=== PATIENT | male | born 1940 | race Caucasian/White ===

== ENCOUNTER 2025-02-10 14:51 | Emergency (ER) | payer MEDICARE, BC, SELFPAY ==
--- OUTSIDE RECORDS SUMMARY | 2024-12-20 13:00 | XMS_ITS | Encounter Summary ---
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 to the report of 11/05/2021 the following changes haveoccurred: TR and MR more prominent. Findings LEFT VENTRICLE:Normal left ventricular chamber size. Normal leftventricular geometry. Calculated 2-D biplane volumetric left ventricularejection fraction of 66%. No regional wall motion abnormalities.Indeterminate left ventricular filling pressure. RIGHT VENTRICLE:Mildly enlarged right ventricular chamber size. Mildlyreduced right ventricular systolic function. Averaged right ventricularfree wall longitudinal peak systolic strain, vendor calculated, is -18%(normal </= -25%). Estimated right ventricular systolic pressure 37 mmHg(right atrial pressure of 10 mmHg). ATRIA:Severely enlarged left atrial size. Left atrial volume index 53ml/m2. Severely enlarged right atrial size. CARDIAC VALVES:Trileaflet aortic valve. Mildly thickened aortic valve.Mild aortic valve regurgitation. Thickened mitral valve. Mild-moderatemitral valve regurgitation. Mitral regurgitant volume (PISA) 29 ml. Mitralregurgitation ERO (PISA) 0.17 cm2. Normal pulmonary valve. Trivialpulmonary valve regurgitation. Thickened tricuspid valve. Mild-moderatetricuspid valve regurgitation. Tricuspid regurgitant volume (PISA) 25 ml.Tricuspid regurgitation ERO (PISA) 0.30 cm2. OTHER ECHO FINDINGS:Normal inferior vena cava size with reducedinspiratory collapse (<50%). Normal sinus of Valsalva diameter of 35 mm.Proximal ascending aorta diameter of 40 mm. Normal mid ascending aortadiameter of 40 mm. Abdominal aorta incompletely visualized. Normalabdominal aorta Doppler flow pattern. No atrial level shunt by color flowimaging. No intracardiac mass or thrombus, but the left atrial appendagecannot be visualized adequately with transthoracic echo to excludethrombus in this location. No pericardial effusion. For the complete report, see the Order-Level Documents. us Ema Del Toro APRN, C.N.P., M.S.N. CV ECHO DARCI BENITEZ Final Result documented in this encounter Visit Diagnoses Diagnosis Atrial Fibrillation Longstanding Persistent (HCC)- Primary Anticoagulant Therapy Hypertension Essential Primary Repeated Falls Ataxia Neuropathy Atrial Fibrillation Longstanding Persistent (HCC) Atrial Fibrillation Longstanding Persistent (HCC) documented in this encounter Additional Health Concerns Assessment Noted Time PHQ-9 Depression Total Score: 1 01/26/20 23 2:13 PM CDT documented as of this encounter Care Teams Glazing Superintendent Relationship Specialty Start Date End Date Elsewhere, Pcp PCP - General Internal Medicine 01/30/24 documented as of this encounter
--- OUTSIDE RECORDS SUMMARY | 2024-12-31 09:05 | XMS_ITS | Encounter Summary ---
Author Organization [facility] Address [address] [place] [address] Care Team Providers Care Project Administrator Name Role Phone Elsewhere, Pcp Primary Care Provider Unavailabl e Reason for Referral * Gastrointestinal (Routine) - Closed Specialty Diagnoses / Procedures Referred By Contac t Referred To Contact Diagnoses Dysphagia Procedures EGD (EsophagoGastroDuodenoscopy) Restricted Gaetano Roman APRN, C.N.P., M.S. [address] [place] [address] Phone: tel: fax: [facility] Referral ID Status Reason Start Date Expiration Date Visits Re quested Visits Authorized [id number] Closed 12/25/2024 03/27/2026 1 1 Reason for Visit * Gastrointestinal (Routine) - Closed Specialty Diagnoses / Procedures Referred By Contac t Referred To Contact Diagnoses Dysphagia Procedures EGD (EsophagoGastroDuodenoscopy) Restricted Gaetano Roman APRN, C.N.P., M.S. [address] [place] [phone] Phone: tel: fax: [facility] Referral ID Status Reason Start Date Expiration Date Visits Re quested Visits Authorized [id number] Closed 12/25/2024 03/27/2026 1 1 Encounter Details Date Type Department Care Team (Latest Contact Info) Description 12/31/2024 9:05 AM CDT - 12/31/2024 1:10 PM CDT Hospital Encounter Division of Gastroenterology in [place], [place] [address] [place] [address] Gaetano Roman APRN, C.N.Eleonora., M.S. [address] [place] [address] Dysphagia Discharge Disposition: Home or Self Care Social History Tobacco Use Types Packs/Day Years [...] things needed for daily living? No 12/31/2024 [facility] Utilities Answer Date Recorded In the past 12 months has th [employer], gas, oil, or water company threatened to shut off services in your home? No 12/31/2024 Depression Answer Date Recor ded PHQ-9 Total Score (max 27) 1 01/25 Housing Stability Answer Date Recorded What is your living situation today? I have a [facility] place to live 12/31/2024 Education Answer Date Recorded What is the highest level of school you have completed or the highest degree you have received? Bachelor's degree (e.g., BA, AB, BS) 01/09/2019 Sex and Gender Information Value Date Recorded Sex Assigned at Male 12/27/2018 12:13 PM CDT Legal Sex Male 1:57 PM [employer] Gender Identity Male 09/04/2018 3:21 PM CDT Sexual Orientation Straight 09/04/2018 3: 21 PM CDT documented as of this encounter Last Filed Vital Signs Vital Sign Reading Time Taken Comments Blood Pressure 127/84 12/31/2024 12:56 PM CDT Pulse 86 12/31/2024 1:01 PM CDT Temperature 36.5 C (97.7 F) 12/31/2024 11:49 AM CDT Respiratory Rate 17 12/31/2024 1:01 PM CDT Oxygen Saturation 95% 12/31/2024 1:01 PM CDT Inhaled Oxygen Concentration - - Weight 84.8 kg (187 lb) 12/31/2024 10:46 AM CDT Height 185.4 cm (6' 1) 12/31/2024 10:46 AM CDT Body Mass Index 24.67 12/31/2024 10:46 AM CDT documented in this encounter Discharge Instructions * Discharge Instr - Other Orders* Opal Osuna, R.N. - 12/31/2024 12:37 PM CDT After Upper Endoscopy 12/31 *No restriction on food *You may resume Eliquis tomorrow 01/01 *You may resume all other medications as prescribed documented in this encounter Medications at Time of Discharge apixaban (Eliquis) 5 mg tablet Take 1 tablet (5 mg total) by mouth 2 (two) times a day. 180 tablet 3 01/05/2024 atenoloL (TENORMIN) 50 mg tablet Take 50 mg by mouth 2 (two) times a day. 10/04/2022 fexofenadine (MOISES) 180 mg tablet Take 1 tablet by mouth daily. 09/26/2010 GLUCOSAMINE HCL/CHONDROITIN AKERS (GLUCOSAMINE-EMMETT DROITIN ORAL) Take 2 tablets by mouth daily. 11/23/2016 multivitamin tablet Take 1 tablet by mouth daily. 11/23/2016 s-adenosylmethion ine (SVEN-e) 400 mg tablet Take 1 tablet by mouth daily. documented as of this encounter Plan of Treatment Upcoming Encounters Date Type Department Care Team (Late st Contact Info) Description 02/11/2025 3:15 PM CDT Appointment Department of Radiation Oncology in [address] [phone] Rey Meadows M.D. [address] [place] [phone] 02/12/2025 1:30 PM CDT Appointment Department of Radiation Oncology in [address] [phone] Rey Meadows M.D. [address] [place] [phone] 02/12/2025 2:00 PM CDT Appointment Department of Radiation Oncology in [address] [phone] Rey Meadows M.D. [address] [place] [phone] 02/13/2025 1:15 PM CDT Appointment Department of Radiation Oncology in [address] [phone] Rey Meadows M.D. [address] [place] [phone] 02/14/2025 12:30 PM CDT Appointment Department of Radiation Oncology in [place], [place] [address] [place] [phone] Rey Meadows M.D. [address] [place] [address] 02/17/2025 1:15 PM CDT Appointment Department of Radiation Oncology in [address] [phone] Rey Meadows M.D. [address] [place] [address] 02/18/2025 1:15 PM CDT Appointment Department of Radiation Oncology in [address] [address] Rey Meadows M.D. [address] [place] [address] 02/19/2025 1:15 PM CDT Appointment Department of Radiation Oncology in [address] [address] Rey Meadows M.D. [address] [place] [phone] 02/19/2025 1:45 PM CDT Appointment Department of Radiation Oncology in [address] [phone] Rey Meadows M.D. [address] [place] [phone] 02/20/2025 1:15 PM CDT Appointment Department of Radiation Oncology in [address] [phone] Rey Meadows M.D. [address] [place] [phone] 02/21/2025 12:30 PM CDT Appointment Department of Radiation Oncology in [place], [place] [address] [place] [phone] Rey Meadows M.D. [address] [place] [phone] 02/24/2025 12:30 PM CDT Appointment Department of Radiation Oncology in [place], [place] [address] [place] [phone] Rey Meadows M.D. [address] [place] [phone] 02/25/2025 12:30 PM CDT Appointment Department of Radiation Oncology in [place], [place] [address] [place] [phone] Rey Meadows M.D. [address] [place] [phone] 02/26/2025 12:30 PM CDT Appointment Department of Radiation Oncology in [place], [place] [address] [place] [address] Rey Meadows M.D. [address] [place] [phone] 02/26/2025 1:15 PM CDT Appointment Department of Radiation Oncology in [place], [place] [address] [place] [address] Rey Meadows M.D. [address] [place] [phone] 02/27/2025 12:30 PM CDT Appointment Department of Radiation Oncology in [place], [place] [address] [place] [phone] Rey Meadows M.D. [address] [place] [address] 02/28/2025 12:30 PM CDT Appointment Department of Radiation Oncology in [place], [place] [address] [place] [phone] Rey Meadows M.D. [address] [place] [phone] documented as of this encounter Procedures Procedure Name Priority Date/Time Associated Diagnosis Comments SURGICAL PATHOLOGY Routine 12/31/2024 11 :35 AM CDT EGD (ESOPHAGOGASTRODUODE NOSCOPY) RESTRICTED Routine 12/31/2024 11:24 AM CDT Dysphagia UPPER GI ENDOSCOPY Routine 12/31/2024 11 :24 AM CDT Dysphagia documented in this encounter Results * Surgical Pathology (12/31/2024 11:35 AM CDT) 01/01/2025 4:03 PM CDT DTL Report electronically signed by Rosa Aguirre.B.S. I verify that I have examined all relevant slides/materials for the specimen(s) and rendered or confirmed the diagnosis. Seen in consultation with: Lizette Juan M.D. 01/01/2025 4:03 PM CDT DTL Gross Description Received in formalin labeled with the patient's name, medical record number, and esophagus, 44-48 cm at 12 o'clock and 4 o'clock aremultiple translucent-pale npw-uohv-rha irregular soft tissues, admixed with minute tissue fragments that may not survive processing, thetissues ranging from 0.2-0.5 cm in greatest dimension. Specimens are submitted en toto in cassettes A1-A2, each containing sevenspecimens and A3, containing eight specimens. Grossed by YUO. 01/01/2025 4:03 PM CDT DTL Addendum Tempus xT, Solid Janki or has been requested by Dr. Sienna Dempsey and will be performed on block A1 at [facility], [place], [place]. Signed by Fidel Tilley M.D., Ph.D. 01/21/2025 11:55 AM Esophagus, 44-48 cm at 12 o'clock and 4 o'clock, specimen for CLD18 immunohistochemistry studies ([id number] ([id number]) clone [id number], [facility], [place], [place]; using a proprietary detection system) (A1) Claudin 18.2 Positive: 90% of tumor cells with 2+ and/or 3+ membrane staining. Interpretation: Claudin 18.2 is a biomarker that, when positive (showing at least moderate membranous staining) in more than 75% of tumor cells, predicts a response to zolbetuximab and has been approved for gastric and gastroesophageal adenocarcinoma. The Claudin 18.2 antibody (clone [id number]) is sourced from [employer] and testing was performed per clinical validation and relevant pill coater-provided instructions. This result should be interpreted in the appropriate clinical context. Fixation: This test has been validated for non-decalcified paraffin embedded tissue specimens fixed in 10% neutral buffered formalin. Recommended fixation time is between 6-48 hours. This assay has not been validated on tissues subjected to the decalcification process and /or use of alternative fixatives. Signed by Abdirashid Sands M.D., Ph.D. 01/19/2025 10:47 AM This test has been modified from the pill coater's instructions. Its performance characteristics were determined by [facility] in a manner consistent with CLIA requirements. This test has not been cleared or approved by the U.S. Food and Drug Administration. A portion of the testing process was performed at [facility] site [id number]. Esophagus, 44-48 cm at 12 o'clock and 4 o'clock, specimen for PD-L1 immunohistochemistry studies (clone [id number], [facility], [place], [place]; using a proprietary detection system) (A1): Provided tumor type: Adenocarcinoma Result: Positive <1% of tumor cells are positive for PD-L1 (membranous positivity). 20% of tumor associated immune cells are positive for PD-L1 (membranous or cytoplasmic positivity). Based upon the tumor cell and tumor-associated immune cell expression, the combined positive score (CPS) is 10. Interpretation: Studies suggest that positive PD-L1 immunohistochemical expression in tumor cells and/or tumor associated immune cells may predict tumor response to therapy with immune checkpoint inhibitors. This result should not be used as the sole factor in determining treatment, as other factors (microsatellite instability, tumor mutation burden, etc.) have been also studied as predictive markers in some tumor types. Fixation: This test has been validated for non-decalcified paraffin embedded tissue specimens fixed in 10% neutral buffered formalin. This assay has not been validated on tissues subjected to the decalcification process and/or use of alternative fixatives for bone/bone marrow specimens or cell blocks. Signed by Abdirashid Sands M.D., Ph.D. 01/15/2025 2:22 PM Esophagus, 44-48 cm at 12 o'clock and 4 o'clock, endoscopic biopsy, block A1 SPECIAL PROCEDURE REPORT Biomarker(s) for: Stomach/gastroesophage al junction adenocarcinoma Result(s): HER2 by Immunohistochemistry (IHC): Negative, Score 0 METHOD AND SCORING HER2 Stomach/gastroesophage al junction Manual Method: Testing is performed using a modified FDA approved [employer] HER2 (4B5) rabbit monoclonal primary antibody and a proprietary detection system. Controls used have: no expression (HER2 score of 0), low expression (HER2 score of 1+) and high expression (HER2 score of 3+). All controls show appropriate reactivity. Scoring is performed according to the following article: Myles J, Jony M, Génesis G, et al. HER2 diagnostics in gastric cancer-guideline validation and development of standardized immunohistochemical testing. [place] Arch. Sep; 457 (3):299-307. Surgical resections: Score of 0 is no reactivity or membranous reactivity in <10% of invasive tumor cells. Score of 1+ is faint/barely perceptible membranous reactivity in >or=10% of tumor cells; cells are reactive only in part of their membrane. Score of 2+ is weak to moderate complete, basolateral or lateral membranous reactivity in >or=10% of tumor cells. Score of 3+ is strong complete, basolateral or lateral membranous reactivity in >or=10% of tumor cells. Biopsy specimens: Score of 0 is no reactivity or no membranous reactivity in any invasive tumor cells. Score of 1+ is *tumor cell cluster(s) with a faint/barely perceptible membranous reactivity irrespective of percentage of invasive tumor cells stained. Score of 2+ is *tumor cell cluster(s) with a weak to moderate complete, basolateral or lateral membranous reactivity irrespective of percentage of invasive tumor cells stained. Score of 3+ is *tumor cell cluster(s) with a strong complete, basolateral or lateral membranous reactivity irrespective of percentage of invasive tumor cells stained. *Tumor cells cluster is defined as a cluster of 5 or more tumor cells by Myles and colleagues. There is no percentage cutoff in biopsy specimens for upper GI tract HER2 scoring. This test has been modified from the pill coater's instructions. Its performance characteristics were determined by [facility] in a manner consistent with CLIA requirements. This test has not been cleared or approved by the U.S. Food and Drug Administration. Signed by Mackenzie Crawford M.D., Ph.D. 01/14/2025 3:33 PM This test was developed using an analyte specific reagent. Its performance characteristics were determined by [facility] in a manner consistent with CLIA requirements. This test has not been cleared or approved by the U.S. Food and Drug Administration. Test results for (IHC or EMMA) testing are valid for specimens fixed between 6 and 72 hours. Delay to fixation, under fixation or over fixation fall outside of guidelines and may affect these results. MMR Protein, IHC Only, Tumor (IHC) will be performed and resulted in the patient's medical record. Signed by Remberto Dobbs M.D. 01/13/2025 10:27 AM 01/21/2025 11:55 AM CDT DTL Comment:REVISED RESULTS Interpretation FINAL DIAGNOSIS A. 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 Digital imaging was used in the diagnostic assessment of this case. 01/21/2025 11:55 AM CDT DTL Biopsy (Esophagus) 12/31/2024 11:35 AM CDT Mars Marrero M.D., Ph.D. LAB SURG PATH [facility] JACOB Edited Result - Final [facility] [address] [place] [address], [facility] [address] [place] [address] * Upper GI Endoscopy (12/31/2024 11:24 AM CDT) Anatomical Region Laterality Modality Digital Radiogra phy 12/31/2024 11:2 4 AM CDT Impressions 12/31/2024 12:19 PM CDT Post-op Diagnoses: - Malignant-appearing esophageal stenosis. Biopsied. 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 - Hematin (altered blood/igteyg-fixhsw-erex material) in the entire stomach. - Normal first portion of the duodenum and second portion of the duodenum. Narrative 12/31/2024 12:19 PM CDT [facility] 6 GI GI Patient Name: Rey Li Date of : 1940 Age: 84 Procedure Date: 12/31/2024 Procedure: Upper GI endoscopy Providers: Mars Marrero MD Referring Provider: Gaetano Roman Pre-op Diagnoses: Dysphagia Recommendation: - Patient has a contact number available for emergencies. The signs and symptoms of potential delayed complications were discussed with the patient. Return to normal activities tomorrow. Written discharge instructions were provided to the patient. - Await pathology results. - Return to referring physician as previously scheduled. Findings: One malignant-appearing, intrinsic mild (non-circumferential scarring) stenosis was found 45-48 cm from the incisors. This stenosis measured 1.4 cm (inner diameter) x 3 cm (in length). The stenosis was traversed. Biopsies were taken with a cold forceps for histology. A medium-sized, fungating and ulcerating mass with bleeding and stigmata of recent bleeding was found at the gastroesophageal junction, 45 cm from the incisors. The mass was partially obstructing and partially circumferential (involving one-third of the lumen circumference). 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 Hematin (altered blood/qrphum-pudjic-qrnh material) was found in the entire examined stomach. The exam of the stomach was otherwise normal. The first portion of the duodenum and second portion of the duodenum were normal. Procedural Details: The patient was seen, evaluated, history reviewed, airway and heart-lung exams were performed by licensed provider and were satisfactory for planned level of sedation care. The risks, benefits and alternatives for the procedure and sedation were discussed and informed consent was obtained. A procedural pause was conducted in the presence of assisting personnel to verify the correct patient identity and procedure to be performed. Throughout the procedure, the patient's blood pressure, pulse, and oxygen saturations were monitored continuously. The Gastroscope was introduced under direct vision through the mouth, and advanced to the second part of duodenum. The upper GI endoscopy was accomplished without difficulty. Estimated Blood Loss: Estimated blood loss was minimal. Complications: No immediate complications. Sedation: Anesthesia was administered by an anesthesia professional. The following parameters were monitored: oxygen saturation, heart rate, blood pressure, respiratory rate, EKG, adequacy of pulmonary ventilation, and response to care. Attending Participation: I personally performed the entire procedure. Dr. Mars Marrero MD 12/31/2024 12:19:01 PM This report has been signed electronically. Number of Addenda: 0 us Gaetano Roman APRN, C.N.P., M.S. GI PROCEDURE ORDERABLES Final Result documented in this encounter Visit Diagnoses Diagnosis Dysphagia documented in this encounter Additional Health Concerns Assessment Noted Time PHQ-9 Depression Total Score: 1 01/26/20 23 2:13 PM CDT documented as of this encounter Care Teams Project Administrator Relationship Specialty Start Date End Date Elsewhere, Pcp PCP - General Internal Medicine 01/30/24 documented as of this encounter
--- OUTSIDE RECORDS SUMMARY | 2024-12-31 11:22 | XMS_ITS | Encounter Summary ---
Author Organization [facility] Address [address] [place] [id number] Care Team Providers Care Director Paid Media Name Role Phone Elsewhere, Pcp Primary Care Provider Unavailabl e Encounter Details Date Type Department Care Team (Late st Contact Info) Description 12/31/2024 11:22 AM CDT Anesthesia Event Division of Gastroenterology in [place], [place] [address] [place] [phone] Emily Grady APRN, CRNA, D.N.P. [address] [place] [phone] Clay Stahl APRN, CRNA [address] [place] [phone] Anesthesia Record Procedure Summary Procedure Name Responsible Anesthesiologist Anesthesia Start Time Anesthesia Stop Time EGD (ESOPHAGOGASTRODUODE NOSCOPY) RESTRICTED Emily Grady APRN, CRNA, D.N.P. 12/31/24 1122 12/31/24 1150 Events Date Time Event Comment 12/31/2024 1122 An Start Machine/Equipme nt Checked Infection Precautions Followed Procedure/Site Verified NPO Status Verified Supine Standard ASA Monitors Applied 1124 Turnover to Proceduralist 1129 Proc Start 1135 Anes CS Handoff IClay APRN, CRNA, attest that I have reconciled the controlled substances and that I have reviewed all the significant information with the next anesthesia provider assuming care of this patient. 1142 Proc Fin 1143 Turnover to ANE Staff 1146 an stop data 1150 An End I completed my handoff to the receiving staff during which we 1. Identified the patient 2. Identified the responsible provider 3. Reviewed the pertinent medical history 4. Discussed the surgical course 5. Reviewed intra-op anesthesia management and issues during anesthesia 6. Set expectations for post-procedure period 7. Allowed opportunity for questions and acknowledgement of understanding. Meds Name Total lidocaine 2% (mg) injection 60 mg ondansetron PF 4 mg/2 mL injection 4 mg propofol 10 mg/mL injection 50 mg propofol 10 mg/mL infusion 254.4 mg Lactated Ringers Free Drip 300 mL * Agents No agents on file. * Blood No blood administrations on file. Lines, Drains, and Airways Type Details Placement Removal Peripheral IV Placement Date: 06/25; Placement Time: 1101; Catheter Size: 22 G; Orientation: Left, Posterior; Location: Hand; Removal Date: 12/31/24; Removal Time: 1306; Removal Reason: Completion of therapy 12/31/24 1101 by Opal Osuna, R.N. 12/31/24 1306 by Jackie Rosas, R.N. documented in this encounter Social History Tobacco Use Types Packs/Day Years [...] things needed for daily living? No 12/31/2024 [facility] Utilities Answer Date Recorded In the past 12 months has th [employer] electric, gas, oil, or water company threatened to shut off services in your home? No 12/31/2024 Depression Answer Date Recor ded PHQ-9 Total Score (max 27) 1 01/25 Housing Stability Answer Date Recorded What is your living situation today? [facility] 12/31/2024 Education Answer Date Recorded What is the highest level of school you have completed or the highest degree you have received? 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 Responsible Provider: Emily Grady APRN, CRNA, D.N.P. Anesthesia Type: MAC ASA Status: 3 Anesthesia Type: MAC Last vitals Vitals Value Taken Time BP 90/46 12/31/24 11:50 Temp Pulse 71 12/31/24 11:50 Resp 16 12/31/24 11:50 SpO2 98 % 12/31/24 11:50 Vitals shown include unfiled device data. Please reference Vitals flowsheet for most recent vital signs. Anesthesia Post Evaluation Patient Disposition: dismissal Cardiovascular status: hemodynamics (HR & BP) acceptable Respiratory status: patent airway with spontaneous effort Temperature: normothermic Oxygen requirements: room air Level of consciousness: awake Pain score: pain adequately controlled and/or at baseline Post Op nausea/vomiting: none Hydration status: euvolemic Notable Events No notable events documented. * Anesthesia Preprocedure Evaluation - Clay Stahl APRN, CRNA - 12/31/2024 11:26 AM CDT Preprocedure Anesthesia & H&P Assessment Procedure Summary Anesthesia Start Date/Time: 12/31/24 1122 Scheduled providers: Mars Marrero M.D., Ph.D. Procedure: EGD (ESOPHAGOGASTRODUODENOSCOPY) RESTRICTED Diagnosis: Dysphagia [R13.10] Dysphagia [R13.10] Location: Division of Gastroenterology in [place], [place] Pertinent components of the patient's history including current problem list, medical history, surgical history, family history, social history, medications and allergies were reviewed. Present illness and pre-op diagnosis were confirmed. The planned surgery / procedure was verified with the patient / legal guardian. The patient's general health condition remains unchanged RELEVANT COMORBID CONDITIONS CV (+) Atrial Fibrillation Longstanding Persistent (HCC) (+) Hypertension Essential Primary (+) Purpura Senile (+) Typical Atrial Flutter (HCC) OBJECTIVE PHYSICAL EXAMINATION Airway (HEENT) Mallampati: II TM Distance: >3 FB Neck ROM: Full Mouth Opening: >3 cm Upper Lip Bite Test Class: II Cardiovascular Rhythm: Irregular Rate: Abnormal Cardiovascular Assessment: cardiovascular normal Functional Capacity: >4 METS Pulmonary Pulmonary Assessment: Clear General / Constitutional Constitutional Assessment: Normal General State of Health:: calm Neurological Neurologic Assessment: alert and alert and oriented x 3 Dental Dental Assessment: dentition intact ASSESSMENT / PLAN ANESTHESIA PLAN ASA: 3 Anesthesia Plan: MAC Patient seen and allergies reviewed, anesthesia plan and risks discussed directly with patient /legal guardian or through an auto radiator specialist. Risks/Benefits/Alternatives of Blood transfusion discussed with patient / legal guardian, includingan opportunity to ask questions and/or decline some or all transfusion therapies. The patient / legal guardian consented to the use of all blood products, as deemed medically necessary Approval to Proceed: approved for anesthesia documented in this encounter Plan of Treatment Upcoming Encounters Date Type Department Care Team (Late st Contact Info) Description 02/11/2025 3:15 PM CDT Appointment Department of Radiation Oncology in [address] [phone] Rey Meadows M.D. [address] [place] [phone] 02/12/2025 1:30 PM CDT Appointment Department of Radiation Oncology in [address] [phone] Rey Meadows M.D. [address] [place] [phone] 02/12/2025 2:00 PM CDT Appointment Department of Radiation Oncology in [address] [phone] Rey Meadows M.D. [address] [place] [phone] 02/13/2025 1:15 PM CDT Appointment Department of Radiation Oncology in [address] [phone] Rey Meadows M.D. [address] [place] [phone] 02/14/2025 12:30 PM CDT Appointment Department of Radiation Oncology in [place], [place] [address] [place] [phone] Rey Meadows M.D. [address] [place] [phone] 02/17/2025 1:15 PM CDT Appointment Department of Radiation Oncology in [place], [place] [address] [place] [address] Rey Meadows M.D. [address] [place] [phone] 02/18/2025 1:15 PM CDT Appointment Department of Radiation Oncology in [address] [phone] Rey Meadows M.D. [address] [place] [phone] 02/19/2025 1:15 PM CDT Appointment Department of Radiation Oncology in [place], [place] [address] [place] [phone] Rey Meadows M.D. [address] [place] [phone] 02/19/2025 1:45 PM CDT Appointment Department of Radiation Oncology in [place], [place] [address] [place] [phone] Rey Meadows M.D. [address] [place] [phone] 02/20/2025 1:15 PM CDT Appointment Department of Radiation Oncology in [place], [place] [address] [place] [address] Rey Meadows M.D. [address] [place] [phone] 02/21/2025 12:30 PM CDT Appointment Department of Radiation Oncology in [place], [place] [address] [place] [phone] Rey Meadows M.D. [address] [place] [phone] 02/24/2025 12:30 PM CDT Appointment Department of Radiation Oncology in [place], [place] [address] [place] [phone] Rey Meadows M.D. [address] [place] [phone] 02/25/2025 12:30 PM CDT Appointment Department of Radiation Oncology in [address] [phone] Rey Meadows M.D. [address] [place] [phone] 02/26/2025 12:30 PM CDT Appointment Department of Radiation Oncology in [place], [place] [address] [place] [phone] Rey Meadows M.D. [address] [place] [phone] 02/26/2025 1:15 PM CDT Appointment Department of Radiation Oncology in [place], [place] [address] [place] [phone] Rey Meadows M.D. [address] [place] [phone] 02/27/2025 12:30 PM CDT Appointment Department of Radiation Oncology in [address] [phone] Rey Meadows M.D. [address] [place] [phone] 02/28/2025 12:30 PM CDT Appointment Department of Radiation Oncology in [place], [place] [address] [place] [phone] Rey Meadows M.D. [address] [place] [phone] documented as of this encounter Visit Diagnoses Not on filedocumented in this encounter Administered Medications Inactive Administered Medications - up to 3 most recent administrations Medication Order MAR Action Action Date Dose Rate Site Lactated Ringer's intravenous, Continuous Infusion: Per Instructions PRN, Starting on Mon12/31/24 at 1121, Anesthesia Intra-op New Bag 12/31/2024 11:21 AM CDT lidocaine (PF) (cardiac) injection intravenous, As needed, Starting on Mon12/31/24 at 1125, Anesthesia Intra-op Given 12/31/2024 11:25 AM CDT 60 mg ondansetron (PF) injection (Zofran) intravenous, As needed, Starting on Mon12/31/24 at 1125, Anesthesia Intra-op Given 12/31/2024 11:25 AM CDT 4 mg propofol 10 mg/mL infusion (Diprivan) intravenous, Continuous Infusion: Per Instructions PRN, Starting on Mon12/31/24 at 1126, Anesthesia Intra-op New Bag 12/31/2024 11:26 AM CDT 125 mcg/kg/min 63.6 mL/hr propofoL injection (Diprivan) intravenous, As needed, Starting on 12/31/24 at 1126, Anesthesia Intra-op Given 12/31/2024 11:26 AM CDT 50 mg documented in this encounter Additional Health Concerns Assessment Noted Time PHQ-9 Depression Total Score: 1 01/26/20 23 2:13 PM CDT documented as of this encounter Care Teams Director Paid Media Relationship Specialty Start Date End Date Elsewhere, Pcp PCP - General Internal Medicine 01/30/24 documented as of this encounter
--- OUTSIDE RECORDS SUMMARY | 2024-12-31 11:25 | XMS_ITS | Encounter Summary ---
Author Organization [facility] Address [address] [place] [address] Care Team Providers Care Refractory Manager Name Role Phone Elsewhere, Pcp Primary Care Provider Unavailabl e Encounter Details Date Type Department Care Team (Latest Contact Info) Description 12/31/2024 11:25 AM CDT Ancillary Procedure Department of Gastroenterology Social History Tobacco Use Types Packs/Day Years [...] things needed for daily living? No 12/31/2024 [facility] Utilities Answer Date Recorded In the past 12 months has [employer], gas, oil, or water [employer] threatened to shut off services in your home? No 12/31/2024 Depression Answer Date Recor ded PHQ-9 Total Score (max 27) 1 01/25 Housing Stability Answer Date Recorded What is your living situation today? [facility] 12/31/2024 Education Answer Date Recorded What is the highest level of school you have completed or the highest degree you have received? 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 [address] [place] [phone] 02/12/2025 1:30 PM CDT Appointment Department of Radiation Oncology in [place], [place] [address] [place] [address] Rey Meadows M.D. [address] [place] [phone] 02/12/2025 2:00 PM CDT Appointment Department of Radiation Oncology in [place], [place] [address] [place] [phone] Rye Meadows M.D. [address] [place] [phone] 02/13/2025 1:15 PM CDT Appointment Department of Radiation Oncology in [place], [place] [address] [place] [phone] Rey Meadows M.D. [address] [place] [phone] 02/14/2025 12:30 PM CDT Appointment Department of Radiation Oncology in [address] [phone] Rey Meadows M.D. [address] [place] [phone] 02/17/2025 1:15 PM CDT Appointment Department of Radiation Oncology in [place], [place] [address] [place] [phone] Rey Meadows M.D. [address] [place] [phone] 02/18/2025 1:15 PM CDT Appointment Department of Radiation Oncology in [place], [place] [address] [place] [phone] Rey Meadows M.D. [address] [place] [phone] 02/19/2025 1:15 PM CDT Appointment Department of Radiation Oncology in [place], [place] [address] [place] [phone] Rey Meadows M.D. [address] [place] [phone] 02/19/2025 1:45 PM CDT Appointment Department of Radiation Oncology in [address] [phone] Rey Meadows M.D. [address] [place] [phone] 02/20/2025 1:15 PM CDT Appointment Department of Radiation Oncology in [address] [phone] Rey Meadows M.D. [address] [place] [phone] 02/21/2025 12:30 PM CDT Appointment Department of Radiation Oncology in [address] [phone] Rey Meadows M.D. [address] [place] [phone] 02/24/2025 12:30 PM CDT Appointment Department of Radiation Oncology in [address] [phone] Rey Meadows M.D. [address] [place] [phone] 02/25/2025 12:30 PM CDT Appointment Department of Radiation Oncology in [address] [phone] Rey Meadows M.D. [address] [place] [phone] 02/26/2025 12:30 PM CDT Appointment Department of Radiation Oncology in [address] [phone] Rey Meadows M.D. [address] [place] [phone] 02/26/2025 1:15 PM CDT Appointment Department of Radiation Oncology in [address] [phone] Rey Meadows M.D. [address] [place] [phone] 02/27/2025 12:30 PM CDT Appointment Department of Radiation Oncology in [address] [phone] Rey Meadows M.D. [address] [place] [phone] 02/28/2025 12:30 PM CDT Appointment Department of Radiation Oncology in [address] [phone] Rey Meadows M.D. [address] [place] [phone] documented as of this encounter Procedures Procedure Name Priority Date/Time Associated Diagnosis Comments GASTROENTEROLOGY IMAGE EXAM Routine 12/31/2024 11:25 AM CDT documented in this encounter Results * Upper GI endoscopy-Gastroenterology Image Exam (12/31/2024 11:25 AM CDT) 12/31/2024 11:2 4 AM CDT Narrative [facility] - 12/31/2024 12:30 PM CDT This order has been created and auto-finalized to support the import of images acquired without order. The clinical documentation to support these images can be found on the encounter that produced images. us Provider Not In System IMG NON RAD IMAGING PROCE DURES Final Result [facility] NA documented in this encounter Visit Diagnoses Not on filedocumented in this encounter Additional Health Concerns Assessment Noted Time PHQ-9 Depression Total Score: 1 01/26/20 23 2:13 PM CDT documented as of this encounter Care Teams Refractory Manager Relationship Specialty Start Date End Date Elsewhere, Pcp PCP - General Internal Medicine 01/30/24 documented as of this encounter
--- OUTSIDE RECORDS SUMMARY | 2025-01-05 12:17 | XMS_ITS | Encounter Summary ---
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 [address] [place] [phone] Phone: tel: fax: [facility] Referral ID Status Reason Start Date Expiration Date Visits Re quested Visits Authorized [id number] Closed 12/31/2024 04/02/2026 1 1 Encounter Details Date Type Department Care Team (Latest Contact Info) Description 01/05/2025 12:17 PM CDT - 01/05/2025 11:59 PM CDT Hospital Encounter Department of Radiology, [facility] in [place], [place] [address] [place] [phone] Gaetano Roman APRN, C.N.P., M.S. 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 No 12/31/2024 [facility] Utilities Answer Date Recorded In the past 12 months has th e [employer], gas, oil, or water company threatened to shut off services in your home? No 12/31/2024 Depression Answer Date Recor ded PHQ-9 Total Score (max 27) 1 01/25 Housing Stability Answer Date Recorded What is your living situation today? I have a [facility] place to live 12/31/2024 Education Answer Date Recorded What is the highest level of school you have completed or the highest degree you have received? 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 [address] [place] [phone] 02/12/2025 1:30 PM CDT Appointment Department of Radiation Oncology in [address] [phone] Rey Meadows M.D. [address] [place] [phone] 02/12/2025 2:00 PM CDT Appointment Department of Radiation Oncology in [address] [phone] Rey Meadows M.D. [address] [place] [phone] 02/13/2025 1:15 PM CDT Appointment Department of Radiation Oncology in [address] [phone] Rey Meadows M.D. [address] [place] [phone] 02/14/2025 12:30 PM CDT Appointment Department of Radiation Oncology in [address] [phone] Rey Meadows M.D. [address] [place] [phone] 02/17/2025 1:15 PM CDT Appointment Department of Radiation Oncology in [place], [place] [address] [place] [phone] Rey Meadows M.D. [address] [place] [phone] 02/18/2025 1:15 PM CDT Appointment Department of Radiation Oncology in [place], [place] [address] [place] [phone] Rey Meadows M.D. [address] [place] [phone] 02/19/2025 1:15 PM CDT Appointment Department of Radiation Oncology in [address] [phone] Rey Meadows M.D. [address] [place] [phone] 02/19/2025 1:45 PM CDT Appointment Department of Radiation Oncology in [address] [phone] Rey Meadows M.D. [address] [place] [phone] 02/20/2025 1:15 PM CDT Appointment Department of Radiation Oncology in [place], [place] [address] [place] [phone] Rey Meadows M.D. [address] [place] [phone] 02/21/2025 12:30 PM CDT Appointment Department of Radiation Oncology in [place], [place] [address] [place] [phone] Rey Meadows M.D. [address] [place] [phone] 02/24/2025 12:30 PM CDT Appointment Department of Radiation Oncology in [place], [place] [address] [place] [address] Rey Meadows M.D. [address] [place] [phone] 02/25/2025 12:30 PM CDT Appointment Department of Radiation Oncology in [address] [phone] Rey Meadows M.D. [address] [place] [phone] 02/26/2025 12:30 PM CDT Appointment Department of Radiation Oncology in [place], [place] [address] [place] [phone] Rey Meadows M.D. [address] [place] [phone] 02/26/2025 1:15 PM CDT Appointment Department of Radiation Oncology in [place], [place] [address] [place] [phone] Rey Meadows M.D. [address] [place] [phone] 02/27/2025 12:30 PM CDT Appointment Department of Radiation Oncology in [place], [place] [address] [place] [address] Rey Meadows M.D. [address] [place] [phone] 02/28/2025 12:30 PM CDT Appointment Department of Radiation Oncology in [place], [place] [address] [place] [address] Rey Meadows M.D. 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 This is best seen on images 4 through 20 of series 1 or images 42 through 54 of series 4. Normal sized gastrohepatic lymph node. Splenic and hepatic granulomas. Multiple simple cysts within the kidneys. The adrenals and pancreas are negative. Colonic diverticulosis. Previous prostatectomy. Degenerative changes lumbar spine. Normal caliber large and small bowel. Remainder unchanged from prior study. Please see chest CT report. Procedure Note Hector Rodriguez M.D. - 01/05/2025 EXAM: CT ABDOMEN PELVIS WITH IV CONTRAST COMPARISON: 12/03/2024 PET FINDINGS: Diffuse soft tissue thickening involving the distal esophagusextending into the proximal stomach compatible with the patient's knowngastroesophageal junction malignancy. This is best seen on images 4through 20 of series 1 or images 42 through 54 of series 4. Normal sized gastrohepatic lymph node. Splenic andhepatic granulomas. Multiple simple cysts within the kidneys. The adrenalsand pancreas are negative. Colonic diverticulosis. Previous prostatectomy.Degenerative changes lumbar spine. Normal caliber large and small bowel. Remainder unchanged fromprior study. Please see chest CT report. IMPRESSION: Soft tissue mass involving the distal esophagus and proximal stomach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 us Gaetano Roman APRN C.N.P., M.S. IMG CT PROCED URES Final Result * CT Chest with IV Contrast (01/05/2025 1:49 PM CDT) Anatomical Region Laterality Modality Chest, Thoracic RST LOS, Tho racic ARZ LOS, Thoracic ARZ LOS, Thoracic FLA LOS N/A Computed Tomography, Compute d Tomography 01/05/2025 1:44 PM CDT Impressions 01/06/2025 11:04 AM CDT 1. Several tiny indeterminate pulmonary micronodules measuring up to 3 mm are new or newly visualized since 11/04/2020. 2. Mild soft tissue thickening involving the distal esophagus/proximal stomach corresponding with biopsy-proven gastroesophageal junction malignancy. Narrative 01/06/2025 11:04 AM CDT EXAM: CT CHEST WITH IV CONTRAST COMPARISON: 11/04/2020 CT chest angiogram, 12/03/2024 PSMA PET/CT. FINDINGS: Mild soft tissue thickening at the GE junction/proximal stomach (4/285-290) may correspond with the patient's known esophageal malignancy. A 3 mm solid pulmonary nodule in the right upper lobe (3/303) is new since 11/04/2020, stable since 12/03/2024 PET/CT. A couple of additional tiny 1-2 mm pulmonary micronodules were not well seen on 11/04/2020 and are below PET/CT resolution. For example within the right middle lobe (3/461), right lower lobe (3/481), and left lower lobe (3/434). Several additional scattered small solid pulmonary nodules measuring up to 3 mm have been stable since 11/04/2020 consistent with a benign etiology, for example within the right middle lobe (3/514). Calcified pulmonary granulomas. Scattered peripheral endobronchial mucous plugging. Mild upper lung pulmonary emphysema. Mild biapical scarring. Mild bibasilar atelectasis and/or scarring. Stable small thin-walled air cyst within the right lower lobe (3/553). A trace left pleural effusion has increased since 12/03/2024. No right pleural effusion. No thoracic lymphadenopathy by CT size criteria. Vascular calcifications including mild coronary artery calcification. Mitral annulus calcification. Biatrial chamber enlargement by visual estimate. Stable upper limits of normal ascending aorta measuring approximately 40 mm in diameter. Bilateral gynecomastia. Stable lucency right sixth rib laterally (3/288). No new worrisome osseous lesion. Unchanged mild anterior wedging of several lower thoracic vertebral bodies. This examination was performed in conjunction with a CT of the abdomen, which will be reported separately. Procedure Note Calderon Rosas M.D. - 01/06/2025 EXAM: CT CHEST WITH IV CONTRAST COMPARISON: 11/04/2020 CT chest angiogram, 12/03/2024 PSMA PET/CT. FINDINGS: Mild soft tissue thickening at the GE junction/proximal stomach(4/285-290) may correspond with the patient's known esophagealmalignancy. A 3 mm solid pulmonary nodule in the right upper lobe (3/303) is new since11/04/2020, stable since 12/03/2024 PET/CT. A couple of additional tiny 1-2 mmpulmonary micronodules were not well seen on 11/04/2020 and are below PET/CTresolution. For example within the right middle lobe (3/461), right lower lobe (3/481), and leftlower lobe (3/434). Several additional scattered small solid pulmonarynodules measuring up to 3 mm have been stable since 11/04/2020 consistentwith a benign etiology, for example within the right middle lobe (3/514). Calcified pulmonary granulomas. Scattered peripheral endobronchial mucous plugging. Mild upper lungpulmonary emphysema. Mild biapical scarring. Mild bibasilar atelectasisand/or scarring. Stable small thin-walled air cyst within the right lowerlobe (3/553). A trace left pleural effusion has increased since 12/03/2024. No rightpleural effusion. No thoracic lymphadenopathy by CT size criteria. Vascular calcificationsincluding mild coronary artery calcification. Mitral annuluscalcification. Biatrial chamber enlargement by visual estimate. Stableupper limits of normal ascending aorta measuring approximately 40 mm in diameter. Bilateral gynecomastia. Stable lucency right sixth rib laterally (3/288). No new worrisome osseouslesion. Unchanged mild anterior wedging of several lower thoracicvertebral bodies. This examination was performed in conjunction with a CT of the abdomen,which will be reported separately. IMPRESSION: 1. Several tiny indeterminate pulmonary micronodules measuring up to 3 mmare new or newly visualized since 11/04/2020. 2. Mild soft tissue thickening involving the distal esophagus/proximalstomach corresponding with biopsy-proven gastroesophageal junctionmalignancy. Gaetano Roman APRN C.N.P., M.S. 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) documented in this encounter Administered Medications Inactive Administered Medications - up to 3 most recent administrations Medication Order MAR Action Action Date Dose Rate Site iohexoL 300 mg iodine/mL solution 1-200 mL (Omnipaque) 1-200 mL, intravenous, Once in imaging, contrast, Starting on 01/05/25 at 1332, For 1 dose, Imaging Protocol Orders, Dose per Radiant Medication Guidelines Given 01/05/2025 1:34 PM CDT 140 mL sodium chloride (PF) 0.9 % injection 1-100 mL 1-100 mL, intravenous, Once, On 01/05/25 at 1400, For 1 dose, Imaging Protocol Orders, Dose per Radiant Medication Guidelines Given 01/05/2025 1:35 PM CDT 50 mL documented in this encounter Additional Health Concerns Assessment Noted Time PHQ-9 Depression Total Score: 1 01/26/20 23 2:13 PM CDT documented as of this encounter Care Teams Soaking Room Operator Relationship Specialty Start Date End Date Elsewhere, Pcp PCP - General Internal Medicine 01/30/24 documented as of this encounter
--- OUTSIDE RECORDS SUMMARY | 2025-01-06 15:20 | XMS_ITS | Encounter Summary ---
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 [address] [place] [phone] Phone: tel: fax: [facility] Referral ID Status Reason Start Date Expiration Date Visits Re quested Visits Authorized [id number] Closed 12/25/2024 06/26/2026 1 1 Encounter Details Date Type Department Care Team (Latest Contact Info) Description 01/06/2025 3:20 PM CDT Virtual Visit Division of Gastroenterology in [place], [place] [address] [place] [phone] Gaetano Roman APRN, C.N.P., M.S. 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 No 12/31/2024 [facility] Utilities Answer Date Recorded In the past 12 months has [facility] electric, gas, oil, or water company threatened to shut off services in your home? No 12/31/2024 Depression Answer Date Recor ded PHQ-9 Total Score (max 27) 1 01/25 Housing Stability Answer Date Recorded What is your living situation today? I have a [facility] place to live 12/31/2024 Education Answer Date Recorded What is the highest level of school you have completed or the highest degree you have received? 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 - 01/06/2025 3:20 PM CDT Phone visit. 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 HISTORY OF PRESENT ILLNESS I spoke to Mr. Li on the phone. I had seen him in consultation on 12/25/2024 internally referredfor dysphagia. Unfortunately, EGD on 12/31/2024 showed a malignant-appearing esophageal stenosis. 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 I have explained to him the next steps including staging of this cancer. He continuesto have significant dysphagia symptoms as well as burning pain in his chest when he eats. ASSESSMENT / PLAN #1 Esophageal adenocarcinoma We will start the staging with getting an EUS; CT chest, abdomen, and pelvis; PET-CT and then have him meet with Medical Oncology, Radiation Oncology, and Thoracic Surgery. Billing: I spent 12 minutes with the patient/and family on the phone; reviewing and interpreting test results; discussing and coordinating care. documented in this encounter Plan of Treatment Upcoming Encounters Date Type Department Care Team (Late st Contact Info) Description 02/11/2025 3:15 PM CDT Appointment Department of Radiation Oncology in [place], [place] [address] [place] [address] Rey Meadows M.D. [address] [place] [address] 02/12/2025 1:30 PM CDT Appointment Department of Radiation Oncology in [place], [place] [address] [place] [address] Rey Meadows M.D. 200 [place] [address] 02/12/2025 2:00 PM CDT Appointment Department of Radiation Oncology in [place], [place] [address] [place] [phone] Rey Meadows M.D. 200 [place] [address] 02/13/2025 1:15 PM CDT Appointment Department of Radiation Oncology in [place], [place] [address] [place] [phone] Rey Meadows M.D. [address] [place] [phone] 02/14/2025 12:30 PM CDT Appointment Department of Radiation Oncology in [place], [place] [address] [place] [phone] Rey Meadows M.D. 200 [place] [address] 02/17/2025 1:15 PM CDT Appointment Department of Radiation Oncology in [address] [phone] Rey Meadows M.D. [address] [place] [phone] 02/18/2025 1:15 PM CDT Appointment Department of Radiation Oncology in [place], [place] [address] [place] [phone] Rey Meadows M.D. [address] [place] [phone] 02/19/2025 1:15 PM CDT Appointment Department of Radiation Oncology [place] [address] [place] [address] Rey Meadows M.D. [address] [place] [phone] 02/19/2025 1:45 PM CDT Appointment Department of Radiation Oncology in [address] [phone] Rey Meadows M.D. [address] [place] [phone] 02/20/2025 1:15 PM CDT Appointment Department of Radiation Oncology in [address] [phone] Rey Meadows M.D. [address] [place] [phone] 02/21/2025 12:30 PM CDT Appointment Department of Radiation Oncology in [place], [place] [address] [place] [phone] Rey Meadows M.D. [address] [place] [phone] 02/24/2025 12:30 PM CDT Appointment Department of Radiation Oncology in [place], [place] [address] [place] [phone] Rey Meadows M.D. [address] [place] [phone] 02/25/2025 12:30 PM CDT Appointment Department of Radiation Oncology in [address] [phone] Rey Meadows M.D. [address] [place] [phone] 02/26/2025 12:30 PM CDT Appointment Department of Radiation Oncology in [place], [place] [address] [place] [phone] Rey Meadows M.D. [address] [place] [phone] 02/26/2025 1:15 PM CDT Appointment Department of Radiation Oncology in [address] [phone] Rey Meadows M.D. [address] [place] [phone] 02/27/2025 12:30 PM CDT Appointment Department of Radiation Oncology in [address] [phone] Rey Meadows M.D. [address] [place] [phone] 02/28/2025 12:30 PM CDT Appointment Department of Radiation Oncology in [address] [phone] Rey Meadows M.D. 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
--- OUTSIDE RECORDS SUMMARY | 2025-01-06 17:48 | XMS_ITS | Encounter Summary ---
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 [address] [place] [phone] Phone: tel: fax: [facility] Referral ID Status Reason Start Date Expiration Date Visits Re quested Visits Authorized [id number] Closed 12/31/2024 04/02/2026 1 1 Encounter Details Date Type Department Care Team (Latest Contact Info) Description 01/06/2025 5:48 PM CDT - 01/06/2025 11:59 PM CDT Hospital Encounter Department of Radiology, [facility], in [place], [place] [address] [place] [address] Gaetano Roman APRN, C.N.P., M.S. 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 No 12/31/2024 [facility] Utilities Answer Date Recorded In the past 12 months has th e electric, gas, oil, or water company threatened to shut off services in your home? No 12/31/2024 Depression Answer Date Recor ded PHQ-9 Total Score (max 27) 1 01/25 Housing Stability Answer Date Recorded What is your living situation today? I have a [facility] place to live 12/31/2024 Education Answer Date Recorded What is the highest level of school you have completed or the highest degree you have received? 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 [address] [place] [address] 02/12/2025 1:30 PM CDT Appointment Department of Radiation Oncology in [address] [phone] Rey Meadows M.D. [address] [place] [phone] 02/12/2025 2:00 PM CDT Appointment Department of Radiation Oncology in [address] [phone] Rey Meadows M.D. [address] [place] [phone] 02/13/2025 1:15 PM CDT Appointment Department of Radiation Oncology in [address] [phone] Rey Meadows M.D. [address] [place] [phone] 02/14/2025 12:30 PM CDT Appointment Department of Radiation Oncology in [address] [phone] Rey Meadows M.D. [address] [place] [phone] 02/17/2025 1:15 PM CDT Appointment Department of Radiation Oncology in [address] [phone] Rey Meadows M.D. [address] [place] [phone] 02/18/2025 1:15 PM CDT Appointment Department of Radiation Oncology in [address] [phone] Rey Meadows M.D. [address] [place] [phone] 02/19/2025 1:15 PM CDT Appointment Department of Radiation Oncology in [place], [place] [address] [place] [phone] Rey Meadows M.D. [address] [place] [phone] 02/19/2025 1:45 PM CDT Appointment Department of Radiation Oncology in [place], [place] [address] [place] [phone] Rey Meadows M.D. [address] [place] [phone] 02/20/2025 1:15 PM CDT Appointment Department of Radiation Oncology in [address] [phone] Rey Meadows M.D. [address] [place] [phone] 02/21/2025 12:30 PM CDT Appointment Department of Radiation Oncology in [address] [phone] Rey Meadows M.D. [address] [place] [phone] 02/24/2025 12:30 PM CDT Appointment Department of Radiation Oncology in [place], [place] [address] [place] [phone] Rey Meadows M.D. [address] [place] [phone] 02/25/2025 12:30 PM CDT Appointment Department of Radiation Oncology in [place], [place] [address] [place] [phone] Rey Meadows M.D. [address] [place] [phone] 02/26/2025 12:30 PM CDT Appointment Department of Radiation Oncology in [address] [phone] Rey Meadows M.D. [address] [place] [phone] 02/26/2025 1:15 PM CDT Appointment Department of Radiation Oncology in [address] [phone] Rey Meadows M.D. [address] [place] [phone] 02/27/2025 12:30 PM CDT Appointment Department of Radiation Oncology in [address] [phone] Rey Meadows M.D. [address] [place] [phone] 02/28/2025 12:30 PM CDT Appointment Department of Radiation Oncology in [address] [phone] Rey Meadows M.D. 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 No FDG uptake suspicious for metastatic disease. Narrative 01/07/2025 9:06 AM CDT EXAM: PET CT SKULL TO THIGH FDG Serum glucose at time of F-18 FDG injection was 90 mg/dL. Patient followed standard dietary/fasting requirements for this exam. RADIOPHARMACEUTICAL/MEDS: Route: intravenous fludeoxyglucose F 18 injection DETENTION (F-18 FDG),9.94 millicurie TECHNIQUE: F-18 FDG PET/CT scan was performed from the orbits through the thighs with low dose, non-contrast, free-breathing CT images for attenuation correction and anatomic localization (AC/AL), with imaging beginning at approximately 60 minutes after radiotracer injection. COMPARISON: CT chest, abdomen pelvis 01/05/2025. INDICATION: GE junction adenocarcinoma. Additional prostate cancer. Initial treatment strategy. The patient reports no recent vaccinations. FINDINGS: Intensely FDG avid mass at the GE junction extending into the gastric cardia with an SUV max of 19.2. No suspicious FDG avid lymphadenopathy. No suspicious FDG avid hepatic lesions. Mild diffuse FDG uptake in the proximal and mid esophagus is presumed reactive. Significant incidental CT findings: No significant change since recent diagnostic CT of chest, abdomen pelvis 01/05/2025. Prior postoperative changes both eyes. Procedure Note Katie Lopez M.D. - 01/07/2025 EXAM: PET CT SKULL TO THIGH FDG Serum glucose at time of F-18 FDG injection was 90 mg/dL. Patient followedstandard dietary/fasting requirements for this exam. RADIOPHARMACEUTICAL/MEDS: Route: intravenous fludeoxyglucose F 18 injection DETENTION (F-18 FDG),9.94 millicurie TECHNIQUE: F-18 FDG PET/CT scan was performed from the orbits through thethighs with low dose, non-contrast, free-breathing CT images forattenuation correction and anatomic localization (AC/AL), with imagingbeginning at approximately 60 minutes after radiotracer injection. COMPARISON: CT chest, abdomen pelvis 01/05/2025. INDICATION: GE junction adenocarcinoma. Additional prostate cancer.Initial treatment strategy. The patient reports no recent vaccinations. FINDINGS: Intensely FDG avid mass at the GE junction extending into thegastric cardia with an SUV max of 19.2. No suspicious FDG avid lymphadenopathy. No suspicious FDG avid hepaticlesions. Mild diffuse FDG uptake in the proximal and mid esophagus is presumedreactive. Significant incidental CT findings: No significant change since recentdiagnostic CT of chest, abdomen pelvis 01/05/2025. Prior postoperativechanges both eyes. IMPRESSION: Intensely FDG avid GE junction malignancy. No FDG uptake suspicious formetastatic disease. Gaetano Roman APRN C.N.P., M.S. 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) documented in this encounter Administered Medications Inactive Administered Medications - up to 3 most recent administrations Medication Order MAR Action Action Date Dose Rate Site fludeoxyglucose F 18 injection DETENTION (F-18 FDG) 4.5-16.5 millicurie, intravenous, Once, On 01/06/25 at 1900, For 1 dose, Imaging Protocol Orders Given 01/06/2025 6:27 PM CDT 9.94 millicuries Left Forearm documented in this encounter Additional Health Concerns Assessment Noted Time PHQ-9 Depression Total Score: 1 01/26/20 23 2:13 PM CDT documented as of this encounter Care Teams Engraver Pantograph Relationship Specialty Start Date End Date Elsewhere, Pcp PCP - General Internal Medicine 01/30/24 documented as of this encounter
--- OUTSIDE RECORDS SUMMARY | 2025-01-08 06:23 | XMS_ITS | Encounter Summary ---
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 [address] [place] [phone] Phone: tel: fax: [facility] Referral ID Status Reason Start Date Expiration Date Visits Re quested Visits Authorized [id number] Closed 12/31/2024 04/02/2026 1 1 Encounter Details Date Type Department Care Team (Late st Contact Info) Description 01/08/2025 6:23 AM CDT - 01/08/2025 11:59 PM CDT Hospital Encounter Division of Gastroenterology in [place], [place] [address] [place] [phone] Gaetano Roman APRN, Jocelyne.N.Eleonora., M.S. [address] [place] [phone] Rowena Castro M.D. 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 No 12/31/2024 [facility] Utilities Answer Date Recorded In the past 12 months has th e [employer], gas, oil, or water [employer] threatened to shut off services in your home? No 12/31/2024 Depression Answer Date Recor ded PHQ-9 Total Score (max 27) 1 01/25 Housing Stability Answer Date Recorded What is your living situation today? I have a [facility] place to live 12/31/2024 Education Answer Date Recorded What is the highest level of school you have completed or the highest degree you have received? 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 Gender Identity Male 09/04/2018 3:21 PM CDT Sexual Orientation Straight 09/04/2018 3: 21 PM CDT documented as of this encounter Last Filed Vital Signs Vital Sign Reading Time Taken Comments Blood Pressure 125/92 01/08/2025 10:00 AM CDT Pulse 84 01/08/2025 10:05 AM CDT Temperature 36.4 C (97.5 F) 01/08/2025 10:05 AM CDT Respiratory Rate 15 01/08/2025 10:05 AM CDT Oxygen Saturation 94% 01/08/2025 10:05 AM CDT Inhaled Oxygen Concentration - - Weight - - Height - - Body Mass Index - - documented in this encounter Discharge Instructions * Attachments The following attachments cannot be sent through Care Everywhere. * About Your Endoscopic Ultrasound documented in this encounter Medications at Time [...] Appointment Department of Radiation Oncology in [address] [phone] Rey Meadows M.D. [address] [place] [phone] 02/12/2025 1:30 PM CDT Appointment Department of Radiation Oncology in [address] [phone] Rey Meadows M.D. [address] [place] [phone] 02/12/2025 2:00 PM CDT Appointment Department of Radiation Oncology in [address] [phone] Rey Meadows M.D. [address] [place] [phone] 02/13/2025 1:15 PM CDT Appointment Department of Radiation Oncology in [address] [phone] Rey Meadows M.D. [address] [place] [phone] 02/14/2025 12:30 PM CDT Appointment Department of Radiation Oncology in [place], [place] [address] [place] [address] Rey Meadows M.D. [address] [place] [phone] 02/17/2025 1:15 PM CDT Appointment Department of Radiation Oncology in [place], [place] [address] [place] [address] Rey Meadows M.D. 200 [place] [address] 02/18/2025 1:15 PM CDT Appointment Department of Radiation Oncology in [place], [place] [address] [place] [address] Rey Meadows M.D. [address] [place] [phone] 02/19/2025 1:15 PM CDT Appointment Department of Radiation Oncology in [place], [place] [address] [place] [phone] Rey Meadows M.D. 200 [place] [phone] 02/19/2025 1:45 PM CDT Appointment Department of Radiation Oncology in [place], [place] [address] [place] [address] Rey Meadows M.D. 200 [place] [phone] 02/20/2025 1:15 PM CDT Appointment Department of Radiation Oncology in [place], [place] [address] [place] [phone] Rey Meadows M.D. 200 [place] [phone] 02/21/2025 12:30 PM CDT Appointment Department of Radiation Oncology in [place], [place] [address] [place] [phone] Rey Meadows M.D. [address] [place] [phone] 02/24/2025 12:30 PM CDT Appointment Department of Radiation Oncology in [address] [phone] Rey Meadows M.D. [address] [place] [phone] 02/25/2025 12:30 PM CDT Appointment Department of Radiation Oncology in [address] [phone] Rey Meadows M.D. [address] [place] [phone] 02/26/2025 12:30 PM CDT Appointment Department of Radiation Oncology in [address] [phone] Rey Meadows M.D. [address] [place] [phone] 02/26/2025 1:15 PM CDT Appointment Department of Radiation Oncology in [address] [phone] Rey Meadows M.D. [address] [place] [phone] 02/27/2025 12:30 PM CDT Appointment Department of Radiation Oncology in [address] [phone] Rey Meadows M.D. [address] [place] [address] 02/28/2025 12:30 PM CDT Appointment Department of Radiation Oncology in [place], [place] [address] [place] [phone] Rey Meadows M.D. 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 Siewert type 2 lesion. - No other gross lesions in the entire stomach. - Normal examined duodenum. EUS - Limited EUS exam due to inability to advance the echoendoscope further downstream from the proximal edge of the tumor due to the luminal narrowing which allowed only the examination of the proximal edge of the tumor. This mass was staged at least T3 by endosonographic criteria. - One indeterminate enlarged lymph node was visualized in the periesophageal, peritumoral location as such FNB not performed - No specimens collected. Narrative 01/08/2025 10:40 AM CDT [facility] Patient Name: Rey Li Date of : 1940 Age: 85 Procedure Date: 01/08/2025 Procedure: Upper EUS Providers: Rowena Castro MD, Percy Chin (Fellow) Referring Provider: Gaetano Roman Pre-op Diagnoses: Esophageal mucosal mass/polyp found on endoscopy, Gastric mucosal mass/polyp found on endoscopy, For evaluation of esophageal adenocarcinoma, Staging of esophageal adenocarcinoma, Pre-treatment staging of esophageal adenocarcinoma, Dysphagia Recommendation: - The patient will be observed post-procedure, until all discharge criteria are met. - Resume previous diet. - Resume Eliquis (apixaban) at prior dose today. - Return to referring provider as previously scheduled. Findings: ENDOSCOPIC FINDING: : A ulcerating mass was found in the lower third of the esophagus, 45 cm from the incisors. The mass was partially obstructing. There was luminal narrowing due to the mass, and standard gastroscope was carefully advanced beyond the tumor. GE junction was at 46 cm. The most distal extent of the mass was at 48 cm. 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 No additional gross lesions were noted in the entire examined stomach. The examined duodenum was normal. ENDOSONOGRAPHIC FINDING: : A mass was found in the gastroesophageal junction. The mass was encountered at 45 cm from the incisors. This was a limited EUS exam due to inability to advance the echoendoscope further downstream from the proximal edge of the tumor due to the luminal narrowing. And therefore only the proximal edge of the tumor was examined. There was sonographic evidence suggesting invasion at least into the adventitia. One enlarged lymph node was visualized in the lower paraesophageal mediastinum (level 8L). It measured 6 mm in maximal cross-sectional diameter. The node was oval. Procedural Details: The patient was seen, evaluated, [...] and oxygen saturations were monitored continuously. The Endosonoscope was introduced through the mouth, and advanced to the lower third of esophagus. The Gastroscope was introduced through the mouth, and advanced to the second part of duodenum. The upper EUS was accomplished without difficulty. The patient tolerated the procedure well. Complications: No immediate complications. Estimated Blood Loss: Estimated blood loss: none. Attending Participation: I was present and participated during the entire procedure, including non-gongora portions. Rowena Castro MD 01/08/2025 10:39:47 AM This report has been signed electronically. Number of Addenda: 0 Note Initiated On: 01/08/2025 7:46 AM Gaetano Roman APRN C.N.P., M.S. 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
--- OUTSIDE RECORDS SUMMARY | 2025-01-08 07:50 | XMS_ITS | Encounter Summary ---
Author Organization [facility] Address [address] [place] [address] Care Team Providers Care Field Seismologist Name Role Phone Elsewhere, Pcp Primary Care Provider Unavailabl e Encounter Details Date Type Department Care Team (Latest Contact Info) Description 01/08/2025 7:50 AM CDT Ancillary Procedure Department of Gastroenterology [...] things needed for daily living? No 12/31/2024 [facility] Utilities Answer Date Recorded In the past 12 months has [employer], gas, oil, or water [employer] threatened to shut off services in your home? No 12/31/2024 Depression Answer Date Recor ded PHQ-9 Total Score (max 27) 1 01/25 Housing Stability Answer Date Recorded What is your living situation today? I have a [facility] place to live 12/31/2024 Education Answer Date Recorded What is the highest level of school you have completed or the highest degree you have received? 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 200 [place] [address] 02/12/2025 1:30 PM CDT Appointment Department of Radiation Oncology in [place], [place] [address] [place] [address] Rey Meadows M.D. 200 [place] [phone] 02/12/2025 2:00 PM CDT Appointment Department of Radiation Oncology in [place], [place] [address] [place] [phone] Rey Meadows M.D. [address] [place] [phone] 02/13/2025 1:15 PM CDT Appointment Department of Radiation Oncology in [place], [place] [address] [place] [phone] Rey Meadows M.D. [address] [place] [phone] 02/14/2025 12:30 PM CDT Appointment Department of Radiation Oncology in [address] [phone] Rey Meadows M.D. [address] [place] [phone] 02/17/2025 1:15 PM CDT Appointment Department of Radiation Oncology in [place], [place] [address] [place] [phone] Rey Meadows M.D. [address] [place] [phone] 02/18/2025 1:15 PM CDT Appointment Department of Radiation Oncology in [place], [place] [address] [place] [address] Rey Meadows M.D. [address] [place] [phone] 02/19/2025 1:15 PM CDT Appointment Department of Radiation Oncology in [place], [place] [address] [place] [phone] Rey Meadows M.D. [address] [place] [phone] 02/19/2025 1:45 PM CDT Appointment Department of Radiation Oncology in [address] [phone] Rey Meadows M.D. [address] [place] [phone] 02/20/2025 1:15 PM CDT Appointment Department of Radiation Oncology in [address] [address] Rey Meadows M.D. [address] [place] [phone] 02/21/2025 12:30 PM CDT Appointment Department of Radiation Oncology in [address] [phone] Rey Meadows M.D. [address] [place] [phone] 02/24/2025 12:30 PM CDT Appointment Department of Radiation Oncology in [address] [phone] Rey Meadows M.D. [address] [place] [phone] 02/25/2025 12:30 PM CDT Appointment Department of Radiation Oncology in [address] [address] Rey Meadows M.D. [address] [place] [phone] 02/26/2025 12:30 PM CDT Appointment Department of Radiation Oncology in [address] [address] Rey Meadows M.D. [address] [place] [address] 02/26/2025 1:15 PM CDT Appointment Department of Radiation Oncology in [address] [phone] Rey Meadows M.D. [address] [place] [phone] 02/27/2025 12:30 PM CDT Appointment Department of Radiation Oncology in [address] [address] Rey Meadows M.D. [address] [place] [phone] 02/28/2025 12:30 PM CDT Appointment Department of Radiation Oncology in [address] [phone] Rey Meadows M.D. [address] [place] [phone] documented as of this encounter Procedures Procedure Name Priority Date/Time Associated Diagnosis Comments GASTROENTEROLOGY IMAGE EXAM Routine 01/08/2025 7:50 AM CDT documented in this encounter Results * Upper EUS-Gastroenterology Image Exam (01/08/2025 7:50 AM CDT) 01/08/2025 7:46 AM CDT Narrative IIMS - 01/08/2025 10:50 AM CDT This order has been created and [...] documented as of this encounter Care Teams Field Seismologist Relationship Specialty Start Date End Date Elsewhere, Pcp PCP - General Internal Medicine 01/30/24 documented as of this encounter
--- OUTSIDE RECORDS SUMMARY | 2025-01-08 08:23 | XMS_ITS | Encounter Summary ---
Author Organization [facility] Address [address] [place] [address] Care Team Providers Care Filler Sifter Machine Name Role Phone Elsewhere, Pcp Primary Care Provider Unavailabl e Encounter Details Date Type Department Care Team (Late st Contact Info) Description 01/08/2025 8:23 AM CDT Anesthesia Event Division of Gastroenterology in [place], [place] [address] [place] [phone] Poly Steinberg APRN, CROSS TIE TRAM LOADER [address] [place] [phone] Toyin Rosas M.D. [address] [place] [phone] Anesthesia Record Procedure Summary Procedure Name Responsible Anesthesiologist Anesthesia Start Time Anesthesia Stop Time ENDOSCOPIC ULTRASOUND (EUS) Poly Steinberg APRN, CROSS TIE TRAM LOADER 01/08/25 0823 01/08/25 0915 Events Date Time Event Comment 01/08/2025 0823 An Start Machine/Equipme nt Checked Infection Precautions Followed Procedure/Site Verified NPO Status Verified Supine Standard ASA Monitors Applied 0831 Turnover to Proceduralist 0834 Proc Start 0905 Proc Fin 0907 Turnover to ANE Staff 0912 an stop data 0915 An End I completed my handoff to [...] Meds Name Total lidocaine 2% (mg) injection 100 mg ondansetron PF 4 mg/2 mL injection 4 mg propofol 10 mg/mL injection 20 mg propofol 10 mg/mL infusion 406.62 mg phenylephrine (Joaquim-Synephrine) injection 1 mg/10 mL syringe 500 mcg Lactated Ringers Free Drip 550 mL * Agents No agents on file. * Blood No blood administrations on file. Lines, Drains, and Airways Type Details Placement Removal Peripheral IV Placement Date: 12/30 ; Placement Time: 734; Catheter Size: 22 G; Orientation: Anterior, Left, Lower; Location: Forearm; Technique: Anatomical landmarks; Inserted by: CROSS TIE TRAM LOADER; Removal Date: 01/08/25; Removal Time: 1005; Removal Reason: Patient discharged 01/08/25734 by Melody Hong, R.N. 01/08/25 100 by Joanne Flores RSunshineN. documented in this encounter Social History Tobacco [...] money to buy more. Never true 01/01/20 Within the past 12 months, t he [...] things needed for daily living? No 12/31/2024 [facility] Utilities Answer Date Recorded In the past 12 months has th e [employer], gas, oil, or water company threatened to shut off services in your home? No 12/31/2024 Depression Answer Date Recor ded PHQ-9 Total Score (max 27) 1 01/25 Housing Stability Answer Date Recorded What is your living situation today? I have a [facility] place to live 12/31/2024 Education Answer Date Recorded What is the highest level of school you have completed or the highest degree you have received? Bachelor's degree (e.g., BA, AB, BS) 01/09/2019 Sex and Gender Information Value Date Recorded Sex Assigned at Male 12/27/2018 12:13 PM CDT Legal Sex Male 1:57 PM DATA TYPIST Gender Identity Male 09/04/2018 3:21 PM CDT Sexual Orientation Straight 09/04/2018 3: 21 PM CDT documented as of this encounter OR Notes * Anesthesia Postprocedure Evaluation - Poly Steinberg APRN, CRNA - 01/08/2025 9:16 AM CDT Patient: Rey Li Procedure Summary Date: 01/08/25 Room / Location: Division of Gastroenterology in [place], [place] Anesthesia Start: 822 Anesthesia Stop: 914 Procedure: ENDOSCOPIC ULTRASOUND (EUS) 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 Please [...] events documented. * Anesthesia Preprocedure Evaluation - Toyin Rosas M.D. 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 Risks/Benefits/Alternatives of Blood transfusion discussed with patient [...] CDT Appointment Department of Radiation Oncology in [address] [phone] Rey Meadows M.D. [address] [place] [phone] 02/12/2025 1:30 PM CDT Appointment Department of Radiation Oncology in [address] [address] Rey Meadows M.D. [address] [place] [phone] 02/12/2025 2:00 PM CDT Appointment Department of Radiation Oncology in [address] [address] Rey Meadows M.D. [address] [place] [phone] 02/13/2025 1:15 PM CDT Appointment Department of Radiation Oncology in [address] [address] Rey Meadows M.D. [address] [place] [phone] 02/14/2025 12:30 PM CDT Appointment Department of Radiation Oncology in [address] [address] Rey Meadows M.D. [address] [place] [address] [place] [address] 02/17/2025 1:15 PM CDT Appointment Department of Radiation Oncology in [place], [place] [address] [place] [phone] Rey Meadows M.D. 200 [place] [address] 02/18/2025 1:15 PM CDT Appointment Department of Radiation Oncology in [address] [address] Rey Meadows M.D. [address] [place] [phone] 02/19/2025 1:15 PM CDT Appointment Department of Radiation Oncology in [address] [address] Rey Meadows M.D. 200 [place] [address] 02/19/2025 1:45 PM CDT Appointment Department of Radiation Oncology in [address] [address] Rey Meadows M.D. [address] [place] [phone] 02/20/2025 1:15 PM CDT Appointment Department of Radiation Oncology in [address] [address] Rey Meadows M.D. [address] [place] [phone] 02/21/2025 12:30 PM CDT Appointment Department of Radiation Oncology in [address] [address] Rey Meadows M.D. [address] [place] [phone] 02/24/2025 12:30 PM CDT Appointment Department of Radiation Oncology in [place], [place] [address] [place] [address] Rey Meadows M.D. [address] [place] [phone] 02/25/2025 12:30 PM CDT Appointment Department of Radiation Oncology in [place], [place] [address] [place] [address] Rey Meadows M.D. [address] [place] [phone] 02/26/2025 12:30 PM CDT Appointment Department of Radiation Oncology in [place], [place] [address] [place] [phone] Rey Meadows M.D. [address] [place] [phone] 02/26/2025 1:15 PM CDT Appointment Department of Radiation Oncology in [place], [place] [address] [place] [address] Rey Meadows M.D. [address] [place] [phone] 02/27/2025 12:30 PM CDT Appointment Department of Radiation Oncology in [place], [place] [address] [place] [address] Rey Meadows M.D. [address] [place] [phone] 02/28/2025 12:30 PM CDT Appointment Department of Radiation Oncology in [place], [place] [address] [place] [address] Rey Meadows M.D. [address] [place] [address] documented as of this encounter Visit Diagnoses Not on filedocumented in this encounter Administered Medications Inactive Administered Medications - up to 3 most recent administrations Medication Order MAR Action Action Date Dose Rate Site Lactated Ringer's intravenous, Continuous Infusion: Per Instructions PRN, Starting on Mon01/08/25 at 0823, Anesthesia Intra-op New Bag 01/08/2025 8:23 AM CDT lidocaine (PF) (cardiac) injection intravenous, As needed, Starting on Mon01/08/25 at 0827, Anesthesia Intra-op Given 01/08/2025 8:30 AM CDT 40 mg Given 01/08/2025 8:27 AM CDT 60 mg ondansetron (PF) injection (Zofran) intravenous, As needed, Starting on Mon01/08/25 at 0827, Anesthesia Intra-op Given 01/08/2025 8:27 AM CDT 4 mg phenylephrine injection intravenous, As needed, Starting on Mon01/08/25 at 0852, Anesthesia Intra-op Given 01/08/2025 9:04 AM CDT 100 mcg Given 01/08/2025 9:02 AM CDT 100 mcg Given 01/08/2025 8:52 AM CDT 200 mcg propofol 10 mg/mL infusion (Diprivan) intravenous, Continuous Infusion: Per Instructions PRN, Starting on Mon01/08/25 at 0827, Anesthesia Intra-op Rate/Dose Change 01/08/2025 9:02 AM CDT 75 mcg/kg/min 38.16 mL/hr Rate/Dose Change 01/08/2025 8:48 AM CDT 125 mcg/kg/min 63. 6 mL/hr Rate/Dose Change 01/08/2025 8:30 AM CDT 140 mcg/kg/min 71. 232 mL/hr propofoL injection (Diprivan) intravenous, As needed, Starting on Mon01/08/25 at 0828, Anesthesia Intra-op Given 01/08/2025 8:28 AM CDT 20 mg documented in this encounter Additional Health Concerns Assessment Noted Time PHQ-9 Depression Total Score: 1 01/26/20 23 2:13 PM CDT documented as of this encounter Care Teams Filler Sifter Machine Relationship Specialty Start Date End Date Elsewhere, Pcp PCP - General Internal Medicine 01/30/24 documented as of this encounter
--- OUTSIDE RECORDS SUMMARY | 2025-01-09 07:23 | XMS_ITS | Encounter Summary ---
Author Organization [facility] Address [address] [place] [address] Care Team Providers Care Clinical Biostatistics Director Name Role Phone Elsewhere, Pcp Primary Care Provider Unavailabl e Encounter Details Date Type Department Care Team (Latest Contact Info) Description 01/09/2025 7:23 AM CDT - 01/09/2025 11:59 PM T Hospital Encounter Department of Laboratory Medicine and Pathology, [facility] in [place], [place] [address] [place] [phone] Gaetano Roman APRN, C.N.P., M.S. 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 No 12/31/2024 [facility] Utilities Answer Date Recorded In the past 12 months has th e [employer], gas, oil, or water company threatened to shut off services in your home? No 12/31/2024 Depression Answer Date Recor ded PHQ-9 Total Score (max 27) 1 01/25 Housing Stability Answer Date Recorded What is your living situation today? I have a [facility] place to live 12/31/2024 Education Answer Date Recorded What is the highest level of school you have completed or the highest degree you have received? 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 [address] [place] [phone] 02/12/2025 1:30 PM CDT Appointment Department of Radiation Oncology in [address] [address] Rey Meadows M.D. [address] [place] [phone] 02/12/2025 2:00 PM CDT Appointment Department of Radiation Oncology in [address] [address] Rey Meadows M.D. [address] [place] [phone] 02/13/2025 1:15 PM CDT Appointment Department of Radiation Oncology in [address] [address] Rey Meadows M.D. [address] [place] [phone] 02/14/2025 12:30 PM CDT Appointment Department of Radiation Oncology in [address] [phone] Rey Meadows M.D. [address] [place] [phone] 02/17/2025 1:15 PM CDT Appointment Department of Radiation Oncology in [place], [place] [address] [place] [phone] Rey Meadows M.D. [address] [place] [phone] 02/18/2025 1:15 PM CDT Appointment Department of Radiation Oncology in [place], [place] [address] [place] [phone] Rey Meadows M.D. [address] [place] [phone] 02/19/2025 1:15 PM CDT Appointment Department of Radiation Oncology in [place], [place] [address] [place] [phone] Rey Meadows M.D. [address] [place] [phone] 02/19/2025 1:45 PM CDT Appointment Department of Radiation Oncology in [place], [place] [address] [place] [phone] Rey Meadows M.D. [address] [place] [phone] 02/20/2025 1:15 PM CDT Appointment Department of Radiation Oncology in [place], [place] [address] [place] [phone] Rey Meadows M.D. [address] [place] [phone] 02/21/2025 12:30 PM CDT Appointment Department of Radiation Oncology in [place], [place] [address] [place] [address] Rey Meadows M.D. [address] [place] [phone] 02/24/2025 12:30 PM CDT Appointment Department of Radiation Oncology in [place], [place] [address] [place] [address] Rey Meadows M.D. [address] [place] [phone] 02/25/2025 12:30 PM CDT Appointment Department of Radiation Oncology in [place], [place] [address] [place] [phone] Rey Meadows M.D. [address] [place] [phone] 02/26/2025 12:30 PM CDT Appointment Department of Radiation Oncology in [place], [place] [address] [place] [phone] Rey Meadows M.D. [address] [place] [phone] 02/26/2025 1:15 PM CDT Appointment Department of Radiation Oncology in [place], [place] [address] [place] [address] Rey Meadows M.D. [address] [place] [phone] 02/27/2025 12:30 PM CDT Appointment Department of Radiation Oncology in [place], [place] [address] [place] [address] Rey Meadows M.D. [address] [place] [phone] 02/28/2025 12:30 PM CDT Appointment Department of Radiation Oncology in [place], [place] [address] [place] [phone] Rey Meadows M.D. 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) documented in this encounter Results * (ABNORMAL) CBC with Differential, Blood (01/09/2025 7:44 AM CDT) Hemoglobin 13.2 13.2 - 16.6 g/dL 01/09/2025 8:31 AM CDT DTL Hematocrit 42.5 38.3 - 48.6 % 01/09/2025 8:31 AM CDT DTL Erythrocytes 4.73 4.35 - 5.65 x10(12)/L 01/09/2025 8:31 AM CDT DTL MCV 89.9 78.2 - 97.9 fL 01/09/2025 8:31 AM CDT DTL RBC Distrib Width 14.6(H) 11.8 - 14.5 % 01/09/2025 8:31 AM CDT DTL Platelet Count 185 135 - 317 x10(9)/L 01/09/2025 8:31 AM CDT DTL Leukocytes 6.7 3.4 - 9.6 x10(9)/L 01/09/2025 8:31 AM CDT DTL Neutrophils 3.69 1.56 - 6.45 x10(9)/L 01/09/2025 8:31 AM CDT DHPM Lymphocytes 1.78 0.95 - 3.07 x10(9)/L 01/09/2025 8:31 AM CDT DTL Monocytes 0.77 0.26 - 0.81 x10(9)/L 01/09/2025 8:31 AM CDT DTL Eosinophils 0.31 0.03 - 0.48 x10(9)/L 01/09/2025 8:31 AM CDT DTL Basophils 0.11(H) 0.01 - 0.08 x10(9)/L 01/09/2025 8:31 AM CDT DTL Blood (Blood, Venous) 01/09/2025 7:44 AM CDT 01/09/2025 8:16 AM CDT us Jocelyne Montenegro APRN.N.P., M.S. LAB BLOOD ADD -ON Final Result Performing Organization Address City/[facility]/ZIP Co de Phone Number [facility] [place] [address] [facility] [address] 200 [place] [address] * Bilirubin, Direct (01/09/2025 7:44 AM CDT) [facility] Bilirubin, Direct, S 0.3 0.0 - 0.3 mg/dL 01/09/2025 8:53 AM CDT DTL Blood (Blood, Venous) 01/09/2025 7:44 AM CDT 01/09/2025 8:10 AM CDT us Gaetano Roman APRN, C.N.P., M.S. LAB BLOOD ADD -ON Final Result Performing Organization Address City/[facility]/ZIP Co de Phone Number [facility] [place] 200 [place] [address], [facility] 200 [place] [address] * (ABNORMAL) Comprehensive Metabolic Panel (01/09/2025 7:44 AM CDT) Potassium, S 4.4 3.6 - 5.2 mmol/L 01/09/2025 8:53 AM CDT DTL Sodium, S 141 135 - 145 mmol/L 01/09/2025 8:53 AM CDT DTL Chloride, S 104 98 - 107 mmol/L 01/09/2025 8:53 AM CDT DTL Bicarbonate, S 28 22 - 29 mmol/L 01/09/2025 8:53 AM CDT DTL Anion Gap 9 7 - 15 01/09/2025 8:53 AM CDT DTL BUN (Blood Urea Nitrogen), S 11 8 - 24 mg/dL 01/09/2025 8:53 AM CDT DTL Creatinine 1.11 0.74 - 1.35 mg/dL 01/09/2025 8:53 AM CDT DTL Estimated GFR (eGFR) 65 >=60 mL/min/BS A 01/09/2025 8:53 AM CDT DTL Comment: Estimated GFR calculated using the 2020 CKD_EPI creatinine equation. Calcium, Total, S 8.9 8.8 - 10.2 mg/dL 01/09/2025 8:53 AM CDT DTL Glucose, S 121 70 - 140 mg/dL 01/09/2025 8:53 AM CDT DTL Protein, Total, S 6.0(L) 6.3 - 7.9 g/dL 01/09/2025 8:53 AM CDT DTL Albumin, S 3.9 3.5 - 5.0 g/dL 01/09/2025 8:53 AM CDT DTL Aspartate Aminotransferase (AST), S 15 8 - 48 U/L 01/09/2025 8:53 AM CDT DTL Alkaline Phosphatase, S 50 40 - 129 U/L 01/09/2025 8:53 AM CDT DTL Alanine Aminotransferase (ALT), S 16 7 - 55 U/L 01/09/2025 8:53 AM CDT DTL Bilirubin, Total, S 0.8 0.0 - 1.2 mg/dL 01/09/2025 8:53 AM CDT DTL Blood (Blood, Venous) 01/09/2025 7:44 AM CDT 01/09/2025 8:10 AM CDT Gaetano Roman APRN C.N.P., M.S. 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
--- OUTSIDE RECORDS SUMMARY | 2025-01-09 08:20 | XMS_ITS | Encounter Summary ---
Author Organization 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 [address] [place] [address] Phone: tel: fax: [facility] Referral ID Status Reason Start Date Expiration Date Visits Re quested Visits Authorized [id number] Closed 01/09/2025 07/11/2026 1 1 * Outpatient (Routine) - Closed Specialty Diagnoses / Procedures Referred By Sammy hilliard Referred To Contact Radiology Diagnoses Malignant Neoplasm Of Gastroesophageal Junction (HCC) Procedures IR Implanted Vascular Access Device Placement Sienna Arreaga M.B.B.S. [address] [place] [address] Phone: tel: fax: [facility] Referral ID Status Reason Start Date Expiration Date Visits Re quested Visits Authorized [id number] Closed 01/09/2025 04/11/2026 1 1 * Outpatient (Routine) - Closed Specialty Diagnoses / Procedures Referred By Sammy hilliard Referred To Contact Nutrition Diagnoses Malignant Neoplasm Of Gastroesophageal Junction (HCC) Loss Weight Abnormal Sienna Arreaga M.B.B.S. 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 [address] [place] [phone] Phone: tel: fax: [facility] Referral ID Status Reason Start Date Expiration Date Visits Re quested Visits Authorized [id number] Closed 12/31/2024 07/02/2026 1 1 Encounter Details Date Type Department Care Team (Latest Contact Info) Description 01/09/2025 8:20 AM CDT Comprehensive Visit Department of Oncology in [place], [place] [address] [place] [phone] Sienna Arreaga M.B.B.S. [address] [place] [phone] Malignant Neoplasm Of Gastroesophageal Junction (HCC) (Primary Dx); Loss Weight Abnormal; Dysphagia Social History Tobacco Use Types Packs/Day Years [...] things needed for daily living? No 12/31/2024 [facility] Utilities Answer Date Recorded In the past 12 months has [facility] electric, gas, oil, or water company threatened to shut off services in your home? No 12/31/2024 Depression Answer Date Recor ded PHQ-9 Total Score (max 27) 1 01/25 Housing Stability Answer Date Recorded What is your living situation today? I have a [facility] place to live 12/31/2024 Education Answer Date Recorded What is the highest level of school you have completed or the highest degree you have received? 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 Gender Identity Male 09/04/2018 3:21 PM CDT Sexual Orientation Straight 09/04/2018 3: 21 PM CDT documented as of this encounter Last Filed Vital Signs Vital Sign Reading Time Taken Comments Blood Pressure 116/72 01/09/2025 8:00 AM CDT Pulse 93 01/09/2025 8:00 AM CDT Temperature 36.2 C (97.2 F) 01/09/2025 8:00 AM CDT Respiratory Rate - - Oxygen Saturation 100% 01/09/2025 8:00 AM CDT Inhaled Oxygen Concentration - - Weight 85.7 kg (189 lb 0.7 oz) 01/09/2025 8:00 A M CDT Height 179.5 cm (5' 10.67) 01/09/2025 8:00 AM C DT Body Mass Index 26.61 01/09/2025 8:00 AM CDT documented in this encounter Consult Notes * Sienna Arreaga M.B.BSunshineS. - 01/09/2025 8:20 AM CDT MEDICAL ONCOLOGY CLINIC NOTE [place] [address] [facility] [phone] GI ONCOLOGIST Clinical Informatics Specialist: Dr. Sienna Arreaga LOCAL ONCOLOGIST N/A Cancer Staging Malignant Neoplasm Of Gastroesophageal Junction (HCC) Staging form: Esophagus - Adenocarcinoma, AJCC 8th Edition - Clinical: Stage III (cT3, cN1, cM0) REASON FOR VISIT Esophageal adenocarcinoma Current treatment plan: CARBOplatin AUC 2 weekly / PACLitaxel WEEKLY ( with Radiation ) ( GI ) SUBJECTIVE HISTORY OF PRESENT ILLNESS Rey Li is a 85 y.o. 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 He presented to GI in Nov 2024 with dysphagia to solid foods. Now currently worse with meats and breads, and he avoids those. Food will stick in the lower chest area less than 5 minutes. He will haveto wait for the food to go down. Starting to notice dysphagia to liquids now too. He reports oeiieh90 lbs in the last 2 months. He had a recent episode of pneumonia last month that he feels set him back. Since then, he has had difficulty doing his usual activities. Does yard work for 15-30 mins a day. Walks independently, no walker or wheelchair, but had a fall a week ago. Prior to the summer though he was much more active. Oncology History Overview Note 1. December 07, 2006: With a PSA of 3.7, transrectal needle biopsy recovers Fillmore 3 + 4 adenocarcinoma. 2. January 16, 2007: The patient underwent radical prostatectomy, and a 2.0- x 1.8- x 1.5-cm Aubrey 3 + 4 adenocarcinoma situated within the right posterior peripheral zone was identified. There was focal extraprostatic tumor extension, but margins and bilateral seminal vesicles were negative. One right and one left pelvic lymph node were free of cancer. The PSA declined to undetectable (less t peck 0.10; April 20, 2007), and remained there through September 25, 2009. 3. September 19, 2016: After an extended period of PSA monitoring elsewhere, a PSA of 2.2 was noted. Whole-body radionuclide bone scan and prostate MRI were negative. This was followed with a choline PET-CT (October 03, 2016), which was also negative, and observation was chosen. 4. June 19, 2017: PSA hodan to 6.6. Choline PET scan is negative. MRI of prostate and abdomen show a 1.2-cm anterior rectal wall mass without abnormalities. 5. July 06, 2017: Biopsy of the left vesicourethral anastomosis recovers Fillmore 3 + 4 adenocarcinoma in two of three samples (30%), Fillmore 3 + 3 adenocarcinoma is identified in one of three anterior vesicourethral anastomosis samples (30%), and Aubrey 3 + 4 adenocarcinoma was identified in six of seven right vesicourethral anastomosis specimens (20%). 6. July 18, 2017: Androgen suppression therapy recommended. Received four-month Lupron injection (30 mg) +100 day duration Bicalutamide ( 50 mg daily) neoadjuvantly. 7. July 31, 2017: PSA was 3.8. Flexible sigmoidoscopy showed no evidence of rectal mucosal invasionby prostate cancer recurrence. 8. September 2017 - November 2017. 37 fractions of radiation to prostate bed Primary Malignant Neoplasm Of Prostate (HCC) (Resolved) 12/07/2006 Initial Diagnosis Primary Malignant Neoplasm Of Prostate (HCC) 12/07/2006 Biopsy/Pathology Transrectal needle biopsy recovers Fillmore 3 + 4 adenocarcinoma. 01/16/2007 Surgery and Procedures The patient underwent radical prostatectomy, and a 2.0- x 1.8- x 1.5-cm Fillmore 3 + 4 adenocarcinoma situated within the right posterior peripheral zone was identified. There was focal extraprostatictumor extension, but margins and bilateral seminal vesicles were negative. One right and one left pelvic lymph node were free of cancer. 09/19/2016 Progression/Relapse After an extended period of PSA monitoring elsewhere, a PSA of 2.2 was noted. 06/19/2017 Progression/Relapse PSA hodan to 6.6. Choline PET scan is negative. MRI of prostate and abdomen show a 1.2-cm anterior rectal wall mass without abnormalities. 07/06/2017 Biopsy/Pathology Biopsy of the left vesicourethral anastomosis recovers Fillmore 3 + 4 adenocarcinoma in two of threesamples (30%), Aubrey 3 + 3 adenocarcinoma is identified in one of three anterior vesicourethral anastomosis samples (30%), and Aubrey 3 + 4 adenocarcinoma was identified in six of seven right vesic ourethral anastomosis specimens (20%). 07/18/2017 - Biological/Targeted/Hormone Therapy Androgen suppression therapy recommended. Received four-month Lupron injection (30 mg) +100 day duration Bicalutamide ( 50 mg daily) neoadjuvantly. Malignant Neoplasm Of Gastroesophageal Junction (HCC) 01/09/2025 Clinical Stage Staging form: Esophagus - Adenocarcinoma, AJCC 8th Edition - Clinical: Stage III (cT3, cN1, cM0) 01/09/2025 - Chemotherapy CARBOplatin AUC 2 weekly / PACLitaxel WEEKLY ( with Radiation ) ( GI ) Start Date: 01/09/2025 (Planned) REVIEW OF SYSTEMS ROS negative except for what is document in the interval history. 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 His temporal temperature is 36.2 ??C. His blood pressure is 116/72 and his pulse is 93. His oxygen saturation is 100%. PHYSICAL EXAM General: Normal appearance, not in distress HEENT: Normocephalic, atraumatic, mucous membranes are moist. No scleral icterus noted Cardiovascular : RRR, no murmurs. Pulmonary: CTAB Abdominal: Flat, soft, no tenderness, no organomegaly Lymphatic: No cervical, supraclavicular, axillary, or inguinal lymphadenopathy noted Musculoskeletal: No lower extremity edema Skin: No rashes noted Neurological: AOX3, no motor and sensory abnormalities noted IMAGING Most recent imaging reviewed, including PET, CT C/A/P LABS Most recent labs reviewed, including CBC, CMP ASSESSMENT & PLAN Rey Li is a 85 y.o. 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 Li and his today. We discussed the GEJ cancer including diagnosis, staging, course, and treatment options. - EUS evaluation determined T3 disease with one indeterminate enlarged lymph node was in the lower paraesophageal mediastinum (level 8L) measuring 6 mm in maximal cross-sectional diameter (could not be biopsied). Staging scans confirmed presence of GEJ adenocarcinoma without evidence of metastatic disease - Will obtain pMMR testing on tissue - He will meet with our colleagues in Thoracic Surgery today to determine candidacy for surgery. Ifdeemed inoperable, we will send for CPS, NGS, HER-2, and CLDN18.2 testing - He is also meeting with our colleagues in Radiation Oncology next week. - I worry about his ability to tolerate intensive systemic therapy such as FLOT + durva. 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 Depending on course we can consider following initiate definitive therapy adjuvant nivolumab. We discussed CROSS regimen today including rationale andrisks vs benefits. He is interested in pursuing treatment at this time. Will wait till he meets with our Rad Onc colleagues to determine final plan and timing. - He reports a diagnosis of peripheral neuropathy for years in his feet with some tingling, unclearetiology. Not bothersome, does not interfere with daily activities. Will need to keep a close eye. - Typically go to [place] mid-Oct to August. He understands this may need to be delayed for treatment here. Addendum: - Per Dr. Yazan Beaver he is not a candidate for surgery due to his advanced age and functional status. We will pursue additional molecular testing for inoperable esophageal cancer. #Dysphagia #Weight loss - Has lost 9 kg (about 10% of body weight) in the past year per our records. He reports losing 25 lbs in the last 2 months - Counseled about supplementing intake with protein shakes. Encouraged him to take at least 2-3 shakes a day. - Refer to nutrition - Will keep enteric access in mind if needed #Prostate adenocarcinoma - BIANCA, PSA not rising Upper GI cancer specific care: - Port for chemotherapy: Order placed - CPS: N/A - Tumor NGS: N/A - MMR / MSI / TMB testing: pMMR - HER-2 testing: Negative (0) - CLDN18.2: N/A - Germline genetic testing: N/A - PO/Enteric access: Able to eat some solids and liquids if chewing slowly - Weight and nutrition: Nutrition consult placed. Counseled him to take more shakes - Cancer pain and bowel regimen: No pain at the moment Current Therapy: Planning for CARBOplatin AUC 2 weekly / PACLitaxel WEEKLY ( with Radiation ) ( GI ) Current Disease Status: Not able to assess (baseline visit) ECOG Performance Status: 1 Intent of Therapy: Curative Intent to Change Therapy: Not applicable (baseline or planning visit) Administrative I personally spent over half of a total 78 minutes in counseling and discussion with the patient and coordination of care as described above. Dr. Sienna Arreaga Medical Oncologist, GI Oncology Pager: [phone] 9:28 AM CDT 01/09/25 [1] Family History Problem Relation Name Age of Onset Stroke Father Gunnar Li Sleep apnea Sister Stroke Father Gunnar Li Asthma Mother Nicholas Li 0 - 9 documented in this encounter Miscellaneous Notes * Addendum Note - Sienna Arreaga M.BSunshienB.S. - 01/09/2025 8:20 AM CDTAddended by: SIENNA ARREAGA on: 01/14/2025 04:33 PM Modules accepted: Orders documented in this encounter Plan of Treatment Upcoming Encounters Date Type Department Care Team (Late st Contact Info) Description 02/11/2025 3:15 PM CDT Appointment Department of Radiation Oncology in [address] [phone] Rey Meadows M.D. [address] [place] [phone] 02/12/2025 1:30 PM CDT Appointment Department of Radiation Oncology in [address] [phone] Rey Meadows M.D. [address] [place] [phone] 02/12/2025 2:00 PM CDT Appointment Department of Radiation Oncology in [address] [phone] Rey Meadows M.D. [address] [place] [phone] 02/13/2025 1:15 PM CDT Appointment Department of Radiation Oncology in [address] [phone] Rey Meadows M.D. [address] [place] [phone] 02/14/2025 12:30 PM CDT Appointment Department of Radiation Oncology in [address] [phone] Rey Meadows M.D. [address] [place] [address] 02/17/2025 1:15 PM CDT Appointment Department of Radiation Oncology in [place], [place] [address] [place] [address] Rey Meadows M.D. [address] [place] [address] 02/18/2025 1:15 PM CDT Appointment Department of Radiation Oncology in [place], [place] [address] [place] [phone] Rey Meadows M.D. [address] [place] [address] 02/19/2025 1:15 PM CDT Appointment Department of Radiation Oncology in [place], [place] [address] [place] [phone] Rey Meadows M.D. [address] [place] [address] 02/19/2025 1:45 PM CDT Appointment Department of Radiation Oncology in [place], [place] [address] [place] [phone] Rey Meadows M.D. [address] [place] [address] 02/20/2025 1:15 PM CDT Appointment Department of Radiation Oncology in [place], [place] [address] [place] [phone] Rey Meadows M.D. [address] [place] [address] 02/21/2025 12:30 PM CDT Appointment Department of Radiation Oncology in [place], [place] [address] [place] [phone] Rey Meadows M.D. [address] [place] [phone] 02/24/2025 12:30 PM CDT Appointment Department of Radiation Oncology in [place], [place] [address] [place] [address] Rey Meadows M.D. [address] [place] [phone] 02/25/2025 12:30 PM CDT Appointment Department of Radiation Oncology in [place], [place] [address] [place] [phone] Rey Meadows M.D. [address] [place] [phone] 02/26/2025 12:30 PM CDT Appointment Department of Radiation Oncology in [place], [place] [address] [place] [phone] Rey Meadows M.D. [address] [place] [phone] 02/26/2025 1:15 PM CDT Appointment Department of Radiation Oncology in [place], [place] [address] [place] [phone] Rey Meadows M.D. [address] [place] [phone] 02/27/2025 12:30 PM CDT Appointment Department of Radiation Oncology in [place], [place] [address] [place] [phone] Rey Meadows M.D. [address] [place] [phone] 02/28/2025 12:30 PM CDT Appointment Department of Radiation Oncology in [place], [place] [address] [place] [phone] Rey Meadows M.D. [address] [place] [address] Scheduled Referrals Name Type Priority Associated Diagnoses Orde r Schedule Nutrition - Oncology medical nutrition therapy consult (clinic) Outpatient Referral Routine Malignant Neoplasm Of Gastroesophageal Junction (HCC) Loss Weight Abnormal Expected: 01/09/2025, Expires: 04/10/2026 Social Work - General consult (clinic) [facility]; General Outpatient Referral Routine Malignant Neoplasm Of Gastroesophageal Junction (HCC) Loss Weight Abnormal Dysphagia Expected: 01/09/2025, Expires: 04/10/2026 documented as of this encounter Procedures Procedure Name Priority Date/Time Associated Diagnosis Comments EXT [facility] DNA AND RNA SOLID TUMOR Routine 01/30/2025 2:09 PM CDT Malignant Neoplasm Of Gastroesophageal Junction (HCC) MMR PROTEIN, IHC ONLY, TUMOR Routine 12/31/2024 9:30 AM CDT Malignant Neoplasm Of Gastroesophageal Junction (HCC) documented in this encounter Results * EXT [facility] xT DNA And RNA (01/30/2025 2:09 PM CDT) EXT Reason for Study To identify somatic and germline mutations relevant to patient's cancer. 01/30/2025 2:09 PM CDT [facility] EXT Genetic Diseases Assessed Cancer 01/30/2025 2:09 PM CDT [facility] EXT Description of Ranges of DNA Sequences Examined 648 gene panel 01/30/2025 2:09 PM CDT [facility] EXT Overall Interpretation positive 01/30/2025 2:09 PM CDT [facility] EXT MSI Stable 01/30/2025 2:09 PM CDT [facility] EXT TMB 6.8 m/MB 01/30/2025 2:09 PM CDT [facility] EXT [facility] [email or web address] 01/30/2025 2:09 PM CDT [facility] Comment:[facility] link EXT Trial Count 3 2:09 PM CDT [facility] EXT Trial 1: Matched criteria Clinical Trial NCT ID: [id number] Clinical Trial Title: A Study of CLSP-1025 in Adult Patients With Solid Tumors That [place] the p53 R175H Mutation Clinical Trial URL: [email or web address] [email or web address]/ct2/[email or web address] Clinical Phase: Phase 1 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 Clinical Trial Distance and Location: [address] [place], [place] 01/30/2025 2:09 PM CDT [facility] EXT Trial 2: Matched criteria Clinical Trial NCT ID: [id number] Clinical Trial Title: A Yirot-wh-Ipuvn (FI) Study to Evaluate the Safety and Tolerability of [id number]-[id number] in Participants With Advanced Solid Tumors Clinical Trial URL: [email or web address]://clinicalt rials.gov/ct2/[place] w/[email or web address] Clinical Phase: Phase 1 Clinical Trial Matches: KRAS amplification Clinical Trial Distance and Location: [address] [place], [place] 01/30/2025 2:09 PM CDT [facility] EXT Trial 3: Matched criteria Clinical Trial NCT ID: [id number] Clinical Trial Title: A Study to Find a Suitable Dose of [id number] in Adults With Solid Tumors Clinical Trial URL: [email or web address]://clinicalt rials.gov/ct2/[place] w/[email or web address] Clinical Phase: Phase 1 Clinical Trial Matches: KRAS amplification Clinical Trial Distance and Location: [address] 01/30/2025 2:09 PM CDT [facility] EXT xR Result 1 NEGATIVE Negative - This report is being issued to report the results of gene rearrangement and altered splicing analysis from RNA sequencing. No gene rearrangements nor reportable altered splicing events were identified from RNA sequencing. 01/30/2025 2:09 PM CDT [facility] EXT Germline Variant Note No normal sample was received, therefore tumor/normal matched analysis was not performed. 01/30/2025 2:09 PM CDT [facility] Treatment Implications Note No reportable treatment options found. 01/30/2025 2:09 PM CDT [facility] EXT HLA-A Typing A*02:01,A*26:01 06/2024 2:09 PM CDT [facility] EXT HLA-B Typing B*40:01,B*44:03 06/2024 2:09 PM CDT [facility] EXT HLA-C Typing C*03:04,C*16:01 06/2024 2:09 PM CDT [facility] EXT HLA-A Ambiguous Alleles No 01/30/2025 2:09 PM CDT [facility] EXT HLA-B Ambiguous Alleles No 01/30/2025 2:09 PM CDT [facility] EXT HLA-C Ambiguous Alleles No 01/30/2025 2:09 PM CDT [facility] EXT HLA-A Sample Type Tumor Only 01/30/2025 2:09 PM CDT [facility] EXT HLA-B Sample Type Tumor Only 01/30/2025 2:09 PM CDT [facility] EXT HLA-C Sample Type Tumor Only 01/30/2025 2:09 PM CDT [facility] Tissue 01/22/2025 4:4 4 PM CDT Narrative This result has genomic variants that were not included in this document. Sienna Blankenship [facility] GENETIC TESTING Kleber srinivasan Result - Final [facility] [address] [facility] [facility], [address] [place] [address], [facility] [phone] [facility] [address], [address] [place] [address] * IR Implanted Vascular Access Device Placement (01/15/2025 10:41 AM CDT) Anatomical Region Laterality Modality Chest, Pelvis, Abdomen, Vasc ular Interventional RST LOS, Vascular Interventional ARZ LOS, Vascular Interventional FLA LOS N/A X-Ray Angiography Impressions 01/15/2025 11:11 AM CDT Placement of a right internal jugular vein 8 [place] PowerPort Slim. Ready for use. NR Narrative 01/15/2025 11:11 AM CDT EXAM: IR IMPLANTED VASCULAR ACCESS DEVICE PLACEMENT CLINICAL HISTORY: Patient is an 85-year-old male with gastroesophageal junction cancer who presents for port placement for chemotherapy. TECHNIQUE: Patient was prepped and draped in the usual sterile fashion over the right neck and chest. 1% buffered lidocaine was used as local anesthetic. Using ultrasound guidance to access vessel, patency was shown and after anesthetizing the skin with lidocaine the right internal jugular vein was punctured successfully. A permanent image was created and stored. Wire advanced into the IVC and a 5F dilator advanced over the wire and set aside. Suitable port site in the right anterior chest was anesthetized and an incision made. Blunt dissection was performed creating a port pocket. An 8F PowerPort Slim was then placed in the pocket. Catheter was tunneled from the port pocket to the venotomy site. Catheter was cut to length and advanced through a peel-away sheath. Catheter tip is near the SVC/RA junction. Port was flushed and is ready for immediate use. Port pocket closed with 3-0 Vicryl sutures and Dermabond. Venotomy site closed with Dermabond. No immediate complications. For placement of this central venous access, we followed catheter checklist and a standardized protocol. The position of the catheter tip was confirmed under fluoroscopic guidance and a final image of the catheter position was obtained. Ready for use. CT injectable PowerPort was placed. This device can be power injected up to a pressure of 300 PSI and flow rate of 5 mL/sec. PREPROCEDURE: Patient seen, evaluated, history reviewed, and approved for sedation. Airway, heart, and lung exam satisfactory for sedation. Discussed risks, benefits, alternatives for procedure, and/or sedation. The roles and responsibilities of care team members, residents, and fellows were discussed. Patient understands information and questions answered. Informed consent obtained from the patient. Immediately prior to starting the procedure, in the presence of the assisting personnel, a procedural pause was conducted to verify correct patient identity and verification of procedure to be performed, and as applicable, correct side and site, correct patient position, availability of implants, special equipment, or special requirements, and all image and specimen identification data. INTRAPROCEDURE: Moderate sedation was administered by sedation nurse under my supervision. The patient was continuously monitored with real time oxygen saturation, heart rate, ECG rhythm strip and blood pressure throughout administration of the sedation and performance of the procedure. The total intra-procedural sedation time was: 26 minutes. Estimated blood loss: minimal. Procedure Note Scott Ramirez M.D. 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 TECHNIQUE: Patient was prepped and draped in the usual sterile fashionover the right neck and chest. 1% buffered lidocaine was used as localanesthetic. Using ultrasound guidance to access vessel, patency was shownand after anesthetizing the skin with lidocaine the right internal jugularvein was punctured successfully. A permanent image was created and stored.Wire advanced into the IVC and a 5F dilator advanced over the wire and setaside. Suitable port site in the right anterior chest was anesthetized andan incision made. Blunt dissection was performed creating a port pocket.An 8F PowerPort Slim was then placed in the pocket. Catheter was tunneledfrom the port pocket to the venotomy site. Catheter was cut to length andadvanced through a peel-away sheath. Catheter tip is near the SVC/RAjunction. Port was flushed and is ready for immediate use. Port pocketclosed with 3-0 Vicryl sutures and Dermabond. Venotomy site closed withDermabond. No immediate complications. For placement of this central venous access, we followed catheterchecklist and a standardized protocol. The position of the catheter tipwas confirmed under fluoroscopic guidance and a final image of thecatheter position was obtained. Ready for use. CT injectable PowerPort was placed. This device can be power injected upto a pressure of 300 PSI and flow rate of 5 mL/sec. PREPROCEDURE: Patient seen, evaluated, history reviewed, and approved forsedation. Airway, heart, and lung exam satisfactory for sedation.Discussed risks, benefits, alternatives for procedure, and/or sedation.The roles and responsibilities of care team members, residents, andfellows were discussed. Patient understands information and questionsanswered. Informed consent obtained from the patient. Immediately prior tostarting the procedure, in the presence of the assisting personnel, aprocedural pause was conducted to verify correct patient identity andverification of procedure to be performed, and as applicable, correct sideand site, correct patient position, availability of implants, specialequipment, or special requirements, and all image and specimenidentification data. INTRAPROCEDURE: Moderate sedation was administered by sedation nurse undermy supervision. The patient was continuously monitored with real timeoxygen saturation, heart rate, ECG rhythm strip and blood pressurethroughout administration of the sedation and performance of theprocedure. The total intra-procedural sedation time was: 26 minutes.Estimated blood loss: minimal. IMPRESSION: Placement of a right internal jugular vein 8 [place] PowerPort Slim. Readyfor use. NR Sienna Blankenship IMG IR PROCEDURES Final Result * Mismatch Repair (MMR) Protein Immunohistochemistry Only, Tumor (12/31/2024 9:30 AM CDT) MLH1 IHC Performed 5 3:35 PM CDT DTL MSH2 IHC Performed 5 3:35 PM CDT DTL MSH6 IHC Performed 5 3:35 PM CDT DTL PMS2 IHC Performed 5 3:35 PM CDT DTL Result Provided diagnosis: esophageal adenocarcinoma IHC: Normal expression of MLH1, MSH2, MSH6, and PMS2 5 3:35 PM CDT DTL Specimen Tissue, Tumor 5 3:35 PM CDT DTL Tissue ID [id number] 5 3:35 PM CDT DTL Released By Fidel Tilley M.D., Ph.D. 5 3:35 PM CDT DTL Result Summary INTACT PROTEIN EXPRESSION 5 3:35 PM CDT DTL Interpretation These results suggest the presence of normal DNA mismatch repair function within the tumor. However, these results do not completely rule out the possibility of defective DNA mismatch repair within the tumor because approximately 5% of cases with defective mismatch repair do not show absence of protein expression by IHC (Mod Pathol. 2019;33(5):871-879 (PMID: 42374037)). THERAPEUTIC IMPLICATIONS Current data suggest that in advanced stage solid tumors, targeted immunotherapies such as anti-PD-1 therapies are more likely to be effective in mismatch repair-deficient tumors than in mismatch repair-proficient tumors (Science. 2017 Nov 25;357(6972):409- 413 (PMID 09997717); J Clin Oncol. 2018 May 20:KMS5735385576 (PMID 03508908)). For interpretation of therapeutic implications of these results, consider MSI analysis to confirm ELIEL/MSI-L status in this tumor due to the possibility of discordance between IHC and MSI results. HEREDITARY IMPLICATIONS These results do not rule out a diagnosis of Oliveira syndrome (LS) since the majority of information available on the ability of MSI/IHC testing to identify individuals with LS relates to testing that is performed on colon cancer. Although colon tumors are the preferred specimen for assessing an individual's risk, testing of other tumors typically associated with LS (e.g. endometrial, sebaceous carcinoma, gastric, or upper tract urothelial carcinoma) may be useful if a colon tumor is unavailable. This additional testing may provide more definitive evidence regarding whether or not this individual or family is likely to have an inherited colon cancer syndrome due to defective DNA mismatch repair (Oliveira syndrome). These results also do not rule out the possibility that this individual's tumor is due to an inherited defect in another gene not involved in mismatch repair. A significant fraction of clinically defined LS cases (30% or more) do not have defective DNA mismatch repair as the underlying genetic basis of their disease. Additionally, these results do not rule out the possibility that this tumor could represent a sporadic occurrence. A genetic consultation may be of benefit. ADDITIONAL INFORMATION Consideration of these results, in light of other clinical information, may aid in clinical management decisions for this patient. These data should be interpreted in the context of the histopathologic findings. A surgical pathology consult may be ordered separately. 5 3:35 PM CDT DTL Comment: ----ADDITIONAL INFORMATION---- Immunohistochemical staining (IHC) is used to determine the presence or absence of protein expression for one or more of the following: MLH1, MSH2, MSH6, and PMS2. Lymphocytes and normal epithelium exhibit strong nuclear staining to serve as positive internal controls for staining of these proteins. MLH-1: specimen for MLH-1 immunohistochemistry studies (anti-MLH-1 clone [id number], [employer], [place], [place]; [employer] Optiview + Optiview AMP Detection) MSH-2 : specimen for MSH-2 immunohistochemistry studies (anti-MSH-2 clone [id number], [employer], [place], [place]; Le[employer] Joe Polymer Refine Detection) MSH-6: specimen for MSH-6 immunohistochemistry studies (anti-MSH-6 clone [id number], [employer], [place], [place]; [employer] Optiview Detection) PMS-2: specimen for PMS-2 immunohistochemistry studies (anti-PMS-2 clone [id number], [employer], [place], [place]; [employer] Optiview + Optiview AMP Detection) Fixation:This test has been validated for nondecalcified paraffin-embedded tissue specimens fixed in 10% neutral-buffered formalin. Recommended fixation time is between 6 to 48 hours. This assay has not been validated on tissues subjected to the decalcification process or use of alternative fixatives Test results should be interpreted in the context of clinical findings, family history, and other laboratory data. If results obtained do not match other clinical or laboratory findings, please contact the laboratory for possible interpretation. Misinterpretation of results may occur if the information provided is inaccurate or incomplete. This test was developed and its performance characteristics determined by [facility] in a manner consistent with CLIA requirements. This test has not been cleared or approved by the U.S. Food and Drug Administration. Tissue (Esophagus) 12/31/2024 9:30 AM CDT 01/13/2025 5:10 PM CDT Sienna Blankenship LAB GENETIC TESTING Fin al Result [facility] [address] [place] [address], [facility] [address] [place] [address] * Aura Tempus xT, Tissue - Sent Out Lab (12/31/2024 9:29 AM CDT) Aura Tempus xT, Tis Collected, Sent to Reference Lab DEFAULT 01/21/2025 3:07 PM CDT [facility] Tissue (Other, Specify in Comments) 12/31/2024 9:29 AM CDT 01/21/2025 3:07 PM CDT Sienna Blankenship LAB GENETIC TESTING Fin al Result [facility] [address] [place] [address], [facility] [address] [place] [address] documented in this encounter Visit Diagnoses Diagnosis Malignant Neoplasm Of Gastroesophageal Junction (HCC)- Primary Loss Weight Abnormal Dysphagia Malignant Neoplasm Of Gastroesophageal Junction (HCC) documented in this encounter Additional Health Concerns Assessment Noted Time PHQ-9 Depression Total Score: 1 01/26/20 23 2:13 PM CDT documented as of this encounter 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
--- OUTSIDE RECORDS SUMMARY | 2025-01-09 16:00 | XMS_ITS | Encounter Summary ---
Author Organization [facility] Address [address] [place] [phone] Care Team Providers Care Director Video Name Role Phone Elsewhere, Pcp Primary Care Provider Unavailabl e Reason for Visit * Outpatient (Routine) - Closed Specialty Diagnoses / Procedures Referred By Contangela t Referred To Contact Thoracic Surgery Diagnoses 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) Gaetano Roman APRN, C.N.P., M.S. [address] [place] [phone] Phone: tel: fax: [facility] Referral ID Status Reason Start Date Expiration Date Visits Re quested Visits Authorized [id number] Closed 12/31/2024 07/02/2026 1 1 Encounter Details Date Type Department Care Team (Latest Contact Info) Description 01/09/2025 4:00 PM CDT Comprehensive Visit Division of Thoracic Surgery in [place], [place] [address] [place] [phone] Jose Ramon Adam M.D. [address] [place] [phone] Malignant Neoplasm Of Gastroesophageal Junction (HCC) (Primary Dx) Social History Tobacco Use [...] No 12/31/2024 [facility] Utilities Answer Date Recorded In the past 12 months has [facility] electric, gas, oil, or water company threatened to shut off services in your home? No 12/31/2024 Depression Answer Date Recor ded PHQ-9 Total Score (max 27) 1 01/25 Housing Stability Answer Date Recorded What is your living situation today? I have a [facility] place to live 12/31/2024 Education Answer Date Recorded What is the highest level of school you have completed or the highest degree you have received? 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 - 01/09/2025 4:00 PM CDT SUBJECTIVE THORACIC SURGERY REFERRING PROVIDER: Gaetano Roman APRN, * REASON FOR CONSULT Consultation for gastroesophageal junction carcinoma. HISTORY OF PRESENT ILLNESS Rey Li is a 85 y.o. male patient, former smoker, who presents today for consultationwith a new diagnosis of gastroesophageal junction adenocarcinoma. He developed dysphagia which prompted an EGD on 12/31/2024 that revealed the presence of malignant stenosis from 45-48 cm from the incisors. 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 A CT scan of the chest, abdomen, and pelvis on 01/05/2025 showed soft tissue thickening involving the distal esophagus and cardia. A PET scan on 01/06/2025 showed intense FDG uptake atthe gastroesophageal junction extending to the cardia with SUVmax 19.2. There was no evidence of FDG avid lymphadenopathy or distant disease. EGD with EUS on 01/08/2025 showed an ulcerating mass extending from 45-48 cm from the incisors, with the gastroesophageal junction located at 46 cm. This was consistent with a Siewert type 2 lesion. Ultrasonographic features were consistent with at least a uT3 lesion. He was referred to Thoracic Surgery for evaluation and management recommendations. He described a somewhat limited functional status. He remains active, but cannot perform strenuous activities or light activities for longer than 15-20 min. He takes frequent naps secondary to fatigue. REVIEW OF SYSTEMS Pertinent items are noted in the history of present illness; all other review of systems was negative. MEDICAL HISTORY Medical History[1] RELEVANT SURGICAL HISTORY: Robotic prostatectomy Parotidectomy Spine surgery Hernia repair MEDICATIONS Current Outpatient Medications Medication Instructions apixaban (ELIQUIS) 5 mg, oral, 2 times daily atenoloL (TENORMIN) 50 mg, 2 times daily fexofenadine (MOISES) 180 mg tablet 1 tablet, Daily GLUCOSAMINE HCL/CHONDROITIN AKESR (GLUCOSAMINE-CHONDROITIN ORAL) 2 tablets, Daily multivitamin tablet 1 tablet, Daily s-adenosylmethionine (SVEN-e) 400 mg tablet 1 tablet, Daily ALLERGIES Allergies[2] SMOKING HISTORY: Tobacco History[3] OBJECTIVE PHYSICAL EXAMINATION BMI 24.7 Other than noted above, no relevant physical exam findings. DATA: LABORATORY: Lab Results Component Value Date WBC 6.7 01/09/2025 HGB 13.2 01/09/2025 HCT 42.5 01/09/2025 PLT 185 01/09/2025 Lab Results Component Value Date NA 141 01/09/2025 KSERUM 4.4 01/09/2025 CL 104 01/09/2025 BICARB 28 01/09/2025 CREATININE 1.11 01/09/2025 BUN 11 01/09/2025 ANIONGAP 9 01/09/2025 GLUCOSE 121 01/09/2025 CALCIUM 8.9 01/09/2025 MG 2.2 11/10/2020 Lab Results Component Value Date BILITOT 0.8 01/09/2025 AST 15 01/09/2025 ALT 16 01/09/2025 ALKPHOS 50 01/09/2025 ECO - Ambulatory and capable of all selfcare but unable to carry out any work activities. Up and about more than 50% of waking hours. IMAGING: CT Chest with IV Contrast (01/06/2025): EXAM: CT CHEST WITH IV CONTRAST COMPARISON: 11/04/2020 CT chest angiogram, 12/03/2024 [facility] PET/CT. FINDINGS: Mild soft tissue thickening at the GE junction/proximal stomach (4/285-290) may correspond with the patient's known esophageal malignancy. A 3 mm solid pulmonary nodule in the right upper lobe (3 /303) is new since 11/04/2020, stable since 12/03/2024 PET/CT. A couple of additional tiny 1-2 mm pulmonary micronodules were not well seen on 11/04/2020 and are below PET/CT resolution. For example withinthe right middle lobe (3/461), right lower lobe [...] anterior wedging of several lower thoracic vertebral bodies.This examination was performed in conjunction with a CT of the abdomen, which will be reported separately. 1. Several tiny indeterminate pulmonary micronodules measuring up to 3 mm are new or newly visualized since 11/04/2020. 2. Mild soft tissue thickening involving the distal esophagus/proximal stomach corresponding with biopsy-proven gastroesophageal junction malignancy. CT Abdomen Pelvis with IV Contrast (01/05/2025): EXAM: CT ABDOMEN PELVIS WITH IV CONTRAST [...] prior study. Please see chest CT report. Soft tissue mass involving the distal esophagus and proximal stomach compatible the patient's knowngastroesophageal junction malignancy. PET CT Skull to Thigh FDG (01/07/2025): EXAM: PET CT SKULL TO THIGH FDG Serum glucose at time of F-18 FDG injection was 90 mg/dL. Patient followed standard dietary/fasting requirements for this exam. RADIOPHARMACEUTICAL/MEDS: Route: intravenous fludeoxyglucose F 18 injection [facility]IOR [facility] (F-18 FDG),9.94 millicurie TECHNIQUE: F-18 FDG PET/CT [...] pelvis 01/05/2025. Prior postoperative changes both eyes. Intensely FDG avid GE junction malignancy. No FDG uptake suspicious for metastatic disease. ASSESSMENT / PLAN Rey Li is a 85 y.o. 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 The available staging work up is consistent with at least clinical T3 Nx M0, stage III disease. I discussed with him and his the principles of management of locally advanced gastroesophageal junction carcinoma, including the potential role of surgery as part of multimodal therapy. I brieflyexplained the scope and implications of surgery in the form of an esophagectomy. Given his advancedage and functional status, I have serious reservations about his ability to tolerate and recover from surgery. Therefore, I clearly explained to him and his that I do not recommend pursuing an esophagectomy as part of his treatment plan. He has met with Medical Oncology and will be meeting with Radiation Oncology next week. They will define the final treatment strategy, that might involve def initive chemoradiation. However, this will also be impacted by biomarker testing. I answered multiple questions. We spend a significant time discussing his case and life in general. He was in agreement with my recommendation against surgery. He will continue following up with Medical Oncology and Radiation Oncology. He was very appreciative of my consultation. RECOMMENDATION: He is not a candidate for surgery in the form of an esophagectomy due to his advanced age and functional status CLINICAL STAGING: [id number] (clinical stage III) PATIENT EDUCATION I spent time with the patient on education of the pertinent clinical matters. The patient was readyto learn with no apparent significant learning barriers identified. We concluded that learning preferences include listening. I explained the diagnosis and treatment plan in detail. I discussed the risks, benefits, and alternatives of the planned procedure. I also discussed the possibility and implications of blood transfusion. We discussed advance directives and the necessity of other members ofthe healthcare team participating in the procedure. We discussed issues of surgical scheduling and t he possibility of overlapping or sequential surgical procedures. I answered all of the patient's questions. The patient clearly expressed understanding of the content reviewed and the patient agrees to proceed. More than 50% of the time was spent in education, counseling, and coordinating the patient's care. The level of medical decision making was determined based on time and effort spent reviewing medical records, interpreting the available imaging studies, and in a cetn-il-ybir or virtual encounter with the patient. 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 Malignant Neoplasm Of Prostate (HCC) 12/21/2006 Skin Cancer (Primary) NOS Sleep Apnea Stroke (HCC) [2] Allergies Allergen Reactions Pollen Extracts Itching [3] Social History Tobacco Use Smoking status: Former Packs/day: 0.00 Types: Cigarettes Start date: 09/29/1957 Quit date: 09/01/1969 Years since quittin.4 Passive exposure: Never Smokeless tobacco: Never Tobacco comments: Quit in 1970 documented in this encounter Plan of Treatment Upcoming Encounters Date Type Department Care Team (Late st Contact Info) Description 02/11/2025 3:15 PM CDT Appointment Department of Radiation Oncology in [address] [phone] Rey Meadows M.D. 200 [place] [phone] 02/12/2025 1:30 PM CDT Appointment Department of Radiation Oncology in [address] [phone] Rey Meadows M.D. 200 [place] [address] 02/12/2025 2:00 PM CDT Appointment Department of Radiation Oncology in [address] [place] [phone] Rey Meadows M.D. [address] [place] [phone] 02/13/2025 1:15 PM CDT Appointment Department of Radiation Oncology in [place], [place] [address] [place] [phone] Rey Meadows M.D. [address] [place] [phone] 02/14/2025 12:30 PM CDT Appointment Department of Radiation Oncology in [place], [place] [address] [place] [phone] Rey Meadows M.D. 200 [place] [phone] 02/17/2025 1:15 PM CDT Appointment Department of Radiation Oncology in [place], [place] [address] [place] [phone] Rey Meadows M.D. [address] [place] [phone] 02/18/2025 1:15 PM CDT Appointment Department of Radiation Oncology in [place], [place] [address] [place] [phone] Rey Meadows M.D. 200 [place] [phone] 02/19/2025 1:15 PM CDT Appointment Department of Radiation Oncology in [place], [place] [address] [place] [phone] Rey Meadows M.D. 200 [place] [address] 02/19/2025 1:45 PM CDT Appointment Department of Radiation Oncology in [place], [place] [address] [place] [phone] Rey Meadows M.D. [address] [place] [phone] 02/20/2025 1:15 PM CDT Appointment Department of Radiation Oncology in [place], [place] [address] [place] [phone] Rey Meadows M.D. [address] [place] [phone] 02/21/2025 12:30 PM CDT Appointment Department of Radiation Oncology in [address] [phone] Rey Meadows M.D. [address] [place] [phone] 02/24/2025 12:30 PM CDT Appointment Department of Radiation Oncology in [place], [place] [address] [place] [phone] Rey Meadows M.D. [address] [place] [phone] 02/25/2025 12:30 PM CDT Appointment Department of Radiation Oncology in [place], [place] [address] [place] [phone] Rey Meadows M.D. [address] [place] [phone] 02/26/2025 12:30 PM CDT Appointment Department of Radiation Oncology in [place], [place] [address] [place] [phone] Rey Meadows M.D. [address] [place] [address] 02/26/2025 1:15 PM CDT Appointment Department of Radiation Oncology in [place], [place] [address] [place] [address] Rey Meadows M.D. 200 [place] [phone] 02/27/2025 12:30 PM CDT Appointment Department of Radiation Oncology in [place], [place] [address] [place] [phone] Rey Meadows M.D. [address] [place] [address] 02/28/2025 12:30 PM CDT Appointment Department of Radiation Oncology in [place], [place] [address] [place] [phone] Rey Meadows M.D. [address] [place] [phone] documented as of this encounter Visit Diagnoses Diagnosis Malignant Neoplasm Of Gastroesophageal Junction (HCC)- Primary documented in this encounter Additional Health Concerns Assessment Noted Time PHQ-9 Depression Total Score: 1 01/26/20 23 2:13 PM CDT documented as of this encounter Care Teams Director Video Relationship Specialty Start Date End Date Elsewhere, Pcp PCP - General Internal Medicine 01/30/24 documented as of this encounter
--- OUTSIDE RECORDS SUMMARY | 2025-01-13 10:00 | XMS_ITS | Encounter Summary ---
Author Organization [facility] Address [address] [place] [phone] Care Team Providers Care Dress Cap Maker Name Role Phone Elsewhere, Pcp Primary Care Provider Unavailabl e Reason for Visit * Outpatient (Routine) - Closed Specialty Diagnoses / Procedures Referred By Contac t Referred To Contact Nutrition Diagnoses Malignant Neoplasm Of Gastroesophageal Junction (HCC) Loss Weight Abnormal Sienna Dempsey M.B.B.S. [address] [place] [phone] Phone: tel: fax: [facility] Referral ID Status Reason Start Date Expiration Date Visits Re quested Visits Authorized [id number] Closed 01/09/2025 07/11/2026 1 1 Encounter Details Date Type Department Care Team (Latest Contact Info) Description 01/13/2025 10:00 AM CDT Telemedicine Department of Oncology in [place], [place] [address] [place] [phone] Sienna Dempsey M.B.B.S. [address] [place] [phone] Amira Gomez M.S., RDN, LD [address] [place] [phone] Malignant Neoplasm Of Gastroesophageal Junction (HCC) (Primary Dx); Dysphagia; Loss Weight Abnormal Social History Tobacco Use Types Packs/Day Years [...] things needed for daily living? No 12/31/2024 [facility] Utilities Answer Date Recorded In the past [address] [facility] [employer], gas, oil, or water [employer] threatened to shut off services in your [...] PM CDT Legal Sex Male 1:57 PM [employer] Gender Identity Male 09/04/2018 3:21 PM CDT Sexual Orientation Straight 09/04/2018 3: 21 PM CDT documented as of this encounter Last Filed Vital Signs Vital Sign Reading Time Taken Comments Blood Pressure - - Pulse - - Temperature - - Respiratory Rate - - Oxygen Saturation - - Inhaled Oxygen Concentration - - Weight - - Height 179.5 cm (5' 10.67) 01/13/2025 9:52 AM C DT Body Mass Index - - documented in this encounter Progress Notes * Amira Gomez M.S., JJ, RADHA - 01/13/2025 10:00 AM CDT CHIEF COMPLAINT/REASON FOR VISIT Mr. Rey Li was referred for medical nutrition therapy: Malignant Neoplasm Of Gastroesophageal Junction (HCC) Loss Weight Abnormal. Referring provider: Sienna Dempsey M.B.B.S. Met with patient and spouse for an individual visit. Consult conducted via real- time audio/video technology by Amira Gomez M.S., JJ, RADHA in [facility] to the patient in his home. Start time: 9:58 am End time: 10:37 am Today's visit lasted 39 minutes. ASSESSMENT Nutrition Focused Physical Findings Appetite: decreased appetite, I hardly ever feel hungry Mouth/Esophagus/Throat: difficulty swallowing due to a sensation of foods getting stuck in his throat and needing to wait for food to pass; dysgeusia, food are more bland, except sweets; xerostomia Nausea/Vomiting: no concerns Bowels: constipation, he has a laxative available but expresses hesitation with usage due to concerns about urgency to have a bowel movement when away from home; using a fiber gummy Hydration: likely adequate Food/Nutrition Related History Diet Experience: He reports some difficulty with swallowing. He finds that meats and bread productsare most difficult for swallowing. He has been to chew more significantly than normal to help facilitate swallowing. He shares that he enjoys sweets such as cupcakes and ice cream. He has been tryingto focusing in high protein foods. Current intake: Breakfast (10:30-11 am): large slice of wheat toast with butter and apricot spread or [place] [employer]ian breakfast bowl (sausage, potatoes, eggs, gravy) Lunch (1 pm): Ensure shake or frozen cupcake or cookie Dinner (6 pm): ham and creamed potatoes with peas or clam chowder or sloppy сергей sandwich or tomato soup with calvillo HS snack: Beverage/fluid intake: He has been drinking 2-3 servings of Ensure Complete (350 kcal, 30 grams protein) per day. He drinks orange juice but notes that it doesn't go down as easy as water. He drinks water constantly due to history of xerostomia. He drinks up to two beers per day, usually with dinner. He doesn't drink coffee. Weight History Patient Weight: 01/09/25 : 85.7 kg 12/31/24 : 84.8 kg 12/20/24 : 87.3 kg 01/30/24 : 94.6 kg 01/05/24 : 94.3 kg 01/25/23 : 98.7 kg BMI Readings from Last 1 Encounters: 01/09/25 26.61 kg/m?? Weight history: He estimates that he has had a weight loss of about 25 lbs in the last two to threemonths. He also shares that his weight loss is now plateauing as he is working heard to make sure that she can eat as much as he can. He is currently about 185 lbs. Estimation of Nutritional Needs Calories: 1891 kcal (HB+20%) Protein: 86-103 grams/day (1-1.2 g/kg) NUTRITION DIAGNOSIS Predicted suboptimal energy intake related to cancer diagnosis/treatment as evidenced by potential for side effects to adversely affect his ability to maintain weight and nutritional status throughout treatment. Nutrition Prescription/Recommendation Regular meals and snacks with adequate calories and protein. INTERVENTION Counseling: We reviewed nutrition goals during cancer treatment, including the importance of adequate calories, protein and fluid. We discussed nutrition guidelines for management of xerostomia and dysphagia. I answered questions about sugar and cancer MONITORING AND EVALUATION: Nutrition parameter to monitor: food intake Desired Outcome: optimize Patient Goal(s): 1. Eat small, frequent meals and snacks. 2. Choose high calorie and high protein foods at each eating occasion. 3. Opt for soft textured, moist foods. Follow-up: 1 month documented in this encounter Plan of Treatment Upcoming Encounters Date Type Department Care Team (Late st Contact Info) Description 02/11/2025 3:15 PM CDT Appointment Department of Radiation Oncology in [address] [phone] Rey Meadows M.D. [address] [place] [phone] 02/12/2025 1:30 PM CDT Appointment Department of Radiation Oncology in [address] [phone] Rey Meadows M.D. [address] [place] [phone] 02/12/2025 2:00 PM CDT Appointment Department of Radiation Oncology in [address] [phone] Rey Meadows M.D. [address] [place] [phone] 02/13/2025 1:15 PM CDT Appointment Department of Radiation Oncology in [address] [phone] Rey Meadows M.D. [address] [place] [phone] 02/14/2025 12:30 PM CDT Appointment Department of Radiation Oncology in [address] [phone] Rey Meadows M.D. [address] [place] [phone] 02/17/2025 1:15 PM CDT Appointment Department of Radiation Oncology in [address] [phone] Rey Meadows M.D. [address] [place] [phone] 02/18/2025 1:15 PM CDT Appointment Department of Radiation Oncology in [place], [place] [address] [place] [phone] Rey Meadows M.D. [address] [place] [phone] 02/19/2025 1:15 PM CDT Appointment Department of Radiation Oncology in [address] [phone] Rey Meadows M.D. [address] [place] [phone] 02/19/2025 1:45 PM CDT Appointment Department of Radiation Oncology in [address] [phone] Rey Meadows M.D. [address] [place] [phone] 02/20/2025 1:15 PM CDT Appointment Department of Radiation Oncology in [place], [place] [address] [place] [phone] Rey Meadows M.D. [address] [place] [phone] 02/21/2025 12:30 PM CDT Appointment Department of Radiation Oncology in [place], [place] [address] [place] [phone] Rey Meadows M.D. [address] [place] [phone] 02/24/2025 12:30 PM CDT Appointment Department of Radiation Oncology in [place], [place] [address] [place] [phone] Rey Meadows M.D. [address] [place] [phone] 02/25/2025 12:30 PM CDT Appointment Department of Radiation Oncology in [place], [place] [address] [place] [phone] Rey Meadows M.D. [address] [place] [phone] 02/26/2025 12:30 PM CDT Appointment Department of Radiation Oncology in [address] [phone] Rey Meadows M.D. [address] [place] [phone] 02/26/2025 1:15 PM CDT Appointment Department of Radiation Oncology in [address] [phone] Rey Meadows M.D. [address] [place] [phone] 02/27/2025 12:30 PM CDT Appointment Department of Radiation Oncology in [place], [place] [address] [place] [phone] Rey Meadows M.D. [address] [place] [phone] 02/28/2025 12:30 PM CDT Appointment Department of Radiation Oncology in [place] [id number] [place] [address] Rey Meadows M.D. [address] [place] [phone] documented as of this encounter Visit Diagnoses Diagnosis Malignant Neoplasm Of Gastroesophageal Junction (HCC)- Primary Dysphagia Loss Weight Abnormal documented in this encounter Additional Health Concerns Assessment Noted Time PHQ-9 Depression Total Score: 1 01/26/20 23 2:13 PM CDT documented as of this encounter Care Teams Dress Cap Maker Relationship Specialty Start Date End Date Elsewhere, Pcp PCP - General Internal Medicine 01/30/24 documented as of this encounter
--- OUTSIDE RECORDS SUMMARY | 2025-01-14 09:35 | XMS_ITS | Encounter Summary ---
Author Organization [facility] Address [address] [place] [id number] Care Team Providers Care Slot Machine Department Floorperson Name Role Phone Elsewhere, Pcp Primary Care Provider Unavailabl e Reason for Referral * Outpatient (Routine) - Closed Specialty Diagnoses / Procedures Referred By Contac t Referred To Contact Radiation Oncology Diagnoses Malignant Neoplasm Of Gastroesophageal Junction (HCC) Miah Carrera M.D. 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 [address] [place] [address] Phone: tel: fax: [facility] Referral ID Status Reason Start Date Expiration Date Visits Re quested Visits Authorized [id number] Closed 12/31/2024 07/02/2026 1 1 Encounter Details Date Type Department Care Team (Latest Contact Info) Description 01/14/2025 9:35 AM CDT - 01/14/2025 3:17 PM CDT Hospital Encounter Department of Radiation Oncology in [place], [place] [address] [place] [phone] Miah Carrera M.D. [address] [place] [phone] Malignant Neoplasm Of Gastroesophageal Junction (HCC) (Primary [...] needed for daily living? No 12/31/2024 [facility] Utilities Answer Date Recorded In the past 12 months has th e electric, gas, oil, or water company threatened to shut off services in your home? No 12/31/2024 Depression Answer Date Recor ded PHQ-9 Total Score (max 27) 1 01/25 Housing Stability Answer Date Recorded What is your living situation today? I have a [facility] place to live 12/31/2024 Education Answer Date Recorded What is the highest level of school you have completed or the highest degree you have received? Bachelor's degree (e.g., BA, AB, BS) 01/09/2019 Sex and Gender Information Value Date Recorded Sex Assigned at Male 12/27/2018 12:13 PM CDT Legal Sex Male 1:57 PM [employer] Gender Identity Male 09/04/2018 3:21 PM CDT Sexual Orientation Straight 09/04/2018 3: 21 PM CDT documented as of this encounter Last Filed Vital Signs Vital Sign Reading Time Taken Comments Blood Pressure - - Pulse - - Temperature - - Respiratory Rate - - Oxygen Saturation - - Inhaled Oxygen Concentration - - Weight 86.7 kg (191 lb 3.2 oz) 01/14/2025 9:58 A M CDT Height - - Body Mass Index 26.92 01/13/2025 9:52 AM CDT documented in this encounter Medications at Time [...] mouth daily. documented as of this encounter Consult Notes * Fely Mendoza M.B.B.S., M.D. - 01/14/2025 10:00 AM CDT RADIATION ONCOLOGY CONSULTATION VISIT SUPERVISING PHYSICIAN Miah Carrera MD REFFERING PROVIDER Gaetano Roman APRN C.N.Willem, M.S. SUBJECTIVE Chief Complaint/Reason for Visit/Consult Consultation regarding the role of radiation therapy for treatment of gastroesophageal junction cancer. History of Present Illness Rey Li is a 85 y.o. male from [place], [place], who presented to the Department of Radiation Oncology to discuss regarding the role of radiation therapy in the treatment of his disease. Detailed oncologic history is noted below. 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 He is currently able to tolerate soft foods, and sometimes feels the need to wash it down with water/other liquids. He denies cough while swallowing but does note regurgitation occasionally, especially if he eats too much at once. He notes associated weight loss of 25 lbs over a two-month period along with loss of appetite. He also experiences occasional chest/upper abdominal discomfort and dull ache if he eats too much. He met with the budget manager yesterday who has helped formulate a diet plan for him. He has also started consuming two Ensures a day. Off late, he notes that he has been having more constipation than diarrhea or regular movements. This constipation is relieved when hetakes fiber gummies or vyul-qny-mrojoak laxatives. He has already met with Dr. Dempsey from medical oncology who discussed the various chemotherapy options and recommended Paclitaxel + Carboplatin as the concurrent chemotherapy regimen. He has also met with Dr. Yazan Beaver from thoracic surgery, who deemed the patient not a surgical candidate due to age and functional status. 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 He does not recall having experienced significant or noteworthy side effects at the time. Review of Systems Reviewed in history of present illness. Other systems WNL. Oncologic History Oncology History Overview Note 1. December 07, 2006: With a PSA of 3.7, transrectal needle biopsy recovers [place] 3 + 4 adenocarcinoma. 2. January 16, [...] Biopsy of the left vesicourethral anastomosis recovers [place] 3 + 4 adenocarcinoma in two of three samples (30%), [place] 3 + 3 adenocarcinoma is identified in one of three anterior vesicourethral anastomosis samples (30%), and [place] 3 + 4 adenocarcinoma was identified in [...] Malignant Neoplasm Of Prostate (HCC) (Resolved) 12/07/2006 Biopsy/Pathology Transrectal needle biopsy recovers [place] 3 + 4 adenocarcinoma. 01/16/2007 Surgery and Procedures The patient underwent radical prostatectomy, and a 2.0- x 1.8- x 1.5-cm [place] 3 + 4 adenocarcinoma situated within the right posterior peripheral zone was identified. There was focal extraprostatictumor extension, but margins and bilateral seminal vesicles were negative. One right and one left pelvic lymph node were free of cancer. 09/19/2016 Progression/Relapse After an extended period of PSA monitoring elsewhere, a PSA of 2.2 was noted. 06/19/2017 Progression/Relapse PSA hoadn to 6.6. Choline PET scan is negative. MRI of prostate and abdomen show a 1.2-cm anterior rectal wall mass without abnormalities. 07/06/2017 Biopsy/Pathology Biopsy of the left vesicourethral anastomosis recovers [place] 3 + 4 adenocarcinoma in two of threesamples (30%), [place] 3 + 3 adenocarcinoma is identified in one of three anterior vesicourethral anastomosis samples (30%), and [place] 3 + 4 adenocarcinoma was identified in six of seven right vesic ourethral anastomosis specimens (20%). 07/18/2017 - Biological/Targeted/Hormone Therapy Androgen suppression therapy recommended. Received four-month Lupron injection (30 mg) +100 day duration Bicalutamide ( 50 mg daily) neoadjuvantly. 09/2017 - 11/2017 Radiation Therapy 7400 cGy in 37 fractions of radiation to prostate bed 12/03/2024 Other PSA 0.2 ng/mL Malignant Neoplasm Of Gastroesophageal Junction (HCC) 11/2024 Other Patient evaluated by GI for dysphagia with solid foods that progressively worsened to dysphagia with liquids. 12/31/2024 Surgery and Procedures EGD Findings: One malignant-appearing, intrinsic mild (non-circumferential scarring) [...] the incisors. The mass was partially obstructing andpartially circumferential (involving one-third of the lumen circumference). 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 Hematin (altered blood/jausbs-tngzqu-lgda material) was found in the entire examined stomach. The exam of the stomach was otherwise normal. The first portion of the duodenum and second portion of the duodenum were normal. A. 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 01/05/[address] CAP IMPRESSION: 1. Several tiny indeterminate pulmonary micronodules measuring up to 3 mm are new or newly visualized since 11/04/2020. 2. Mild soft tissue thickening involving the distal esophagus/proximal stomach corresponding with biopsy-proven gastroesophageal junction malignancy. 3. Gastrohepatic ligament lymph node normal sized. 01/06/2025 Critical Imaging PET/CT IMPRESSION: Intensely FDG avid GE junction malignancy. No FDG uptake suspicious for metastatic disease. 01/08/2025 Surgery and Procedures Post-op Diagnoses: EGD - Partially obstructing, malignant [...] which allowed only the examination of the proximaledge of the tumor. This mass was staged at least T3 by endosonographic criteria. - One indeterminate enlarged lymph node was visualized in the periesophageal, peritumoral location as such FNB not performed - No specimens collected. 01/09/2025 Clinical Stage Staging form: Esophagus - Adenocarcinoma, AJCC 8th Edition - Clinical: Stage III (cT3, cN1, cM0) 01/09/2025 - Chemotherapy CARBOplatin AUC 2 weekly / PACLitaxel WEEKLY ( with Radiation ) ( GI ) Start Date: 01/09/2025 (Planned) 01/09/[address] Jose Ramon Beaver, thoracic surgery. [place] patient was not ideal candidate for surgery due to age, functional status, and reservations about ability to tolerate/recover from surgery. Was in agreement with treatment focusing on radiation and chemotherapy Evaluated with Dr. Sienna Dempsey, Medical Oncology. Recommended chemoRT 01/27/2025 - Radiation Therapy Radiation Therapy Treatment Details (Noted on 01/14/2025) Site: Esophagus Technique: No technique specified Goal: Curative Planned Treatment Start Date: 01/27/2025 Radiotherapy History Prior radiation therapy: YES: Pelvic RT 74 Gy in 37 fractions in view of recurrent prostate adenocarcinoma in 2018 Other cancer: YES: Prostate adenocarcinoma [place] 3+4, status post radical prostatectomy in 2007, followed by ADT (Leuprolide + Bicalutamide) in 2018 due to pelvic recurrence, followed by radiation therapy. Lupus, scleroderma, collagen vascular disease: NO Implanted electronic devices: NO Pertinent Medical/Surgical History Medical History[1] Surgical History[2] Family History Family History[3] Social History Social History[4] OBJECTIVE Physical Exam Wt 86.7 kg BMI 26.92 kg/m?? General: Well-nourished man in no acute distress. ECO - symptomatic but completely ambulatory. HEENT: Both pupils equal and round. Sclera are anicteric, mucous membranes are moist. There is no cervical and/or supraclavicular lymphadenopathy. Neck: Full range of motion without pain or difficulty. Cardiovascular: Heart regular rate and rhythm. No Murmurs, rubs, or gallops. Lungs: Clear to ausculation throughout. No rhonchi, wheeze, or rales. Abdomen: Non-distended. Soft and non-tender. No rebound or guarding. Normoactive bowel sounds. No hepatosplenomegaly. Musculoskeletal: No pain to palpation along the spine. Extremities: No cyanosis or edema. Neuro: Cranial nerves II-XII are grossly intact. The patient is alert and oriented. Speech is fluent. Affect is appropriate. Gait is within normal limits. Workup Noted in oncologic history above. ASSESSMENT AND PLAN Assessment 85 y.o. male with gastroesophageal junction adenocarcinoma [id number] stage III, for consideration of definitive chemoradiation. Patient also has a history of prostate adenocarcinoma, diagnosed in 2006. It was a pleasure to meet with Mr. Rey Li and his today. We reviewed the diagnosis, pathology, imaging, clinical scenario, and multidisciplinary team recommendations in detail anddiscussed the role and rationale for use of radiation therapy in this specific setting. Mr. Rey Li will be a candidate for definitive radiation therapy using protons with an intent of local control. We anticipate treating the gastroesophageal junction tumor and regional lymph nodes to a dose of 50 Gy in 25 fractions with concurrent chemotherapy Paclitaxel + Carboplatin. We discussed in detail the benefits, risks, alternatives, acute and late side effects, as well as the logistical issues regarding CT simulation, treatment planning, and treatment delivery. Side effects include, but are not limited to: Acute reactions which could occur as a result of the procedure may include some or all of the following: Fatigue or weakness. Stomach inflammation, with nausea or vomiting (usually early-on in treatment), indigestion, or ulceration. Decreased appetite, trouble swallowing and/or weight loss. Bowel irritation including change in bowel habit, diarrhea, or abdominal cramping. Skin reaction including dryness, redness, pain, loss of hair, and/or blistering and superficial ulceration. Lung inflammation, cough, shortness of breath. Late reactions which could occur as a result of the procedure may include some or all of the following: Scarring of lung tissue, chronic shortness of breath, pulmonary fibrosis, radiation pneumonitis Ulceration or narrowing of the esophagus requiring dilatation. Permanent skin changes including pigmentation, hair loss, thickening and dryness. Low risk for perforation, esophageal damage, and/or liver damage Rare risk of heart damage Rare risk damage to spinal cord. Radiation therapy planning and treatment, will be performed by radiation therapists, your physician(s), and other health care providers including dosimetrists and physicists, under the direction of your radiation oncologist. Other physicians or health care providers may provide supervision in your r adiation oncologist's absence. The patient expressed an interest in receiving treatment at our [facility] facility. We have explained that proton radiation is available only at our [facility] and if he still prefers the [facility] facility, it would have to be photon/x-ray radiation using the IMRT technique. He expressed understanding of the same and is willing to receive radiation therapy at [facility]. Plan Definitive chemoradiation. We will begin the omuxueyg-lb-lrxp process for receiving radiation treatment at [facility]. We will be available for any further help/support required. Education Ready to learn, no apparent learning barriers were identified; learning preferences include listening. Explained diagnosis and treatment plan. Questions and concerns were addressed to patient's satisfaction. Patient expressed understanding of the content. Our contact information was provided if anyfurther questions arise. Patient discussed and seen along with Dr. Miah Carrera. Please see the attestation note for further details. 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 Malignant Neoplasm Of Prostate (HCC) 12/21/2006 Skin Cancer (Primary) NOS Sleep Apnea Stroke (HCC) [2] Past Surgical History: Procedure Laterality Date ARTERY SURGERY BIOPSY OR EXCISION LYMPH NODE Left 10/24/2022 Procedure: LEVEL 2A; Surgeon: Baltazar Nava M.D.; Location: [facility] CARDIAC ELECTROPHYSIOLOGY PROCEDURE N/A 11/09/2020 Procedure: 3D Mapping - Carto; Surgeon: Bk Wilson M.D., Ph.D.; Location: [facility] CATH ABLATION N/A 11/09/2020 Procedure: ABLATION - PVI; Surgeon: Bk Wilson M.D., Ph.D.; Location: [facility] CATH ABLATION N/A 11/09/2020 Procedure: Ablation - WACA; Surgeon: Bk Wilson M.D., Ph.D.; Location: [facility] CATH ABLATION N/A 11/09/2020 Procedure: Ablation - Right Atrial Flutter; Surgeon: Bk Wilson M.D., Ph.D.; Location: [facility] EYE SURGERY HARVEST FAT GRAFT ABDOMEN Left 10/24/2022 Procedure: HARVEST FAT GRAFT ABDOMEN.; Surgeon: Baltazar Nava M.D.; Location: [facility] OR HERNIA REPAIR ROBOTIC-ASSISTED RADICAL PROSTATECTOMY N/A 01/16/2007 >Da Saundra-assisted laparoscopic radical prostatectomy. Bilateral da Saundra- assisted laparoscopic pelvic SPINE SURGERY TONSILLECTOMY TOTAL PAROTIDECTOMY Left 10/24/2022 Procedure: PAROTIDECTOMY, SUPERFICIAL AND PARTIAL DEEP LOBE; Surgeon: Baltazar Nava M.D.; Location: [facility] OR TRANSRECTAL ULTRASOUND - GUIDED PROSTATE BIOPSY N/A 07/06/2017 Transrectal Ultrasound - guided Prostate Biopsy VASECTOMY [3] Family History Problem Relation Name Age of Onset Stroke Father Gunnar Li Sleep apnea Sister Asthma Mother Nicholas Li 0 - 9 [4] Social History Socioeconomic History Marital status: Highest education level: Bachelor's degree (e.g., BA, AB, BS) Tobacco Use Smoking status: Former Current packs/day: 0.00 Types: Cigarettes Start date: 09/29/1957 Quit date: 09/01/1969 Years since quittin.4 Passive exposure: Never Smokeless tobacco: Never Tobacco comments: Quit in 1970 Vaping Use Vaping status: never used Substance and Sexual Activity Alcohol use: Yes Alcohol/week: 14.0 standard drinks of alcohol Types: 14 Cans of beer per week Comment: Nightly, 14 beers/week Drug use: Never Sexual activity: Not Currently Partners: Female control/protection: Vasectomy Social Drivers of Health Food Insecurity: No Food Insecurity (12/31/2024) Hunger Vital Sign Worried About Running Out of Food in the Last Year: Never true Ran Out of Food in the Last Year: Never true Transportation Needs: No Transportation Needs (12/31/2024) PRAPARE - Transportation Lack of Transportation (Medical): No Lack of Transportation (Non-Medical): No Intimate Partner Violence: Low Risk (10/15/2024) Received from [facility] Interpersonal Safety Do you feel physically and emotionally safe where you currently live?: Yes Within the past 12 months, have you been hit, slapped, kicked or otherwise physically hurt by someone?: No Within the past 12 months, have you been humiliated or emotionally abused in other ways by your partner or ex-partner?: No Housing Stability: Low Risk (12/31/2024) Housing Stability Housing: Living Situation: I have a steady place to live Cosigned by Miah Carrera M.D. at 01/15/2025 11:47 AM CDT Associated attestation - Miah Carrera M.D. - 01/15/2025 11:47 AM CDT I was asked by Gaetano Roman APRN, C.N.P., M.S. for an opinion regarding the role of radiation therapy in the management of the patient's disease. I saw and evaluated the patient and I participated in the gongora portions of the service. I reviewed the documentation of Krzysztof Garces M.D and I agree with the findings and plan. I personally spent 60 minutes in care of the patient today. Time includes both tqq-lfnu-pm-face piwylrc-fn-jsml patient care. documented in this encounter Plan of Treatment Upcoming Encounters Date Type Department Care Team (Late st Contact Info) Description 02/11/2025 3:15 PM CDT Appointment Department of Radiation Oncology in [address] [phone] Rey Meadows M.D. [address] [place] [phone] 02/12/2025 1:30 PM CDT Appointment Department of Radiation Oncology in [address] [phone] Rey Meadows M.D. [address] [place] [phone] 02/12/2025 2:00 PM CDT Appointment Department of Radiation Oncology in [address] [phone] Rey Meadows M.D. [address] [place] [phone] 02/13/2025 1:15 PM CDT Appointment Department of Radiation Oncology in [address] [phone] Rey Meadows M.D. [address] [place] [phone] 02/14/2025 12:30 PM CDT Appointment Department of Radiation Oncology in [place], [place] [address] [place] [phone] Rey Meadows M.D. [address] [place] [address] 02/17/2025 1:15 PM CDT Appointment Department of Radiation Oncology in [place], [place] [address] [place] [phone] Rey Meadows M.D. [address] [place] [address] 02/18/2025 1:15 PM CDT Appointment Department of Radiation Oncology in [address] [phone] Rey Meadows M.D. [address] [place] [address] 02/19/2025 1:15 PM CDT Appointment Department of Radiation Oncology in [place], [place] [address] [place] [address] Rey Meadows M.D. [address] [place] [address] 02/19/2025 1:45 PM CDT Appointment Department of Radiation Oncology in [place], [place] [address] [place] [phone] Rey Meadows M.D. [address] [place] [phone] 02/20/2025 1:15 PM CDT Appointment Department of Radiation Oncology in [place], [place] [address] [place] [phone] Rey Meadows M.D. [address] [place] [phone] 02/21/2025 12:30 PM CDT Appointment Department of Radiation Oncology in [address] [phone] Rey Meadows M.D. [address] [place] [phone] 02/24/2025 12:30 PM CDT Appointment Department of Radiation Oncology in [address] [phone] Rey Meadows M.D. [address] [place] [address] 02/25/2025 12:30 PM CDT Appointment Department of Radiation Oncology in [place], [place] [address] [place] [phone] Rey Meadows M.D. [address] [place] [phone] 02/26/2025 12:30 PM CDT Appointment Department of Radiation Oncology in [address] [phone] Rey Meadows M.D. [address] [place] [address] 02/26/2025 1:15 PM CDT Appointment Department of Radiation Oncology in [address] [phone] Rey Meadows M.D. [address] [place] [phone] 02/27/2025 12:30 PM CDT Appointment Department of Radiation Oncology in [address] [place] [address] Rey Meadows M.D. [address] [place] [address] 02/28/2025 12:30 PM CDT Appointment Department of Radiation Oncology in [address] [phone] Rey Meadows M.D. [address] [place] [phone] Scheduled Referrals Name Type Priority Associated Diagnoses Orde r Schedule Radiation Oncology - GI consult (clinic) Outpatient Referral Routine Once for 1 Occurrences starting 01/14/2025 until 01/14/2025 Radiation Oncology - GI consult (clinic) Outpatient Referral Routine Malignant Neoplasm Of Gastroesophageal Junction (HCC) Expected: 01/14/2025, Expires: 04/15/2026 documented as of this encounter Visit Diagnoses Diagnosis Malignant Neoplasm Of Gastroesophageal Junction (HCC)- Primary documented in this encounter Additional Health Concerns Assessment Noted Time PHQ-9 Depression Total Score: 1 01/26/20 23 2:13 PM CDT documented as of this encounter Care Teams Slot Machine Department Floorperson Relationship Specialty Start Date End Date Elsewhere, Pcp PCP - General Internal Medicine 01/30/24 documented as of this encounter
--- OUTSIDE RECORDS SUMMARY | 2025-01-15 08:31 | XMS_ITS | Encounter Summary ---
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 [address] [place] [address] Phone: tel: fax: [facility] Referral ID Status Reason Start Date Expiration Date Visits Re quested Visits Authorized [id number] Closed 01/09/2025 04/11/2026 1 1 Reason for Visit * Outpatient (Routine) - Closed Specialty Diagnoses / Procedures Referred By Sammy hilliard Referred To Contact Radiology Diagnoses Malignant Neoplasm Of Gastroesophageal Junction (HCC) Procedures IR Implanted Vascular Access Device Placement Sienna Dempsey M.B.B.S. [address] [place] [address] Phone: tel: fax: [facility] Referral ID Status Reason Start Date Expiration Date Visits Re quested Visits Authorized [id number] Closed 01/09/2025 04/11/2026 1 1 Encounter Details Date Type Department Care Team (Latest Contact Info) Description 01/15/2025 8:31 AM CDT - 01/15/2025 11:53 AM CDT Hospital Encounter Department of Radiology in [place], [place] [address] [place] [phone] Sienna Dempsey M.B.B.S. [address] [place] [phone] Scott Ramirez M.D. [address] [place] [phone] Malignant Neoplasm Of Gastroesophageal Junction (HCC) Discharge Disposition: Home or Self Care [...] things needed for daily living? No 12/31/2024 [facility] Utilities Answer Date Recorded In the past 12 months has th e electric, gas, oil, or water company threatened to shut off services in your home? No 12/31/2024 Depression Answer Date Recor ded PHQ-9 Total Score (max 27) 1 01/25 Housing Stability Answer Date Recorded What is your living situation today? I have a [facility] place to live 12/31/2024 Education Answer Date Recorded What is the highest level of school you have completed or the highest degree you have received? 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 Gender Identity Male 09/04/2018 3:21 PM CDT Sexual Orientation Straight 09/04/2018 3: 21 PM CDT documented as of this encounter Last Filed Vital Signs Vital Sign Reading Time Taken Comments Blood Pressure 114/90 01/15/2025 11:15 AM CDT Pulse 83 01/15/2025 11:30 AM CDT Temperature 36 C (96.8 F) 01/15/2025 11:40 AM CDT Respiratory Rate 15 01/15/2025 11:30 AM CDT Oxygen Saturation 97% 01/15/2025 11:30 AM CDT Inhaled Oxygen Concentration - - Weight 85.3 kg (188 lb 0.8 oz) 01/15/2025 9:08 A M CDT Height - - Body Mass Index 26.47 01/13/2025 9:52 AM CDT documented in this encounter Discharge Instructions * Discharge Instructions* Maddy Christian R.N. - 01/15/2025 10:53 AM CDT Images from the original note were not included. Instructions After Sedation or Anesthesia After you have sedation or anesthesia, it is common to have lapses of memory, slowed reaction time and impaired judgment. Do not drive or operate motorized vehicles or equipment for the rest of the day. This is for your safety and the safety of others. Air travel by yourself on the day of your procedure is not advised. For the rest of the day: Rest. Do not return to work or school. Do not take on responsibility for children or anyone who depends on your care. Do not use exercise equipment or take part in rough play or sports. Do not drink alcoholic beverages. Sedation or anesthesia medication also may increase your risk of falling. Use caution and ask for help when you walk or move around. You may want to have someone help you for the rest of the day. You may resume your usual diet when you feel able to do so, unless you are told otherwise. Contact your health care provider if you have: The following side effects longer than 24 hours: Ongoing dizziness. Persistent nausea or repeated vomiting. Signs of infection, which may include: Temperature of 100.4 degrees Fahrenheit (38 degrees Celsius) or higher. Chills. An Increase in swelling, tenderness, or redness at the site. Increased pain or pain not helped by pain medication. A bad-smelling odor from the site New drainage or an increase in drainage coming from the site A change in skin color at the site. This change may be a shade of red, purple or brown, depending on your skin color. You can watch the following videos about living with a port using your smartphone or tablet. Open your device???s camera and aim it at this QR code. You will see a link you can touch to bring up the following videos: Introduction to a Port Implanting a Port Removing or Replacing a Dressing Over Healing Incisions After a Port is Implanted Accessing a Port Deaccessing a Port You may also watch these videos at this link: [email or web address] * Attachments The following attachments cannot be sent through Care Everywhere. * Implantable Vascular-Access Device: Also Known as an IVAD or Port * VIDEO: ACCESSING A PORT (GHANAIAN) * VIDEO: DEACCESSING A PORT (GHANAIAN) * VIDEO: IMPLANTING A PORT (GHANAIAN) * VIDEO: INTRODUCTION TO A PORT (GHANAIAN) * VIDEO: LIVING WITH A PORT (GHANAIAN) * VIDEO: REMOVING OR REPLACING A DRESSING (GHANAIAN) documented in this encounter Medications at Time [...] mouth daily. documented as of this encounter Procedure Notes * Scott Ramirez M.D. - 01/15/2025 10:47 AM CDT PATIENT DISPOSITION Return to Outpatient Unit for recovery. Discharge patient when discharge criteria met. POST-PROCEDURE DIAGNOSIS GE junction cancer PROCEDURE PERFORMED AND DESCRIPTION Placement of a right internal jugular vein 8-[place] PowerPort Slim, ready for use. PROCEDURE DETAILS See Radiology Report SPECIMENS REMOVED None FINDINGS Port is ready for use PRIMARY PROCEDURALIST Chandrika Ramirez MD [phone] ASSISTANTS None COMPLICATIONS None. DRAINS None. IMPLANTS Reference implant document. ANESTHESIA Moderate Sedation. FLUIDS See MAR ESTIMATED BLOOD LOSS <5ml CURRENT MEDICATIONS No Medication Changes FOLLOW-UP LETTER None. MAY RETURN TO WORK Not applicable PATIENT INSTRUCTIONS No return appointment documented in this encounter Plan of Treatment Upcoming Encounters Date Type Department Care Team (Late st Contact Info) Description 02/11/2025 3:15 PM CDT Appointment Department of Radiation Oncology in [place], [place] [address] [place] [phone] Rey Meadows M.D. [address] [place] [address] 02/12/2025 1:30 PM CDT Appointment Department of Radiation Oncology in [place] [address] [place] [address] Rey Meadows M.D. [address] [place] [phone] 02/12/2025 2:00 PM CDT Appointment Department of Radiation Oncology in [address] [phone] Rey Meadows M.D. [address] [place] [phone] 02/13/2025 1:15 PM CDT Appointment Department of Radiation Oncology in [address] [phone] Rey Meadows M.D. [address] [place] [phone] 02/14/2025 12:30 PM CDT Appointment Department of Radiation Oncology in [address] [phone] Rey Meadows M.D. [address] [place] [phone] 02/17/2025 1:15 PM CDT Appointment Department of Radiation Oncology in [address] [phone] Rey Meadows M.D. [address] [place] [phone] 02/18/2025 1:15 PM CDT Appointment Department of Radiation Oncology in [place], [place] [address] [place] [phone] Rey Meadows M.D. [address] [place] [phone] 02/19/2025 1:15 PM CDT Appointment Department of Radiation Oncology in [place], [place] [address] [place] [address] Rey Meadows M.D. [address] [place] [phone] 02/19/2025 1:45 PM CDT Appointment Department of Radiation Oncology in [place], [place] [address] [place] [phone] Rey Meadows M.D. [address] [place] [phone] 02/20/2025 1:15 PM CDT Appointment Department of Radiation Oncology in [place], [place] [address] [place] [phone] Rey Meadows M.D. [address] [place] [phone] 02/21/2025 12:30 PM CDT Appointment Department of Radiation Oncology in [place], [place] [address] [place] [phone] Rey Meadows M.D. [address] [place] [phone] 02/24/2025 12:30 PM CDT Appointment Department of Radiation Oncology in [place], [place] [address] [place] [address] Rey Meadows M.D. [address] [place] [phone] 02/25/2025 12:30 PM CDT Appointment Department of Radiation Oncology in [place], [place] [address] [place] [phone] Rey Meadows M.D. [address] [place] [phone] 02/26/2025 12:30 PM CDT Appointment Department of Radiation Oncology in [address] [phone] Rey Meadows M.D. [address] [place] [phone] 02/26/2025 1:15 PM CDT Appointment Department of Radiation Oncology in [address] [phone] Rey Meadows M.D. [address] [place] [phone] 02/27/2025 12:30 PM CDT Appointment Department of Radiation Oncology in [address] [phone] Rey Meadows M.D. [address] [place] [phone] 02/28/2025 12:30 PM CDT Appointment Department of Radiation Oncology in [address] [phone] Rey Meadows M.D. [address] [place] [phone] documented as of this encounter Procedures Procedure Name Priority Date/Time Associated Diagnosis Comments IR IMPLANTED VASCULAR ACCESS DEVICE PLACEMENT RAD - Routine (most inpatients and all outpatients) 01/15/2025 10:41 AM CDT Malignant Neoplasm Of Gastroesophageal Junction (HCC) documented in this encounter Results * IR Implanted Vascular Access Device Placement (01/15/2025 10:41 AM CDT) Anatomical Region Laterality Modality Chest, Pelvis, Abdomen, Vasc ular Interventional RST LOS, Vascular Interventional ARZ LOS, Vascular Interventional FLA LOS N/A X-Ray Angiography Impressions 01/15/2025 11:11 AM CDT Placement of a right internal jugular vein 8 [place] PowerPort Slim. Ready for use. NR Narrative [...] of a right internal jugular vein 8 [place] PowerPort Slim. Readyfor use. NR Sienna Blankenship IMSharyn IR PROCEDURES Final Result documented in this encounter Visit Diagnoses Diagnosis Malignant Neoplasm Of Gastroesophageal Junction (HCC) documented in this encounter Administered Medications Inactive Administered Medications - up to 3 most recent administrations Medication Order MAR Action Action Date Dose Rate Site fentaNYL injection 25 mcg (Sublimaze) 25 mcg, intravenous, Every 2 min PRN, sedation, Administer over 1 minute immediately prior to the procedure. May repeat every 2 minutes to a maximum of 200 mcg, until pain score of 3 or less, or until the patient meets the pain comfort goal, or RASS 0 to -2. Do not give if respiratory rate is less than 8 breaths/minute., Starting on Mon01/15/25 at 0923, Intraprocedure (RAD), Subsequent doses Given 01/15/2025 10:28 AM CDT 25 mcg Given 01/15/2025 10:26 AM CDT 25 mcg Given 01/15/2025 10:21 AM CDT 25 mcg fentaNYL injection 50 mcg (Sublimaze) 50 mcg, intravenous, Once as needed, sedation, Starting on Mon01/15/25 at 0923, For 1 dose, Intraprocedure (RAD), IV Push, Initial dose Given 01/15/2025 10:13 AM CDT 50 mcg flumazeniL injection 0.2 mg (Romazicon) 0.2 mg, intravenous, Once as needed, reversal, Starting on Mon01/15/25 at 0923, For 1 dose, Intraprocedure (RAD), Administer once if patient has a RASS score of -4, -5 and has a respiratory rate less than 8 breaths/minute. heparin flush As needed, Starting on Mon01/15/25 at 1028, Intra-Op Given 01/15/2025 10:34 AM CDT 800 Units Given 01/15/2025 10:28 AM CDT 800 Units Lactated Ringer's 20 mL/hr, intravenous, Once as needed, to keep vein open, Starting on Mon01/15/25 at 0923, For 1 dose, Intraprocedure (RAD) lidocaine-EPINEPHrine 1 %-1:100,000 injection (Xylocaine w/epi) As needed, Starting on Mon01/15/25 at 1033, Intra-Op Given 01/15/2025 10:33 AM CDT 5 mL Right Chest lidocaine-sodium bicarbonate (buffered) 0.9%-0.84% injection infiltration, As needed, Starting on Mon01/15/25 at 1032, Intra-Op Given 01/15/2025 10:32 AM CDT 7 mL Right Neck midazolam (PF) injection 0.25 mg (Versed) 0.25 mg, intravenous, Every 2 min PRN, sedation, RASS -2, Starting on Mon01/15/25 at 0923, For 3 hours, Intraprocedure (RAD), May repeat every 2 minutes to a maximum of 5 mg. Do not give if respiratory rate is less than 8 breaths/minute. midazolam (PF) injection 0.5 mg (Versed) 0.5 mg, intravenous, Once as needed, sedation, Starting on Mon01/15/25 at 0923, For 1 dose, Intraprocedure (RAD) midazolam (PF) injection 0.5 mg (Versed) 0.5 mg, intravenous, Every 2 min PRN, sedation, RASS -1, Starting on Mon01/15/25 at 0923, For 3 hours, Intraprocedure (RAD), May repeat every 2 minutes for a maximum of 5 mg. Do not give if respiratory rate is less than 8 breaths/minute. Given 01/15/2025 10:28 AM CDT 0.5 mg Given 01/15/2025 10:25 AM CDT 0.5 mg Given 01/15/2025 10:21 AM CDT 0.5 mg midazolam (PF) injection 1 mg (Versed) 1 mg, intravenous, Every 2 min PRN, sedation, RASS 0, Starting on Mon01/15/25 at 0923, For 3 hours, Intraprocedure (RAD), May repeat every 2 minutes for a maximum of 5 mg. Do not give if respiratory rate is less than 8 breaths/minute. Given 01/15/2025 10:13 AM CDT 1 mg naloxone injection 0.2 mg (Narcan) 0.2 mg, intravenous, Once as needed, respiratory depression, Starting on Mon01/15/25 at 0923, For 1 dose, Intraprocedure (RAD), Administer once if patient has a RASS score of -4, -5 and has a respiratory rate less than 8 breaths/minute. sodium chloride 0.9 % injection 10 mL 10 mL, intravenous, As needed, line care, Starting on Mon01/15/25 at 0856, Preprocedure (RAD), Peripheral Intravenous Catheter and Rapid Infusion Catheter, prior to blood sampling, post blood transfusion or post blood sampling sodium chloride 0.9 % injection 3 mL 3 mL, intravenous, As needed, line care, Starting on Mon01/15/25 at 0856, Preprocedure (RAD), Prior to and following infusion and between multiple consecutive infusions: sodium chloride 0.9 % injection sodium chloride 0.9 % injection 3 mL 3 mL, intravenous, Every 12 hours scheduled, First dose on Mon01/15/25 at 2100, Preprocedure (RAD), Peripheral Intravenous Catheter and Rapid Infusion Catheter, when no infusion to maintain patency documented in this encounter Active and Recently Administered Medications Times are shown in CDT. Scheduled Medication Order 01/13/2025 01/14/2025 01/15/2025 sodium chloride 0.9 % injection 3 mL 3 mL, intravenous, Every 12 hours scheduled, First dose on Mon01/15/25 at 2100, Preprocedure (RAD), Peripheral Intravenous Catheter and Rapid Infusion Catheter, when no infusion to maintain patency PRN Medication Order 01/13/2025 01/14/2025 01/15/2025 fentaNYL injection 25 mcg (Sublimaze) 25 mcg, intravenous, Every 2 min PRN, sedation, Administer over 1 minute immediately prior to the procedure. May repeat every 2 minutes to a maximum of 200 mcg, until pain score of 3 or less, or until the patient meets the pain comfort goal, or RASS 0 to -2. Do not give if respiratory rate is less than 8 breaths/minute., Starting on Mon01/15/25 at 0923, Intraprocedure (RAD), Subsequent doses 1018 (Given - Provid er: Rey Serrano R.N.)1021 (Given - Provider: Rey Serrano R.N.)1026 (Given - Provider: Rey Serrano R.N.)1028 (Given - Provider: Rey Serrano R.N.) fentaNYL injection 50 mcg (Sublimaze) (COMPLETED) 50 mcg, intravenous, Once as needed, sedation, Starting on Mon01/15/25 at 0923, For 1 dose, Intraprocedure (RAD), IV Push, Initial dose 1013 (Given - Provid er: Rey Serrano R.N.) flumazeniL injection 0.2 mg (Romazicon) 0.2 mg, intravenous, Once as needed, reversal, Starting on Mon01/15/25 at 0923, For 1 dose, Intraprocedure (RAD), Administer once if patient has a RASS score of -4, -5 and has a respiratory rate less than 8 breaths/minute. heparin flush (COMPLETED) As needed, Starting on Mon01/15/25 at 1028, Intra-Op 1028 (Given - Provid er: Scott Ramirez M.D. - Comment: port)1034 (Given - Provider: Scott Ramirez M.D.) Lactated Ringer's 20 mL/hr, intravenous, Once as needed, to keep vein open, Starting on Mon01/15/25 at 0923, For 1 dose, Intraprocedure (RAD) lidocaine-EPINEPHrine 1 %-1:100,000 injection (Xylocaine w/epi) (COMPLETED) As needed, Starting on Mon01/15/25 at 1033, Intra-Op 1033 (Given - Provid er: Scott Raimrez M.D.) lidocaine-sodium bicarbonate (buffered) 0.9%-0.84% injection (COMPLETED) infiltration, As needed, Starting on Mon01/15/25 at 1032, Intra-Op 1032 (Given - Provid er: Scott Ramirez M.D.) midazolam (PF) injection 0.25 mg (Versed) 0.25 mg, intravenous, Every 2 min PRN, sedation, RASS -2, Starting on Mon01/15/25 at 0923, For 3 hours, Intraprocedure (RAD), May repeat every 2 minutes to a maximum of 5 mg. Do not give if respiratory rate is less than 8 breaths/minute. midazolam (PF) injection 0.5 mg (Versed) 0.5 mg, intravenous, Once as needed, sedation, Starting on Mon01/15/25 at 0923, For 1 dose, Intraprocedure (RAD) midazolam (PF) injection 0.5 mg (Versed) 0.5 mg, intravenous, Every 2 min PRN, sedation, RASS -1, Starting on Mon01/15/25 at 0923, For 3 hours, Intraprocedure (RAD), May repeat every 2 minutes for a maximum of 5 mg. Do not give if respiratory rate is less than 8 breaths/minute. 1018 (Given - Provid er: Rey Serrano R.N.)1021 (Given - Provider: Rey Serrano R.N.)1025 (Given - Provider: Rey Serrano R.N.)1028 (Given - Provider: Rey Serrano R.N.) midazolam (PF) injection 1 mg (Versed) 1 mg, intravenous, Every 2 min PRN, sedation, RASS 0, Starting on Mon01/15/25 at 0923, For 3 hours, Intraprocedure (RAD), May repeat every 2 minutes for a maximum of 5 mg. Do not give if respiratory rate is less than 8 breaths/minute. 1013 (Given - Provid er: Rey Serrano R.N.) naloxone injection 0.2 mg (Narcan) 0.2 mg, intravenous, Once as needed, respiratory depression, Starting on Mon01/15/25 at 0923, For 1 dose, Intraprocedure (RAD), Administer once if patient has a RASS score of -4, -5 and has a respiratory rate less than 8 breaths/minute. sodium chloride 0.9 % injection 10 mL 10 mL, intravenous, As needed, line care, Starting on Mon01/15/25 at 0856, Preprocedure (RAD), Peripheral Intravenous Catheter and Rapid Infusion Catheter, prior to blood sampling, post blood transfusion or post blood sampling sodium chloride 0.9 % injection 3 mL 3 mL, intravenous, As needed, line care, Starting on Mon01/15/25 at 0856, Preprocedure (RAD), Prior to and following infusion and between multiple consecutive infusions: sodium chloride 0.9 % injection documented in this encounter Additional Health Concerns Assessment Noted Time PHQ-9 Depression Total Score: 1 01/26/20 23 2:13 PM CDT documented as of this encounter 

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
--- OUTSIDE RECORDS SUMMARY | 2025-01-17 09:52 | XMS_ITS | Encounter Summary ---
Author Organization [facility] Address [address] [place] [address] Care Team Providers Care Adult Manager Name Role Phone Elsewhere, Pcp Primary Care Provider Unavailabl e Reason for Referral * Outpatient (Routine) - Closed Specialty Diagnoses / Procedures Referred By Sammy hilliard Referred To Contact Radiation Oncology Diagnoses Malignant Neoplasm Of Gastroesophageal Junction (HCC) Miah Carrera M.D. [address] [place] [phone] Phone: tel: fax: [facility] Region Referral ID Status Reason Start Date Expiration Date Visits Re quested Visits Authorized [id number] Closed 01/14/2025 07/16/2026 1 1 Reason for Visit * Outpatient (Routine) - Closed Specialty Diagnoses / Procedures Referred By Sammy hilliard Referred To Contact Radiation Oncology Diagnoses Malignant Neoplasm Of Gastroesophageal Junction (HCC) Miah Carrera M.D. [address] [place] [address] Phone: tel: fax: [facility] Region Referral ID Status Reason Start Date Expiration Date Visits Re quested Visits Authorized [id number] Closed 01/14/2025 07/16/2026 1 1 Encounter Details Date Type Department Care Team (Latest Contact Info) Description 01/17/2025 9:52 AM CDT - 01/23/2025 2:30 PM CDT Hospital Encounter Department of Radiation Oncology in [place], [place] [address] [place] [phone] Rey Meadows M.D. [address] [place] [address] Malignant Neoplasm Of Gastroesophageal Junction (HCC) (Primary [...] things needed for daily living? No 12/31/2024 [facility] Utilities Answer Date Recorded In the past 12 months has [facility] [employer], gas, oil, or water [employer] threatened to shut off services in your home? No 12/31/2024 Depression Answer Date Recor ded PHQ-9 Total Score (max 27) 1 01/25 Housing Stability Answer Date Recorded What is your living situation today? I have a [facility] place to live 12/31/2024 Education Answer Date Recorded What is the highest level of school you have completed or the highest degree you have received? Bachelor's degree (e.g., BA, AB, BS) 01/09/2019 Sex and Gender Information Value Date Recorded Sex Assigned at Male 12/27/2018 12:13 PM CDT Legal Sex Male 1:57 PM [employer] Gender Identity Male 09/04/2018 3:21 PM CDT Sexual Orientation Straight 09/04/2018 3: 21 PM CDT documented as of this encounter Last Filed Vital Signs Vital Sign Reading Time Taken Comments Blood Pressure 127/73 01/17/2025 10:19 AM CDT Pulse 65 01/17/2025 10:19 AM CDT Temperature 36.7 C (98 F) 01/17/2025 10:19 AM CDT Respiratory Rate - - Oxygen Saturation - - Inhaled Oxygen Concentration - - Weight 87.8 kg (193 lb 9 oz) 01/17/2025 10:19 AM CDT Height - - Body Mass Index 27.25 01/13/2025 9:52 AM CDT documented in this [...] by mouth daily. 09/26/2010 GLUCOSAMINE HCL/CHONDROITIN AKERS (GLUCOSAMINE-CHONDROI TIN ORAL) Take 2 tablets by mouth daily. 11/23/2016 multivitamin tablet Take 1 tablet by mouth daily. 11/23/2016 omeprazole (PriLOSEC) [address] capsule Take 1 capsule (20 mg total) by mouth 2 (two) times a day. 30 capsule 1 01/17/2025 ondansetron ODT (Zofran-ODT) 8 mg disintegrating tabletIndications:Mal ignant Neoplasm Of Gastroesophageal Junction (HCC) Dissolve 1 tablet (8 mg total) in the mouth every 8 (eight) hours as needed for nausea or vomiting. 20 tablet 01/17/2025 prochlorperazine (Compazine) 10 mg tablet Take 1 tablet (10 mg total) by mouth every 6 (six) hours as needed for nausea or vomiting. Take 1 hr prior to radiation with sips of water and as need up to 4 times a day 30 tablet 01/17/2025 s-adenosylmethionine (SVEN-e) 400 mg tablet Take 1 tablet by mouth daily. documented as of this encounter Consult Notes * Millie Norman M.D. - 01/17/2025 10:30 AM CDT SUBJECTIVE RADIATION ONCOLOGY CONSULTATION VISIT SUPERVISING PHYSICIAN Rey Meadows M.D. Requesting Provider Miah Carrera M.D. 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 male from [place], [place] with the above diagnosis who presents to the [facility] Therapy [facility] for discussion regarding the role of radiotherapy. He has been evaluated by our colleagues in [place] and patient is interested in seeking continuation of care near his home. The oncologic history is as follows: Oncology History Overview Note 1. December 07, [...] Biopsy of the left vesicourethral anastomosis recovers Aubrey 3 + 4 adenocarcinoma in two of three samples (30%), [place] 3 + 3 adenocarcinoma is identified in [...] (Resolved) 12/07/2006 Biopsy/Pathology Transrectal needle biopsy recovers Aubrey 3 + 4 adenocarcinoma. 01/16/2007 Surgery and [...] Biopsy of the left vesicourethral anastomosis recovers Aubrey 3 + 4 adenocarcinoma in two of [...] and 2 cm below GEJ). Hematin (altered blood/jgtbpl-wcxjkj-pekm material) was found in the entire examined [...] by Dr. Jose Ramon Beaver, thoracic surgery. [place] patient was not ideal candidate for surgery due to age, functional status, and reservations about ability to tolerate/recover from surgery.Was in agreement with treatment focusing on radiation and chemotherapy Evaluated with Dr. Sienna Dempsey, Medical Oncology. Recommended chemoRT 01/27/2025 - Radiation Therapy Radiation Therapy Treatment Details (Noted on 01/14/2025) Site: Esophagus Technique: No technique specified Goal: Curative Planned Treatment Start Date: 01/27/2025 Interval History Rey Li confirms the above summary. Patient reports ongoing dysphagia and odynophagiasince presentation. He is able eat solids and has to do a lot of chewing and take smaller bites. Italso takes him considerably to get the food down. He is able to drink fluids and feels that water is the easiest to go down whereas orange juice takes time. He denies any vomiting or hematemesis. He has had lost weight almost 25 lb and had to get new pants due to excessive weight loss. Radiotherapy History Prior radiation therapy: YES: Salvage RT 74 Gy in 37 fractions for recurrent prostate adenocarcinoma in 2018 Other cancer: YES: Prostate adenocarcinoma Aubrey 3+4, status post radical prostatectomy in 2007, followed by ADT (Leuprolide + Bicalutamide) in 2018 due to pelvic recurrence, followed by radiation therapy. Lupus, scleroderma, collagen vascular disease: NO Implanted electronic devices: NO Pertinent Medical/Surgical History Medical History[1] Surgical History[2] Family History Family History[3] Social History Social History[4] OBJECTIVE There were no vitals taken for this visit. Physical Exam ECOG score: 1 - Restricted in physically strenuous activity but ambulatory and able to carry out work of a light or sedentary nature General: elderly appearing patient sitting comfortably, appears stated age, does not appear to be in acute distress. Chest: Breathing comfortably on room air. No increased effort of breathing or altered breathing pattern Neuro: Alert and oriented. No apparent gross neurological deficits. ASSESSMENT / PLAN Assessment: 85 y.o. 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 We reviewed thediagnosis, pathology, and clinical scenario in detail and discussed the role and rationale for use of radiotherapy in this specific setting. Rey Li was recently diagnosed with a lower e sophageal/GEJ adenocarcinoma. Per multidisciplinary consensus, not candidate for surgery, and recommended for definitive chemoradiation therapy. We anticipate treating the lower esophagus/GEJ and regional lymph nodes to a dose of 45 - 50 Gy in 25 fractions. This will be concurrent with chemotherapy. On today's appointment, we revisited the logistics of radiotherapy as well as risks, benefits, and alternatives. We discussed treatment planning and potential strategies for minimizing dose to critical structures. I reviewed the differences between photons and protons, the general sequence of appointments here in radiation oncology, including simulation, treatment planning, and daily treatment Monday-Monday. Some of the common and known side effects which could occur as a result of the treatment may include some or all of the following, but certainly not limited to: Acute reactions Fatigue or weakness Stomach inflammation, with nausea or vomiting (usually early-on in treatment), indigestion, or ulceration Decreased appetite, trouble swallowing and/or weight loss. Bowel irritation including change in bowel habits, diarrhea, or abdominal cramping Skin reaction including dryness, redness, pain, loss of hair, and/or blistering and superficial ulceration Lung inflammation, cough, shortness of breath Late reactions Scarring of lung tissue, chronic shortness of breath, pulmonary fibrosis, radiation pneumonitis Ulceration or narrowing of the esophagus requiring dilatation and feeding tube placement Permanent skin changes including pigmentation, hair loss, thickening and dryness Low risk for perforation, esophageal damage, and/or liver damage Rare risk of heart damage Rare risk damage to spinal cord Rare risk of second cancers Rey Li verbalized understanding of the above discussion and rationale for radiotherapy. Patient and asked many relevant questions which were answered to their apparent satisfaction. Patient has already indicated desire to proceed with radiation planning and treatment at [facility] and confirms it on today's visit. They inquired about proton therapy and potential side effects. We reiterated that the lowest possible side effects would be from proton therapy in his particular case with the lowest spell overdose with the surrounding organs. He understands and wants to proceed with photon radiation therapy at [facility]. We will proceed with prescheduled CT simulation today and plan to begin treatments on 01/27. Our contact information was provided if any further questions arise. NCCN guidelines and RT treatment sheet outlining the course of treatment and side effects was provided to the patient. We have provided prophylactic antiemetic and gastroprotective medications. Patient discussed and seen along with Dr. Rey Meadows. Please see the attestation note for further details. Millie Norman M.D. Resident Physician PGY-5 Radiation Oncology [facility] [address] [place] [address] [1] Past Medical History: Diagnosis Date Arrhythmia Arthritis Atrial Fibrillation Unspecified (HCC) 12/1995X cardioversion 2015 X cardioversion Cataract Dermatitis Dysphagia Eczema Headache [...] SUPERFICIAL AND PARTIAL DEEP LOBE; Surgeon: Baltazar aNva M.D.; Location: [facility] OR TRANSRECTAL ULTRASOUND [...] activity: Not Currently Partners: Female control/protection: Vasectomy [employer] of [employer] Insecurity: No Food Insecurity (12/31/2024) Hunger Vital Sign Worried About Running Out of Food in the Last Year: Never true Ran Out of Food in the Last Year: Never true Transportation Needs: No Transportation Needs (12/31/2024) PRAPARE - Transportation Lack of Transportation (Medical): No Lack of Transportation (Non-Medical): No Intimate Partner Violence: Low Risk (10/15/2024) Received from [employer] Do you feel physically and emotionally [...] a steady place to live Cosigned by Rey Meadows M.D. at 01/23/2025 2:29 PM CDT Associated attestation - Rey Meadows M.D. - 01/23/2025 2:29 PM CDT RADIATION ONCOLOGY CONSULTATION I saw and evaluated the patient and participated in the gongora portions of the service. I reviewed thedocumentation of Millie Norman M.D. and agree with the findings and plan. Mr.James Storm Li is an 85 y.o. male with history of prostate cancer treated with prostatectomy in 2007 followed by salvage radiotherapy and short course ADT in 2018 and now in remission who has a newly diagnosed non operable stage III (T3, N1, M0) poorly differentiated adenocarcinoma with signet ring cell features of the distal esophagus/GE junction. He presented with solid dysphagia progressing to liquid dysphagia in November and underwent an EGD on December 31, 2024 revealing a mass in the distal esophagus from 45-48 cm from the incisors that was partially obstructing and partially circumferential with an epicenter at the GE junction. Biopsy confirmed poorly differentiated adenocarcinoma with signet ring cell features. CT of the chest on January 05, 2025 and PET/CT scan on January 06, 2025 confirmed disease that appeared to be limited to the esophagus. EGD with EUS on January 08, 2025 again revealed partially obstructing malignant-appearing esophageal tumor in the lower third of the esophagus from 45-48 cm. EUS revealed T3 disease with 1 indeterminate enlarged lymph nodein the peritumoral area that was not biopsied. Multidisciplinary evaluation consensus was that he was not a ideal operative candidate and chemoradiotherapy was recommended. He saw Drs. Mendoza and Deandre on January 14, 2025. They recommended definitive chemoradiotherapy. We are asked by Dr. Carrera to evaluate the patient for radiotherapy because the patient lives closer to our center. His oncologic history is well-detailed in Dr. Norman's note. The patient reports that he has lost approximately 25 pounds over the past 3 months. He is eating some solids now if he chews them very carefully. He believes his weight loss may have stabilize as a result. He can swallow liquids as well. He denies any regurgitation, nausea, vomiting, or hematemesis. He does have odynophagia that is currently tolerable. He has had some lightheadedness with positional changes. He has fallen a few times as a result. He is not currently using a cane or a walker.. His ECOG performance status is 1-2. OBJECTIVE BP 127/73 (BP Location: Right arm, Patient Position: Sitting, Cuff Size: Regular) Pulse 65 Temp36.7 ??C (Temporal) Wt 87.8 kg BMI 27.25 kg/m?? PHYSICAL EXAM General: Patient is awake, alert, and oriented to person, place, and time. No apparent distress. The patient is here today with his Brenda. DIAGNOSTICS I reviewed the patient's pathology reports and independently reviewed his imaging. ASSESSMENT / PLAN #1 Stage III (cT3, cN1, cM0) adenocarcinoma with signet ring cell features of the GE junction I had a detailed discussion with the patient and his regarding the risks, benefits, and alternatives of radiotherapy in this setting. I reviewed the NCCN guidelines in formulating my recommendations. I went over these with the patient. I recommend treatment to the esophageal tumor and involvedlymph node to a dose of 50 Gy in 25 fractions with larger expansions to 45 Gy in 25 fractions utilizing intensity modulated radiotherapy (IMRT). IMRT is indicated so as to spare radiation dose to theadjacent heart, lungs, kidneys, liver, and spinal cord. I discussed the acute and chronic toxicities of such treatment. For a complete listing of these, please see Dr. Norman's note. We discussed the fact that hospitalization is a possibility if he becomesdehydrated due to an inability to swallow because of pain or swelling. I am also concerned about his possibility of falling. He does have a 4 wheeled walker at home but is not using it currently. We discussed using this when he is away from the home in coming to clinic. He is scheduled to meet with Dr. Suresh next week at [facility]. After this discussion, I provided the patient and his with a written summary of my recommendations. His questions were answered to their verbalized satisfaction. The patient verbally stated thathe would like to proceed with treatment and signed the consent form. We discussed the fact that he should remain NPO for 2 hours prior to each treatment. We prescribed to pretreatment Zofran and alsostarted him on Prilosec. He will undergo CT simulation today. We will endeavor to begin treatment on Monday, January 27, 2025. My thanks to Deandre Bacon Jazieh, Yazan Beaver, and Alex for the opportunity to participate in this patient's care. I have spent 60 minutes caring for this patient including both demg-rb-hbwi and zxl-hubp-ij-face time. Signed by: Rey Meadows M.D. 01/23/2025 2:29 PM CDT [facility] [address] [place] [address] documented in this encounter Miscellaneous Notes * Addendum Note - Sharonda Al - 01/17/2025 10:30 AM CDTEncounter addended by: Sharonda Al on: 01/24/2025 11:44 AM Actions taken: Letter saved documented in this encounter Plan of Treatment Upcoming Encounters Date Type Department Care Team (Late st Contact Info) Description 02/11/2025 3:15 PM CDT Appointment Department of Radiation Oncology in [place], [place] [address] [place] [phone] Rey Meadows M.D. [address] [place] [phone] 02/12/2025 1:30 PM CDT Appointment Department of Radiation Oncology in [place], [place] [address] [place] [phone] Rey Meadows M.D. [address] [place] [phone] 02/12/2025 2:00 PM CDT Appointment Department of Radiation Oncology in [address] [phone] Rey Meadows M.D. [address] [place] [phone] 02/13/2025 1:15 PM CDT Appointment Department of Radiation Oncology in [place], [place] [address] [place] [phone] Rey Meadows M.D. [address] [place] [phone] 02/14/2025 12:30 PM CDT Appointment Department of Radiation Oncology in [place], [place] [address] [place] [phone] Rey Meadows M.D. [address] [place] [phone] 02/17/2025 1:15 PM CDT Appointment Department of Radiation Oncology in [place], [place] [address] [place] [phone] Rey Meadows M.D. [address] [place] [phone] 02/18/2025 1:15 PM CDT Appointment Department of Radiation Oncology in [address] [phone] Rey Meadows M.D. [address] [place] [phone] 02/19/2025 1:15 PM CDT Appointment Department of Radiation Oncology in [address] [phone] Rey Meadows M.D. [address] [place] [phone] 02/19/2025 1:45 PM CDT Appointment Department of Radiation Oncology in [address] [phone] Rey Meadows M.D. [address] [place] [phone] 02/20/2025 1:15 PM CDT Appointment Department of Radiation Oncology in [address] [phone] Rey Meadows M.D. [address] [place] [phone] 02/21/2025 12:30 PM CDT Appointment Department of Radiation Oncology in [address] [phone] Rey Meadows M.D. [address] [place] [phone] 02/24/2025 12:30 PM CDT Appointment Department of Radiation Oncology in [address] [phone] Rey Meadows M.D. [address] [place] [phone] 02/25/2025 12:30 PM CDT Appointment Department of Radiation Oncology in [address] [phone] Rey Meadows M.D. [address] [place] [phone] 02/26/2025 12:30 PM CDT Appointment Department of Radiation Oncology in [address] [phone] Rey Meadows M.D. [address] [place] [phone] 02/26/2025 1:15 PM CDT Appointment Department of Radiation Oncology in [address] [phone] Rey Meadows M.D. [address] [place] [phone] 02/27/2025 12:30 PM CDT Appointment Department of Radiation Oncology in [address] [phone] Rey Meadows M.D. [address] [place] [phone] 02/28/2025 12:30 PM CDT Appointment Department of Radiation Oncology in [address] [phone] Rey Meadows M.D. [address] [place] [phone] Scheduled Referrals Name Type Priority Associated Diagnoses Order Schedule Radiation Oncology - GI consult (clinic) Outpatient Referral Routine Once for 1 Occurrences starting 01/17/2025 until 01/17/2025 documented as of this encounter Visit Diagnoses Diagnosis Malignant Neoplasm Of Gastroesophageal Junction (HCC)- Primary documented in this encounter Additional Health Concerns Assessment Noted Time PHQ-9 Depression Total Score: 1 01/26/20 23 2:13 PM CDT documented as of this encounter Care Teams Adult Manager Relationship Specialty Start Date End Date Elsewhere, Pcp PCP - General Internal Medicine 01/30/24 documented as of this encounter
--- OUTSIDE RECORDS SUMMARY | 2025-01-17 12:30 | XMS_ITS | Encounter Summary ---
Author Organization [facility] Address [address] [place] [address] Care Team Providers Care Dish Maker Name Role Phone Elsewhere, Pcp Primary Care Provider Unavailabl e Reason for Visit * Radiation Therapy (Routine) - Closed Specialty Diagnoses / Procedures Referred By Contac t Referred To Contact Diagnoses Malignant Neoplasm Of Gastroesophageal Junction (HCC) Procedures Initial Rad Onc Treatment Planning CT Simulation Rey Meadows M.D. [address] [place] [address] Phone: tel: fax: [facility] Region Referral ID Status Reason Start Date Expiration Date Visits Re quested Visits Authorized [id number] Closed 01/14/2025 04/16/2026 1 1 Encounter Details Date Type Department Care Team (Latest Contact Info) Description 01/17/2025 12:30 PM CDT - 01/17/2025 12:56 PM CDT Hospital Encounter Department of Radiation Oncology in [place], [place] [address] [place] [phone] Rey Meadows M.D. [address] [place] [phone] Brice Shields R.N. Malignant Neoplasm Of Gastroesophageal Junction (HCC) (Primary [...] things needed for daily living? No 12/31/2024 [facility] Utilities Answer Date Recorded In the past 12 months has [facility] [employer], gas, oil, or water [employer] threatened to shut off services in your home? No 12/31/2024 Depression Answer Date Recor ded PHQ-9 Total Score (max 27) 1 01/25 Housing Stability Answer Date Recorded What is your living situation today? I have a [facility] place to live 12/31/2024 Education Answer Date Recorded What is the highest level of school you have completed or the highest degree you have received? 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 [address] [place] [address] 02/12/2025 1:30 PM CDT Appointment Department of Radiation Oncology in [place], [place] [address] [place] [address] Rey Meadows M.D. [address] [place] [address] 02/12/2025 2:00 PM CDT Appointment Department of Radiation Oncology in [place], [place] [address] [place] [phone] Rey Meadows M.D. [address] [place] [phone] 02/13/2025 1:15 PM CDT Appointment Department of Radiation Oncology in [place], [place] [address] [place] [phone] Rey Meadows M.D. [address] [place] [phone] 02/14/2025 12:30 PM CDT Appointment Department of Radiation Oncology in [address] [address] Rey Meadows M.D. [address] [place] [phone] 02/17/2025 1:15 PM CDT Appointment Department of Radiation Oncology in [address] [phone] Rey Meadows M.D. [address] [place] [phone] 02/18/2025 1:15 PM CDT Appointment Department of Radiation Oncology in [address] [address] Rey Meadows M.D. [address] [place] [phone] 02/19/2025 1:15 PM CDT Appointment Department of Radiation Oncology in [address] [address] Rey Meadows M.D. [address] [place] [phone] 02/19/2025 1:45 PM CDT Appointment Department of Radiation Oncology in [address] [address] Rey Meadows M.D. [address] [place] [address] 02/20/2025 1:15 PM CDT Appointment Department of Radiation Oncology in [address] [phone] Rey Meadows M.D. [address] [place] [phone] 02/21/2025 12:30 PM CDT Appointment Department of Radiation Oncology in [address] [address] Rey Meadows M.D. [address] [place] [address] 02/24/2025 12:30 PM CDT Appointment Department of Radiation Oncology in [address] [phone] Rey Meadows M.D. [address] [place] [phone] 02/25/2025 12:30 PM CDT Appointment Department of Radiation Oncology in [address] [address] Rey Meadows M.D. [address] [place] [phone] 02/26/2025 12:30 PM CDT Appointment Department of Radiation Oncology in [address] [address] Rey Meadows M.D. [address] [place] [phone] 02/26/2025 1:15 PM CDT Appointment Department of Radiation Oncology in [place], [place] [address] [place] [phone] Rey Meadows M.D. [address] [place] [phone] 02/27/2025 12:30 PM CDT Appointment Department of Radiation Oncology in [place], [place] [address] [place] [phone] Rey Meadows M.D. [address] [place] [phone] 02/28/2025 12:30 PM CDT Appointment Department of Radiation Oncology in [place], [place] [address] [place] [address] Rey Meadows M.D. [address] [place] [phone] documented as of this encounter Visit Diagnoses Diagnosis Malignant Neoplasm Of Gastroesophageal Junction (HCC)- Primary documented in this encounter Administered Medications Inactive Administered Medications - up to 3 most recent administrations Medication Order MAR Action Action Date Dose Rate Site heparin flush 500-1,000 Units 500-1,000 Units, intra-catheter, During hospitalization, line care, Prior to discharge, Starting on Mon01/17/25 at 1305, For 1 dose, Implanted Vascular Access Device (IVAD) Venous Non-Valved: flush 5 mL (500 units) per port/lumen following saline flush prior to discharge. Given 01/17/2025 2:01 PM CDT 500 Units iohexoL 300 mg iodine/mL solution 1-200 mL (Omnipaque) 1-200 mL, intravenous, Once in imaging, contrast, Starting on Mon01/17/25 at 1305, For 1 dose, Intraprocedure (RAD), Administer 1-200 mL, dosing per medication reference document and per protocol. Given 01/17/2025 1:42 PM CDT 80 mL sodium chloride 0.9 % injection 10-20 mL 10-20 mL, intravenous, As needed, line care, Implanted Vascular Access Device (IVAD) Venous Non-Valved, Starting on Mon01/17/25 at 1305, Prior to and following infusion and between multiple consecutive infusions, flush 10 mL to each port/lumen. Given 01/17/2025 1:59 PM CDT 10 mL sodium chloride 0.9 % injection 10-20 mL 10-20 mL, intravenous, During hospitalization, line care, Prior to discharge, Starting on Mon01/17/25 at 1305, For 1 dose, Implanted Vascular Access Device (IVAD) Venous Non-Valved: Flush 10 mL per port/lumen followed by heparin flush prior to discharge. Given 01/17/2025 2:01 PM CDT 10 mL documented in this encounter Additional Health Concerns Assessment Noted Time PHQ-9 Depression Total Score: 1 01/26/20 23 2:13 PM CDT documented as of this encounter Care Teams Dish Maker Relationship Specialty Start Date End Date Elsewhere, Pcp PCP - General Internal Medicine 01/30/24 documented as of this encounter
--- OUTSIDE RECORDS SUMMARY | 2025-01-17 12:57 | XMS_ITS | Encounter Summary ---
Author Organization [facility] Address [address] [place] [address] Care Team Providers Care Engraver Tender Name Role Phone Elsewhere, Pcp Primary Care Provider Unavailabl e Reason for Referral * Radiation Therapy (Routine) - Closed Specialty Diagnoses / Procedures Referred By Contac t Referred To Contact Diagnoses Malignant Neoplasm Of Gastroesophageal Junction (HCC) Procedures Initial Rad Onc Treatment Planning CT Simulation Rey Meadows M.D. [address] [place] [address] Phone: tel: fax: [facility] Region Referral ID Status Reason Start Date Expiration Date Visits Re quested Visits Authorized [id number] Closed 01/14/2025 04/16/2026 1 1 Reason for Visit * Radiation Therapy (Routine) - Closed Specialty Diagnoses / Procedures Referred By Sammy hilliard Referred To Contact Diagnoses Malignant Neoplasm Of Gastroesophageal Junction (HCC) Procedures Initial Rad Onc Treatment Planning CT Simulation Rey Meadows M.D. [address] [place] [address] Phone: tel: fax: [facility] Region Referral ID Status Reason Start Date Expiration Date Visits Re quested Visits Authorized [id number] Closed 01/14/2025 04/16/2026 1 1 Encounter Details Date Type Department Care Team (Latest Contact Info) Description 01/17/2025 12:57 PM CDT - 01/17/2025 3:24 PM CDT Hospital Encounter Department of Radiation Oncology in [place], [place] [address] [place] [phone] Rey Meadows M.D. [address] [place] [address] Malignant Neoplasm Of Gastroesophageal Junction (HCC) Social History Tobacco Use Types Packs/Day Years [...] things needed for daily living? No 12/31/2024 [facility] Utilities Answer Date Recorded In the past 12 months has [facility] [employer], [employer], or [employer] threatened to shut off services in your home? No 12/31/2024 Depression Answer Date Recor ded PHQ-9 Total Score (max 27) 1 01/25 Housing Stability Answer Date Recorded What is your living situation today? I have a [facility] place to live 12/31/2024 Education Answer Date Recorded What is the highest level of school you have completed or the highest degree you have received? 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 Authorized by: Rey Meadows M.D. Simulation was performed under physician supervision based on physician order in preparation for radiation therapy. Physician was immediately available to provide assistance and direction throughout the procedure. Written consent for treatment was completed or confirmed. The patient was appropriately identified and placed in the treatment position using the necessary immobilization to ensure a reproducible treatment position. Reference echevarria were placed to facilitate marking of isocenter. Area scanned:Chest and Abdomen Contrast used for the simulation procedure: IV and Oral Patient position:head first supine and arms up Custom immobilization: Vac-khurarm Motion management: 4D CT scan and Breath hold scan Bolus: No CT guidance: Following positioning of the patient, a series of slices was obtained to be utilized in treatment planning. CT images were transferred to the [employer] treatment planning system, after a reference isocenter was determined and marked. Segmentation and treatment planning will take place prior to treatment delivery. Patient set up and imaging was appropriate and completed without incident. Electronic Assembly use:No Cosigned by Rey Meadows M.D. at 01/17/2025 3:24 PM CDT Associated attestation - Rey Meadows M.D. - 01/17/2025 3:24 PM CDT I was available for the entirety of the procedure but only present for image review. Signed by: Rey Meadows M.D. 01/17/25 3:[address] [facility] Radiation Therapy [facility] documented in this encounter Plan of Treatment Upcoming Encounters Date Type Department Care Team (Late st Contact Info) Description 02/11/2025 3:15 PM CDT Appointment Department of Radiation Oncology in [address] [phone] Rey Meadows M.D. [address] [place] [phone] 02/12/2025 1:30 PM CDT Appointment Department of Radiation Oncology in [address] [phone] Rey Meadows M.D. [address] [place] [phone] 02/12/2025 2:00 PM CDT Appointment Department of Radiation Oncology in [place], [place] [address] [place] [phone] Rey Meadows M.D. [address] [place] [address] 02/13/2025 1:15 PM CDT Appointment Department of Radiation Oncology in [address] [phone] Rey Meadows M.D. [address] [place] [address] 02/14/2025 12:30 PM CDT Appointment Department of Radiation Oncology in [address] [phone] Rey Meadows M.D. [address] [place] [address] 02/17/2025 1:15 PM CDT Appointment Department of Radiation Oncology in [address] [phone] Rey Meadows M.D. [address] [place] [address] 02/18/2025 1:15 PM CDT Appointment Department of Radiation Oncology in [address] [phone] Rey Meadows M.D. [address] [place] [phone] 02/19/2025 1:15 PM CDT Appointment Department of Radiation Oncology in [address] [address] Rey Meadows M.D. [address] [place] [phone] 02/19/2025 1:45 PM CDT Appointment Department of Radiation Oncology in [place], [place] [address] [place] [phone] Rey Meadows M.D. [address] [place] [address] 02/20/2025 1:15 PM CDT Appointment Department of Radiation Oncology in [place], [place] [address] [place] [phone] Rey Meadows M.D. [address] [place] [phone] 02/21/2025 12:30 PM CDT Appointment Department of Radiation Oncology in [place], [place] [address] [place] [phone] Rey Meadows M.D. [address] [place] [phone] 02/24/2025 12:30 PM CDT Appointment Department of Radiation Oncology in [place], [place] [address] [place] [phone] Rey Meadows M.D. [address] [place] [phone] 02/25/2025 12:30 PM CDT Appointment Department of Radiation Oncology in [place], [place] [address] [place] [address] Rey Meadows M.D. [address] [place] [phone] 02/26/2025 12:30 PM CDT Appointment Department of Radiation Oncology in [place], [place] [address] [place] [phone] Rey Meadows M.D. [address] [place] [phone] 02/26/2025 1:15 PM CDT Appointment Department of Radiation Oncology in [address] [address] Rey Meadows M.D. [address] [place] [phone] 02/27/2025 12:30 PM CDT Appointment Department of Radiation Oncology in [address] [address] Rey Meadows M.D. [address] [place] [phone] 02/28/2025 12:30 PM CDT Appointment Department of Radiation Oncology in [address] [address] Rey Meadows M.D. [address] [place] [phone] documented as of this encounter Procedures Procedure Name Priority Date/Time Associated Diagnosis Comments INITIAL RAD ONC TREATMENT PLANNING CT SIMULATION Routine 01/17/2025 1:00 PM CDT Malignant Neoplasm Of Gastroesophageal Junction (HCC) documented in this encounter Results * Initial Rad Onc Treatment Planning CT Simulation (01/17/2025 1:00 PM CDT) Narrative CORRAL HEMALATHA - 01/17/2025 1:00 PM CDT Rey Meadows M.D. 01/17/2025 3:24 PM Initial Rad Onc Treatment Planning CT Simulation Performed by: Rey Meadows M.D. Authorized by: Rey Meadows M.D. Simulation was performed under physician supervision based on physician order in preparation for radiation therapy. Physician was immediately available to provide assistance and direction throughout the procedure. Written consent for treatment was completed or confirmed. The patient was appropriately identified and placed in the treatment position using the necessary immobilization to ensure a reproducible treatment position. Reference echevarria were placed to facilitate marking of isocenter. Area scanned:Chest and Abdomen Contrast used for the simulation procedure: IV and Oral Patient position:head first supine and arms up Custom immobilization: Vac-khurram Motion management: 4D CT scan and Breath hold scan Bolus: No CT guidance: Following positioning of the patient, a series of slices was obtained to be utilized in treatment planning. CT images were transferred to the [employer] treatment planning system, after a reference isocenter was determined and marked. Segmentation and treatment planning will take place prior to treatment delivery. Patient set up and imaging was appropriate and completed without incident. Electronic Assembly use:No us Rey Meadows M.D. RADIATION ONCOLOGY ORDERAB LES Final Result CRIS iyer documented in this encounter Visit Diagnoses Diagnosis Malignant Neoplasm Of Gastroesophageal Junction (HCC) documented in this encounter Additional Health Concerns Assessment Noted Time PHQ-9 Depression Total Score: 1 01/26/20 23 2:13 PM CDT documented as of this encounter Care Teams Engraver Tender Relationship Specialty Start Date End Date Elsewhere, Pcp PCP - General Internal Medicine 01/30/24 documented as of this encounter
--- OUTSIDE RECORDS SUMMARY | 2025-01-27 13:00 | XMS_ITS | Encounter Summary ---
Author Organization [facility] Address [address] [place] [address] Care Team Providers Care Sieve Maker Name Role Phone Elsewhere, Pcp Primary Care Provider Unavailabl e Reason for Referral * Radiation Therapy (Routine) - Authorized Specialty Diagnoses / Procedures Referred By Lambertoac arminda Referred To Contact Diagnoses Malignant Neoplasm Of Gastroesophageal Junction (HCC) Procedures Management Visit Rey Meadows M.D. [address] [place] [address] Phone: tel: fax: [facility] Region Referral ID Status Reason Start Date Expiration Date V isits Requested Visits Authorized [id number] Authorized 01/14/2025 04/16/2026 10 10 Reason for Visit * Radiation Therapy (Routine) - Authorized Specialty Diagnoses / Procedures Referred By Sammy hilliard Referred To Contact Diagnoses Malignant Neoplasm Of Gastroesophageal Junction (HCC) Procedures Management Visit Rey Meadows M.D. [address] [place] [address] Phone: tel: fax: [facility] Region Referral ID Status Reason Start Date Expiration Date V isits Requested Visits Authorized [id number] Authorized 01/14/2025 04/16/2026 10 10 Encounter Details Date Type Department Care Team (Latest Contact Info) Description 01/27/2025 1:00 PM CDT - 01/28/2025 9:31 AM CDT Hospital Encounter Department of Radiation Oncology in [place], [place] [address] [place] [address] Rey Meadows M.D. [address] [place] [address] Malignant Neoplasm Of Gastroesophageal Junction (HCC) Social [...] needed for daily living? No 12/31/2024 [facility] Utilities Answer Date Recorded In the past 12 months has [facility] [employer], gas, oil, or water company threatened to shut off services in your home? No 12/31/2024 Depression Answer Date Recor ded PHQ-9 Total Score (max 27) 1 01/25 Housing Stability Answer Date Recorded What is your living situation today? I have a [facility] place to live 12/31/2024 Education Answer Date Recorded What is the highest level of school you have completed or the highest degree you have received? 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 Gender Identity Male 09/04/2018 3:21 PM CDT Sexual Orientation Straight 09/04/2018 3: 21 PM CDT documented as of this encounter Last Filed Vital Signs Vital Sign Reading Time Taken Comments Blood Pressure 125/74 01/27/2025 1:19 PM CDT Pulse 90 01/27/2025 1:19 PM CDT Temperature 36.7 C (98 F) 01/27/2025 1:19 PM CDT Respiratory Rate - - Oxygen Saturation - - Inhaled Oxygen Concentration - - Weight 88.3 kg (194 lb 10.7 oz) 01/27/2025 1:19 PM CDT Height - - Body Mass Index 27.41 01/13/2025 9:52 AM CDT documented in this encounter Medications at Time of Discharge apixaban (Eliquis) 5 mg tablet Take 1 tablet (5 mg total) by mouth 2 (two) times a day. 180 tablet 3 4 atenoloL (TENORMIN) 50 mg tablet Take 50 mg by mouth 2 (two) times a day. 3 dexAMETHasone (Decadron) 2 mg tablet Take 1 tablet (2 mg total) by mouth 2 (two) times a day. Follow taper instructions provided by medical care team. 20 tablet 5 fexofenadine (MOISES) 180 mg tablet Take 1 tablet by mouth daily. 1 GLUCOSAMINE HCL/CHONDROITIN AKERS (GLUCOSAMINE-CHONDROI TIN ORAL) Take 2 tablets by mouth daily. 7 multivitamin tablet Take 1 tablet by mouth daily. 7 omeprazole (PriLOSEC) [address] capsule Take 1 capsule (20 mg total) by mouth 2 (two) times a day. 30 capsule 1 5 ondansetron ODT (Zofran-ODT) 8 mg disintegrating tabletIndications:Mal ignant Neoplasm Of Gastroesophageal Junction (HCC) Dissolve 1 tablet (8 mg total) in the mouth every 8 (eight) hours as needed for nausea or vomiting. 20 tablet 5 prochlorperazine (Compazine) 10 mg tablet Take 1 tablet (10 mg total) by mouth every 6 (six) hours as needed for nausea or vomiting. Take 1 hr prior to radiation with sips of water and as need up to 4 times a day 30 tablet 5 s-adenosylmethionine (SVEN-e) 400 mg tablet Take 1 tablet by mouth daily. documented as of this encounter Progress Notes * Nereida Roblero P.A.-C., M.S. - 01/27/2025 1:00 PM CDT SUBJECTIVE CHIEF COMPLAINT/REASON FOR VISIT Evaluation for side effects while receiving radiation treatment for 1. Malignant Neoplasm Of Gastroesophageal Junction (HCC) SUPERVISED BY: Rey Meadows M.D. ([phone]) HISTORY OF PRESENT ILLNESS Mr. 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 Treatment Course: 2xEsophagus Plan ID Fractions Dose / Fraction (cGy) Dose Treated (cGy) Dose Planned (cGy) First Treatment Last Treatment Elapsed Days [id number] 01/27/2025 01/27/2025 0 Course Summary 01/27/2025 01/27/2025 0 The patient was seen and examined today with Dr. Meadows. The patient was seen today prior to initiating radiation therapy. He reports overall worsening balance. He experienced a fall early last week. He reports that the fall occurred with the transition ofstanding up from a seated position. Since the fall, he has had significant right buttock pain. He has been seen twice at [facility] for evaluation. Per patient report, x-rays were performed and no fracture was identified. The patient has been taking Tylenol 5- 6 tablets daily with minimal benefit. He was also prescribed a steroid pack. He reports taking 6 tablets of the steroid on Monday and then 1 tablet on Monday prior to discontinuing the medication because he didn't notice benefit. He saw Medical Oncology earlier today and chemotherapy was held this week due to his poor performance status. They prescribed Tramadol as well as lidocaine and Voltaren gel for his pain. The patient reports that he has a walker available, but he does not use it for ambulation assistance. He reports improved eating and drinking. He states that his weight has now stabilized. He is supplementing with Ensure. He does report feeling dizzy and lightheaded, but he has not required IV fluids. PATIENT REPORTED SYMPTOM SCREEN: FATIGUE (Scale: 0 = no fatigue; 10 = worst fatigue you can imagine): 5 PAIN (Scale: 0 = no pain; 10 = worst pain you can imagine): 7-8 OVERALL QUALITY OF LIFE (Scale: 0 = as bad as can be; 10 = as good as can be): 3 OBJECTIVE BP 125/74 (BP Location: Right arm, Patient Position: Sitting, Cuff Size: Regular) Pulse 90 Temp36.7 ??C (Temporal) Wt 88.3 kg BMI 27.41 kg/m?? PHYSICAL EXAMINATION General: Alert and oriented, in no apparent distress. The patient is here today with his . ASSESSMENT / PLAN #1 Stage III (cT3, cN1, cM0) adenocarcinoma with signet ring cell features of the GE junction #2 Radiation therapy initiated on January 27, 2025; anticipated completion on February 28, 2025 The patient was seen today prior to initiation of radiation therapy. He reports recent worsening performance status with increased balance difficulty and a fall last week. He has persistent right buttock pain as a result of the fall at this time. He has been taking Tylenol with minimal benefit, butwas also prescribed Tramadol and lidocaine and Voltaren gel earlier today by Medical Oncology. His c hemotherapy is on hold this week. The patient reports recent improved eating and drinking and states that his weight has now stabilized. We discussed the importance of continuing with good nutritional and fluid intake. The patient was also strongly recommended to start using his walker for ambulation assistance to potentially help avoid additional falls. We also discussed rehab/therapy, but the patient states that he has done this previously without benefit. We discussed options regarding his radiation therapy at this time, including holding treatment versus attempting treatment today, which would be dependent of his ability to tolerate treatment positioning. We discussed timing his pain medications (Tylenol or Tramadol) to be taken prior to radiation treatment to help with his comfort and treatment positioning. Dr. Meadows also met with the patient today, please see his attestation for details. Dr. Meadows discussed initiating use of dexamethasone with the patient. The patient will start with taking dexamethasone 2 mg twice daily and the medication will then be tapered as appropriate based on his symptom s/response. A prescription will be sent to his preferred pharmacy today. Dr. Meadows also requested for the patient to be scheduled for a social work visit at the next availability. Medical Oncologyis already helping the patient get established with a local primary care provider. After discussiontoday, the patient wanted to proceed with radiation therapy as scheduled. The patient will contact our care team with questions or concerns. He will be scheduled for a management visit again tomorrow for re-evaluation. He will continue with radiation treatment as planned. Signed by: Nereida Roblero P.A.-C., M.S. 01/27/2025 3:43 PM CDT Cosigned by Rey Meadows M.D. at 01/28/2025 9:31 AM CDT Associated attestation - Rey Meadows M.D. - 01/28/2025 9:31 AM CDT I saw and evaluated the patient and participated in the gongora portions of the service. I reviewed thedocumentation of Nereida Roblero P.A.-C. and agree with the findings and plan. The patient is here with his Brenda. He suffered another fall last week on Monday when he stood up from a chair. He was not using his walker. He was seen multiple times at [facility] urgent Care with reportedly negative x-rays. He has increasing pain over his sacral area. He briefly tried a Medrol dosepack but did not complete all of it because he thought that it make him feel worse. He is taking Tylenol with minimal benefit. He was seen by Petrona Velasco APRN, at [facility] this morning. She has started him on tramadol and topical lidocaine and Voltaren. She and Dr. Suresh decided not to start chemotherapy today because of his fall. I gave him the option of waiting until tomorrow or later this week. We also discussed treatment andenrollment in hospice, but he very much wants to proceed with treatment. So, we will proceed with his first treatment. We started him on dexamethasone 2 mg with breakfast and in the afternoon. Our social media sr strategy manager, Cheyanne, is scheduled to see him tomorrow. He does not have a local primary care provider. Our colleagues at [facility] are working on connecting him with a primary care provider. Once that is accomplished, we will hopefully arrange for a home health care assessment. I do believe that both he and his could benefit from this both from asafety assessment but also for assistance with medications from a home health nurse. The patient and his verbalized satisfaction with this plan. We will see the patient again tomorrow to check on his progress. Signed by: Rey Meadows M.D. 01/28/25 9:31 AM CDT [facility] [place] documented in this encounter Plan of Treatment Upcoming Encounters Date Type Department Care Team (Late st Contact Info) Description 02/11/2025 3:15 PM CDT Appointment Department of Radiation Oncology in [place], [place] [address] [place] [address] Rey Meadows M.D. [address] [place] [address] 02/12/2025 1:30 PM CDT Appointment Department of Radiation Oncology in [place], [place] [address] [place] [address] Rey Meadows M.D. [address] [place] [address] 02/12/2025 2:00 PM CDT Appointment Department of Radiation Oncology in [place], [place] [address] [place] [phone] Rey Meadows M.D. [address] [place] [phone] 02/13/2025 1:15 PM CDT Appointment Department of Radiation Oncology in [place], [place] [address] [place] [phone] Rey Meadows M.D. [address] [place] [phone] 02/14/2025 12:30 PM CDT Appointment Department of Radiation Oncology in [address] [address] Rey Meadows M.D. [address] [place] [phone] 02/17/2025 1:15 PM CDT Appointment Department of Radiation Oncology in [address] [address] Rey Meadows M.D. [address] [place] [phone] 02/18/2025 1:15 PM CDT Appointment Department of Radiation Oncology in [address] [address] Rey Meadows M.D. [address] [place] [phone] 02/19/2025 1:15 PM CDT Appointment Department of Radiation Oncology in [address] [address] Rey Meadows M.D. [address] [place] [phone] 02/19/2025 1:45 PM CDT Appointment Department of Radiation Oncology in [address] [address] Rey Meadows M.D. [address] [place] [address] 02/20/2025 1:15 PM CDT Appointment Department of Radiation Oncology in [address] [phone] Rey Meadows M.D. [address] [place] [phone] 02/21/2025 12:30 PM CDT Appointment Department of Radiation Oncology in [address] [address] Rey Meadows M.D. [address] [place] [address] 02/24/2025 12:30 PM CDT Appointment Department of Radiation Oncology in [address] [address] Rey Meadosw M.D. [address] [place] [phone] 02/25/2025 12:30 PM CDT Appointment Department of Radiation Oncology in [address] [address] Rey Meadows M.D. [address] [place] [phone] 02/26/2025 12:30 PM CDT Appointment Department of Radiation Oncology in [address] [address] Rey Meadows M.D. [address] [place] [phone] 02/26/2025 1:15 PM CDT Appointment Department of Radiation Oncology in [place], [place] [address] [place] [phone] Rey Meadows M.D. [address] [place] [address] 02/27/2025 12:30 PM CDT Appointment Department of Radiation Oncology in [place], [place] [address] [place] [phone] Rey Meadows M.D. [address] [place] [phone] 02/28/2025 12:30 PM CDT Appointment Department of Radiation Oncology in [place], [place] [address] [place] [phone] Rey Meadows M.D. [address] [place] [phone] Scheduled Orders Name Type Priority Associated Diagnoses Orde r Schedule Management Visit Radiation Oncology Routine Malignant Neoplasm Of Gastroesophageal Junction (HCC) Once for 1 Occurrences starting 01/27/2025 until 01/27/2025 documented as of this encounter Visit Diagnoses Diagnosis Malignant Neoplasm Of Gastroesophageal Junction (HCC) documented in this encounter Additional Health Concerns Assessment Noted Time PHQ-9 Depression Total Score: 1 01/26/20 23 2:13 PM CDT documented as of this encounter Care Teams Sieve Maker Relationship Specialty Start Date End Date Elsewhere, Pcp PCP - General Internal Medicine 01/30/24 documented as of this encounter
--- OUTSIDE RECORDS SUMMARY | 2025-01-27 13:15 | XMS_ITS | Encounter Summary ---
Author Organization [facility] Address [address] [place] [address] Care Team Providers Care Drupal Php Developer Name Role Phone Elsewhere, Pcp Primary Care Provider Unavailabl e Encounter Details Date Type Department Care Team (Late st Contact Info) Description 01/27/2025 1:15 PM CDT Hospital Encounter Department of Radiation Oncology in [place], [place] [address] [place] [phone] Rey Meadows M.D. [address] [place] [address] Social History Tobacco Use Types Packs/Day Years [...] things needed for daily living? No 12/31/2024 [facility] Utilities Answer Date Recorded In the past 12 months has th e electric, gas, oil, or water company threatened to shut off services in your home? No 12/31/2024 Depression Answer Date Recor ded PHQ-9 Total Score (max 27) 1 01/25 Housing Stability Answer Date Recorded What is your living situation today? I have a [facility] place to live 12/31/2024 Education Answer Date Recorded What is the highest level of school you have completed or the highest degree you have received? 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 [address] [place] [address] 02/12/2025 1:30 PM CDT Appointment Department of Radiation Oncology in [place], [place] [address] [place] [phone] Rey Meadows M.D. [address] [place] [phone] 02/12/2025 2:00 PM CDT Appointment Department of Radiation Oncology in [place], [place] [address] [place] [phone] Rey Meadows M.D. [address] [place] [phone] 02/13/2025 1:15 PM CDT Appointment Department of Radiation Oncology in [address] [address] Rey Meadows M.D. [address] [place] [phone] 02/14/2025 12:30 PM CDT Appointment Department of Radiation Oncology in [address] [address] Rey Meadows M.D. [address] [place] [phone] 02/17/2025 1:15 PM CDT Appointment Department of Radiation Oncology in [place], [place] [address] [place] [phone] Rey Meadows M.D. [address] [place] [phone] 02/18/2025 1:15 PM CDT Appointment Department of Radiation Oncology in [address] [address] Rey Meadows M.D. [address] [place] [phone] 02/19/2025 1:15 PM CDT Appointment Department of Radiation Oncology in [place], [place] [address] [place] [phone] Rey Meadows M.D. [address] [place] [phone] 02/19/2025 1:45 PM CDT Appointment Department of Radiation Oncology in [place], [place] [address] [place] [address] Rey Meadows M.D. [address] [place] [phone] 02/20/2025 1:15 PM CDT Appointment Department of Radiation Oncology in [address] [address] Rey Meadows M.D. [address] [place] [phone] 02/21/2025 12:30 PM CDT Appointment Department of Radiation Oncology in [place], [place] [address] [place] [phone] Rey Meadows M.D. [address] [place] [phone] 02/24/2025 12:30 PM CDT Appointment Department of Radiation Oncology in [place], [place] [address] [place] [address] Rey Meadows M.D. [address] [place] [phone] 02/25/2025 12:30 PM CDT Appointment Department of Radiation Oncology in [place], [place] [address] [place] [phone] Rey Meadows M.D. [address] [place] [phone] 02/26/2025 12:30 PM CDT Appointment Department of Radiation Oncology in [place], [place] [address] [place] [phone] Rey Meadows M.D. [address] [place] [phone] 02/26/2025 1:15 PM CDT Appointment Department of Radiation Oncology in [address] [address] Rey Meadows M.D. [address] [place] [phone] 02/27/2025 12:30 PM CDT Appointment Department of Radiation Oncology in [place], [place] [address] [place] [phone] Rey Meadows M.D. [address] [place] [phone] 02/28/2025 12:30 PM CDT Appointment Department of Radiation Oncology in [address] [address] Rey Meadows M.D. [address] [place] [phone] documented as of this encounter Visit Diagnoses Not on filedocumented in this encounter Additional Health Concerns Assessment Noted Time PHQ-9 Depression Total Score: 1 01/26/20 23 2:13 PM CDT documented as of this encounter Care Teams Drupal Php Developer Relationship Specialty Start Date End Date Elsewhere, Pcp PCP - General Internal Medicine 01/30/24 documented as of this encounter
--- OUTSIDE RECORDS SUMMARY | 2025-01-28 13:27 | XMS_ITS | Encounter Summary ---
Author Organization [facility] Address [address] [place] [address] Care Team Providers Care Flatwork Finisher Name Role Phone Elsewhere, Pcp Primary Care Provider Unavailabl e Encounter Details Date Type Department Care Team (Late st Contact Info) Description 01/28/2025 1:27 PM CDT Hospital Encounter Department of Radiation Oncology in [place], [place] [address] [place] [phone] Rey Meadows M.D. [address] [place] [address] Social History Tobacco Use Types Packs/Day Years [...] things needed for daily living? No 12/31/2024 [facility] Utilities Answer Date Recorded In the past 12 months has th e electric, gas, oil, or water company threatened to shut off services in your home? No 12/31/2024 Depression Answer Date Recor ded PHQ-9 Total Score (max 27) 1 01/25 Housing Stability Answer Date Recorded What is your living situation today? I have a [facility] place to live 12/31/2024 Education Answer Date Recorded What is the highest level of school you have completed or the highest degree you have received? 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 [address] [place] [address] 02/12/2025 1:30 PM CDT Appointment Department of Radiation Oncology in [place], [place] [address] [place] [phone] Rey Meadows M.D. [address] [place] [phone] 02/12/2025 2:00 PM CDT Appointment Department of Radiation Oncology in [place], [place] [address] [place] [phone] Rey Meadows M.D. [address] [place] [phone] 02/13/2025 1:15 PM CDT Appointment Department of Radiation Oncology in [address] [address] Rey Meadows M.D. [address] [place] [phone] 02/14/2025 12:30 PM CDT Appointment Department of Radiation Oncology in [address] [address] Rey Meadows M.D. [address] [place] [phone] 02/17/2025 1:15 PM CDT Appointment Department of Radiation Oncology in [place], [place] [address] [place] [phone] Rey Meadows M.D. [address] [place] [phone] 02/18/2025 1:15 PM CDT Appointment Department of Radiation Oncology in [address] [address] Rey Meadows M.D. [address] [place] [phone] 02/19/2025 1:15 PM CDT Appointment Department of Radiation Oncology in [place], [place] [address] [place] [phone] Rey Meadows M.D. [address] [place] [phone] 02/19/2025 1:45 PM CDT Appointment Department of Radiation Oncology in [place], [place] [address] [place] [address] Rey Meadows M.D. [address] [place] [phone] 02/20/2025 1:15 PM CDT Appointment Department of Radiation Oncology in [address] [address] Rey Meadows M.D. [address] [place] [phone] 02/21/2025 12:30 PM CDT Appointment Department of Radiation Oncology in [place], [place] [address] [place] [phone] Rey Meadows M.D. [address] [place] [phone] 02/24/2025 12:30 PM CDT Appointment Department of Radiation Oncology in [place], [place] [address] [place] [address] Rey Meadows M.D. [address] [place] [phone] 02/25/2025 12:30 PM CDT Appointment Department of Radiation Oncology in [place], [place] [address] [place] [phone] Rey Meadows M.D. [address] [place] [phone] 02/26/2025 12:30 PM CDT Appointment Department of Radiation Oncology in [place], [place] [address] [place] [phone] Rey Meadows M.D. [address] [place] [phone] 02/26/2025 1:15 PM CDT Appointment Department of Radiation Oncology in [address] [address] Rey Meadows M.D. [address] [place] [phone] 02/27/2025 12:30 PM CDT Appointment Department of Radiation Oncology in [place], [place] [address] [place] [phone] Rey Meadows M.D. [address] [place] [phone] 02/28/2025 12:30 PM CDT Appointment Department of Radiation Oncology in [address] [phone] Rey Meadows M.D. [address] [place] [phone] documented as of this encounter Visit Diagnoses Not on filedocumented in this encounter Additional Health Concerns Assessment Noted Time PHQ-9 Depression Total Score: 1 01/26/20 23 2:13 PM CDT documented as of this encounter Care Teams Flatwork Finisher Relationship Specialty Start Date End Date Elsewhere, Pcp PCP - General Internal Medicine 01/30/24 documented as of this encounter
--- OUTSIDE RECORDS SUMMARY | 2025-01-28 13:27 | XMS_ITS | Encounter Summary ---
Author Organization [facility] Address [address] [place] [address] Care Team Providers Care Feed Elevator Worker Name Role Phone Elsewhere, Pcp Primary Care Provider Unavailabl e Reason for Referral * Radiation Therapy (Routine) - Authorized Specialty Diagnoses / Procedures Referred By Lambertoac arminda Referred To Contact Diagnoses Malignant Neoplasm Of Gastroesophageal Junction (HCC) Procedures Management Visit Rey Meadows M.D. [address] [place] [address] Phone: tel: fax: [facility] Region Referral ID Status Reason Start Date Expiration Date V isits Requested Visits Authorized [id number] Authorized 01/14/2025 04/16/2026 10 10 Reason for Visit * Radiation Therapy (Routine) - Authorized Specialty Diagnoses / Procedures Referred By Sammy hilliard Referred To Contact Diagnoses Malignant Neoplasm Of Gastroesophageal Junction (HCC) Procedures Management Visit Rey Meadows M.D. [address] [place] [address] Phone: tel: fax: [facility] Region Referral ID Status Reason Start Date Expiration Date V isits Requested Visits Authorized [id number] Authorized 01/14/2025 04/16/2026 10 10 Encounter Details Date Type Department Care Team (Latest Contact Info) Description 01/28/2025 1:27 PM CDT - 01/28/2025 6:05 PM CDT Hospital Encounter Department of Radiation Oncology in [place], [place] [address] [place] [phone] Rey Meadows M.D. [address] [place] [address] Malignant Neoplasm Of Gastroesophageal Junction (HCC) Social [...] things needed for daily living? No 12/31/2024 [facility] Utilities Answer Date Recorded In the past [address] [facility] [employer]ASH, gas, oil, or water company threatened to shut off services in your home? No 12/31/2024 Depression Answer Date Recor ded PHQ-9 Total Score (max 27) 1 01/25 Housing Stability Answer Date Recorded What is your living situation today? I have a [facility] place to live 12/31/2024 Education Answer Date Recorded What is the highest level of school you have completed or the highest degree you have received? 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 - 01/28/2025 2:30 PM CDT SUBJECTIVE REASON FOR VISIT Evaluation for side effects while receiving radiation treatment for 1. Malignant Neoplasm Of Gastroesophageal Junction (HCC) SUPERVISED BY: Rey Meadows M.D. (0-1986) HISTORY OF PRESENT ILLNESS Mr. Rey Li is a 85 y.o. 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 Treatment Course: 2xEsophagus Plan ID Fractions Dose / Fraction (cGy) Dose Treated (cGy) Dose Planned (cGy) First Treatment Last Treatment Elapsed Days [id number] 01/27/2025 01/27/2025 0 Course Summary 01/27/2025 01/27/2025 0 The patient was seen and examined today with Dr. Meadows. The patient reports to be feeling well overall. He has ongoing sacral pain since his recent fall. He is taking 1 tablet of Tramadol and 500 mg of Tylenol every 6 hours. He also had Lidocaine and Voltaren gel that he can apply. His pain is worse with center movements like sitting down and bending over but then it improve shortly after. He is using a walker to help with ambulation. He reports that his mild pain with swallowing. He can eat a regular diet and is drinking 1- 2 Ensure a day. He forgotto take Zofran prior to treatment today and he didn't take it prior to treatment yesterday. He did not receive chemotherapy this week due to his recent fall and waiting for an evaluation from his PCPon 02/03/25 CONCURRENT THERAPY Taxol/Carbo-weekly at [facility]-on hold until appointment with his PCP on 02/03/25 PATIENT REPORTED SYMPTOM SCREEN FATIGUE (Scale: 0 = no fatigue; 10 = worst fatigue you can imagine): 5 PAIN (Scale: 0 = no pain; 10 = worst pain you can imagine): 3-7 depending on movement. OVERALL QUALITY OF LIFE (Scale: 0 = as bad as can be; 10 = as good as can be): 4-social work has been consulted and patient is being evaluated by his PCP in hopes coordinate a safety assessment and get home health set up OBJECTIVE BP 104/66 (BP Location: Right arm, Patient Position: Sitting, Cuff Size: Regular) Pulse 83 Temp36.8 ??C (Temporal) Wt 88.8 kg BMI 27.56 kg/m?? WEIGHT 01/14/25-86.7 kg 01/27/25-88.3 kg-first radiation treatment PHYSICAL EXAM General: Alert and oriented in no apparent distress. 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 The patient is tolerating radiation treatment well overall. Patient can continue pain management interventions. Chemotherapy is currently on hold until patient is seen by his PCP on February 03, 2025. Dr. Meadows was in for any questions or concerns. He will continue with radiation treatment as planned. He will contact us with any questions or concerns Signed by: Ester Vo R.N. 01/28/2025 3:35 PM CDT Cosigned by Rey Meadows M.D. at 01/28/2025 6:05 PM CDT Associated attestation - Rey Meadows M.D. - 01/28/2025 6:05 PM CDT I saw and evaluated the patient and participated in the gongora portions of the service. I reviewed thedocumentation of Ester Vo R.N. and agree with the findings and plan. The patient appears fatigued. He is here with his Brenda. He does have his walker today. He is tolerating treatment well. He will continue with treatment as planned. Signed by: Rey Meadows M.D. 01/28/25 6:05 PM CDT [facility] Radiation Therapy [facility] documented in this encounter Plan of Treatment Upcoming Encounters Date Type Department Care Team (Late st Contact Info) Description 02/11/2025 3:15 PM CDT Appointment Department of Radiation Oncology in [address] [address] Rey Meadows M.D. [address] [place] [phone] 02/12/2025 1:30 PM CDT Appointment Department of Radiation Oncology in [address] [address] Rey Meadows M.D. [address] [place] [phone] 02/12/2025 2:00 PM CDT Appointment Department of Radiation Oncology in [address] [address] Rey Meadows M.D. [address] [place] [phone] 02/13/2025 1:15 PM CDT Appointment Department of Radiation Oncology in [address] [address] Rey Meadows M.D. [address] [place] [phone] 02/14/2025 12:30 PM CDT Appointment Department of Radiation Oncology in [address] [address] Rey Meadows M.D. [address] [place] [phone] 02/17/2025 1:15 PM CDT Appointment Department of Radiation Oncology in [address] [address] Rey Meadows M.D. [address] [place] [phone] 02/18/2025 1:15 PM CDT Appointment Department of Radiation Oncology in [address] [address] Rey Meadows M.D. [address] [place] [phone] 02/19/2025 1:15 PM CDT Appointment Department of Radiation Oncology in [address] [address] Rey Meadows M.D. [address] [place] [phone] 02/19/2025 1:45 PM CDT Appointment Department of Radiation Oncology in [address] [address] Rey Meadows M.D. [address] [place] [phone] 02/20/2025 1:15 PM CDT Appointment Department of Radiation Oncology in [address] [address] Rey Meadows M.D. [address] [place] [phone] 02/21/2025 12:30 PM CDT Appointment Department of Radiation Oncology in [place], [place] [address] [place] [phone] Rey Meadows M.D. [address] [place] [phone] 02/24/2025 12:30 PM CDT Appointment Department of Radiation Oncology in [place], [place] [address] [place] [phone] Rey Meadows M.D. [address] [place] [phone] 02/25/2025 12:30 PM CDT Appointment Department of Radiation Oncology in [address] [address] Rey Meadows M.D. [address] [place] [phone] 02/26/2025 12:30 PM CDT Appointment Department of Radiation Oncology in [address] [address] Rey Meadows M.D. [address] [place] [phone] 02/26/2025 1:15 PM CDT Appointment Department of Radiation Oncology in [address] [address] Rey Meadows M.D. [address] [place] [phone] 02/27/2025 12:30 PM CDT Appointment Department of Radiation Oncology in [place], [place] [address] [place] [address] Rey Meadows M.D. [address] [place] [address] 02/28/2025 12:30 PM CDT Appointment Department of Radiation Oncology in [place], [place] [address] [place] [address] Rey Meadows M.D. [address] [place] [address] Scheduled Orders Name Type Priority Associated Diagnoses Orde r Schedule Management Visit Radiation Oncology Routine Malignant Neoplasm Of Gastroesophageal Junction (HCC) Once for 1 Occurrences starting 01/28/2025 until 01/28/2025 documented as of this encounter Visit Diagnoses Diagnosis Malignant Neoplasm Of Gastroesophageal Junction (HCC) documented in this encounter Additional Health Concerns Assessment Noted Time PHQ-9 Depression Total Score: 1 01/26/20 23 2:13 PM CDT documented as of this encounter Care Teams Feed Elevator Worker Relationship Specialty Start Date End Date Elsewhere, Pcp PCP - General Internal Medicine 01/30/24 documented as of this encounter
--- OUTSIDE RECORDS SUMMARY | 2025-01-29 13:28 | XMS_ITS | Encounter Summary ---
Author Organization [facility] Address [address] [place] [address] Care Team Providers Care Brewery Pumper Name Role Phone Elsewhere, Pcp Primary Care Provider Unavailabl e Encounter Details Date Type Department Care Team (Late st Contact Info) Description 01/29/2025 1:28 PM CDT Hospital Encounter Department of Radiation Oncology in [place], [place] [address] [place] [phone] Rey Meadows M.D. [address] [place] [address] Social History Tobacco Use Types Packs/Day Years [...] needed for daily living? 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 [address] [place] [address] 02/12/2025 1:30 PM CDT Appointment Department of Radiation Oncology in [place], [place] [address] [place] [phone] Rey Meadows M.D. [address] [place] [phone] 02/12/2025 2:00 PM CDT Appointment Department of Radiation Oncology in [place], [place] [address] [place] [phone] Rey Meadows M.D. [address] [place] [phone] 02/13/2025 1:15 PM CDT Appointment Department of Radiation Oncology in [address] [phone] eRy Meadows M.D. [address] [place] [phone] 02/14/2025 12:30 PM CDT Appointment Department of Radiation Oncology in [address] [address] Rey Meadows M.D. [address] [place] [phone] 02/17/2025 1:15 PM CDT Appointment Department of Radiation Oncology in [place], [place] [address] [place] [phone] Rey Meadows M.D. [address] [place] [phone] 02/18/2025 1:15 PM CDT Appointment Department of Radiation Oncology in [address] [address] Rey Meadows M.D. [address] [place] [phone] 02/19/2025 1:15 PM CDT Appointment Department of Radiation Oncology in [place], [place] [address] [place] [phone] Rey Meadows M.D. [address] [place] [phone] 02/19/2025 1:45 PM CDT Appointment Department of Radiation Oncology in [place], [place] [address] [place] [address] Rey Meadows M.D. [address] [place] [phone] 02/20/2025 1:15 PM CDT Appointment Department of Radiation Oncology in [address] [address] Rey Meadows M.D. [address] [place] [phone] 02/21/2025 12:30 PM CDT Appointment Department of Radiation Oncology in [place], [place] [address] [place] [phone] Rey Meadows M.D. [address] [place] [phone] 02/24/2025 12:30 PM CDT Appointment Department of Radiation Oncology in [place], [place] [address] [place] [address] Rey Meadows M.D. [address] [place] [phone] 02/25/2025 12:30 PM CDT Appointment Department of Radiation Oncology in [place], [place] [address] [place] [phone] Rey Meadows M.D. [address] [place] [phone] 02/26/2025 12:30 PM CDT Appointment Department of Radiation Oncology in [place], [place] [address] [place] [phone] Rey Meadows M.D. [address] [place] [phone] 02/26/2025 1:15 PM CDT Appointment Department of Radiation Oncology in [address] [address] Rey Meadows M.D. [address] [place] [phone] 02/27/2025 12:30 PM CDT Appointment Department of Radiation Oncology in [place], [place] [address] [place] [phone] Rey Meadows M.D. [address] [place] [phone] 02/28/2025 12:30 PM CDT Appointment Department of Radiation Oncology in [address] [phone] Rey Meadows M.D. [address] [place] [phone] documented as of this encounter Visit Diagnoses Not on filedocumented in this encounter Additional Health Concerns Assessment Noted Time PHQ-9 Depression Total Score: 1 01/26/20 23 2:13 PM CDT documented as of this encounter Care Teams Brewery Pumper Relationship Specialty Start Date End Date Elsewhere, Pcp PCP - General Internal Medicine 01/30/24 documented as of this encounter
--- OUTSIDE RECORDS SUMMARY | 2025-01-30 13:30 | XMS_ITS | Encounter Summary ---
Author Organization [facility] Address [address] [place] [address] Care Team Providers Care Gyroscopic Instrument Mechanic Name Role Phone Elsewhere, Pcp Primary Care Provider Unavailabl e Encounter Details Date Type Department Care Team (Late st Contact Info) Description 01/30/2025 1:30 PM CDT Hospital Encounter Department of Radiation Oncology in [place], [place] [address] [place] [phone] Rey Meadows M.D. [address] [place] [address] Social History Tobacco Use Types Packs/Day Years [...] things needed for daily living? No 12/31/2024 [facility] Utilities Answer Date Recorded In the past 12 months has th e electric, gas, oil, or water company threatened to shut off services in your home? No 12/31/2024 Depression Answer Date Recor ded PHQ-9 Total Score (max 27) 1 01/25 Housing Stability Answer Date Recorded What is your living situation today? I have a [facility] place to live 12/31/2024 Education Answer Date Recorded What is the highest level of school you have completed or the highest degree you have received? 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 [address] [place] [address] 02/12/2025 1:30 PM CDT Appointment Department of Radiation Oncology in [place], [place] [address] [place] [phone] Rey Meadows M.D. [address] [place] [phone] 02/12/2025 2:00 PM CDT Appointment Department of Radiation Oncology in [place], [place] [address] [place] [phone] Rey Meadows M.D. [address] [place] [phone] 02/13/2025 1:15 PM CDT Appointment Department of Radiation Oncology in [address] [address] Rey Meadows M.D. [address] [place] [phone] 02/14/2025 12:30 PM CDT Appointment Department of Radiation Oncology in [address] [address] Rey Meadows M.D. [address] [place] [phone] 02/17/2025 1:15 PM CDT Appointment Department of Radiation Oncology in [place], [place] [address] [place] [phone] Rey Meadows M.D. [address] [place] [phone] 02/18/2025 1:15 PM CDT Appointment Department of Radiation Oncology in [address] [address] Rey Meadows M.D. [address] [place] [phone] 02/19/2025 1:15 PM CDT Appointment Department of Radiation Oncology in [place], [place] [address] [place] [phone] Rey Meadows M.D. [address] [place] [phone] 02/19/2025 1:45 PM CDT Appointment Department of Radiation Oncology in [place], [place] [address] [place] [address] Rey Meadows M.D. [address] [place] [phone] 02/20/2025 1:15 PM CDT Appointment Department of Radiation Oncology in [address] [address] Rey Meadows M.D. [address] [place] [phone] 02/21/2025 12:30 PM CDT Appointment Department of Radiation Oncology in [place], [place] [address] [place] [phone] Rey Meadows M.D. [address] [place] [phone] 02/24/2025 12:30 PM CDT Appointment Department of Radiation Oncology in [place], [place] [address] [place] [address] Rey Meadows M.D. [address] [place] [phone] 02/25/2025 12:30 PM CDT Appointment Department of Radiation Oncology in [place], [place] [address] [place] [phone] Rey Meadows M.D. [address] [place] [phone] 02/26/2025 12:30 PM CDT Appointment Department of Radiation Oncology in [place], [place] [address] [place] [phone] Rey Meadows M.D. [address] [place] [phone] 02/26/2025 1:15 PM CDT Appointment Department of Radiation Oncology in [address] [address] Rey Meadows M.D. [address] [place] [phone] 02/27/2025 12:30 PM CDT Appointment Department of Radiation Oncology in [place], [place] [address] [place] [phone] Rey Meadows M.D. [address] [place] [phone] 02/28/2025 12:30 PM CDT Appointment Department of Radiation Oncology in [address] [address] Rey Meadows M.D. [address] [place] [phone] documented as of this encounter Visit Diagnoses Not on filedocumented in this encounter Additional Health Concerns Assessment Noted Time PHQ-9 Depression Total Score: 1 01/26/20 23 2:13 PM CDT documented as of this encounter Care Teams Gyroscopic Instrument Mechanic Relationship Specialty Start Date End Date Elsewhere, Pcp PCP - General Internal Medicine 01/30/24 documented as of this encounter
--- OUTSIDE RECORDS SUMMARY | 2025-01-31 12:16 | XMS_ITS | Encounter Summary ---
Author Organization [facility] Address [address] [place] [address] Care Team Providers Care Range Conservationist Name Role Phone Elsewhere, Pcp Primary Care Provider Unavailabl e Encounter Details Date Type Department Care Team (Late st Contact Info) Description 01/31/2025 12:16 PM CDT Hospital Encounter Department of Radiation Oncology in [place], [place] [address] [place] [phone] Rey Meadows M.D. [address] [place] [address] Social History Tobacco Use Types Packs/Day Years [...] things needed for daily living? No 12/31/2024 [facility] Utilities Answer Date Recorded In the past 12 months has th e electric, gas, oil, or water company threatened to shut off services in your home? No 12/31/2024 Depression Answer Date Recor ded PHQ-9 Total Score (max 27) 1 01/25 Housing Stability Answer Date Recorded What is your living situation today? I have a [facility] place to live 12/31/2024 Education Answer Date Recorded What is the highest level of school you have completed or the highest degree you have received? 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 [address] [place] [address] 02/12/2025 1:30 PM CDT Appointment Department of Radiation Oncology in [place], [place] [address] [place] [phone] Rey Meadows M.D. [address] [place] [phone] 02/12/2025 2:00 PM CDT Appointment Department of Radiation Oncology in [place], [place] [address] [place] [phone] Rey Meadows M.D. [address] [place] [phone] 02/13/2025 1:15 PM CDT Appointment Department of Radiation Oncology in [address] [address] Rey Meadows M.D. [address] [place] [phone] 02/14/2025 12:30 PM CDT Appointment Department of Radiation Oncology in [address] [address] Rey Meadows M.D. [address] [place] [phone] 02/17/2025 1:15 PM CDT Appointment Department of Radiation Oncology in [place], [place] [address] [place] [phone] Rey Meadows M.D. [address] [place] [phone] 02/18/2025 1:15 PM CDT Appointment Department of Radiation Oncology in [address] [address] Rey Meadows M.D. [address] [place] [phone] 02/19/2025 1:15 PM CDT Appointment Department of Radiation Oncology in [place], [place] [address] [place] [phone] Rey Meadows M.D. [address] [place] [phone] 02/19/2025 1:45 PM CDT Appointment Department of Radiation Oncology in [place], [place] [address] [place] [address] Rey Meadows M.D. [address] [place] [phone] 02/20/2025 1:15 PM CDT Appointment Department of Radiation Oncology in [address] [address] Rey Meadows M.D. [address] [place] [phone] 02/21/2025 12:30 PM CDT Appointment Department of Radiation Oncology in [place], [place] [address] [place] [phone] Rey Meadows M.D. [address] [place] [phone] 02/24/2025 12:30 PM CDT Appointment Department of Radiation Oncology in [place], [place] [address] [place] [address] Rey Meadows M.D. [address] [place] [phone] 02/25/2025 12:30 PM CDT Appointment Department of Radiation Oncology in [place], [place] [address] [place] [phone] Rey Meadows M.D. [address] [place] [phone] 02/26/2025 12:30 PM CDT Appointment Department of Radiation Oncology in [place], [place] [address] [place] [phone] Rey Meadows M.D. [address] [place] [phone] 02/26/2025 1:15 PM CDT Appointment Department of Radiation Oncology in [address] [address] Rey Meadows M.D. [address] [place] [phone] 02/27/2025 12:30 PM CDT Appointment Department of Radiation Oncology in [place], [place] [address] [place] [phone] Rey Meadows M.D. [address] [place] [phone] 02/28/2025 12:30 PM CDT Appointment Department of Radiation Oncology in [address] [address] Rey Meadows M.D. [address] [place] [phone] documented as of this encounter Visit Diagnoses Not on filedocumented in this encounter Additional Health Concerns Assessment Noted Time PHQ-9 Depression Total Score: 1 01/26/20 23 2:13 PM CDT documented as of this encounter Care Teams Range Conservationist Relationship Specialty Start Date End Date Elsewhere, Pcp PCP - General Internal Medicine 01/30/24 documented as of this encounter
--- OUTSIDE RECORDS SUMMARY | 2025-01-31 12:17 | XMS_ITS | Encounter Summary ---
Author Organization [facility] Address [address] [place] [address] Care Team Providers Care Mess Attendant Crew Name Role Phone Elsewhere, Pcp Primary Care Provider Unavailabl e Reason for Referral * Radiation Therapy (Routine) - Authorized Specialty Diagnoses / Procedures Referred By Sammy hilliard Referred To Contact Diagnoses Malignant Neoplasm Of Gastroesophageal Junction (HCC) Procedures Management Visit Rey Meadows M.D. [address] [place] [address] Phone: tel: fax: [facility] Region Referral ID Status Reason Start Date Expiration Date V isits Requested Visits Authorized [id number] Authorized 01/14/2025 04/16/2026 10 10 Reason for Visit * Radiation Therapy (Routine) - Authorized Specialty Diagnoses / Procedures Referred By Sammy hilliard Referred To Contact Diagnoses Malignant Neoplasm Of Gastroesophageal Junction (HCC) Procedures Management Visit Rey Meadows M.D. [address] [place] [address] Phone: tel: fax: [facility] Region Referral ID Status Reason Start Date Expiration Date V isits Requested Visits Authorized [id number] Authorized 01/14/2025 04/16/2026 10 10 Encounter Details Date Type Department Care Team (Latest Contact Info) Description 01/31/2025 12:17 PM CDT Hospital Encounter Department of Radiation Oncology [place] [address] [place] [address] Rey Meadows M.D. [address] [place] [address] Unsteadiness Gait Disorder Non Orthopedic (Primary Dx); Malignant Neoplasm Of Gastroesophageal Junction (HCC) Social [...] things needed for daily living? No 12/31/2024 [facility] Utilities Answer Date Recorded In the past 12 months has [facility] [employer], gas, oil, or water company threatened to shut off services in your home? No 12/31/2024 Depression Answer Date Recor ded PHQ-9 Total Score (max 27) 1 01/25 Housing Stability Answer Date Recorded What is your living situation today? I have a [facility] place to live 12/31/2024 Education Answer Date Recorded What is the highest level of school you have completed or the highest degree you have received? 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 Gender Identity Male 09/04/2018 3:21 PM CDT Sexual Orientation Straight 09/04/2018 3: 21 PM CDT documented as of this encounter Last Filed Vital Signs Vital Sign Reading Time Taken Comments Blood Pressure 117/72 01/31/2025 1:22 PM CDT Pulse 97 01/31/2025 1:22 PM CDT Temperature 36.4 C (97.5 F) 01/31/2025 1:22 PM CDT Respiratory Rate - - Oxygen Saturation - - Inhaled Oxygen Concentration - - Weight 88.4 kg (194 lb 14.2 oz) 01/31/2025 1:22 PM CDT Height - - Body Mass Index 27.44 01/13/2025 9:52 AM CDT documented in this encounter Plan of Treatment Upcoming Encounters Date Type Department Care Team (Late st Contact Info) Description 02/11/2025 3:15 PM CDT Appointment Department of Radiation Oncology in [place], [place] [address] [place] [address] Rey Meadows M.D. [address] [place] [address] 02/12/2025 1:30 PM CDT Appointment Department of Radiation Oncology in [place], [place] [address] [place] [address] Rey Meadows M.D. [address] [place] [address] 02/12/2025 2:00 PM CDT Appointment Department of Radiation Oncology in [place], [place] [address] [place] [address] Rey Meadows M.D. [address] [place] [phone] 02/13/2025 1:15 PM CDT Appointment Department of Radiation Oncology in [place], [place] [address] [place] [address] Rey Meadows M.D. [address] [place] [phone] 02/14/2025 12:30 PM CDT Appointment Department of Radiation Oncology in [address] [address] Rey Meadows M.D. [address] [place] [phone] 02/17/2025 1:15 PM CDT Appointment Department of Radiation Oncology in [place], [place] [address] [place] [phone] Rey Meadows M.D. [address] [place] [phone] 02/18/2025 1:15 PM CDT Appointment Department of Radiation Oncology in [place], [place] [address] [place] [address] Rey Meadows M.D. [address] [place] [phone] 02/19/2025 1:15 PM CDT Appointment Department of Radiation Oncology in [place], [place] [address] [place] [phone] Rey Meadows M.D. [address] [place] [phone] 02/19/2025 1:45 PM CDT Appointment Department of Radiation Oncology in [address] [address] Rey Meadows M.D. [address] [place] [phone] 02/20/2025 1:15 PM CDT Appointment Department of Radiation Oncology in [address] [address] Rey Meadows M.D. [address] [place] [phone] 02/21/2025 12:30 PM CDT Appointment Department of Radiation Oncology in [address] [address] Rey Meadows M.D. [address] [place] [phone] 02/24/2025 12:30 PM CDT Appointment Department of Radiation Oncology in [address] [address] Rey Meadows M.D. [address] [place] [phone] 02/25/2025 12:30 PM CDT Appointment Department of Radiation Oncology in [address] [address] Rey Meadows M.D. [address] [place] [phone] 02/26/2025 12:30 PM CDT Appointment Department of Radiation Oncology in [address] [address] Rey Meadows M.D. [address] [place] [phone] 02/26/2025 1:15 PM CDT Appointment Department of Radiation Oncology in [place], [place] [address] [place] [phone] Rey Meadows M.D. [address] [place] [phone] 02/27/2025 12:30 PM CDT Appointment Department of Radiation Oncology in [address] [address] Rey Meadows M.D. [address] [place] [phone] 02/28/2025 12:30 PM CDT Appointment Department of Radiation Oncology in [address] [address] Rey Meadows M.D. [address] [place] [phone] Scheduled Orders Name Type Priority Associated Diagnoses Orde r Schedule Management Visit Radiation Oncology Routine Malignant Neoplasm Of Gastroesophageal Junction (HCC) Once for 1 Occurrences starting 01/31/2025 until 01/31/2025 documented as of this encounter Visit Diagnoses Diagnosis Unsteadiness Gait Disorder Non Orthopedic- Primary Malignant Neoplasm Of Gastroesophageal Junction (HCC) documented in this encounter Additional Health Concerns Assessment Noted Time PHQ-9 Depression Total Score: 1 01/26/20 23 2:13 PM CDT documented as of this encounter Care Teams Mess Attendant Crew Relationship Specialty Start Date End Date Elsewhere, Pcp PCP - General Internal Medicine 01/30/24 documented as of this encounter
--- OUTSIDE RECORDS SUMMARY | 2025-02-03 11:15 | XMS_ITS | Encounter Summary ---
Author Organization [facility] Address [address] [place] [address] Care Team Providers Care Sewing Machine Operator Floorperson Name Role Phone Elsewhere, Pcp Primary Care Provider Unavailabl e Encounter Details Date Type Department Care Team (Late st Contact Info) Description 02/03/2025 11:15 AM CDT Hospital Encounter Department of Radiation Oncology in [place], [place] [address] [place] [phone] Rey Meadows M.D. [address] [place] [address] Social History Tobacco Use Types Packs/Day Years [...] things needed for daily living? No 12/31/2024 [facility] Utilities Answer Date Recorded In the past 12 months has th e electric, gas, oil, or water company threatened to shut off services in your home? No 12/31/2024 Depression Answer Date Recor ded PHQ-9 Total Score (max 27) 1 01/25 Housing Stability Answer Date Recorded What is your living situation today? I have a [facility] place to live 12/31/2024 Education Answer Date Recorded What is the highest level of school you have completed or the highest degree you have received? 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 [address] [place] [address] 02/12/2025 1:30 PM CDT Appointment Department of Radiation Oncology in [place], [place] [address] [place] [phone] Rey Meadows M.D. [address] [place] [phone] 02/12/2025 2:00 PM CDT Appointment Department of Radiation Oncology in [place], [place] [address] [place] [phone] Rey Meadows M.D. [address] [place] [phone] 02/13/2025 1:15 PM CDT Appointment Department of Radiation Oncology in [address] [address] Rey Meadows M.D. [address] [place] [phone] 02/14/2025 12:30 PM CDT Appointment Department of Radiation Oncology in [address] [address] Rey Meadows M.D. [address] [place] [phone] 02/17/2025 1:15 PM CDT Appointment Department of Radiation Oncology in [place], [place] [address] [place] [phone] Rey Meadows M.D. [address] [place] [phone] 02/18/2025 1:15 PM CDT Appointment Department of Radiation Oncology in [address] [address] Rey Meadows M.D. [address] [place] [phone] 02/19/2025 1:15 PM CDT Appointment Department of Radiation Oncology in [place], [place] [address] [place] [phone] Rey Meadows M.D. [address] [place] [phone] 02/19/2025 1:45 PM CDT Appointment Department of Radiation Oncology in [place], [place] [address] [place] [address] Rey Meadows M.D. [address] [place] [phone] 02/20/2025 1:15 PM CDT Appointment Department of Radiation Oncology in [address] [address] Rey Meadows M.D. [address] [place] [phone] 02/21/2025 12:30 PM CDT Appointment Department of Radiation Oncology in [place], [place] [address] [place] [phone] Rey Meadows M.D. [address] [place] [phone] 02/24/2025 12:30 PM CDT Appointment Department of Radiation Oncology in [place], [place] [address] [place] [address] Rey Meadows M.D. [address] [place] [phone] 02/25/2025 12:30 PM CDT Appointment Department of Radiation Oncology in [place], [place] [address] [place] [phone] Rey Meadows M.D. [address] [place] [phone] 02/26/2025 12:30 PM CDT Appointment Department of Radiation Oncology in [place], [place] [address] [place] [phone] Rey Meadows M.D. [address] [place] [phone] 02/26/2025 1:15 PM CDT Appointment Department of Radiation Oncology in [address] [address] Rey Meadows M.D. [address] [place] [phone] 02/27/2025 12:30 PM CDT Appointment Department of Radiation Oncology in [place], [place] [address] [place] [phone] Rey Meadows M.D. [address] [place] [phone] 02/28/2025 12:30 PM CDT Appointment Department of Radiation Oncology in [address] [address] Rey Meadows M.D. [address] [place] [phone] documented as of this encounter Visit Diagnoses Not on filedocumented in this encounter Additional Health Concerns Assessment Noted Time PHQ-9 Depression Total Score: 1 01/26/20 23 2:13 PM CDT documented as of this encounter Care Teams Sewing Machine Operator Floorperson Relationship Specialty Start Date End Date Elsewhere, Pcp PCP - General Internal Medicine 01/30/24 documented as of this encounter
--- OUTSIDE RECORDS SUMMARY | 2025-02-04 07:33 | XMS_ITS | Encounter Summary ---
Author Organization [facility] Address [address] [place] [address] Care Team Providers Care Metalizing Supervisor Name Role Phone Elsewhere, Pcp Primary Care Provider Unavailabl e Encounter Details Date Type Department Care Team (Late st Contact Info) Description 02/04/2025 7:33 AM CDT Hospital Encounter Department of Radiation Oncology in [place], [place] [address] [place] [phone] Rey Meadows M.D. 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 [address] [place] [address] 02/12/2025 1:30 PM CDT Appointment Department of Radiation Oncology in [place], [place] [address] [place] [phone] Rey Meadows M.D. [address] [place] [phone] 02/12/2025 2:00 PM CDT Appointment Department of Radiation Oncology in [place], [place] [address] [place] [phone] Rey Meadows M.D. [address] [place] [phone] 02/13/2025 1:15 PM CDT Appointment Department of Radiation Oncology in [address] [address] Rey Meadows M.D. [address] [place] [phone] 02/14/2025 12:30 PM CDT Appointment Department of Radiation Oncology in [address] [address] Rey Meadows M.D. [address] [place] [phone] 02/17/2025 1:15 PM CDT Appointment Department of Radiation Oncology in [place], [place] [address] [place] [phone] Rey Meadows M.D. [address] [place] [phone] 02/18/2025 1:15 PM CDT Appointment Department of Radiation Oncology in [address] [address] Rey Meadows M.D. [address] [place] [phone] 02/19/2025 1:15 PM CDT Appointment Department of Radiation Oncology in [place], [place] [address] [place] [phone] Rey Meadows M.D. [address] [place] [phone] 02/19/2025 1:45 PM CDT Appointment Department of Radiation Oncology in [place], [place] [address] [place] [address] Rey Meadows M.D. [address] [place] [phone] 02/20/2025 1:15 PM CDT Appointment Department of Radiation Oncology in [address] [address] Rey Meadows M.D. [address] [place] [phone] 02/21/2025 12:30 PM CDT Appointment Department of Radiation Oncology in [place], [place] [address] [place] [phone] Rey Meadows M.D. [address] [place] [phone] 02/24/2025 12:30 PM CDT Appointment Department of Radiation Oncology in [place], [place] [address] [place] [address] Rey Meadows M.D. [address] [place] [phone] 02/25/2025 12:30 PM CDT Appointment Department of Radiation Oncology in [place], [place] [address] [place] [phone] Rey Meadows M.D. [address] [place] [phone] 02/26/2025 12:30 PM CDT Appointment Department of Radiation Oncology in [place], [place] [address] [place] [phone] Rey Meadows M.D. [address] [place] [phone] 02/26/2025 1:15 PM CDT Appointment Department of Radiation Oncology in [address] [address] Rey Meadows M.D. [address] [place] [phone] 02/27/2025 12:30 PM CDT Appointment Department of Radiation Oncology in [place], [place] [address] [place] [phone] Rey Meadows M.D. [address] [place] [phone] 02/28/2025 12:30 PM CDT Appointment Department of Radiation Oncology in [address] [address] Rey Meadows M.D. [address] [place] [phone] documented as of this encounter Visit Diagnoses Not on filedocumented in this encounter Additional Health Concerns Assessment Noted Time PHQ-9 Depression Total Score: 1 01/26/20 23 2:13 PM CDT documented as of this encounter Care Teams Metalizing Supervisor Relationship Specialty Start Date End Date Elsewhere, Pcp PCP - General Internal Medicine 01/30/24 documented as of this encounter
--- OUTSIDE RECORDS SUMMARY | 2025-02-05 11:00 | XMS_ITS | Encounter Summary ---
Author Organization [facility] Address [address] [place] [address] Care Team Providers Care Epic Stork Specialists Name Role Phone Elsewhere, Pcp Primary Care Provider Unavailabl e Encounter Details Date Type Department Care Team (Late st Contact Info) Description 02/05/2025 11:00 AM CDT Hospital Encounter Department of Radiation Oncology in [place], [place] [address] [place] [phone] Rey Meadows M.D. [address] [place] [address] Social History Tobacco Use Types Packs/Day Years [...] things needed for daily living? No 12/31/2024 [facility] Utilities Answer Date Recorded In the past 12 months has th e electric, gas, oil, or water company threatened to shut off services in your home? No 12/31/2024 Depression Answer Date Recor ded PHQ-9 Total Score (max 27) 1 01/25 Housing Stability Answer Date Recorded What is your living situation today? I have a [facility] place to live 12/31/2024 Education Answer Date Recorded What is the highest level of school you have completed or the highest degree you have received? 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 [address] [place] [address] 02/12/2025 1:30 PM CDT Appointment Department of Radiation Oncology in [place], [place] [address] [place] [phone] Rey Meadows M.D. [address] [place] [phone] 02/12/2025 2:00 PM CDT Appointment Department of Radiation Oncology in [place], [place] [address] [place] [phone] Rey Meadows M.D. [address] [place] [phone] 02/13/2025 1:15 PM CDT Appointment Department of Radiation Oncology in [address] [address] Rey Meadows M.D. [address] [place] [phone] 02/14/2025 12:30 PM CDT Appointment Department of Radiation Oncology in [address] [address] Rey Meadows M.D. [address] [place] [phone] 02/17/2025 1:15 PM CDT Appointment Department of Radiation Oncology in [place], [place] [address] [place] [phone] Rey Meadows M.D. [address] [place] [phone] 02/18/2025 1:15 PM CDT Appointment Department of Radiation Oncology in [address] [address] Rey Meadows M.D. [address] [place] [phone] 02/19/2025 1:15 PM CDT Appointment Department of Radiation Oncology in [place], [place] [address] [place] [phone] Rey Meadows M.D. [address] [place] [phone] 02/19/2025 1:45 PM CDT Appointment Department of Radiation Oncology in [place], [place] [address] [place] [address] Rey Meadows M.D. [address] [place] [phone] 02/20/2025 1:15 PM CDT Appointment Department of Radiation Oncology in [address] [address] Rey Meadows M.D. [address] [place] [phone] 02/21/2025 12:30 PM CDT Appointment Department of Radiation Oncology in [place], [place] [address] [place] [phone] Rey Meadows M.D. [address] [place] [phone] 02/24/2025 12:30 PM CDT Appointment Department of Radiation Oncology in [place], [place] [address] [place] [address] Rey Meadows M.D. [address] [place] [phone] 02/25/2025 12:30 PM CDT Appointment Department of Radiation Oncology in [place], [place] [address] [place] [phone] Rey Meadows M.D. [address] [place] [phone] 02/26/2025 12:30 PM CDT Appointment Department of Radiation Oncology in [place], [place] [address] [place] [phone] Rey Meadows M.D. [address] [place] [phone] 02/26/2025 1:15 PM CDT Appointment Department of Radiation Oncology in [address] [address] Rey Meadows M.D. [address] [place] [phone] 02/27/2025 12:30 PM CDT Appointment Department of Radiation Oncology in [place], [place] [address] [place] [phone] Rey Meadows M.D. [address] [place] [phone] 02/28/2025 12:30 PM CDT Appointment Department of Radiation Oncology in [address] [address] Rey Meadows M.D. [address] [place] [phone] documented as of this encounter Visit Diagnoses Not on filedocumented in this encounter Additional Health Concerns Assessment Noted Time PHQ-9 Depression Total Score: 1 01/26/20 23 2:13 PM CDT documented as of this encounter Care Teams Epic Stork Specialists Relationship Specialty Start Date End Date Elsewhere, Pcp PCP - General Internal Medicine 01/30/24 documented as of this encounter
--- OUTSIDE RECORDS SUMMARY | 2025-02-05 11:00 | XMS_ITS | Encounter Summary ---
Author Organization [facility] Address [address] [place] [address] Care Team Providers Care Navy Airspace Officer Name Role Phone Elsewhere, Pcp Primary Care Provider Unavailabl e Encounter Details Date Type Department Care Team (Latest Contact Info) Description 02/05/2025 11:00 AM CDT - 02/05/2025 12:12 PM CDT Hospital Encounter Department of Radiation Oncology in [place], [place] [address] [place] [address] Rey Meadows M.D. [address] [place] [address] Brice Shields, RSunshineNSunshine Malignant Neoplasm Of Gastroesophageal Junction (HCC) (Primary Dx); Unsteadiness Gait Disorder Non Orthopedic Social History Tobacco Use Types Packs/Day Years [...] things needed for daily living? No 12/31/2024 [employer] Utilities Answer Date Recorded In the past 12 months has th e electric, gas, oil, or water [employer] threatened to shut off services in your home? No 12/31/2024 Depression Answer Date Recor ded PHQ-9 Total Score (max 27) 1 01/25 Housing Stability Answer Date Recorded What is your living situation today? I have a [facility] place to live 12/31/2024 Education Answer Date Recorded What is the highest level of school you have completed or the highest degree you have received? 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 - 02/05/2025 11:45 AM CDT Patient was educated on side effects of radiation therapy. Their questions were answered to the best of my ability. The patient was encouraged to contact the team at any point, with questions or concerns. documented in this encounter Plan of Treatment Upcoming Encounters Date Type Department Care Team (Late st Contact Info) Description 02/11/2025 3:15 PM CDT Appointment Department of Radiation Oncology in [address] [address] Rey Meadows M.D. [address] [place] [phone] 02/12/2025 1:30 PM CDT Appointment Department of Radiation Oncology in [address] [address] Rey Meadows M.D. [address] [place] [phone] 02/12/2025 2:00 PM CDT Appointment Department of Radiation Oncology in [address] [address] Rey Meadows M.D. [address] [place] [phone] 02/13/2025 1:15 PM CDT Appointment Department of Radiation Oncology in [address] [address] Rey Meadows M.D. [address] [place] [phone] 02/14/2025 12:30 PM CDT Appointment Department of Radiation Oncology in [address] [address] Rey Meadows M.D. [address] [place] [phone] 02/17/2025 1:15 PM CDT Appointment Department of Radiation Oncology in [address] [phone] Rey Meadows M.D. [address] [place] [phone] 02/18/2025 1:15 PM CDT Appointment Department of Radiation Oncology in [address] [address] Rey Meadows M.D. [address] [place] [phone] 02/19/2025 1:15 PM CDT Appointment Department of Radiation Oncology in [address] [phone] Rey Meadows M.D. [address] [place] [phone] 02/19/2025 1:45 PM CDT Appointment Department of Radiation Oncology in [address] [address] Rey Meadows M.D. [address] [place] [phone] 02/20/2025 1:15 PM CDT Appointment Department of Radiation Oncology in [address] [address] Rey Meadows M.D. [address] [place] [phone] 02/21/2025 12:30 PM CDT Appointment Department of Radiation Oncology in [address] [phone] Rey Meadows M.D. [address] [place] [phone] 02/24/2025 12:30 PM CDT Appointment Department of Radiation Oncology in [place], [place] [address] [place] [phone] Rey Meadows M.D. [address] [place] [address] 02/25/2025 12:30 PM CDT Appointment Department of Radiation Oncology in [place], [place] [address] [place] [phone] Rey Meadows M.D. [address] [place] [phone] 02/26/2025 12:30 PM CDT Appointment Department of Radiation Oncology in [place], [place] [address] [place] [address] Rey Meadows M.D. [address] [place] [phone] 02/26/2025 1:15 PM CDT Appointment Department of Radiation Oncology in [place], [place] [address] [place] [phone] Rey Meadows M.D. [address] [place] [phone] 02/27/2025 12:30 PM CDT Appointment Department of Radiation Oncology in [place], [place] [address] [place] [address] Rey Meadows M.D. [address] [place] [phone] 02/28/2025 12:30 PM CDT Appointment Department of Radiation Oncology in [place], [place] [address] [place] [address] Rey Meadows M.D. [address] [place] [address] documented as of this encounter Visit Diagnoses Diagnosis Malignant Neoplasm Of Gastroesophageal Junction (HCC)- Primary Unsteadiness Gait Disorder Non Orthopedic documented in this encounter Additional Health Concerns Assessment Noted Time PHQ-9 Depression Total Score: 1 01/26/20 23 2:13 PM CDT documented as of this encounter Care Teams Navy Airspace Officer Relationship Specialty Start Date End Date Elsewhere, Pcp PCP - General Internal Medicine 01/30/24 documented as of this encounter
--- OUTSIDE RECORDS SUMMARY | 2025-02-05 11:00 | XMS_ITS | Encounter Summary ---
Author Organization [facility] Address [address] [place] [address] Care Team Providers Care Biomedical Photographer Name Role Phone Elsewhere, Pcp Primary Care Provider Unavailabl e Reason for Referral * Radiation Therapy (Routine) - Authorized Specialty Diagnoses / Procedures Referred By Sammy hilliard Referred To Contact Diagnoses Malignant Neoplasm Of Gastroesophageal Junction (HCC) Procedures Management Visit Rey Meadows M.D. [address] [place] [address] Phone: tel: fax: [facility] Region Referral ID Status Reason Start Date Expiration Date V isits Requested Visits Authorized [id number] Authorized 01/14/2025 04/16/2026 10 10 Reason for Visit * Radiation Therapy (Routine) - Authorized Specialty Diagnoses / Procedures Referred By Sammy hilliard Referred To Contact Diagnoses Malignant Neoplasm Of Gastroesophageal Junction (HCC) Procedures Management Visit Rey Meadows M.D. [address] [place] [address] Phone: tel: fax: [facility] Region Referral ID Status Reason Start Date Expiration Date V isits Requested Visits Authorized [id number] Authorized 01/14/2025 04/16/2026 10 10 Encounter Details Date Type Department Care Team (Latest Contact Info) Description 02/05/2025 11:00 AM CDT Hospital Encounter Department of Radiation Oncology in [address] [place] [address] Rey Meadows M.D. [address] [place] [address] Malignant Neoplasm Of Gastroesophageal Junction (HCC) Social [...] things needed for daily living? 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 [address] [place] [phone] 02/12/2025 1:30 PM CDT Appointment Department of Radiation Oncology in [address] [address] Rey Meadows M.D. [address] [place] [phone] 02/12/2025 2:00 PM CDT Appointment Department of Radiation Oncology in [address] [address] Rey Meadows M.D. [address] [place] [phone] 02/13/2025 1:15 PM CDT Appointment Department of Radiation Oncology in [address] [address] Rey Meadows M.D. [address] [place] [phone] 02/14/2025 12:30 PM CDT Appointment Department of Radiation Oncology in [place], [place] [address] [place] [phone] Rey Meadows M.D. [address] [place] [address] 02/17/2025 1:15 PM CDT Appointment Department of Radiation Oncology in [address] [address] Rey Meadows M.D. [address] [place] [address] 02/18/2025 1:15 PM CDT Appointment Department of Radiation Oncology in [address] [address] Rey Meadows M.D. [address] [place] [address] 02/19/2025 1:15 PM CDT Appointment Department of Radiation Oncology in [address] [address] Rey Meadows M.D. [address] [place] [address] 02/19/2025 1:45 PM CDT Appointment Department of Radiation Oncology in [address] [address] Rey Meadows M.D. [address] [place] [address] 02/20/2025 1:15 PM CDT Appointment Department of Radiation Oncology in [address] [address] Rey Meadows M.D. [address] [place] [phone] 02/21/2025 12:30 PM CDT Appointment Department of Radiation Oncology in [place], [place] [address] [place] [phone] Rey Meadows M.D. [address] [place] [phone] 02/24/2025 12:30 PM CDT Appointment Department of Radiation Oncology in [address] [address] Rey Meadows M.D. [address] [place] [phone] 02/25/2025 12:30 PM CDT Appointment Department of Radiation Oncology in [address] [address] Rey Meadows M.D. [address] [place] [phone] 02/26/2025 12:30 PM CDT Appointment Department of Radiation Oncology in [address] [address] Rey Meadows M.D. [address] [place] [phone] 02/26/2025 1:15 PM CDT Appointment Department of Radiation Oncology in [address] [address] Rey Meadows M.D. [address] [place] [phone] 02/27/2025 12:30 PM CDT Appointment Department of Radiation Oncology in [place], [place] [address] [place] [address] Rey Meadows M.D. [address] [place] [address] 02/28/2025 12:30 PM CDT Appointment Department of Radiation Oncology in [place], [place] [address] [place] [address] Rey Meadows M.D. [address] [place] [address] Scheduled Orders Name Type Priority Associated Diagnoses Orde r Schedule Management Visit Radiation Oncology Routine Malignant Neoplasm Of Gastroesophageal Junction (HCC) Once for 1 Occurrences starting 02/05/2025 until 02/05/2025 documented as of this encounter Visit Diagnoses Diagnosis Malignant Neoplasm Of Gastroesophageal Junction (HCC) documented in this encounter Additional Health Concerns Assessment Noted Time PHQ-9 Depression Total Score: 1 01/26/20 23 2:13 PM CDT documented as of this encounter Care Teams Biomedical Photographer Relationship Specialty Start Date End Date Elsewhere, Pcp PCP - General Internal Medicine 01/30/24 documented as of this encounter
--- OUTSIDE RECORDS SUMMARY | 2025-02-06 10:47 | XMS_ITS | Encounter Summary ---
Author Organization [facility] Address [address] [place] [address] Care Team Providers Care Finance Executive Name Role Phone Elsewhere, Pcp Primary Care Provider Unavailabl e Encounter Details Date Type Department Care Team (Late st Contact Info) Description 02/06/2025 10:47 AM CDT Hospital Encounter Department of Radiation Oncology in [place], [place] [address] [place] [address] Rey Meadows M.D. [address] [place] [address] Social History Tobacco Use Types Packs/Day Years [...] things needed for daily living? No 12/31/2024 [facility] Utilities Answer Date Recorded In the past 12 months has th e electric, gas, oil, or water company threatened to shut off services in your home? No 12/31/2024 Depression Answer Date Recor ded PHQ-9 Total Score (max 27) 1 01/25 Housing Stability Answer Date Recorded What is your living situation today? I have a [facility] place to live 12/31/2024 Education Answer Date Recorded What is the highest level of school you have completed or the highest degree you have received? 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 [address] [place] [address] 02/12/2025 1:30 PM CDT Appointment Department of Radiation Oncology in [place], [place] [address] [place] [phone] Rey Meadows M.D. [address] [place] [phone] 02/12/2025 2:00 PM CDT Appointment Department of Radiation Oncology in [place], [place] [address] [place] [phone] Rey Meadows M.D. [address] [place] [phone] 02/13/2025 1:15 PM CDT Appointment Department of Radiation Oncology in [address] [address] Rey Meadows M.D. [address] [place] [phone] 02/14/2025 12:30 PM CDT Appointment Department of Radiation Oncology in [address] [address] Rey Meadows M.D. [address] [place] [phone] 02/17/2025 1:15 PM CDT Appointment Department of Radiation Oncology in [place], [place] [address] [place] [phone] Rey Meadows M.D. [address] [place] [phone] 02/18/2025 1:15 PM CDT Appointment Department of Radiation Oncology in [address] [address] Rey Meadows M.D. [address] [place] [phone] 02/19/2025 1:15 PM CDT Appointment Department of Radiation Oncology in [place], [place] [address] [place] [phone] Rey Meadows M.D. [address] [place] [phone] 02/19/2025 1:45 PM CDT Appointment Department of Radiation Oncology in [place], [place] [address] [place] [address] Rey Meadows M.D. [address] [place] [phone] 02/20/2025 1:15 PM CDT Appointment Department of Radiation Oncology in [address] [address] Rey Meadows M.D. [address] [place] [phone] 02/21/2025 12:30 PM CDT Appointment Department of Radiation Oncology in [place], [place] [address] [place] [phone] Rey Meadows M.D. [address] [place] [phone] 02/24/2025 12:30 PM CDT Appointment Department of Radiation Oncology in [place], [place] [address] [place] [address] Rey Meadows M.D. [address] [place] [phone] 02/25/2025 12:30 PM CDT Appointment Department of Radiation Oncology in [place], [place] [address] [place] [phone] Rey Meadows M.D. [address] [place] [phone] 02/26/2025 12:30 PM CDT Appointment Department of Radiation Oncology in [place], [place] [address] [place] [address] Rey Meadows M.D. [address] [place] [phone] 02/26/2025 1:15 PM CDT Appointment Department of Radiation Oncology in [address] [address] Rey Meadows M.D. [address] [place] [phone] 02/27/2025 12:30 PM CDT Appointment Department of Radiation Oncology in [place], [place] [address] [place] [phone] Rey Meadows M.D. [address] [place] [phone] 02/28/2025 12:30 PM CDT Appointment Department of Radiation Oncology in [address] [address] Rey Meadows M.D. [address] [place] [phone] documented as of this encounter Visit Diagnoses Not on filedocumented in this encounter Additional Health Concerns Assessment Noted Time PHQ-9 Depression Total Score: 1 01/26/20 23 2:13 PM CDT documented as of this encounter Care Teams Finance Executive Relationship Specialty Start Date End Date Elsewhere, Pcp PCP - General Internal Medicine 01/30/24 documented as of this encounter
--- OUTSIDE RECORDS SUMMARY | 2025-02-07 12:12 | XMS_ITS | Encounter Summary ---
Author Organization [facility] Address [address] [place] [address] Care Team Providers Care Appraisal Manager Name Role Phone Elsewhere, Pcp Primary Care Provider Unavailabl e Encounter Details Date Type Department Care Team (Late st Contact Info) Description 02/07/2025 12:12 PM CDT Hospital Encounter Department of Radiation Oncology in [place], [place] [address] [place] [address] Rey Meadows M.D. [address] [place] [address] Social History Tobacco Use Types Packs/Day Years [...] for daily living? No 12/31/2024 [facility] Utilities Answer Date Recorded In the past 12 months has th e electric, gas, oil, or water company threatened to shut off services in your home? No 12/31/2024 Depression Answer Date Recor ded PHQ-9 Total Score (max 27) 1 01/25 Housing Stability Answer Date Recorded What is your living situation today? I have a [facility] place to live 12/31/2024 Education Answer Date Recorded What is the highest level of school you have completed or the highest degree you have received? 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 [address] [place] [address] 02/12/2025 1:30 PM CDT Appointment Department of Radiation Oncology in [place], [place] [address] [place] [phone] Rey Meadows M.D. [address] [place] [phone] 02/12/2025 2:00 PM CDT Appointment Department of Radiation Oncology in [place], [place] [address] [place] [phone] Rey Meadows M.D. [address] [place] [phone] 02/13/2025 1:15 PM CDT Appointment Department of Radiation Oncology in [address] [address] Rey Meadows M.D. [address] [place] [phone] 02/14/2025 12:30 PM CDT Appointment Department of Radiation Oncology in [address] [address] Rey Meadows M.D. [address] [place] [phone] 02/17/2025 1:15 PM CDT Appointment Department of Radiation Oncology in [place], [place] [address] [place] [phone] Rey Meadows M.D. [address] [place] [phone] 02/18/2025 1:15 PM CDT Appointment Department of Radiation Oncology in [address] [address] Rey Meadows M.D. [address] [place] [phone] 02/19/2025 1:15 PM CDT Appointment Department of Radiation Oncology in [place], [place] [address] [place] [phone] Rey Meadows M.D. [address] [place] [phone] 02/19/2025 1:45 PM CDT Appointment Department of Radiation Oncology in [place], [place] [address] [place] [address] Rey Meadows M.D. [address] [place] [phone] 02/20/2025 1:15 PM CDT Appointment Department of Radiation Oncology in [address] [address] Rey Meadows M.D. [address] [place] [phone] 02/21/2025 12:30 PM CDT Appointment Department of Radiation Oncology in [place], [place] [address] [place] [address] Rey Meadows M.D. [address] [place] [phone] 02/24/2025 12:30 PM CDT Appointment Department of Radiation Oncology in [place], [place] [address] [place] [address] Rey Meadows M.D. [address] [place] [phone] 02/25/2025 12:30 PM CDT Appointment Department of Radiation Oncology in [place], [place] [address] [place] [phone] Rey Meadows M.D. [address] [place] [phone] 02/26/2025 12:30 PM CDT Appointment Department of Radiation Oncology in [place], [place] [address] [place] [phone] Rey Meadows M.D. [address] [place] [phone] 02/26/2025 1:15 PM CDT Appointment Department of Radiation Oncology in [address] [address] Rey Meadows M.D. [address] [place] [phone] 02/27/2025 12:30 PM CDT Appointment Department of Radiation Oncology in [place], [place] [address] [place] [phone] Rey Meadows M.D. [address] [place] [phone] 02/28/2025 12:30 PM CDT Appointment Department of Radiation Oncology in [address] [address] Rey Meadows M.D. [address] [place] [phone] documented as of this encounter Visit Diagnoses Not on filedocumented in this encounter Additional Health Concerns Assessment Noted Time PHQ-9 Depression Total Score: 1 01/26/20 23 2:13 PM CDT documented as of this encounter Care Teams Appraisal Manager Relationship Specialty Start Date End Date Elsewhere, Pcp PCP - General Internal Medicine 01/30/24 documented as of this encounter
[2025-02-10] VITALS (21 sets, daily range): BP systolic 104–144; BP diastolic 63–89; PULSE 85–118; RESP 7–23; TEMP 36.6; O2SAT 81–99; BMI 23.7
--- OUTSIDE RECORDS SUMMARY | 2025-02-10 12:54 | XMS_ITS | Encounter Summary ---
Author Organization [facility] Address [address] [place] [address] Care Team Providers Care Chemistry Technician Name Role Phone Elsewhere, Pcp Primary Care Provider Unavailabl e Encounter Details Date Type Department Care Team (Late st Contact Info) Description 02/10/2025 12:54 PM CDT Hospital Encounter Department of Radiation Oncology in [place], [place] [address] [place] [phone] Rey Meadows M.D. [address] [place] [address] Social History Tobacco Use Types Packs/Day Years [...] things needed for daily living? No 12/31/2024 [facility] Utilities Answer Date Recorded In the past 12 months has th e electric, gas, oil, or water company threatened to shut off services in your home? No 12/31/2024 Depression Answer Date Recor ded PHQ-9 Total Score (max 27) 1 01/25 Housing Stability Answer Date Recorded What is your living situation today? I have a [facility] place to live 12/31/2024 Education Answer Date Recorded What is the highest level of school you have completed or the highest degree you have received? 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 [address] [place] [address] 02/12/2025 1:30 PM CDT Appointment Department of Radiation Oncology in [place], [place] [address] [place] [phone] Rey eMadows M.D. [address] [place] [phone] 02/12/2025 2:00 PM CDT Appointment Department of Radiation Oncology in [place], [place] [address] [place] [phone] Rey Meadows M.D. [address] [place] [phone] 02/13/2025 1:15 PM CDT Appointment Department of Radiation Oncology in [address] [phone] Rey Meadows M.D. [address] [place] [phone] 02/14/2025 12:30 PM CDT Appointment Department of Radiation Oncology in [address] [address] Rey Meadows M.D. [address] [place] [phone] 02/17/2025 1:15 PM CDT Appointment Department of Radiation Oncology in [place], [place] [address] [place] [phone] Rey Meadows M.D. [address] [place] [phone] 02/18/2025 1:15 PM CDT Appointment Department of Radiation Oncology in [address] [address] Rey Meadows M.D. [address] [place] [phone] 02/19/2025 1:15 PM CDT Appointment Department of Radiation Oncology in [place], [place] [address] [place] [phone] Rey Meadows M.D. [address] [place] [phone] 02/19/2025 1:45 PM CDT Appointment Department of Radiation Oncology in [place], [place] [address] [place] [address] Rey Meadows M.D. [address] [place] [phone] 02/20/2025 1:15 PM CDT Appointment Department of Radiation Oncology in [address] [address] Rey Meadows M.D. [address] [place] [phone] 02/21/2025 12:30 PM CDT Appointment Department of Radiation Oncology in [place], [place] [address] [place] [phone] Rey Meadows M.D. [address] [place] [phone] 02/24/2025 12:30 PM CDT Appointment Department of Radiation Oncology in [place], [place] [address] [place] [address] Rey Meadows M.D. [address] [place] [phone] 02/25/2025 12:30 PM CDT Appointment Department of Radiation Oncology in [place], [place] [address] [place] [phone] Rey Meadows M.D. [address] [place] [phone] 02/26/2025 12:30 PM CDT Appointment Department of Radiation Oncology in [place], [place] [address] [place] [phone] Rey Meadows M.D. [address] [place] [phone] 02/26/2025 1:15 PM CDT Appointment Department of Radiation Oncology in [address] [address] Rey Meadows M.D. [address] [place] [phone] 02/27/2025 12:30 PM CDT Appointment Department of Radiation Oncology in [place], [place] [address] [place] [phone] Rey Meadows M.D. [address] [place] [phone] 02/28/2025 12:30 PM CDT Appointment Department of Radiation Oncology in [address] [address] Rey Meadows M.D. [address] [place] [phone] documented as of this encounter Visit Diagnoses Not on filedocumented in this encounter Additional Health Concerns Assessment Noted Time PHQ-9 Depression Total Score: 1 01/26/20 23 2:13 PM CDT documented as of this encounter Care Teams Chemistry Technician Relationship Specialty Start Date End Date Elsewhere, Pcp PCP - General Internal Medicine 01/30/24 documented as of this encounter
--- OUTSIDE RECORDS SUMMARY | 2025-02-10 13:31 | XMS_ITS | Encounter Summary ---
Author Organization [facility] Address [address] [place] [address] Care Team Providers Care Finishing Frame Runner Name Role Phone Elsewhere, Pcp Primary Care Provider Unavailabl e Reason for Referral * Radiation Therapy (Routine) - Authorized Specialty Diagnoses / Procedures Referred By Sammy hilliard Referred To Contact Diagnoses Malignant Neoplasm Of Gastroesophageal Junction (HCC) Procedures Management Visit Rey Meadows M.D. [address] [place] [address] Phone: tel: fax: [facility] Region Referral ID Status Reason Start Date Expiration Date V isits Requested Visits Authorized [id number] Authorized 01/14/2025 04/16/2026 10 10 Reason for Visit * Radiation Therapy (Routine) - Authorized Specialty Diagnoses / Procedures Referred By Sammy hilliard Referred To Contact Diagnoses Malignant Neoplasm Of Gastroesophageal Junction (HCC) Procedures Management Visit Rey Meadows M.D. [address] [place] [address] Phone: tel: fax: [facility] Region Referral ID Status Reason Start Date Expiration Date V isits Requested Visits Authorized [id number] Authorized 01/14/2025 04/16/2026 10 10 Encounter Details Date Type Department Care Team (Latest Contact Info) Description 02/10/2025 1:31 PM CDT Hospital Encounter Department of Radiation Oncology [place] [address] [place] [address] Rey Meadows M.D. [address] [place] [address] Malignant Neoplasm Of Gastroesophageal Junction (HCC) Social [...] things needed for daily living? No 12/31/2024 [facility] Utilities Answer Date Recorded In the past 12 months has [facility] electric, gas, oil, or water company threatened to shut off services in your home? No 12/31/2024 Depression Answer Date Recor ded PHQ-9 Total Score (max 27) 1 01/25 Housing Stability Answer Date Recorded What is your living situation today? I have a [facility] place to live 12/31/2024 Education Answer Date Recorded What is the highest level of school you have completed or the highest degree you have received? Bachelor's degree (e.g., BA, AB, BS) 01/09/2019 Sex and Gender Information Value Date Recorded Sex Assigned at Male 12/27/2018 12:13 PM CDT Legal Sex Male 1:57 PM RN RADIATION Gender Identity Male 09/04/2018 3:21 PM CDT Sexual Orientation Straight 09/04/2018 3: 21 PM CDT documented as of this encounter Last Filed Vital Signs Vital Sign Reading Time Taken Comments Blood Pressure 103/68 02/10/2025 1:41 PM CDT Pulse 82 02/10/2025 1:41 PM CDT Temperature 36.4 C (97.6 F) 02/10/2025 1:41 PM CDT Respiratory Rate - - Oxygen Saturation - - Inhaled Oxygen Concentration - - Weight 82.4 kg (181 lb 10.5 oz) 02/10/2025 1:41 PM CDT Height - - Body Mass Index 25.57 01/13/2025 9:52 AM CDT documented in this encounter Plan of Treatment Upcoming Encounters Date Type Department Care Team (Late st Contact Info) Description 02/11/2025 3:15 PM CDT Appointment Department of Radiation Oncology in [address] [address] Rey Meadows M.D. [address] [place] [address] 02/12/2025 1:30 PM CDT Appointment Department of Radiation Oncology in [address] [address] Rey Meadows M.D. [address] [place] [address] 02/12/2025 2:00 PM CDT Appointment Department of Radiation Oncology in [address] [place] [address] Rey Meadows M.D. [address] [place] [phone] 02/13/2025 1:15 PM CDT Appointment Department of Radiation Oncology in [place], [place] [address] [place] [phone] Rey Meadows M.D. [address] [place] [address] 02/14/2025 12:30 PM CDT Appointment Department of Radiation Oncology in [place], [place] [address] [place] [phone] Rey Meadows M.D. [address] [place] [address] 02/17/2025 1:15 PM CDT Appointment Department of Radiation Oncology in [place], [place] [address] [place] [phone] Rey Meadows M.D. [address] [place] [address] 02/18/2025 1:15 PM CDT Appointment Department of Radiation Oncology in [place], [place] [address] [place] [address] Rey Meadows M.D. [address] [place] [address] 02/19/2025 1:15 PM CDT Appointment Department of Radiation Oncology in [place], [place] [address] [place] [phone] Rey Meadows M.D. [address] [place] [address] 02/19/2025 1:45 PM CDT Appointment Department of Radiation Oncology in [place], [place] [address] [place] [phone] Rey Meadows M.D. [address] [place] [phone] 02/20/2025 1:15 PM CDT Appointment Department of Radiation Oncology in [place], [place] [address] [place] [phone] Rey Meadows M.D. [address] [place] [phone] 02/21/2025 12:30 PM CDT Appointment Department of Radiation Oncology in [address] [address] Rey Meadows M.D. [address] [place] [phone] 02/24/2025 12:30 PM CDT Appointment Department of Radiation Oncology in [place], [place] [address] [place] [phone] Rey Meadows M.D. [address] [place] [phone] 02/25/2025 12:30 PM CDT Appointment Department of Radiation Oncology in [place], [place] [address] [place] [phone] Rey Meadows M.D. [address] [place] [phone] 02/26/2025 12:30 PM CDT Appointment Department of Radiation Oncology in [place], [place] [address] [place] [phone] Rey Meadows M.D. [address] [place] [address] 02/26/2025 1:15 PM CDT Appointment Department of Radiation Oncology in [place], [place] [address] [place] [phone] Rey Meadows M.D. [address] [place] [address] 02/27/2025 12:30 PM CDT Appointment Department of Radiation Oncology in [place], [place] [address] [place] [phone] Rey Meadwos M.D. [address] [place] [address] 02/28/2025 12:30 PM CDT Appointment Department of Radiation Oncology in [address] [address] Rey Meadows M.D. [address] [place] [address] Scheduled Orders Name Type Priority Associated Diagnoses Orde r Schedule Management Visit Radiation Oncology Routine Malignant Neoplasm Of Gastroesophageal Junction (HCC) Once for 1 Occurrences starting 02/10/2025 until 02/10/2025 documented as of this encounter Visit Diagnoses Diagnosis Malignant Neoplasm Of Gastroesophageal Junction (HCC) documented in this encounter Additional Health Concerns Assessment Noted Time PHQ-9 Depression Total Score: 1 01/26/20 23 2:13 PM CDT documented as of this encounter Care Teams Finishing Frame Runner Relationship Specialty Start Date End Date Elsewhere, Pcp PCP - General Internal Medicine 01/30/24 documented as of this encounter
--- OUTSIDE RECORDS SUMMARY | 2025-02-10 14:57 | XMS_ITS | Encounter Summary ---
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 [address] [place] [phone] Phone: tel: fax: [facility] Referral ID Status Reason Start Date Expiration Date Visits Re quested Visits Authorized [id number] Closed 12/31/2024 04/02/2026 1 1 Encounter Details Date Type Department Care Team (Latest Contact Info) Description 12/31/2024 Orders Only Division of Gastroenterology in [place], [place] [address] [place] [phone] Gaetano Roman APRN, C.N.P., M.S. 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 No 12/31/2024 [facility] Utilities Answer Date Recorded In the past 12 months has [facility] electric, gas, oil, or water company threatened to shut off services in your home? No 12/31/2024 Depression Answer Date Recor ded PHQ-9 Total Score (max 27) 1 01/25 Housing Stability Answer Date Recorded What is your living situation today? I have a [facility] place to live 12/31/2024 Education Answer Date Recorded What is the highest level of school you have completed or the highest degree you have received? 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 [address] [place] [phone] 02/12/2025 1:30 PM CDT Appointment Department of Radiation Oncology in [address] [phone] Rey Meadows M.D. [address] [place] [phone] 02/12/2025 2:00 PM CDT Appointment Department of Radiation Oncology in [address] [phone] Rey Meadows M.D. [address] [place] [phone] 02/13/2025 1:15 PM CDT Appointment Department of Radiation Oncology in [address] [phone] Rey Meadows M.D. [address] [place] [phone] 02/14/2025 12:30 PM CDT Appointment Department of Radiation Oncology in [address] [phone] Rey Meadows M.D. [address] [place] [address] 02/17/2025 1:15 PM CDT Appointment Department of Radiation Oncology in [place], [place] [address] [place] [address] Rey Meadows M.D. 200 [place] [address] 02/18/2025 1:15 PM CDT Appointment Department of Radiation Oncology in [place], [place] [address] [place] [phone] Rey Meadows M.D. 200 [place] [phone] 02/19/2025 1:15 PM CDT Appointment Department of Radiation Oncology in [place], [place] [address] [place] [phone] Rey Meadows M.D. 200 [place] [phone] 02/19/2025 1:45 PM CDT Appointment Department of Radiation Oncology in [place], [place] [address] [place] [phone] Rey Meadows M.D. [address] [place] [phone] 02/20/2025 1:15 PM CDT Appointment Department of Radiation Oncology in [place], [place] [address] [place] [address] Rey Meadows M.D. 200 [place] [address] 02/21/2025 12:30 PM CDT Appointment Department of Radiation Oncology in [place], [place] [address] [place] [phone] Rey Meadows M.D. [address] [place] [phone] 02/24/2025 12:30 PM CDT Appointment Department of Radiation Oncology in [place], [place] [address] [place] [phone] Rey Meadows M.D. [address] [place] [phone] 02/25/2025 12:30 PM CDT Appointment Department of Radiation Oncology in [address] [phone] Rey Meadows M.D. [address] [place] [phone] 02/26/2025 12:30 PM CDT Appointment Department of Radiation Oncology in [place], [place] [address] [place] [phone] Rey Meadows M.D. [address] [place] [phone] 02/26/2025 1:15 PM CDT Appointment Department of Radiation Oncology in [place], [place] [address] [place] [phone] Rey Meadows M.D. [address] [place] [phone] 02/27/2025 12:30 PM CDT Appointment Department of Radiation Oncology in [place], [place] [address] [place] [phone] Rey Meadows M.D. [address] [place] [phone] 02/28/2025 12:30 PM CDT Appointment Department of Radiation Oncology in [place], [place] [address] [place] [phone] Rey Meadows M.D. 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 LAB BLOOD ADD -ON Final Result Performing Organization Address City/[facility]/ZIP Co de Phone Number [facility] [address] [facility] 200 [place] [address] * Bilirubin, Direct (01/09/2025 7:44 AM CDT) [facility] Bilirubin, Direct, S 0.3 0.0 - 0.3 mg/dL 01/09/2025 8:53 AM CDT DTL Blood (Blood, Venous) 01/09/2025 7:44 AM CDT 01/09/2025 8:10 AM CDT us Gaetano Roman APRN C.N.P., M.S. LAB BLOOD ADD -ON Final Result [facility] [address] [place] [address] * (ABNORMAL) Comprehensive Metabolic Panel (01/09/2025 7:44 [...] CDT 01/09/2025 8:10 AM CDT Gaetano Roman APRN, C.N.P., M.S. LAB BLOOD ADD -ON Final Result [facility] [address] [place] [address], [place] DTL [facility] [address] [place] [address] * PET CT Skull to Thigh FDG [...] M.S. IMG NM PROCED URES Final Result * CT Abdomen Pelvis with IV Contrast [...] stomach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 Gaetano Roman APRN, C.N.P., M.S. IMG CT PROCED URES Final [...] corresponding with biopsy-proven gastroesophageal junctionmalignancy. Gaetano Roman APRN, C.N.P., M.S. 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
--- OUTSIDE RECORDS SUMMARY | 2025-02-10 14:57 | XMS_ITS | Clinical Summary ---
Author Organization [facility] Address [address] [place] [address] Care Team Providers Care Ecommerce Marketing Manager Name Role Phone Erwin Mason MD Primary Care Provider [phone] Allergies Active Allergy Reactions Criticality Noted Date Comments Iodine Dizziness 09/26/2010 Medications atenolol (TENORMIN) 50 mg tablet Take 1 tablet by mouth once daily. 0 1 Active fexofenadine (MOISES) 180 mg tablet Take 1 tablet by mouth once daily with a meal. 0 1 Active traMADol (ULTRAM) 50 mg tablet Take 1 tablet by mouth every 4-6 hours if needed if needed for breakthrough pain. 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 Gender Identity Not on file Sexual Orientation Not on file Obstetrics History Last Filed Vital Signs Vital Sign Reading Time Taken Comments Blood Pressure 120/68 09/26/2010 10:54 AM CDT Pulse - - Temperature 36.6 C (97.8 F) 09/26/2010 10:54 AM CDT Respiratory Rate - - Oxygen Saturation - - Inhaled Oxygen Concentration - - Weight 101.8 kg (224 lb 8 oz) 09/26/2010 10:54 A M CDT Height - - Body Mass Index - - Plan of Treatment Health Maintenance Due Date Last Done Comments Tetanus booster 01/04/1951 Depression screening for age 12+ 1953 BMI (ht and wt on same day) for age 18+ 1959 Pneumococcal series for age 50+ (1 of 1 - PCV) 1991 Zoster (shingles) series for age 50+ (1 of 2) 1991 RSV vaccine for adults or (1 - 1-dose 75+ series) 01/04/2016 COVID-19 vaccine series (2 - 2024- season) 2024 12/18/2020 Influenza Vaccine (#1) 2024 Hepatitis B series for 19+ Aged Out N o longer eligible based on patient's age to complete this topic Insurance MEDICARE PB ONLY BLUE CROSS OF [place] MEDICARE PART B HB ONLY Care Teams Ecommerce Marketing Manager Relationship Specialty Start Date End Date Erwin Mason MD PCP - General Internal Medicine 09/26/10
--- OUTSIDE RECORDS SUMMARY | 2025-02-10 14:58 | XMS_ITS | Encounter Summary ---
Author Organization [facility] Address [address] [place] [address] Care Team Providers Care Claim Professional Name Role Phone Elsewhere, Pcp Primary Care Provider Unavailabl e Reason for Referral * Radiation Therapy (Routine) - Authorized Specialty Diagnoses / Procedures Referred By Sammy hilliard Referred To Contact Diagnoses Malignant Neoplasm Of Gastroesophageal Junction (HCC) Procedures Management Visit Rey Meadows M.D. [address] [place] [address] Phone: tel: fax: [facility] Referral ID Status Reason Start Date Expiration Date V isits Requested Visits Authorized [id number] Authorized 01/14/2025 04/16/2026 10 10 * Specialty Diagnoses / Procedures Referred By Sammy hilliard Referred To Contact Diagnoses Malignant Neoplasm Of Gastroesophageal Junction (HCC) Rey Meadows M.D. [address] [place] [address] Phone: tel: fax: [facility] Referral ID Status Reason Start Date Expiration Date Visits Re quested Visits Authorized Scheduling Instructions Please do not schedule if patient is receiving 10 fractions or less, unless requested by care team. * Outpatient (Routine) - Authorized Specialty Diagnoses / Procedures Referred By Contac t Referred To Contact Radiation Oncology Rey Meadows M.D. [address] [place] [address] Phone: tel: fax: [facility] Referral ID Status Reason Start Date Expiration Date V isits Requested Visits Authorized [id number] Authorized 01/14/2025 07/16/2026 10 10 * Radiation Therapy (Routine) - Authorized Specialty Diagnoses / Procedures Referred By Contac t Referred To Contact Diagnoses Malignant Neoplasm Of Gastroesophageal Junction (HCC) Procedures Prior Auth Rad Tx Rey Meadows M.D. [address] [place] [address] Phone: tel: fax: [facility] Referral ID Status Reason Start Date Expiration Date V isits Requested Visits Authorized [id number] Authorized 01/14/2025 04/16/2026 1 1 * Radiation Therapy (Routine) - Closed Specialty Diagnoses / Procedures Referred By Contac arminda Referred To Contact Diagnoses Malignant Neoplasm Of Gastroesophageal Junction (HCC) Procedures Initial Rad Onc Treatment Planning CT Simulation Rey Meadows M.D. [address] [place] [address] Phone: tel: fax: [facility] Referral ID Status Reason Start Date Expiration Date Visits Re quested Visits Authorized [id number] Closed 01/14/2025 04/16/2026 1 1 * Outpatient (Routine) - Authorized Specialty Diagnoses / Procedures Referred By Contac t Referred To Contact Social Work Diagnoses Malignant Neoplasm Of Gastroesophageal Junction (HCC) Rey Meadows M.D. [address] [place] [address] Phone: tel: fax: [facility] Referral ID Status Reason Start Date Expiration Date V isits Requested Visits Authorized [id number] Authorized 01/14/2025 07/16/2026 1 1 * Radiation Therapy (Routine) - Authorized Specialty Diagnoses / Procedures Referred By Contac t Referred To Contact Diagnoses Malignant Neoplasm Of Gastroesophageal Junction (HCC) Procedures Management Visit Rey Meadows M.D. [address] [place] [phone] Phone: tel: fax: [facility] Referral ID Status Reason Start Date Expiration Date V isits Requested Visits Authorized [id number] Authorized 01/14/2025 04/16/2026 10 10 * Radiation Therapy (Routine) - Authorized Specialty Diagnoses / Procedures Referred By Contac t Referred To Contact Diagnoses Malignant Neoplasm Of Gastroesophageal Junction (HCC) Procedures Prior Auth Rad Tx Rey Meadows M.D. [address] [place] [address] Phone: tel: fax: [facility] Referral ID Status Reason Start Date Expiration Date V isits Requested Visits Authorized [id number] Authorized 01/14/2025 04/16/2026 1 1 Encounter Details Date Type Department Care Team (Late st Contact Info) Description 01/14/2025 Orders Only Department of Radiation Oncology in [place], [place] [address] [place] [address] Rey Meadows M.D. [address] [place] [phone] Malignant Neoplasm Of Gastroesophageal Junction (HCC) (Primary [...] things needed for daily living? No 12/31/2024 [facility] Utilities Answer Date Recorded In the past 12 months has [facility] [employer], gas, oil, or water [employer] threatened to shut off services in your home? No 12/31/2024 Depression Answer Date Recor ded PHQ-9 Total Score (max 27) 1 01/25 Housing Stability Answer Date Recorded What is your living situation today? I have a [facility] place to live 12/31/2024 Education Answer Date Recorded What is the highest level of school you have completed or the highest degree you have received? 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 [address] [place] [phone] 02/12/2025 1:30 PM CDT Appointment Department of Radiation Oncology in [address] [address] Rey Meadows M.D. [address] [place] [phone] 02/12/2025 2:00 PM CDT Appointment Department of Radiation Oncology in [address] [address] Rey Meadows M.D. [address] [place] [phone] 02/13/2025 1:15 PM CDT Appointment Department of Radiation Oncology in [address] [address] Rey Meadows M.D. [address] [place] [phone] 02/14/2025 12:30 PM CDT Appointment Department of Radiation Oncology in [address] [address] Rey Meadows M.D. [address] [place] [phone] 02/17/2025 1:15 PM CDT Appointment Department of Radiation Oncology in [address] [phone] Rey Meadows M.D. [address] [place] [phone] 02/18/2025 1:15 PM CDT Appointment Department of Radiation Oncology in [address] [phone] Rey Meadows M.D. [address] [place] [phone] 02/19/2025 1:15 PM CDT Appointment Department of Radiation Oncology in [address] [phone] Rey Meadows M.D. [address] [place] [phone] 02/19/2025 1:45 PM CDT Appointment Department of Radiation Oncology in [address] [address] Rey Meadows M.D. [address] [place] [phone] 02/20/2025 1:15 PM CDT Appointment Department of Radiation Oncology in [address] [address] Rey Meadows M.D. [address] [place] [phone] 02/21/2025 12:30 PM CDT Appointment Department of Radiation Oncology in [address] [phone] Rey Meadows M.D. [address] [place] [phone] 02/24/2025 12:30 PM CDT Appointment Department of Radiation Oncology in [place], [place] [address] [place] [phone] Rey Meadows M.D. [address] [place] [address] 02/25/2025 12:30 PM CDT Appointment Department of Radiation Oncology in [place], [place] [address] [place] [phone] Rey Meadows M.D. [address] [place] [phone] 02/26/2025 12:30 PM CDT Appointment Department of Radiation Oncology in [place], [place] [address] [place] [address] Rey Meadows M.D. [address] [place] [phone] 02/26/2025 1:15 PM CDT Appointment Department of Radiation Oncology in [place], [place] [address] [place] [phone] Rey Meadows M.D. [address] [place] [phone] 02/27/2025 12:30 PM CDT Appointment Department of Radiation Oncology in [place], [place] [address] [place] [address] Rey Meadows M.D. [address] [place] [phone] 02/28/2025 12:30 PM CDT Appointment Department of Radiation Oncology in [place], [place] [address] [place] [address] Rey Meadows M.D. [address] [place] [address] Scheduled Orders Name Type Priority Associated Diagnoses Orde r Schedule Prior Auth Rad Tx Radiation Oncology Routine Malignant Neoplasm Of Gastroesophageal Junction (HCC) Ordered: 01/14/2025 Management Visit Radiation Oncology Routine Malignant Neoplasm Of Gastroesophageal Junction (HCC) 10 Occurrences starting 01/14/2025 until 04/15/2026 Prior Auth Rad Tx Radiation Oncology Routine Malignant Neoplasm Of Gastroesophageal Junction (HCC) Ordered: 01/14/2025 Management Visit Radiation Oncology Routine Malignant Neoplasm Of Gastroesophageal Junction (HCC) 10 Occurrences starting 01/14/2025 until 01/14/2026 Scheduled Referrals Name Type Priority Associated Diagnoses Orde r Schedule Social Work - General consult (clinic) [facility]; General Outpatient Referral Routine Malignant Neoplasm Of Gastroesophageal Junction (HCC) Expected: 01/14/2025, Expires: 04/15/2026 Radiation Oncology nurse visit (clinic) Outpatient Referral Routine 10 Occurrences starting 01/14/2025 until 01/14/2026 Radiation Oncology - Nurse education visit (clinic) Outpatient Referral Routine Malignant Neoplasm Of Gastroesophageal Junction (HCC) Expected: 01/14/2025 (Approximate), Expires: 01/14/2026 documented as of this encounter Results * Initial Rad Onc Treatment Planning CT Simulation (01/17/2025 1:00 PM CDT) [facility] - 01/17/2025 1:00 PM CDT Rey Meadows [...] planning. CT images were transferred to the [employer] treatment planning system, after a reference isocenter was determined and marked. Segmentation and treatment planning will take place prior to treatment delivery. Patient set up and imaging was appropriate and completed without incident. Pharmacist Critical Care use:No Rey Meadows M.D. RADIATION ONCOLOGY ORDERAB LES Final Result CRIS GEE na documented in this encounter Visit Diagnoses Diagnosis Malignant Neoplasm Of Gastroesophageal Junction (HCC)- Primary Malignant Neoplasm Of Gastroesophageal Junction (HCC) documented in this encounter Additional Health Concerns Assessment Noted Time PHQ-9 Depression Total Score: 1 01/26/20 23 2:13 PM CDT documented as of this encounter Care Teams Claim Professional Relationship Specialty Start Date End Date Elsewhere, Pcp PCP - General Internal Medicine 01/30/24 documented as of this encounter
--- OUTSIDE RECORDS SUMMARY | 2025-02-10 14:59 | XMS_ITS | Encounter Summary ---
Author Organization [facility] Address [address] [place] [address] Care Team Providers Care Laundry Technician Name Role Phone Baltazar Linares MD Primary Care Provider Esteban Viramontes DO Primary Care Provider [phone] Ref-Primary, Physician Primary Care Provider Priyanka Johnson MD Primary Care Provider [phone] Priyanka Johnson MD Unavailable [phone] Senthil Newton MD Unavailable Aroldo Dee MD Unavailable + [phone] Priyanka Johnson MD Unavailable [phone] Javad Page MD Unavailable UnavailJavad Dunham MD Unavailable Unavaila Aroldo Castelan MD Unavailable + [phone] Javad Page MD Unavailable Unavaila ble 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 [phone] 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 [phone] Encounter Details Date Type Department Care Team (Late st Contact Info) Description 09/26/2006 Office Visit-[facility] [address] [place] [address] Tulio Be MD Social History Tobacco Use Types Packs/Day Years Used Date Smoking Tobacco: Former Comments:quit 1970 Alcohol Use Standard Drinks/Week Comments Yes 0 (1 standard drink = 0.6 oz pur e alcohol) couple beers a day Sex and Gender Information Value Date Recorded Sex Assigned at Male 12/18/2019 5:08 PM CDT 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 DATE: 09/26/2006 MAGDALENO BRANDT DATE OF : 1940 AGE: [age] years old Referring Physician: AKIKO GRIMALDO Referring Clinic: [facility]. CURRENT DIAGNOSES 1. - Hypertension, benign, 401.1 2. - Atrial Fibrillation, 427.31 3. Sleep apnea, 786.09 ALLERGIES NKA MEDICATIONS (including any changes made today) 1. Atenolol 50 mg, 1 p.o. q.d. 2. Piroxicam 20 mg, 1 p.o. q.d. 3. Glucosamine 500 mg, 1.5 g 4. PreserVision 1 tab, Take as Directed 5. Aspirin 81 mg, 1 p.o. q.d. 6. Krista 180 mg, 1 p.o. qPM 7. Nasonex 50 mcg/inh, 2 Sprays each nostril q.d. 8. Ocuvite Antioxidant Multiple Vitamins and Minerals, 1 p.o. q.d. CHIEF COMPLAINTS Per MD - follow up HISTORY OF PRESENT ILLNESS I again had the pleasure of seeing your patient, Magdaleno Brandt, at [facility] for evaluation of paroxysmal atrial fibrillation and hypertension. The patient also has a history of sleep apnea but did not tolerate a mandibular device or a CPAP in the past. He has lost 1 pound since I saw him last November. He does play golf three times per week and mows the lawn, but otherwise does not exercise. The patient has significant knee arthritis and right shoulder arthritis that he says preventshim from exercising. His blood pressures at home on his home cuff have been 130-150 systolic, with normal diastolic readings. He has tried a diuretic without effect on his blood pressure, Avapro which caused him to be lightheaded and dizzy, and is now on atenolol with verapamil discontinued. He denies PND, orthopnea, or peripheral edema. No syncope, presyncope, or palpitations. On physical exam, current blood pressure is 153/82 using his home machine on the right arm, 146/75 using a large cuff on his right arm manually. His pulse is 68 and regular, weight 217 pounds. Cardiac exam: Regular rate and rhythm without gallop or murmur. Abdomen and extremities are benign with zero to trace bipedal edema. PAST HISTORY Past Medical Illnesses: sleep apnea, allergic rhinitis, macular degeneration, hypertension Past Cardiac Illnesses: atrial fibrillation-paroxysmal Infectious Diseases: mastoiditis,04/04 Surgical Procedures: cataract extraction OU, bilat. detached retina repairs, cervical microdiscectomy Cardiology Procedures-Invasive: cardioversion for afib 1998 Cardiology Procedures-Noninvasive: IIAN 1998, echocardiogram 1998, stress echocardiogram 1998, holter monitor 1998 FAMILY HISTORY: Family - unremarkable; CARDIAC RISK FACTORS Tobacco Abuse: used to smoke, but quit; Family History of Heart Disease: negative; Hyperlipidemia: lipid status unknown; Hypertension: negative; Diabetes Mellitus: negative; Prior History of Heart Disease: positive; Obesity:negative; Sedentary Life Style:negative; Age:positive SOCIAL HISTORY Alcohol Use - beer 1-2 per day; Smoking - does not smoke; Diet - regular diet without modificationsand caffeine use-1-2 per day; Lifestyle - , children and drives car; Exercise - no regular exercise; Seat Belt Use - always; Occupation - retired; Residence - lives with in own home; Place of - [place]; REVIEW OF SYSTEMS GENERAL weight loss, 1 pound INTEGUMENTARY denies any change in hair or nails, rashes, or skin lesions. EYES wears eye glasses/contact lenses EARS, NOSE, THROAT, MOUTH epistaxis RESPIRATORY sleep apnea CARDIOVASCULAR edema, knees ABDOMINAL denies ulcer disease, hematochezia or melena. GENITOURINARY-MALE nocturia MUSCULOSKELETAL arthritis of the knee(s), joint pain, muscle weakness NEUROLOGICAL denies any history of recurrent strokes, TIA, or seizure disorder. PSYCHIATRIC denies any history of depression, substance abuse or change in cognitive functions. ENDOCRINE denies any history of hyperlipidemia, thyroid disease or diabetes mellitus. HEMATOLOGICAL/IMMUNOLOGIC seasonal allergies PHYSICAL EXAMINATION VITAL SIGNS: Blood Pressure: 153/82 Machine, right arm 146/75 Sitting, Right arm, large cuff Pulse- 68.00/min. Weight- 217.00 lbs. Height- 74.00 Temperature- .00 CONSTITUTIONAL cooperative, alert and oriented,well developed, well nourished, in no acute distress. SKIN warm and dry to touch, no apparent skin lesions, or masses noted. HEAD normocephalic, atraumatic EYES Pupils equal and round, conjunctivae and lids unremarkable, sclera white, no xanthalasma ENT no pallor or cyanosis, dentition good NECK carotid pulses are full and equal bilaterally, JVP normal, no carotid bruit, no thyromegaly CHEST normal symmetry, no tenderness to palpation, normal respiratory excursion, no intercostal retraction, no use of accessory muscles, clear to auscultation and percussion. CARDIAC regular rhythm, S1 normal, S2 normal, No S3 or S4, Apical impulse not displaced, no murmurs, gallops or rubs detected. ABDOMEN abdomen soft, bowel sounds normoactive, no masses, no hepatosplenomegaly, non- tender, no bruits PERIPHERAL PULSES pulses full and equal in all extremities, no bruits auscultated. EXTREMITIES & BACK no deformities, clubbing, cyanosis, erythema or edema observed. There are no spinal abnormalities noted. Normal muscle strength and tone. NEUROLOGICAL no gross motor deficits noted, affect appropriate, oriented to time, person and place. MEDICATIONS UPDATED TODAY: Atenolol 50 mg, 1 p.o. q.d., DIRECTED Piroxicam 20 mg, 1 p.o. q.d., DIRECTED Glucosamine 500 mg, 1.5 g, DIRECTED PreserVision 1 tab, Take as Directed, DIRECTED Aspirin 81 mg, 1 p.o. q.d., DIRECTED MEDICATION STOPPED TODAY: Verapamil Hydrochloride Er 240 Mg ASSESSMENT: 1. Magdaleno Brandt is a delightful 66-year-old male with a history of paroxysmal atrial fibrillation. He does take his pulse nearly every day without evidence of arrhythmias. His paroxysmal A fib is likely due to hypertension and diastolic dysfunction or sleep apnea. His systolic blood pressure remains elevated, and I have asked the patient to return to your office for further treatment options. We did discuss hydrochlorothiazide as a diuretic, ARBs such as Avapro, ADRIANNE inhibitors, and even calciumchannel blockers such as Norvasc. 2. I would not start Coumadin at this time since he has not had recurrence of his atrial fibrillation. He should continue to take his pulse every day and call me forany protracted arrhythmias lasting at least 24 hours. 3. Sleep apnea. I would suggest that this patient be treated. Perhaps having him rediscuss this with pulmonary to find some way of getting him totolerate the CPAP mask would be helpful. Thank you very much for allowing me to help care for this delightful patient. I will plan on seeingthis patient again in six months. Should you have any questions regarding his care, please feel free to contact me at any time in the future. TODAYS ORDERS 1. Return Visit 6 months Tulio Be M.D. documented in this encounter Plan of Treatment Not on file documented as of this encounter Visit Diagnoses Not on filedocumented in this encounter Care Teams Laundry Technician Relationship Specialty Start Date End Date Baltazar Linares MD [facility] [address] [place] [address] PCP - General 05/24/00 09/15/14 Esteban Viramontes DO [facility] [address] [place] [address] PCP - General Family Practice 09/16/14 09/18/18 No Ref-Primary, Physician PCP - General 09/21/18 09/25/18 Priyanka Johnson MD [address] [place] [address] PCP - General Internal Medicine 09/26/18 Priyanka Johnson MD [address] [place] [address] Assigned PCP 09/06/18 10/05/19 Senthil Newton MD [address] [place] [address] Assigned PCP 10/06/19 10/03/20 Aroldo Dee MD [address] [place] [address] Assigned Heart and Vascular Provider 02/21/20 04/08/22 Priyanka Johnson MD [address] [place] [address] Assigned PCP 10/04/20 Javad Page MD [address] [place] [address] Clinical Cardiac Electrophysiology 01/29/21 Javad Page MD Assigned Heart and Vascular Provider 04/09/22 05/27/22 Aroldo Dee MD [address] [place] [address] Assigned Heart and Vascular Provider 05/28/22 06/24/22 Javad Page MD Assigned Heart and Vascular Provider 06/25/22 08/05/22 Hanna Dahl NP [address] [place] [address] Assigned Heart and Vascular Provider 12/21/24 01/20/25 Hanna Dahl NP [address] [place] [address] Assigned Heart and Vascular Surgical Provider 01/21/25 documented as of this encounter
--- OUTSIDE RECORDS SUMMARY | 2025-02-10 14:59 | XMS_ITS | Encounter Summary ---
Author Organization [facility] Address [address] [place] [address] Care Team Providers Care Telecommunications Line Mechanic Name Role Phone Baltazar Jiménez MD Primary Care Provider Esteban Viramontes DO Primary Care Provider No Ref-Primary, Physician Primary Care Provider Priyanka Johnson MD Primary Care Provider [phone] Priyanka Johnson MD Unavailable [phone] Senthil Newton MD Unavailable [phone] Aroldo Dee MD Unavailable + [phone] Priyanka Johnson MD Unavailable [phone] Javad Page MD Unavailable UnavailJavad Dunham MD Unavailable Unavaila Aroldo Castelan MD Unavailable + [phone] Javad Page MD Unavailable Unavaila Hanna Pemberton EMAIL MARKETING MANAGER Unavailable [phone] Hanna Dahl EMAIL MARKETING MANAGER Unavailable [phone] Encounter Details Date Type Department Care Team (Late st Contact Info) Description 04/19/2004 Office Visit-[facility] [address] [place] [address] Unknown, Doctor, Social History Tobacco Use Types Packs/Day Years Used Date Smoking Tobacco: Former Comments:quit 1970 Alcohol Use Standard Drinks/Week Comments Yes 0 (1 standard drink = 0.6 oz pur e alcohol) couple beers a day Sex and Gender Information Value Date Recorded Sex Assigned at Male 12/18/2019 5:08 PM CDT 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 DATE: 04/19/2004 MAGDALENO BRANDT DATE OF : 1940 AGE: [age] years old Referring Physician: BALTAZAR JIMÉNEZ Referring Clinic: [facility] CURRENT DIAGNOSES 1. - Hypertension, benign, 401.1 2. - Atrial Fibrillation, 427.31 3. Sleep apnea, 786.09 ALLERGIES NKA MEDICATIONS (including any changes made today) 1. Krista 180 mg, 1 p.o. qPM 2. Nasonex 50 mcg/inh, 2 Sprays each nostril q.d. 3. Aspirin 81 mg, 1 p.o. q.d. 4. Ocuvite Antioxidant Multiple Vitamins and Minerals, 1 p.o. q.d. 5. Verapamil Hydrochloride ER 240 mg, 1 p.o. q.d. CHIEF COMPLAINTS F/u on hypertension HISTORY OF PRESENT ILLNESS I again had the pleasure of seeing your patient, Magdaleno Brandt, at [facility] on April 19, 2004. As you may recall, this patient has a history of paroxysmal atrial fibrillation. He alsohas sleep apnea and has not tolerated a mandibular device or CPAP. The patient has gained four or five pounds since I last saw him. His blood pressure has been improved even off of the Avapro that hewas originally started on. He denies palpitations or further atrial fibrillation. He is not taking his pulse religiously any more because he has felt so well. He denies chest pain. He denies PND, orthopnea, or peripheral edema. He is not exercising to any major extent at this time although he does w alk two to three times per week for 30-40 minutes. He is going to try to lose some more weight and is going to lower his carbohydrate intake. He eats a low fat diet all the time. He denies syncope orpresyncope. Current blood pressure is 128/75, pulse is 72 and regular. Chest is clear. Cardiac exam: Regular rate and rhythm without gallop or murmur. Abdomen and extremities are benign. ____ FAMILY HISTORY: Family - unremarkable; CARDIAC RISK FACTORS Tobacco Abuse: used to smoke, but quit; Family History of Heart Disease: negative; Hyperlipidemia: lipid status unknown; Hypertension: negative; Diabetes Mellitus: negative; Prior History of Heart Disease: positive; Obesity:negative; Sedentary Life Style:negative; Age:positive SOCIAL HISTORY Alcohol Use - beer 1-2 per day; Smoking - does not smoke; Diet - atkins diet; Lifestyle - , children and drives car; Exercise - exercise is limited due to physical disability; Seat Belt Use - always; Occupation - retired; Residence - lives with in own home; Place of - [place]; __ REVIEW OF SYSTEMS GENERAL weight gain of approximately 5 lbs INTEGUMENTARY denies any change in hair or nails, rashes, or skin lesions. EYES wears eye glasses/contact lenses EARS, NOSE, THROAT, MOUTH denies any hearing loss, epistaxis, hoarseness or difficulty speaking. RESPIRATORY sleep apnea CARDIOVASCULAR negative for palpitations, chest pain, orthopnea, PND, peripheral edema, syncope or claudication. ABDOMINAL denies ulcer disease, hematochezia or melena. MUSCULOSKELETAL denies any history of venous insufficiency, arthritic symptoms or back problems. NEUROLOGICAL denies any history of recurrent strokes, TIA, or seizure disorder. PSYCHIATRIC denies any history of depression, substance abuse or change in cognitive functions. ENDOCRINE denies any history of weight change, heat/cold intolerance, polydipsia, or polyuria HEMATOLOGICAL/IMMUNOLOGIC seasonal allergies PHYSICAL EXAMINATION VITAL SIGNS: Blood Pressure: 128/75 Sitting, Right arm, large cuff Pulse- 72.00/min. Weight- 199.00 lbs. Height- 74.00 Temperature- .00 CONSTITUTIONAL cooperative, [...] time, person and place. MEDICATIONS UPDATED TODAY: IMPRESSIONS/PLAN Magdaleno Brandt is a delightful 64-year-old male with a history of paroxysmal atrial fibrillation. This is likely related to hypertension and/or sleep apnea. His blood pressure is reasonably well controlled at this time. I would not change his medications. I again spent half of my 25 minute appointment with him discussing aerobic exercise and weight loss. I have asked him to discuss his sleep apnea again with you to decide if there are alternative ways of treating this. I will plan on seeing him again in one year. At that time I would like to discuss a stress test with him as well given his age and risk factors. Thank you very much for allowing me to help care for this delightful patient. Should you have any questions regarding his care, please feel free to contact me at any time in the future. TODAYS ORDERS 1. Return Visit 1 year Tulio Be M.D. documented in this encounter Plan of Treatment Not on file documented as of this encounter Visit Diagnoses Not on filedocumented in this encounter Care Teams Telecommunications Line Mechanic Relationship Specialty Start Date End Date Baltazar Jiménez MD [place] [id number] [facility] [place] [address] PCP - General 05/24/00 09/15/14 Esteban Viramontes DO [address] [place] [address] PCP - General Family Practice 09/16/14 09/18/18 No Ref-Primary, Physician PCP - General 09/21/18 09/25/18 Priyanka Johnson MD [address] [place] [address] PCP - General Internal Medicine 09/26/18 Priyanka Johnson MD [address] [place] [address] Assigned PCP 09/06/18 10/05/19 Senthil Newton MD [address] [place] [address] Assigned PCP 10/06/19 10/03/20 Aroldo Dee MD [address] [place], [place] [address] Assigned Heart and Vascular Provider 02/21/20 04/08/22 Priyanka Johnson MD [address] [place] [address] Assigned PCP 10/04/20 Javad Page MD [address] [place] [address] Clinical Cardiac Electrophysiology 01/29/21 Javad Page MD Assigned Heart and Vascular Provider 04/09/22 05/27/22 Aroldo Dee MD [address] [place] [address] Assigned Heart and Vascular Provider 05/28/22 06/24/22 Javad Page MD Assigned Heart and Vascular Provider 06/25/22 08/05/22 Hanna Dahl EMAIL MARKETING MANAGER [address] [place] [address] Assigned Heart and Vascular Provider 12/21/24 01/20/25 Hanna Dahl NP [address] [place], [place] [address] Assigned Heart and Vascular Surgical Provider 01/21/25 documented as of this encounter
--- OUTSIDE RECORDS SUMMARY | 2025-02-10 14:59 | XMS_ITS | Encounter Summary ---
Author Organization [facility] Address [address] [place] [address]. [place] [address] Care Team Providers Care Bid Writer Name Role Phone Priyanka Johnson MD Primary Care Provider [phone] Priyanka Johnson MD Unavailable [phone] Javda Page MD Unavailable Unavaila ble Hanna Dahl CNC MACHINIST Unavailable [phone] Hanna Dahl CNC MACHINIST Unavailable [phone] Encounter Details Date Type Department Care Team (Late st Contact Info) Description 12/08/2024 Results Follow-Up [facility] [place] [address] [place] [id number] Maxine Kenyon, CARE MANAGEMENT SPECIALIST MACHINE SPECIALIST [address] [place] [address] Social History Tobacco Use Types Packs/Day Years Used Date Smoking Tobacco: Former Cigarettes Smokeless Tobacco: Never Comments:quit 1971 Alcohol Use Standard Drinks/Week Comments Yes 0 (1 standard drink = 0.6 oz pur e alcohol) 2 beers a day Social Connection and Isolation Panel [NHANES] A nswer Date Recorded Frequency of Communication with Friends and Fami ly Not on file 11/02/2023 How often do you get together with friends or re latives? Once a week 11/02/2023 Attends Hoahaoism Services Not on file 11/01 Active Member of Clubs or Organizations Not on f ile 11/02/2023 Attends Club or Organization Meetings Not on chris e 11/02/2023 Marital Status Not on file 11/02/2023 PHQ-2 Answer Date Recorded PHQ-2 Score 0 10/15/2024 [facility] - Occupational Stress Questionnaire Answer Date Recorded Do you feel stress - tense, restless, nervous, or anxious, or unable to sleep at night because your mind is troubled all the time - these days? Not at all 11/02/2023 Exercise Vital Sign Answer Date Recorde d On average, how many days pe r week do you engage in moderate to strenuous exercise (like a brisk walk)? 3 days 11/02/2023 On average, how many minutes do you engage in exercise at this level? 50 min 11/02/2023 Adolescent Education Answer Date Record ed Getting School Help Needed Not on file 01/25 Food Insecurity Answer Date Recorded Within the past 12 months, d id you worry that your food would run out before you got money to buy more? No 11/02/2023 Within the past 12 months, d id the food you bought just not last and you didn t have money to get more? No 11/02/2023 Housing Stability Answer Date Recorded Do you have housing? (Housin g is defined as stable permanent housing and does not include staying outside in a car, in a tent, in an abandoned building, in an overnight [place] [facility] [place], or couch-surfing.) Yes 11/02/2023 Are you worried about losing your housing? No 11/02/2023 Financial Resource Strain Answer Date R ecorded Within the past 12 months, h ave you or your family members you live with been unable to get utilities (heat, electricity) when it was really needed? No 11/02/2023 Transportation Needs Answer Date Record ed Within the past 12 months, h as lack of transportation kept you from medical appointments, getting your medicines, non-medical meetings or appointments, work, or from getting things that you need? No 11/02/2023 Interpersonal Safety Answer Date Record ed Do you feel physically and e motionally safe where you currently live? Yes 10/15/2024 Within the past 12 months, h ave you been hit, slapped, kicked or otherwise physically hurt by someone? No 10/15/2024 Within the past 12 months, h ave you been humiliated or emotionally abused in other ways by your partner or ex-partner? 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 States understanding of these results. Maxine Kenyon MACHINE SPECIALIST documented in this encounter Plan of Treatment Not on file documented as of this encounter Visit Diagnoses Not on filedocumented in this encounter Care Teams Bid Writer Relationship Specialty Start Date End Date Priyanka Johnson MD [address] [place] [address] PCP - General Internal Medicine 09/26/18 Priyanka Johnson MD [address] [place] [address] Assigned PCP 10/04/20 Javad Page MD [address] [place] [address] Clinical Cardiac Electrophysiology 01/29/21 Hanna Dahl NP [address] [place], [place] [address] Assigned Heart and Vascular Provider 12/21/24 01/20/25 Hanna Dahl NP [address] [place] [address] Assigned Heart and Vascular Surgical Provider 01/21/25 documented as of this encounter
--- OUTSIDE RECORDS SUMMARY | 2025-02-10 14:59 | XMS_ITS | Encounter Summary ---
Author Organization [facility] Address [address] [place] [address] Care Team Providers Care Bookkeeper Assistant Name Role Phone Baltazar Linares MD Primary Care Provider [phone] Esteban Viramontes DO Primary Care Provider No Ref-Primary, Physician Primary Care Provider Priyanka Johnson MD Primary Care Provider [phone] Priyanka Johnson MD Unavailable [phone] Senthil Newton MD Unavailable [phone] Aroldo Dee MD Unavailable + [phone] Priyanka Johnson MD Unavailable [phone] Javad Page MD Unavailable UnavailJavad Dunham MD Unavailable Unavaila Aroldo Castelan MD Unavailable + [phone] Javad Page MD Unavailable Unavaila Hanna Pemberton [employer] Unavailable [phone] Hanna Dahl [employer] Unavailable [phone] Encounter Details Date Type Department Care Team (Late st Contact Info) Description 02/08/2005 Office Visit-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 DATE: 02/08/2005 MAGDALENO BRANDT DATE OF : 1940 AGE: [age] years old Referring Physician: AKIKO GRIMALDO Referring Clinic: [facility] CURRENT DIAGNOSES 1. - Hypertension, benign, 401.1 2. - Atrial Fibrillation, 427.31 3. Sleep apnea, 786.09 ALLERGIES NKA MEDICATIONS (including any changes made today) 1. Krista 180 mg, 1 p.o. qPM 2. Nasonex 50 mcg/inh, 2 Sprays each nostril q.d. 3. Verapamil Hydrochloride Er 240 Mg, 1 p.o. q.d. 4. Aspirin 81 mg, 1 p.o. q.d. 5. Ocuvite Antioxidant Multiple Vitamins and Minerals, 1 p.o. q.d. CHIEF COMPLAINTS Annual HISTORY OF PRESENT ILLNESS I had the pleasure of seeing your patient, Magdaleno Brandt, at [facility] on February 08, 2005. As you may recall, I am following this patient specifically for paroxysmal atrial fibrillation.He also has a history of sleep apnea and has not tolerated a mandibular device or CPAP in the past.It is possible that his paroxysmal atrial fibrillation is secondary to hypertension and/or sleep apnea. He continues to gain weight, another 10 pounds since I last saw him. His blood pressure has been well controlled he tells me. He denies chest pain, PND, orthopnea, or peripheral edema. He is not exercising to any major extent. He does do some walking two to three times per week for 30-40 minutes. He has had an upper respiratory cough and infection for the last two weeks. He continues to eat alow fat diet. He denies syncope or presyncope. On physical exam, current blood pressure is 135/70, pulse is 76 and regular, weight 212 pounds compared to 199 pounds in March of last year. Chest is clear. Cardiac exam: Regular rate and rhythm without gallop or murmur. Abdomen and extremities are benign. PAST HISTORY Past Medical Illnesses: sleep apnea, allergic rhinitis, macular degeneration Past Cardiac Illnesses: atrial fibrillation-paroxysmal Surgical Procedures: cataract extraction OU, bilat. detached retina repairs, cervical microdiscectomy Cardiology Procedures-Invasive: cardioversion for afib 1998 Cardiology Procedures-Noninvasive: IAIN 1998, echocardiogram 1998, stress echocardiogram 1998, holter [...] with in own home; Place of - [place]; __ REVIEW OF SYSTEMS GENERAL weight gain of approximately 15 lbs INTEGUMENTARY denies any change in hair or nails, rashes, or skin lesions. EYES wears eye glasses/contact lenses EARS, NOSE, THROAT, MOUTH denies any hearing loss, epistaxis, hoarseness or difficulty speaking. RESPIRATORY productive cough, sleep apnea CARDIOVASCULAR light headedness ABDOMINAL denies ulcer disease, hematochezia or melena. MUSCULOSKELETAL denies any history of venous insufficiency, arthritic symptoms or back problems. NEUROLOGICAL denies any history of recurrent strokes, TIA, or seizure disorder. PSYCHIATRIC denies any history of depression, substance abuse or change in cognitive functions. ENDOCRINE weight gain HEMATOLOGICAL/IMMUNOLOGIC seasonal allergies PHYSICAL EXAMINATION VITAL SIGNS: Blood Pressure: 135/70 Sitting, Right arm, large cuff Pulse- 76.00/min. Weight- 212.00 lbs. Height- 74.00 Temperature- .00 CONSTITUTIONAL cooperative, [...] time, person and place. MEDICATIONS UPDATED TODAY: Verapamil Hydrochloride Er 240 Mg, 1 p.o. q.d., #30 IMPRESSIONS/PLAN Magdaleno Brandt is a delightful 65-year-old male with a history of paroxysmal atrial fibrillation. This may be related to hypertension and/or sleep apnea. His blood pressure is reasonably well controlled at this time on the verapamil alone. We will not make any major medical changes. I again spent half of my 25 minute appointment with him discussing exercise, weight loss, and sleep apnea. I have tried to director of counseling him on effective ways to lose weight. He does not believe the sleep apnea is a particular problem at this time. For now I will plan on seeing this patient again in one year. I do not believe a stress test is necessary at this time. Tulio Be M.D. documented in this encounter Plan of Treatment Not on file documented as of this encounter Visit Diagnoses Not on filedocumented in this encounter Care Teams Bookkeeper Assistant Relationship Specialty Start Date End Date Baltazar Linares MD [address] [place] [address] PCP - General 05/24/00 09/15/14 Esteban Viramontes DO [address] [place] [address] PCP - General Family Practice 09/16/14 09/18/18 No Ref-Primary, Physician PCP - General 09/21/18 09/25/18 Priyanka Johnson MD [address] [place], [place] [address] PCP - General Internal Medicine 09/26/18 Priyanka Johnson MD [address] [place] [address] Assigned PCP 09/06/18 10/05/19 Senthil Newton MD [address] [place], [place] [address] Assigned PCP 10/06/19 10/03/20 Aroldo Dee MD [address] [place] [address] Assigned Heart and Vascular Provider 02/21/20 04/08/22 Priyanka Johnson MD [address] [place] [address] Assigned PCP 10/04/20 Javad Page MD [address] [place] [address] Clinical Cardiac Electrophysiology 01/29/21 Javad Page MD Assigned Heart and Vascular Provider 04/09/22 05/27/22 Aroldo Dee MD [address] [place] [address] Assigned Heart and Vascular Provider 05/28/22 06/24/22 Javad Page MD Assigned Heart and Vascular Provider 06/25/22 08/05/22 Hanna Dahl NP [address] [place] [address] Assigned Heart and Vascular Provider 12/21/24 01/20/25 Hanna Dahl NP [address] [place], [place] [address] Assigned Heart and Vascular Surgical Provider 01/21/25 documented as of this encounter
--- OUTSIDE RECORDS SUMMARY | 2025-02-10 14:59 | XMS_ITS | Encounter Summary ---
Author Organization [facility] Address [address] [place] [address] Care Team Providers Care Road Train Driver Name Role Phone Baltazar Linares MD Primary Care Provider Esteban Viramontes DO Primary Care Provider No Ref-Primary, Physician Primary Care Provider Priyanka Johnson MD Primary Care Provider [phone] Priyanka Johnson MD Unavailable [phone] Senthil Newton MD Unavailable Aroldo Dee MD Unavailable + [phone] Priyanka Johnson MD Unavailable [phone] Javad Page MD Unavailable UnavailJavad Dunham MD Unavailable Unavaila Aroldo Castelan MD Unavailable + [phone] Javad Page MD Unavailable Unavaila Hanna Pemberton [employer] Unavailable [phone] Hanna Dahl [employer] Unavailable [phone] Encounter Details Date Type Department Care Team (Late st Contact Info) Description 12/01/2005 Office Visit-[facility] [address] [place] [address] Unknown, Doctor, Social History Tobacco Use Types Packs/Day Years Used Date Smoking Tobacco: Former Comments:quit 1970 Alcohol Use Standard Drinks/Week Comments Yes 0 (1 standard drink = 0.6 oz pur e alcohol) couple beers a day Sex and Gender Information Value Date Recorded Sex Assigned at Male 12/18/2019 5:08 PM CDT 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 DATE: 12/01/2005 MAGDALENO BRANDT DATE OF : 1940 AGE: [age] years old Referring Physician: AKIKO GRIMALDO Referring Clinic: [facility] CURRENT DIAGNOSES 1. - Hypertension, benign, 401.1 2. - Atrial Fibrillation, 427.31 3. Sleep apnea, 786.09 ALLERGIES NKA MEDICATIONS (including any changes made today) 1. Krista 180 mg, 1 p.o. qPM 2. Nasonex 50 mcg/inh, 2 Sprays each nostril q.d. 3. Verapamil Hydrochloride Er 240 Mg, 1 p.o. q.d. 4. Ocuvite Antioxidant Multiple Vitamins and Minerals, 1 p.o. q.d. CHIEF COMPLAINTS Annual HISTORY OF PRESENT ILLNESS I again had the pleasure of seeing your patient, Magdaleno Brandt, at [facility] for evaluation of paroxysmal atrial fibrillation and hypertension. He also has a history of sleep apnea but has not tolerated a mandibular device or CPAP in the past. His weight has gone up further, and he doesadmit to increased carbohydrate intake. He denies chest pain, PND, orthopnea, or peripheral edema. He does play golf three times per week, and mows the lawn two days per week, but otherwise does not exercise. He developed mastoiditis last March and was treated for this with good response. More recently he was on a vacation in [place] with his in September and developed bilateral knee swelling, making it difficult to arise from the car or even from a seated position. This is being evaluated through your office. He also has some right shoulder pain which has definitely been diagnosed as arthritis. The patient denies syncope, presyncope, or palpitations. He has not been hospitalized since I saw him last. He has had nonsteroidal anti-inflammatory agents added which have helped his knee pain somewhat. On physical exam, current blood pressure is 140/84, and on a second trial was 142/80. Pulse is 72 and regular. Weight has ballooned to 218 pounds, compared to 194 pounds in the last two years. Chest is clear. Cardiac exam: Regular rate and rhythm without gallop or murmur. Abdomen and extremities are benign with trace bipedal edema. PAST HISTORY Past Medical Illnesses: sleep apnea, allergic rhinitis, macular degeneration Past Cardiac Illnesses: atrial fibrillation-paroxysmal Infectious Diseases: [...] allergies PHYSICAL EXAMINATION VITAL SIGNS: Blood Pressure: 140/84 Sitting, Right arm, large cuff 142/80 Sitting, Right arm, large cuff Pulse- 68.00/min. Weight- 218.00 lbs. Height- 74.00 Temperature- .00 CONSTITUTIONAL cooperative, [...] & BACK no deformities, clubbing, cyanosis, erythema observed. Trace bipedal edema. There are no spinal abnormalities noted. Normal muscle strength and tone. NEUROLOGICAL no gross motor deficits noted, affect appropriate, oriented to time, person and place. MEDICATIONS UPDATED TODAY: IMPRESSIONS/PLAN 1. Magdaleno Brandt is a delightful 65-year-old male with a history of paroxysmal atrial fibrillation. This could be related to hypertension and diastolic dysfunction or sleep apnea. His blood pressure is borderline at this time on verapamil alone. I have asked this patient to attempt to lose 10 poundsand to begin exercising if his knees will allow. He will followup in your office for blood pressurerecheck. 2. I have asked him to take his pulse at least one minute every day to be sure that he is not going into atrial fibrillation for 24-48 hours. He at times has not been aware of the atrial fibrillation. He will call my office should this recur. 3. Sleep apnea. At present this is not being marcus ated and places him at some risk for increasing pulmonary pressures and eventually atrial arrhythmias and systemic hypertension. I have discussed this with the patient but he is unwilling to further evaluate treatment options for this. Thank you very much for allowing me to help care for this patient. I will plan on seeing him again in one year, or earlier on a p.r.n. basis as you direct. I would be happy to see him on a p.r.n. basis for atrial fibrillation. Should you have any questions regarding his care, please feel free to contact me at any time in the future. TODAYS ORDERS 1. Return Visit 1 year Tulio Be M.D. documented in this encounter Plan of Treatment Not on file documented as of this encounter Visit Diagnoses Not on filedocumented in this encounter Care Teams Road Train Driver Relationship Specialty Start Date End Date Baltazar Linares MD [facility] [address] [facility] [place] [address] PCP - General 05/24/00 09/15/14 Esteban Viramontes DO [facility] [address] [facility] [place] [address] PCP - General Family Practice 09/16/14 09/18/18 No Ref-Primary, Physician PCP - General 09/21/18 09/25/18 Priyanka Johnson MD [address] [place] [address] PCP - General Internal Medicine 09/26/18 Priyanka Johnson MD [address] [place] [address] Assigned PCP 09/06/18 10/05/19 Senthil Newton MD [address] [place] [address] Assigned PCP 10/06/19 10/03/20 Aroldo Dee MD [address] [place] [address] Assigned Heart and Vascular Provider 02/21/20 04/08/22 Priyanka Johnson MD [address] [place] [address] Assigned PCP 10/04/20 Javad Page MD [address] [place] [address] Clinical Cardiac Electrophysiology 01/29/21 Javad Page MD Assigned Heart and Vascular Provider 04/09/22 05/27/22 Aroldo Dee MD [address] [place] [address] Assigned Heart and Vascular Provider 05/28/22 06/24/22 Javad Page MD Assigned Heart and Vascular Provider 06/25/22 08/05/22 Hanna Dahl NP [address] [place] [address] Assigned Heart and Vascular Provider 12/21/24 01/20/25 Hanna Dahl NP [address] [place] [address] Assigned Heart and Vascular Surgical Provider 01/21/25 documented as of this encounter
--- OUTSIDE RECORDS SUMMARY | 2025-02-10 14:59 | XMS_ITS | Clinical Summary ---
Author Organization [facility] Address [address] [place] [address] Care Team Providers Care Photographic Processor Name Role Phone Priyanka Johnson MD Primary Care Provider [phone] Priyanka Johnson MD Unavailable [phone] Javad Page MD Unavailable Unavaila Hanna Pemberton NP Unavailable [phone] Allergies No known active allergies Medications glucosamine-chond roitin 500-400 MG CAPS Take 1 capsule by mouth daily Active multivitamin w/minerals (THERA-VIT-M) tablet Take 1 tablet by mouth daily Active apixaban ANTICOAGULANT (ELIQUIS) 5 MG tablet Take 5 mg by mouth 2 times daily Active S-Adenosylmethion ine (SVEN-E) 400 MG TABS Take 400 mg by mouth daily Active atenolol (TENORMIN) 50 MG tablet 4 Active albuterol (PROAIR HFA/PROVENTIL HFA/VENTOLIN HFA) 108 (90 Base) MCG/ACT inhalerIndication s:Pneumonia of left lower lobe due to infectious organism Inhale 1-2 puffs into the lungs every 6 hours for 5 days. 8.5 g 5 Active Additional Information Patient not taking.Reported on 12/08/2024 loperamide (IMODIUM A-D) 2 MG tabletIndications :Diarrhea, unspecified type Take 1 tablet (2 mg) by mouth 4 times daily as needed for diarrhea. 20 tablet 5 Active Additional Information Patient not taking.Reported on 12/08/2024 benzonatate (TESSALON) 200 MG capsuleIndication s:Pneumonia of left lower lobe due to infectious organism Take 1 capsule (200 mg) by mouth 3 times daily as needed for cough. 30 capsule Active Additional Information Patient not taking.Reported on 12/08/2024 Active Problems Problem Noted Date Diagnosed Date Skin ulcer of forearm with fat layer exposed 07/2024 Ulcer of knee, left, with fat layer exposed 07/2024 Ulcer of knee, right, with fat layer exposed 07/2024 Muscle weakness (generalized) 09/21/2018 IMPOTENCE 10/14/2003 Allergic rhinitis 02/06/2003 Overview (01/29/2015): Problem list name updated by automated process. Provider to review TINGLING IN FINGERS 02/06/2003 Other viral warts 12/17/2002 Overview (03/02/2015): Diagnosis updated by automated process. Provider to review and confirm. PAROXYSMAL ATRIAL FIBRILLATION 06/25/2002 HYPERTENSION 06/25/2002 Sleep apnea 06/25/2002 Overview (01/29/2015): Problem list name updated by automated process. 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 Provider to review Myalgia and myositis 06/25/2002 Overview (01/29/2015): Problem list name updated by automated process. Provider to review Nocturia 06/25/2002 Abdominal pain, right upper quadrant 06/25/2002 Encounters Date Type Department Care Team Description 12/26/2024 2:00 PM CDT Office Visit [facility] [place] [id number] [place] [phone] Hanna Dahl, GREETING CARD MAKER Multiple skin tears (Primary Dx) 12/26/2024 Travel 12/26/2024 Telephone [facility] [place] [id number] [place] [address] Hanna Dahl NP 12/23/2024 Telephone [facility] [place] [address] [place] [phone] Hanna Dahl, KYLIE WOUND CARE 12/12/2024 Telephone [facility] [place] [address] [place] [address] Hanna Dahl, KYLIE 12/08/2024 12:55 PM CDT Ancillary Procedure [facility] [id number] [place] [phone] Maxine Kenyon, JOHN POURED WALL FOREMAN 12/08/2024 12:20 PM CDT Office Visit [facility] [address] [place] [address] Maxine Kenyon, DIRECTOR OF COMMUNITY CENTER POURED WALL FOREMAN Fall, subsequent encounter (Primary Dx); Pain of right thigh 12/08/2024 Results Follow-Up [facility] [address] [address] [place] [address] Maxine Kenyon, JOHN POURED WALL FOREMAN 12/08/2024 Travel 12/04/2024 Telephone [facility] [place] [address] [place] [address] Hanna Dahl NP WOUND CARE 12/02/2024 9:10 AM CDT Office Visit [facility] [place] [address] [place] [address] Hanna Dahl, KYLIE Skin ulcer of forearm with fat layer exposed (H) (Primary Dx); Multiple skin tears; Ulcer of knee, left, with fat layer exposed (H); Ulcer of knee, right, with fat layer exposed (H) 12/02/2024 Travel 11/29/2024 Telephone [facility] [place] [id number] [place] [phone] Unknown 11/28/2024 5:13 PM CDT - 11/28/2024 9:34 PM CDT Emergency [facility] Emergency Dept [address] [place] [address] Jorge Martinez MD Closed head injury, initial encounter (Primary Dx); Multiple skin tears; Anticoagulated Discharge Disposition: Home or Self Care 11/28/2024 Travel from Last 3 Months Immunizations Immunization Administration Dates Next Due COVID-19 Monovalent 18+ (Moderna) 07/08/2020,01/2021 Flu 65+ (Fluad) 02/02/2019, 4,02/05/2003,2001,02/26/2001 Flu, Unspecified 01/29/2023, 9,01/30/2016,1997 [id number] Novel Flu 04/20/2009 Influenza (High Dose) Trival ent,PF (Fluzone) 02/09/2022,02/05/2021,12/29/2019,2018,01/26/2018,01/15/2018,01/31/2017,1 ,01/29/2015 Influenza (IIV3) PF 02/04/2004, 3,04/01/2002,2000,03/09/2000 Influenza Vaccine 65+ (Fluzone HD) 01/28/2023,,02/09/2019 Influenza Vaccine, 6+MO IM (QUADRIVALENT W/PRESERVATIVES) 01/15/2018,02/07/2013 PNEUMOCOCCAL 15 VALENT CONJUGATE 07/25/2022 Pneumo Conj 13-V (2010&after) 09/02/2015 Pneumococcal 23 valent 09/02/2016 RSV Vaccine (Arexvy) 01/19/2024 TD,PF 7+ (Tenivac) 06/25/2002 Td (Adult), Adsorbed 06/10/2022,06/25/2002 Zoster recombinant adjuvante d (Shingrix) 09/19/2019,05/29/2019 Family History Medical History Relation Comments Cerebrovascular Disease Father Relation Status Comments Father Mother (Age 84) ? [place] Social History Tobacco Use Types Packs/Day Years Used Date Smoking Tobacco: Former Cigarettes Smokeless Tobacco: Never Tobacco Cessation:Counseling Given: Not Answered Comments:quit 1971 Alcohol Use Standard Drinks/Week Comments Yes 0 (1 standard drink = 0.6 oz pur e alcohol) 2 beers a day Social Connection and Isolation Panel [NHANES] A nswer Date Recorded Frequency of Communication with Friends and Fami ly Not on file 11/02/2023 How often do you get together with friends or re latives? 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 Gender Identity Male 12/20/2020 9:26 AM CDT Sexual Orientation Straight 12/18/2019 5: 08 PM CDT Occupation Industry Job Start Date Job End Date retired Not on file Not on file Not on file Last Filed Vital Signs Vital Sign Reading Time Taken Comments Blood Pressure 116/79 12/26/2024 2:15 PM CDT Pulse 102 12/26/2024 2:15 PM CDT Temperature 36.2 C (97.2 F) 12/26/2024 2:15 PM CDT Respiratory Rate 18 12/08/2024 12:22 PM CDT Oxygen Saturation 97% 12/08/2024 12:22 PM CDT Inhaled Oxygen Concentration - - Weight 88.5 kg (195 lb) 12/08/2024 12:22 PM CDT Height 185.4 cm (6' 1) 12/08/2024 12:22 PM CDT Body Mass Index 25.73 12/08/2024 12:22 PM CDT Plan of Treatment Health Maintenance Due Date Last Done Comments DTAP/TDAP/TD VACCINE (1 - Tdap) 06/11/2022 06/10/2022, 06/25/2002, 06/25/2002 ANNUAL REVIEW OF HM ORDERS 11/02/2024 11/03/2023 COVID-19 VACCINE ( season) 2024 01/19/2024, 01/28/2023, 02/04/2022, Additional history exists INFLUENZA VACCINE (#1) 2024 , 01/28/2023, 02/09/2022, Additional history exists MEDICARE ANNUAL WELLNESS VISIT 07/31/2025 07/31/2024, 11/03/2023, 07/26/2023, Additional history exists FALL RISK ASSESSMENT 10/15/2025 10/15/2024, 11/03/2023, 02/22/2021, Additional history exists BMP 11/28/2025 11/28/2024, 09/29, 10/10/2024, Additional history exists ADVANCE CARE PLANNING 11/02/2028 11/03/2023 ZOSTER VACCINE Completed 09/19/2019, 05/29/2019 PNEUMOCOCCAL VACCINE 50+ YEARS Completed 07/25/2022, 09/02/2016, 09/02/2015 RSV VACCINE Completed 01/19/2024 PHQ-2 (once per calendar year) Completed 10/15/2024, 11/03/2023, 02/22/2021, Additional history exists HPV VACCINE (No Doses Required) Completed MENINGITIS VACCINE Aged Out No longer eligible based on patient's age to complete this topic Medical Devices Explanted Type Area Research And Development Chemist Device Identifier Shelf Expiration Date Model / Serial / Lot Catheter- [id number] Implanted:12/24 by Aroldo Dee MD (Quantity not on file) Explanted:12/24 by Aroldo Dee MD (Quantity not on file) Catheter [employer] [id number] 01/28/2021 / / [id number] Procedures Procedure Name Priority Date/Time Associated Diagnosis Comments XR FEMUR RIGHT 2 VIEWS STAT 12/08/2024 1:04 PM CDT Fall, subsequent encounter Pain of right thigh CBC WITH PLATELETS AND DIFFERENTIAL (LIMITED OCCURRENCES) STAT 11/28/2024 6:05 PM CDT CBC WITH PLATELETS AND DIFFERENTIAL STAT 11/28/2024 6:05 PM CDT BASIC METABOLIC PANEL (LIMITED OCCURRENCES) STAT 11/28/2024 6:05 PM CDT XR FOREARM LEFT 2 VIEWS STAT 11/28/2024 5:52 PM CDT XR FOREARM RIGHT 2 VIEWS STAT 11/28/2024 5:[address] HEAD W/O CONTRAST STAT 11/28/2024 5:39 PM CDT EKG 12-LEAD, TRACING ONLY STAT 11/28/2024 5:24 PM CDT from Last 3 Months Results * XR Femur Right 2 Views (12/08/2024 1:04 PM CDT) Anatomical Region Laterality Modality Hip, Thigh, Knee Right Computed Radiog quan 12/08/2024 1:04 PM CDT Impressions 12/08/2024 1:06 PM CDT IMPRESSION: Negative for fracture or joint malalignment. Maintained joint spacing in the right hip. 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 No significant knee joint effusion. Narrative 12/08/2024 1:06 PM CDT EXAM: XR FEMUR RIGHT 2 VIEWS LOCATION: [facility] DATE: 12/08/2024 INDICATION: Right thigh pain after a fall. COMPARISON: None. Procedure Note Rashad Jalloh MD - 12/08/2024 EXAM: XR FEMUR RIGHT 2 VIEWS LOCATION: [facility] DATE: 12/08/2024 INDICATION: Right thigh pain after a fall. COMPARISON: None. IMPRESSION: Negative for fracture or joint malalignment. Maintained jointspacing in the right hip. Moderate degenerative arthritic joint spacenarrowing and spurring in the right knee. No significant knee jointeffusion. Maxine Kenyon APRN POURED WALL FOREMAN IMG DIAGNOSTIC IMAGING ORDERABLES Final Result * (ABNORMAL) CBC with platelets and differential (11/28/2024 6:05 PM CDT) [facility] WBC Count 8.7 4.0 - 11.0 10e3/uL 11/28/2024 6:36 PM CDT [facility] RBC Count 5.32 4.40 - 5.90 10e6/uL 11/28/2024 6:36 PM CDT [facility] Hemoglobin 15.1 13.3 - 17.7 g/dL 11/28/2024 6:36 PM CDT [facility] Hematocrit 47.2 40.0 - 53.0 % 11/28/2024 6:36 PM CDT [facility] MCV 89 78 - 100 fL 11/28/2024 6:36 PM CDT [facility] MCH 28.4 26.5 - 33.0 pg 11/28/2024 6:36 PM CDT [facility] MCHC 32.0 31.5 - 36.5 g/dL 11/28/2024 6:36 PM CDT [facility] RDW 14.9 10.0 - 15.0 % 11/28/2024 6:36 PM CDT [facility] Platelet Count 132(L) 150 - 450 10e3/uL 11/28/2024 6:36 PM CDT [facility] % Neutrophils 73 % 11/28/2024 6:36 PM CDT [facility] % Lymphocytes 14 % 11/28/2024 6:36 PM CDT [facility] % Monocytes 9 % 11/28/2024 6:36 PM CDT [facility] % Eosinophils 3 % 11/28/2024 6:36 PM CDT [facility] % Basophils 1 % 11/28/2024 6:36 PM CDT [facility] % Immature Granulocytes 1 % 11/28/2024 6:36 PM CDT [facility] NRBCs per 100 WBC 0 <1 /100 025 6:36 PM CDT [facility] Absolute Neutrophils 6.4 1.6 - 8.3 10e3/uL 11/28/2024 6:36 PM CDT [facility] Absolute Lymphocytes 1.2 0.8 - 5.3 10e3/uL 11/28/2024 6:36 PM CDT [facility] Absolute Monocytes 0.8 0.0 - 1.3 10e3/uL 11/28/2024 6:36 PM CDT [facility] Absolute Eosinophils 0.3 0.0 - 0.7 10e3/uL 11/28/2024 6:36 PM CDT [facility] Absolute Basophils 0.1 0.0 - 0.2 10e3/uL 11/28/2024 6:36 PM CDT [facility] Absolute Immature Granulocytes 0.0 <=0.4 10e3/uL 11/28/2024 6:36 PM CDT [facility] Absolute NRBCs 0.0 10e3/uL 11/28/2024 6:36 PM CDT [facility] Blood STRUCTURE OF LEFT HAND / Unknown Venipuncture / Unknown 11/28/2024 6:05 PM CDT 11/28/2024 6:08 PM CDT Jroge Martinez MD LAB - BLOOD ORDERABLES Fi nal Result LABORATORY [facility] [address] (1st floor, no room number) [place] [address] * (ABNORMAL) Basic Metabolic Panel (Limited Occurrences) (11/28/2024 6:05 PM CDT) Sodium 137 135 - 145 mmol/L 11/28/2024 7:02 PM CDT LABORATORY Potassium 4.0 3.4 - 5.3 mmol/L 11/28/2024 7:02 PM CDT LABORATORY Chloride 101 98 - 107 mmol/L 11/28/2024 7:02 PM CDT LABORATORY Carbon Dioxide (CO2) 23 22 - 29 mmol/L 11/28/2024 7:02 PM CDT LABORATORY Anion Gap 13 7 - 15 mmol/L 11/28/2024 7:02 PM CDT LABORATORY Urea Nitrogen 12.7 8.0 - 23.0 mg/dL 11/28/2024 7:02 PM CDT LABORATORY Creatinine 1.00 0.67 - 1.17 mg/dL 11/28/2024 7:02 PM CDT LABORATORY GFR Estimate 75 >60 mL/min/1.7 3m2 11/28/2024 7:02 PM CDT LABORATORY Comment:eGFR calculated usin 2020 CKD-EPI equation. Calcium 8.8 8.8 - 10.4 mg/dL 11/28/2024 7:02 PM CDT LABORATORY Glucose 107(H) 70 - 99 mg/dL 11/28/2024 7:02 PM CDT LABORATORY Blood STRUCTURE OF LEFT HAND / Unknown Venipuncture / Unknown 11/28/2024 6:05 PM CDT 11/28/2024 6:08 PM CDT us Jorge Martinez MD LAB - BLOOD ORDERABLES Fi nal Result LABORATORY [facility] [address] [facility] Lab (1st floor, no room number) [place] [address] * Radius/Ulna XR, PA &LAT, left (11/28/2024 5:52 PM CDT) Anatomical Region Laterality Modality Forearm, Left Forearm Left Digital Ra diography 11/28/2024 5:52 PM CDT Impressions 11/28/2024 5:57 PM CDT IMPRESSION: Within normal limits. No fracture. Narrative 11/28/2024 5:57 PM CDT EXAM: XR FOREARM LEFT 2 VIEWS LOCATION: [facility] DATE: 11/28/2024 INDICATION: left forearm pain COMPARISON: None. Procedure Note Cesar Kern MD - 11/28/2024 EXAM: XR FOREARM LEFT 2 VIEWS LOCATION: [facility] DATE: 11/28/2024 INDICATION: left forearm pain COMPARISON: None. IMPRESSION: Within normal limits. No fracture. us Jorge Martinez MD IMG DIAGNOSTIC IMAGING OR DERABLES Final Result * Radius/Ulna XR, PA & LAT, right (11/28/2024 5:47 PM CDT) Anatomical Region Laterality Modality Forearm, Right Forearm Right Digital R adiography 11/28/2024 5:47 PM CDT Impressions 11/28/2024 5:54 PM CDT IMPRESSION: Within normal limits. No fracture. Narrative 11/28/2024 5:54 PM CDT EXAM: XR FOREARM RIGHT 2 VIEWS LOCATION: [facility] DATE: 11/28/2024 INDICATION: fall forearm pain COMPARISON: None. Procedure Note Cesar Kern MD - 11/28/2024 EXAM: XR FOREARM RIGHT 2 VIEWS LOCATION: [facility] DATE: 11/28/2024 INDICATION: fall forearm pain COMPARISON: None. IMPRESSION: Within normal limits. No fracture. Jorge Martinez MD IMG DIAGNOSTIC IMAGING OR DERABLES Final Result * CT Head w/o Contrast (11/28/2024 5:39 PM CDT) Anatomical Region Laterality Modality Head, SUBRAD CT NEURO, SUBRA D CT NEURO, UMP CT NEURO, RAD CT Computed Tomography 11/28/2024 5:39 PM CDT Impressions 11/28/2024 6:22 PM CDT IMPRESSION: 1. No intracranial hemorrhage, mass lesions, hydrocephalus or CT evidence for an acute infarct. 2. Mild diffuse cerebral parenchymal volume loss. Presumed chronic hypertensive/microvascular ischemic white matter changes. Narrative 11/28/2024 6:22 PM CDT EXAM: CT HEAD W/O CONTRAST LOCATION: [facility] DATE: 11/28/2024 INDICATION: head injury, anticoagulated COMPARISON: None. TECHNIQUE: Routine CT Head without IV contrast. Multiplanar reformats. Dose reduction techniques were used. FINDINGS: INTRACRANIAL CONTENTS: No intracranial hemorrhage. Mild diffuse cerebral parenchymal volume loss. No midline shift. The basilar cisterns are patent. No cerebellar tonsillar ectopia. Mild periventricular and scattered foci of deep white matter hypodensities involving both cerebral hemispheres. No CT evidence for an acute infarct. VISUALIZED ORBITS/SINUSES/MASTOIDS: No intraorbital abnormality. No paranasal sinus mucosal disease. No middle ear or mastoid effusion. BONES/SOFT TISSUES: No acute abnormality. Procedure Note Peryc Felix MD - 11/28/2024 EXAM: CT HEAD W/O CONTRAST LOCATION: [facility] DATE: 11/28/2024 INDICATION: head injury, anticoagulated COMPARISON: None. TECHNIQUE: Routine CT Head without IV contrast. Multiplanar reformats.Dose reduction techniques were used. FINDINGS: INTRACRANIAL CONTENTS: No intracranial hemorrhage. Mild diffuse cerebralparenchymal volume loss. No midline shift. The basilar cisterns arepatent. No cerebellar tonsillar ectopia. Mild periventricular andscattered foci of deep white matter hypodensities involving both cerebral hemispheres. No CT evidence for anacute infarct. VISUALIZED ORBITS/SINUSES/MASTOIDS: No intraorbital abnormality. Noparanasal sinus mucosal disease. No middle ear or mastoid effusion. BONES/SOFT TISSUES: No acute abnormality. IMPRESSION: 1. No intracranial hemorrhage, mass lesions, hydrocephalus or CT evidencefor an acute infarct. 2. Mild diffuse cerebral parenchymal volume loss. Presumed chronichypertensive/microvascular ischemic white matter changes. us Jorge Martinez MD IMG CT ORDERABLES Final R esult * EKG 12 lead (11/28/2024 5:24 PM CDT) Systolic Blood Pressure mmHg RADIOLOGY RESULTS Diastolic Blood Pressure mmHg RADIOLOGY RESULTS Ventricular Rate 108 BPM RAD IOLOGY RESULTS Atrial Rate 91 BPM RADIOLOG Y RESULTS CA Interval ms RADIOLOG Y RESULTS QRS Duration 88 ms RADIOLO GY RESULTS QT 356 ms RADIOLOGY RESULTS QTc 477 ms RADIOLOGY RESULTS P Joiner degrees RADIOLOGY RESULTS R AXIS 54 degrees RADIOLOGY RESULTS T Joiner 39 degrees RADIOLOGY RESULTS Interpretation ECG Atrial fibrillation with rapid ventricular response Anterior infarct , age undetermined Abnormal ECG When compared with ECG of 01-Feb-2021 10:18, Atrial fibrillation has replaced Sinus rhythm Vent. rate has increased by 42 bpm Nonspecific T wave abnormality now evident in Lateral leads QT has lengthened Unconfirmed report - interpretation of this ECG is computer generated - see medical record for final interpretation Confirmed by - EMERGENCY ROOM, PHYSICIAN ([id number]), marketing editor Yosvany Hartman ([id number]) on 11/29/2024 9:03:17 AM RADIOLOGY RESULTS 11/28/2024 5:24 PM CDT 11/29/2024 9:03 AM CDT us Jorge Martinez MD ECG ORDERABLES Edited Re sult - Final RADIOLOGY RESULTS from Last 3 Months Insurance MEDICARE [facility] OUT OF STATE MEDICARE BCBS OUT OF STATE [place] [id number] Advance Directives For more information, please contact: [phone] * Full Code (Latest Code Status on File) Date Activated Date Inactivated Comments 02/02/2015 11:51 AM 12/29/2022 11:19 AM Care Teams Photographic Processor Relationship Specialty Start Date End Date Priyanka Johnson MD [address] [place] [address] PCP - General Internal Medicine 09/26/18 Priyanka Johnson MD [address] [place] [address] Assigned PCP 10/04/20 Javad Page MD [address] [place] [address] Clinical Cardiac Electrophysiology 01/29/21 Hanna Dahl GREETING CARD MAKER [address] [place], [place] [address] Assigned Heart and Vascular Surgical Provider 01/21/25
--- OUTSIDE RECORDS SUMMARY | 2025-02-10 14:59 | XMS_ITS | Encounter Summary ---
Author Organization [facility] Address [address] [place] [address]. [place] [address] Care Team Providers Care Commission Auditor Name Role Phone Priyanka Johnson MD Primary Care Provider [phone] Priyanka Johnson MD Unavailable [phone] Javad Page MD Unavailable Unavaila ble Hanna Dahl NATURAL SCIENCE CURATOR Unavailable [phone] Hanna Dahl NATURAL SCIENCE CURATOR Unavailable [phone] Encounter Details Date Type Department Care Team (Late st Contact Info) Description 12/26/2024 Telephone [facility] [address] [place] [address] Hanna Dahl, NATURAL SCIENCE CURATOR [address] [place] [address] Social History Tobacco Use Types Packs/Day Years Used Date Smoking Tobacco: Former Cigarettes Smokeless Tobacco: Never Comments:quit 1970 Alcohol Use Standard Drinks/Week Comments Yes 0 (1 standard drink = 0.6 oz pur e alcohol) 2 beers a day Social Connection and Isolation Panel [NHANES] A nswer Date Recorded Frequency of Communication with Friends and Fami ly Not on file 11/02/2023 How often do you get together with friends or re latives? 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 Gender Identity Male 12/20/2020 9:26 AM CDT Sexual Orientation Straight 12/18/2019 5: 08 PM CDT Occupation Industry Job Start Date Job End Date retired Not on file Not on file Not on file documented as of this encounter Miscellaneous Notes * Telephone Encounter - Kendrick Campos - 12/26/2024 10:25 AM CDT [facility] Who is the name of the provider?: Nabila What is the location you see this provider at/preferred location?: [facility] [place] Person calling / Facility: Self Phone number: [phone] Nurse call back needed: NA Can we leave a detailed message on this number? YES Reason for call: Please call to schedule an appointment. Requesting an appointment sooner than the scheduled 01/17/25appointment. Has questions about how to dress the wound. Had been offered a cancellation but was out of town. Pharmacy location: NA documented in this encounter Plan of Treatment Not on file documented as of this encounter Visit Diagnoses Not on filedocumented in this encounter Care Teams Commission Auditor Relationship Specialty Start Date End Date Priyanka Johnson MD [address] [place] [address] PCP - General Internal Medicine 09/26/18 Priyanka Johnson MD [address] [place] [address] Assigned PCP 10/04/20 Javad Page MD [address] [address] Clinical Cardiac Electrophysiology 01/29/21 Hanna Dahl NATURAL SCIENCE CURATOR [address] [place] [address] Assigned Heart and Vascular Provider 12/21/24 01/20/25 Hanna Dahl NATURAL SCIENCE CURATOR [address] [place], [place] [address] Assigned Heart and Vascular Surgical Provider 01/21/25 documented as of this encounter
--- OUTSIDE RECORDS SUMMARY | 2025-02-10 15:00 | XMS_ITS | Encounter Summary ---
Author Organization [facility] Address [address] [place] [address] Care Team Providers Care Metal Wire Technician Name Role Phone Elsewhere, Pcp Primary Care Provider Unavailabl e Reason for Referral * Outpatient (Routine) - Authorized Specialty Diagnoses / Procedures Referred By Contangela t Referred To Contact Clinical Genomics Diagnoses Malignant Neoplasm Of Gastroesophageal Junction (HCC) Personal History Of Malignant Neoplasm Of Prostate Sienna Dempsey M.B.B.S. [address] [place] [address] Phone: tel: fax: [facility] Referral ID Status Reason Start Date Expiration Date V isits Requested Visits Authorized [id number] Authorized 01/21/2025 07/23/2026 1 1 Encounter Details Date Type Department Care Team (Late st Contact Info) Description 01/21/2025 Orders Only Department of Oncology in [place], [place] [address] [place] [phone] Sienna Dempsey M.B.B.S. [address] [place] [address] Malignant Neoplasm Of Gastroesophageal Junction (HCC) (Primary Dx); Personal History Of Malignant Neoplasm Of Prostate Social History Tobacco Use Types Packs/Day Years [...] for daily living? No 12/31/2024 [facility] Utilities Answer Date Recorded In the past 12 months has [facility] [employer], gas, oil, or water [employer] threatened to shut off services in your home? No 12/31/2024 Depression Answer Date Recor ded PHQ-9 Total Score (max 27) 1 01/25 Housing Stability Answer Date Recorded What is your living situation today? I have a [facility] place to live 12/31/2024 Education Answer Date Recorded What is the highest level of school you have completed or the highest degree you have received? 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 [address] [place] [address] 02/12/2025 1:30 PM CDT Appointment Department of Radiation Oncology in [address] [address] Rey Meadows M.D. [address] [place] [phone] 02/12/2025 2:00 PM CDT Appointment Department of Radiation Oncology in [address] [address] Rey Meadows M.D. [address] [place] [phone] 02/13/2025 1:15 PM CDT Appointment Department of Radiation Oncology in [address] [address] Rey Meadows M.D. [address] [place] [address] 02/14/2025 12:30 PM CDT Appointment Department of Radiation Oncology in [address] [address] Rey Meadows M.D. [address] [place] [address] 02/17/2025 1:15 PM CDT Appointment Department of Radiation Oncology in [place], [place] [address] [place] [phone] Rey Meadows M.D. [address] [place] [address] 02/18/2025 1:15 PM CDT Appointment Department of Radiation Oncology in [address] [address] Rey Meadows M.D. [address] [place] [phone] 02/19/2025 1:15 PM CDT Appointment Department of Radiation Oncology in [address] [phone] Rey Meadows M.D. [address] [place] [address] 02/19/2025 1:45 PM CDT Appointment Department of Radiation Oncology in [address] [address] Rey Meadows M.D. [address] [place] [address] 02/20/2025 1:15 PM CDT Appointment Department of Radiation Oncology in [address] [address] Rey Meadows M.D. [address] [place] [phone] 02/21/2025 12:30 PM CDT Appointment Department of Radiation Oncology in [address] [address] Rey Meadows M.D. [address] [place] [phone] 02/24/2025 12:30 PM CDT Appointment Department of Radiation Oncology in [place], [place] [address] [place] [phone] Rey Meadows M.D. [address] [place] [phone] 02/25/2025 12:30 PM CDT Appointment Department of Radiation Oncology in [place], [place] [address] [place] [address] Rey Meadows M.D. [address] [place] [phone] 02/26/2025 12:30 PM CDT Appointment Department of Radiation Oncology in [place], [place] [address] [place] [address] Rey Meadows M.D. [address] [place] [phone] 02/26/2025 1:15 PM CDT Appointment Department of Radiation Oncology in [address] [address] Rey Meadows M.D. [address] [place] [address] 02/27/2025 12:30 PM CDT Appointment Department of Radiation Oncology in [place], [place] [address] [place] [phone] Rey Meadows M.D. [address] [place] [phone] 02/28/2025 12:30 PM CDT Appointment Department of Radiation Oncology in [address] [place] [address] Rey Meadows M.D. [address] [place] [address] Scheduled Referrals Name Type Priority Associated Diagnoses Orde r Schedule Clinical Genomics - Cancer genetics consult (clinic) Outpatient Referral Routine Malignant Neoplasm Of Gastroesophageal Junction (HCC) Personal History Of Malignant Neoplasm Of Prostate Expected: 02/28/2025, Expires: 04/22/2026 documented as of this encounter Visit Diagnoses Diagnosis Malignant Neoplasm Of Gastroesophageal Junction (HCC)- Primary Personal History Of Malignant Neoplasm Of Prostate documented in this encounter Additional Health Concerns Assessment Noted Time PHQ-9 Depression Total Score: 1 01/26/20 23 2:13 PM CDT documented as of this encounter Care Teams Metal Wire Technician Relationship Specialty Start Date End Date Elsewhere, Pcp PCP - General Internal Medicine 01/30/24 documented as of this encounter
--- OUTSIDE RECORDS SUMMARY | 2025-02-10 15:00 | XMS_ITS | Encounter Summary ---
Author Organization [facility] Address [address] [place] [address]. [place] [address] Care Team Providers Care Associate Professor Of Philosophy Name Role Phone Priyanka Johnson MD Primary Care Provider [phone] Senthil Newton MD Unavailable + [phone] Aroldo Dee MD Unavailable + [phone] Priyanka Johnson MD Unavailable [phone] Javad Page MD Unavailable Unavaila Javad Monsivais MD Unavailable Unavaila Aroldo Castelan MD Unavailable + [phone] Javad Page MD Unavailable Unavaila ble Hanna Dahl RESISTOR WINDER Unavailable [phone] Hanna Dahl RESISTOR WINDER Unavailable [phone] Encounter Details Date Type Department Care Team (Late st Contact Info) Description 12/04/2019 [facility] Medical Advice [facility] [address] [place] [address] Aroldo Dee MD [address] [facility] [address] [address] Social History Tobacco Use Types Packs/Day Years Used Date Smoking Tobacco: Former Smokeless Tobacco: Never Comments:quit 1971 Alcohol Use Standard Drinks/Week Comments Yes 0 (1 standard drink = 0.6 oz pur e alcohol) 2 beers a day PHQ-2 Answer Date Recorded PHQ-2 Score 0 10/01/2019 Sex and Gender Information Value Date Recorded Sex Assigned at Male 12/18/2019 5:08 PM CDT 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 No / Unsure 11/26/2019 2:19 PM CDT documented as of this encounter Plan of Treatment Not on file documented as of this encounter Visit Diagnoses Not on filedocumented in this encounter Care Teams Associate Professor Of Philosophy Relationship Specialty Start Date End Date Priyanka Johnson MD [address] [place] [address] PCP - General Internal Medicine 09/26/18 Senthil Newton MD [address] [place] [address] Assigned PCP 10/06/19 10/03/20 Aroldo Dee MD [address] [place] [address] Assigned Heart and Vascular Provider 02/21/20 04/08/22 Priyanka Johnson MD [address] [place] [address] Assigned PCP 10/04/20 Javad Page MD [address] [place] [address] Clinical Cardiac Electrophysiology 01/29/21 Javad Page MD Assigned Heart and Vascular Provider 04/09/22 05/27/22 Aroldo Dee MD [address] [address] Assigned Heart and Vascular Provider 05/28/22 06/24/22 Javad Page MD Assigned Heart and Vascular Provider 06/25/22 08/05/22 Hanna Dahl NP [address] [place], [place] [address] Assigned Heart and Vascular Provider 12/21/24 01/20/25 Hanna Dahl NP [address] [place], [place] 979265 Assigned Heart and Vascular Surgical Provider 01/21/25 documented as of this encounter
--- OUTSIDE RECORDS SUMMARY | 2025-02-10 15:00 | XMS_ITS | Encounter Summary ---
Author Organization [facility] Address [address] [place] [address]. [place] [address] Care Team Providers Care Medical Csr Name Role Phone Priyanka Johnson MD Primary Care Provider [phone] Senthil Newton MD Unavailable + [phone] Aroldo Dee MD Unavailable + [phone] Priyanka Johnson MD Unavailable [phone] Javad Page MD Unavailable Unavaila Javad Monsivais MD Unavailable Unavaila Aroldo Castelan MD Unavailable + [phone] Javad Page MD Unavailable Unavaila ble Hanna Dahl MUSCULOSKELETAL PHYSIOTHERAPIST Unavailable [phone] Hanna Dahl MUSCULOSKELETAL PHYSIOTHERAPIST Unavailable [phone] Encounter Details Date Type Department Care Team (Late st Contact Info) Description 12/01/2019 [facility] [place] Medical Advice [facility] [address] [place] [address] Aroldo Dee MD [address] [facility] [address] [address] Social History Tobacco Use Types Packs/Day Years [...] PM CDT 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 Gender Identity Male 12/20/2020 9:26 AM CDT [...] on filedocumented in this encounter Care Teams Medical Csr Relationship Specialty Start Date End Date Priyanka Johnson MD [address] [place] [address] PCP - General Internal Medicine 09/26/18 Senthil Newton MD [address] [place] [address] Assigned PCP 10/06/19 10/03/20 Aroldo Dee MD [address] [place] [address] Assigned Heart and Vascular Provider 02/21/20 04/08/22 Priyanka Johnson MD [address] [place] [address] Assigned PCP 10/04/20 Javad Page MD [address] [place] [address] Clinical Cardiac Electrophysiology 01/29/21 Javad Page MD Assigned Heart and Vascular Provider 04/09/22 05/27/22 Aroldo Dee MD [address] [address] Assigned Heart and Vascular Provider 05/28/22 06/24/22 Javad Page MD Assigned Heart and Vascular Provider 06/25/22 08/05/22 Hanna Dahl NP [address] [place], [place] [address] Assigned Heart and Vascular Provider 12/21/24 01/20/25 Hanna Dahl NP [address] [place], [place] 4440[address] Assigned Heart and Vascular Surgical Provider 01/21/25 documented as of this encounter
--- OUTSIDE RECORDS SUMMARY | 2025-02-10 15:00 | XMS_ITS | Encounter Summary ---
Author Organization [facility] Address [address] [place] [address] Care Team Providers Care Clarifier Name Role Phone Elsewhere, Pcp Primary Care Provider Unavailabl e Encounter Details Date Type Department Care Team (Late st Contact Info) Description 01/20/2025 Clinical Communication Department of Oncology in [place], [place] [address] [place] [phone] Poly Carrillo, RSunshineNSunshine [address] [place] [phone] Social History Tobacco Use Types Packs/Day Years [...] your living situation today? I have a [facility] place to live 12/31/2024 Education Answer Date Recorded What is the highest level of school you have completed or the highest degree you have received? 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 200 [place] [address] 02/12/2025 1:30 PM CDT Appointment Department of Radiation Oncology in [place], [place] [address] [place] [address] Rey Meadows M.D. [address] [place] [phone] 02/12/2025 2:00 PM CDT Appointment Department of Radiation Oncology in [place], [place] [address] [place] [address] Rey Meadows M.D. [address] [place] [phone] 02/13/2025 1:15 PM CDT Appointment Department of Radiation Oncology in [address] [address] Rey Meadows M.D. [address] [place] [phone] 02/14/2025 12:30 PM CDT Appointment Department of Radiation Oncology in [address] [address] Rey Meadows M.D. [address] [place] [address] 02/17/2025 1:15 PM CDT Appointment Department of Radiation Oncology in [address] [address] Rey Meadows M.D. [address] [place] [phone] 02/18/2025 1:15 PM CDT Appointment Department of Radiation Oncology in [address] [address] Rey Meadows M.D. [address] [place] [address] 02/19/2025 1:15 PM CDT Appointment Department of Radiation Oncology in [address] [place] [address] Rey Meadows M.D. [address] [place] [phone] 02/19/2025 1:45 PM CDT Appointment Department of Radiation Oncology in [place], [place] [address] [place] [phone] Rey Meadows M.D. 200 [place] [address] 02/20/2025 1:15 PM CDT Appointment Department of Radiation Oncology in [place], [place] [address] [place] [address] Rey Meadows M.D. 200 [place] [address] 02/21/2025 12:30 PM CDT Appointment Department of Radiation Oncology in [place], [place] [address] [place] [address] Rey Meadows M.D. [address] [place] [phone] 02/24/2025 12:30 PM CDT Appointment Department of Radiation Oncology in [place], [place] [address] [place] [address] Rey Meadows M.D. 200 [place] [address] 02/25/2025 12:30 PM CDT Appointment Department of Radiation Oncology in [address] [address] Rey Meadows M.D. 200 [place] [address] 02/26/2025 12:30 PM CDT Appointment Department of Radiation Oncology in [place], [place] [address] [place] [address] Rey Meadows M.D. [address] [place] [phone] 02/26/2025 1:15 PM CDT Appointment Department of Radiation Oncology in [address] [address] Rey Meadows M.D. [address] [place] [phone] 02/27/2025 12:30 PM CDT Appointment Department of Radiation Oncology in [address] [address] Rey Meadows M.D. [address] [place] [phone] 02/28/2025 12:30 PM CDT Appointment Department of Radiation Oncology in [address] [address] Rey Meadows M.D. [address] [place] [phone] documented as of this encounter Visit Diagnoses Not on filedocumented in this encounter Additional Health Concerns Assessment Noted Time PHQ-9 Depression Total Score: 1 01/26/20 23 2:13 PM CDT documented as of this encounter Care Teams Clarifier Relationship Specialty Start Date End Date Elsewhere, Pcp PCP - General Internal Medicine 01/30/24 documented as of this encounter
--- OUTSIDE RECORDS SUMMARY | 2025-02-10 15:00 | XMS_ITS | Encounter Summary ---
Author Organization [facility] Address [address] [place] [address] Care Team Providers Care Belt Puncher Name Role Phone Elsewhere, Pcp Primary Care Provider Unavailabl e Encounter Details Date Type Department Care Team (Late st Contact Info) Description 01/20/2025 Orders Only Department of Oncology in [place], [place] [address] [place] [phone] Alycia Mcdowell, Pharm.D., R.Ph., [facility] [address] [place] [phone] Loss Weight Abnormal (Primary Dx); Nausea And Vomiting; Dysphagia; Personal History Of Malignant Neoplasm Of Prostate; Malignant Neoplasm Of Gastroesophageal Junction (HCC); Care Home Current Drug Therapy, Chemotherapy Social History Tobacco Use Types Packs/Day Years [...] for daily living? No 12/31/2024 [facility] Utilities Answer Date Recorded In the past 12 months has e electric, gas, oil, or water company threatened to shut off services in your home? No 12/31/2024 Depression Answer Date Recor ded PHQ-9 Total Score (max 27) 1 01/25 Housing Stability Answer Date Recorded What is your living situation today? I have a [facility] place to live 12/31/2024 Education Answer Date Recorded What is the highest level of school you have completed or the highest degree you have received? 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 [address] [place] [address] 02/12/2025 1:30 PM CDT Appointment Department of Radiation Oncology in [place], [place] [address] [place] [phone] Rey Meadows M.D. [address] [place] [phone] 02/12/2025 2:00 PM CDT Appointment Department of Radiation Oncology in [place], [place] [address] [place] [phone] Rey Meadows M.D. [address] [place] [phone] 02/13/2025 1:15 PM CDT Appointment Department of Radiation Oncology in [address] [address] Rey Meadows M.D. [address] [place] [phone] 02/14/2025 12:30 PM CDT Appointment Department of Radiation Oncology in [place], [place] [address] [place] [phone] Rey Meadows M.D. [address] [place] [address] 02/17/2025 1:15 PM CDT Appointment Department of Radiation Oncology in [place], [place] [address] [place] [phone] Rey Meadows M.D. [address] [place] [phone] 02/18/2025 1:15 PM CDT Appointment Department of Radiation Oncology in [address] [address] Rey Meadows M.D. [address] [place] [phone] 02/19/2025 1:15 PM CDT Appointment Department of Radiation Oncology in [place], [place] [address] [place] [phone] Rey Meadows M.D. [address] [place] [phone] 02/19/2025 1:45 PM CDT Appointment Department of Radiation Oncology in [address] [address] Rey Meadows M.D. [address] [place] [phone] 02/20/2025 1:15 PM CDT Appointment Department of Radiation Oncology in [address] [address] Rey Meadows M.D. 200 [place] [address] 02/21/2025 12:30 PM CDT Appointment Department of Radiation Oncology in [address] [address] Rey Meadows M.D. [address] [place] [phone] 02/24/2025 12:30 PM CDT Appointment Department of Radiation Oncology in [address] [address] Rey Meadows M.D. [address] [place] [phone] 02/25/2025 12:30 PM CDT Appointment Department of Radiation Oncology in [address] [address] Rey Meadows M.D. [address] [place] [phone] 02/26/2025 12:30 PM CDT Appointment Department of Radiation Oncology in [place], [place] [address] [place] [address] Rey Meadows M.D. [address] [place] [phone] 02/26/2025 1:15 PM CDT Appointment Department of Radiation Oncology in [address] [address] Rey Meadows M.D. [address] [place] [phone] 02/27/2025 12:30 PM CDT Appointment Department of Radiation Oncology in [address] [address] Rey Meadows M.D. [address] [place] [phone] 02/28/2025 12:30 PM CDT Appointment Department of Radiation Oncology in [address] [address] Rey Meadows M.D. [address] [place] [phone] documented as of this encounter Visit Diagnoses Diagnosis Loss Weight Abnormal- Primary Nausea And Vomiting Dysphagia Personal History Of Malignant Neoplasm Of Prostate Malignant Neoplasm Of Gastroesophageal Junction (HCC) Automation Manager Current Drug Therapy, Chemotherapy documented in this encounter Additional Health Concerns Assessment Noted Time PHQ-9 Depression Total Score: 1 01/26/20 23 2:13 PM CDT documented as of this encounter Care Teams Belt Puncher Relationship Specialty Start Date End Date Elsewhere, Pcp PCP - General Internal Medicine 10/1/24 documented as of this encounter
--- OUTSIDE RECORDS SUMMARY | 2025-02-10 15:00 | XMS_ITS | Encounter Summary ---
Author Organization [facility] Address [address] [place] [address] Care Team Providers Care Whipper Name Role Phone Elsewhere, Pcp Primary Care Provider Unavailabl e Encounter Details Date Type Department Care Team (Late st Contact Info) Description 01/21/2025 Orders Only Department of Oncology in [place], [place] [address] [place] [phone] Sienna Dempsey M.B.B.S. [address] [place] [address] Social History Tobacco Use Types Packs/Day Years [...] things needed for daily living? No 12/31/2024 [facility] Utilities Answer Date Recorded In the past 12 months has th e electric, gas, oil, or water company threatened to shut off services in your home? No 12/31/2024 Depression Answer Date Recor ded PHQ-9 Total Score (max 27) 1 01/25 Housing Stability Answer Date Recorded What is your living situation today? [facility] 12/31/2024 Education Answer Date Recorded What is the highest level of school you have completed or the highest degree you have received? 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 [address] [place] [address] 02/12/2025 1:30 PM CDT Appointment Department of Radiation Oncology in [place], [place] [address] [place] [phone] Rey Meadows M.D. [address] [place] [phone] 02/12/2025 2:00 PM CDT Appointment Department of Radiation Oncology in [address] [phone] Rey Meadows M.D. [address] [place] [phone] 02/13/2025 1:15 PM CDT Appointment Department of Radiation Oncology in [address] [phone] Rey Meadows M.D. [address] [place] [phone] 02/14/2025 12:30 PM CDT Appointment Department of Radiation Oncology in [address] [phone] Rey Meadows M.D. [address] [place] [phone] 02/17/2025 1:15 PM CDT Appointment Department of Radiation Oncology in [address] [address] Rey Meadows M.D. [address] [place] [phone] 02/18/2025 1:15 PM CDT Appointment Department of Radiation Oncology in [address] [phone] Rey Meadows M.D. [address] [place] [phone] 02/19/2025 1:15 PM CDT Appointment Department of Radiation Oncology in [place], [place] [address] [place] [phone] Rey Meadows M.D. [address] [place] [phone] 02/19/2025 1:45 PM CDT Appointment Department of Radiation Oncology in [place], [place] [address] [place] [phone] Rey Meadows M.D. [address] [place] [phone] 02/20/2025 1:15 PM CDT Appointment Department of Radiation Oncology in [address] [phone] Rey Meadows M.D. [address] [place] [phone] 02/21/2025 12:30 PM CDT Appointment Department of Radiation Oncology in [address] [address] Rey Meadows M.D. [address] [place] [phone] 02/24/2025 12:30 PM CDT Appointment Department of Radiation Oncology in [place], [place] [address] [place] [phone] Rey Meadows M.D. [address] [place] [phone] 02/25/2025 12:30 PM CDT Appointment Department of Radiation Oncology in [address] [phone] Rey Meadows M.D. [address] [place] [phone] 02/26/2025 12:30 PM CDT Appointment Department of Radiation Oncology in [place], [place] [address] [place] [phone] Rey Meadows M.D. [address] [place] [phone] 02/26/2025 1:15 PM CDT Appointment Department of Radiation Oncology in [address] [phone] Rey Meadows M.D. [address] [place] [phone] 02/27/2025 12:30 PM CDT Appointment Department of Radiation Oncology in [address] [phone] Rey Meadows M.D. [address] [place] [phone] 02/28/2025 12:30 PM CDT Appointment Department of Radiation Oncology in [address] [phone] Rey Meadows M.D. [address] [place] [phone] documented as of this encounter Visit Diagnoses Not on filedocumented in this encounter Additional Health Concerns Assessment Noted Time PHQ-9 Depression Total Score: 1 01/26/20 23 2:13 PM CDT documented as of this encounter Care Teams Whipper Relationship Specialty Start Date End Date Elsewhere, Pcp PCP - General Internal Medicine 01/30/24 documented as of this encounter
--- OUTSIDE RECORDS SUMMARY | 2025-02-10 15:00 | XMS_ITS ---
Author Organization [facility] Address [address] [place] [address] Care Team Providers Care Weir Fisher Name Role Phone Elsewhere, Pcp Primary Care Provider Unavailabl e Active Problems * This document contains information received from the source organization and may not represent a complete record from that organization. 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 Martin on 11/09/2020 Personal History Of Malignant Neoplasm Of Prosta te 11/09/2020 Rising Prostate Specific Ant igen Following Treatment For Malignant Cancer Of Prostate 09/19/2016 Hypertension Essential Primary 01/15/2007 Dysfunction Erectile 10/14/2003 Sleep Apnea Unspecified 06/25/2002 Overview (11/09/2020): Problem list name updated by automated process. Provider to review Typical Atrial Flutter Overview (11/09/2020): Status post catheter ablation, October 2020 Current Treatment and Therapy Plans No current plan information found. Past Treatment and Therapy Plans Hem/Onc Therapy Plan 1 Plan Name Start Date Discontinue Date Treatment Medications Discontinue Reason Plan Provider LEUPROLIDE ACETATE ( LUPRON DEPOT ) EVERY 24 WEEKS 11/20/2017 10/02/2018 No medications scheduled. Therapy Complete Jah Powell APRN, C.N.P., D.N.P. Hematology / Oncology Treatment 1 Plan Name Start Date Discontinue Date Treatment Medications Discontinue Reason Plan Provider Cycles CARBOplatin AUC 2 weekly / PACLitaxel WEEKLY ( with Radiation ) ( GI ) 01/21/2025 CARBOplatin (Paraplatin)PA CLitaxel (TaxoL) Receiving Treatment Outside of [facility] Sienna Dempsey M.B.B.S. Treatment not started Current Radiation Episodes * IMRT: EsophagusOverview* First Treatment Date Latest Treatment Date Treatment Site Technique Goal Episode Provider 01/27/2025 02/10/2025 Esophagus IMRT Curative Rey Meadows M.D. * Linked Problems Malignant Neoplasm Of Gastro esophageal Junction Treatment Courses* Course 2xEsophagus 01/27/2025 - 02/10/2025 Treatment Period Fraction Dose Fractions Total Dose Plans Planned [id number] 01/27/2025 - 02/10/2025 200 cGy 5,000 cGy Reference Points Delivered [id number] 01/27/2025 - 02/10/2025 2,200 cGy Radiation Treatments (No Episode) * Course 1x Prostate 10/24/2017 - 12/14/2017 Treatment Period Energy Fraction Dose Fractions Total Dose Plans Planned F1 Prostate 10/24/2017 - 12/14/2017 200 cGy 37 / 37 7,400 cGy Reference Points Delivered [id number] 10/24/2017 - 12/14/2017 7,400 cGy Lifetime Dose Tracking * Chemical Lifetime Dose Automatic Entry Manual Entr y Radiation 7.81 mGy 7.81 mGy 0 mGy Fluoro Time 0.97 minutes 0.97 minutes 0 minutes DAP (uGy-m2) 151.35 uGy-m2 151.35 uGy-m2 0 uGy-m2 Resolved Problems Problem Noted Date Diagnosed Date Resolved Date Mass Parotid 10/14/2022 09/27/2023 Primary Malignant Neoplasm Of Prostate 12/21/2006 11/09/2020 Cancer Staging:Pathologic stage from 01/16/2007:Stage IIIB(pT3a, pN0, cM0, PSA: 3.7, Grade Group: 2) - Signed by Jah Powell APRN, C.N.P., D.N.P. 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
--- OUTSIDE RECORDS SUMMARY | 2025-02-10 15:01 | XMS_ITS | Encounter Summary ---
Author Organization [facility] Address [address] [place] [address]. [place] [address] Care Team Providers Care Wireless Sales Expert Name Role Phone Priyanka Johnson MD Primary Care Provider [phone] Senthil Newton MD Unavailable [phone] Aroldo Dee MD Unavailable + [phone] Priyanka Johnson MD Unavailable [phone] Javad Page MD Unavailable Unavaila Javad Monsivais MD Unavailable Unavaila Aroldo Castelan MD Unavailable + [phone] Javad Page MD Unavailable Unavaila ble Hanna Dahl COMPLIANCE OFFICER Unavailable [phone] Hanna Dahl COMPLIANCE OFFICER Unavailable [phone] Encounter Details Date Type Department Care Team (Late st Contact Info) Description 01/07/[address] 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 No / Unsure 01/08/2020 3:15 PM CDT documented as of this encounter Miscellaneous Notes * Telephone Encounter - Kiera Dimas RN - 01/08/2020 9:10 AM CDT Images from the original note were not included. Priyanka Johnson MD You 4 minutes ago (9:04 AM) Disagree, no need for 2nd flu vaccine this flu season. [employer] response sent to patient. Kiera Sheldon RN * Telephone Encounter - Kiera Dimas RN - 01/08/2020 7:56 AM CDT To PCP: Pt received flu shot at [employer] last week. Pt notes that [employer] recommends another in June Do you agree/disagree? Please advise, Thank you, Kiera Sheldon RN documented in this encounter Plan of Treatment Not on file documented as of this encounter Visit Diagnoses Not on filedocumented in this encounter Care Teams Wireless Sales Expert Relationship Specialty Start Date End Date Priyanka Johnson MD [address] [place] [address] PCP - General Internal Medicine 09/26/18 Senthil Newton MD [address] [place] [address] Assigned PCP 10/06/19 10/03/20 Aroldo Dee MD [address] [place] [address] Assigned Heart and Vascular Provider 02/21/20 04/08/22 Priyanka Johnson MD [address] [place] [address] Assigned PCP 10/04/20 Javad Page MD [address] [place] [address] Clinical Cardiac Electrophysiology 01/29/21 Javad Page MD Assigned Heart and Vascular Provider 04/09/22 05/27/22 Aroldo Dee MD [address] [place] [address] Assigned Heart and Vascular Provider 05/28/22 06/24/22 Javad Page MD Assigned Heart and Vascular Provider 06/25/22 08/05/22 Hanna Dahl NP [address] [place] [address] Assigned Heart and Vascular Provider 12/21/24 01/20/25 Hanna Dahl NP [address] [place] [address] Assigned Heart and Vascular Surgical Provider 01/21/25 documented as of this encounter
--- OUTSIDE RECORDS SUMMARY | 2025-02-10 15:01 | XMS_ITS | Clinical Summary ---
[facility] Address [address] [place] [address] Care Team Providers Care Monogram Operator Name Role Phone Joe Houser MD Primary Care Provider [phone] Source Comments You are receiving this document as you are listed as the primary care provider,follow-up provider, or the patient has been referred to you for consultation.This is in compliance with the Medicare and[facility] Hospital[facility] EHR Incentive Program,which states Providers who transition their patient to another setting of careor provider of care or refers their patient to another provider of care shouldprovide summary care record for each transition of care or referral. [facility] Allergies Active Allergy Reactions Criticality Noted Date Comments Iodine 12/30/2016 Faint Medications ATENolol (TENORMIN) 50 MG tablet Take 50 mg by mouth daily (every 24 hours). 6 Active triamterene-hyd rochlorothiazid e (MAXZIDE-25) 37.5-25 MG tablet Take 1 tablet by mouth daily (every 24 hours). 6 Active aspirin 81 MG chewable tablet Take 81 mg by mouth daily (every 24 hours). 6 Active hydrOXYzine HCl (ATARAX) 25 MG tablet Use 1-4 tab at bedtime for itch. May increase every 3rd day to max of 4 tabs at bedtime 120 Tab 11 7 Active Additional Information Patient not taking.Reported on 11/27/2017 Active Problems Problem Noted Date Diagnosed Date Essential hypertension 12/20/2016 Prostate cancer 12/20/2016 Social History Tobacco Use Types Packs/Day Years Used Date Smoking Tobacco: Never Smokeless Tobacco: Never Alcohol Use Standard Drinks/Week Comments Yes 14 (1 standard drink = 0.6 oz pu re alcohol) Sex and Gender Information Value Date Recorded Sex Assigned at Not on file Legal Sex Male 4:07 AM CDT Gender Identity Not on file Sexual Orientation Not on file Last Filed Vital Signs Vital Sign Reading Time Taken Comments Blood Pressure 148/74 11/27/2017 5:21 PM CDT Pulse 58 11/27/2017 5:21 PM CDT Temperature 36.7 C (98 F) 11/27/2017 5:21 PM CDT Respiratory Rate 16 11/27/2017 5:21 PM CDT Oxygen Saturation 96% 12/30/2016 2:19 PM CDT Inhaled Oxygen Concentration - - Weight 103 kg (227 lb) 11/27/2017 5:21 PM CDT Height 182.2 cm (5' 11.75) 11/27/2017 5:21 PM C DT Body Mass Index 31 11/27/2017 5:21 PM CDT Plan of Treatment Health Maintenance Due Date Last Done Comments Medicare Annual Wellness Visit 1940 Pneumococcal Vaccine 50+ Yrs (1 of 1 - PCV) 1991 DTaP/Tdap/Td Vaccine (1 - Tdap) 06/26/2002 06/25/2002 RSV Vaccine (1 - 1-dose 75+ series) 01/04/2016 Zoster/Shingles Vaccine (2 of 2) 11/14/2019 09/19/2019 COVID-19 Vaccine (1 - season) 2024 Influenza Vaccine (#1) 2024 0, 02/02/2019, 01/15/2018, Additional history exists HepA Vaccine Aged Out No longer eligi ble based on patient's age to complete this topic HepB Vaccine Aged Out No longer eligi ble based on patient's age to complete this topic Hib Vaccine Aged Out No longer eligi ble based on patient's age to complete this topic IPV (Polio) Vaccine Aged Out No longe r eligible based on patient's age to complete this topic MCV4 Vaccine Aged Out No longer eligi ble based on patient's age to complete this topic Meningococcal B Vaccine Aged Out No l onger eligible based on patient's age to complete this topic Insurance MEDICARE BCBS OUT OF STATE Care Teams Monogram Operator Relationship Specialty [place] [address] [place] [address] PCP - General Family Practice 12/20/16
--- OUTSIDE RECORDS SUMMARY | 2025-02-10 15:02 | XMS_ITS | Clinical Summary ---
Author Organization [facility] Address [address] [place] [address] Care Team Providers Care Cytology Teacher Name Role Phone Elsewhere, Pcp Primary Care Provider Unavailabl e Source Comments Patient records contain information from all sites at [facility]. For routine questions regarding patient records, call [phone] during business hours, M-F 8:00 AM - 5:00 PM Central Time. Record requests for emergency care only can be directed to [phone] at any time.[facility] Allergies Active Allergy Reactions Criticality Noted Date Comments Pollen Extracts Itching Medium 12/23/2019 Medications * This document contains information received from the source organization and may not represent a complete record from that organization. GLUCOSAMINE HCL/CHONDROITIN AKERS (GLUCOSAMINE-CHONDRO ITIN ORAL) Take 2 tablets by mouth daily. 11/24/19 17 Active multivitamin tablet Take 1 tablet by mouth daily. 11/24/19 17 Active atenoloL (TENORMIN) 50 mg tablet Take 50 mg by mouth 2 (two) times a day. 10/05/19 23 Active s-adenosylmethionine (SVEN-e) 400 mg tablet Take 1 tablet by mouth daily. Active fexofenadine (MOISES) 180 mg tablet Take 1 tablet by mouth daily. 09/27/19 11 Active apixaban (Eliquis) 5 mg tablet Take 1 tablet (5 mg total) by mouth 2 (two) times a day. 180 tablet 3 01/05/20 24 Active prochlorperazine (Compazine) 10 mg tablet Take 1 tablet (10 mg total) by mouth every 6 (six) hours as needed for nausea or vomiting. Take 1 hr prior to radiation with sips of water and as need up to 4 times a day 30 tablet 01/18/20 25 Active omeprazole (PriLOSEC) [address] capsule Take 1 capsule (20 mg total) by mouth 2 (two) times a day. 30 capsule 1 01/18/20 25 Active ondansetron ODT (Zofran-ODT) 8 mg disintegrating tabletIndications:Ma lignant Neoplasm Of Gastroesophageal Junction (HCC) Dissolve 1 tablet (8 mg total) in the mouth every 8 (eight) hours as needed for nausea or vomiting. 20 tablet 01/18/20 25 Active dexAMETHasone (Decadron) 2 mg tablet Take 1 tablet (2 mg total) by mouth 2 (two) times a day. Follow taper instructions provided by medical care team. 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 Malignant Neoplasm Of Gastroesophageal Junction (HCC) 02/10/2025 12:54 PM CDT Hospital Encounter Department of Radiation Oncology in [address] [address] Rey Meadows M.D. 02/07/2025 12:12 PM CDT Hospital Encounter Department of Radiation Oncology in [address] [address] Rey Meadows M.D. 02/06/2025 10:47 AM CDT Hospital Encounter Department of Radiation Oncology in [address] [address] Rey Meadows M.D. 02/05/2025 11:00 AM CDT - 02/05/2025 12:12 PM CDT Hospital Encounter Department of Radiation Oncology in [address] [address] Rey Meadows M.D. Moorhouse, Alexis E, R.N. Malignant Neoplasm Of Gastroesophageal Junction (HCC) (Primary Dx); Unsteadiness Gait Disorder Non Orthopedic 02/05/2025 11:00 AM CDT Hospital Encounter Department of Radiation Oncology in [address] [address] Rey Meadows M.D. Malignant Neoplasm Of Gastroesophageal Junction (HCC) 02/05/2025 11:00 AM CDT Hospital Encounter Department of Radiation Oncology in [address] [address] Rey Meadows M.D. 02/04/2025 7:33 AM CDT Hospital Encounter Department of Radiation Oncology in [address] [address] Rey Meadows M.D. 02/03/2025 11:15 AM CDT Hospital Encounter Department of Radiation Oncology in [address] [address] Rey Meadows M.D. 01/31/2025 12:17 PM CDT Hospital Encounter Department of Radiation Oncology in [address] [address] Rey Meadows M.D. Unsteadiness Gait Disorder Non Orthopedic (Primary Dx); Malignant Neoplasm Of Gastroesophageal Junction (HCC) 01/31/2025 12:16 PM CDT Hospital Encounter Department of Radiation Oncology in [address] [address] Rey Meadows M.D. 01/30/2025 1:30 PM CDT Hospital Encounter Department of Radiation Oncology in [address] [address] Rey Meadows M.D. 01/29/2025 1:28 PM CDT Hospital Encounter Department of Radiation Oncology in [address] [address] Rey Meadows M.D. 01/28/2025 1:27 PM CDT - 01/28/2025 6:05 PM CDT Hospital Encounter Department of Radiation Oncology in [address] [address] Rey Meadows M.D. Malignant Neoplasm Of Gastroesophageal Junction (HCC) 01/28/2025 1:27 PM CDT Hospital Encounter Department of Radiation Oncology in [address] [address] Rey Meadows M.D. 01/27/2025 1:15 PM CDT Hospital Encounter Department of Radiation Oncology in [address] [address] Rey Meadows M.D. 01/27/2025 1:00 PM CDT - 01/28/2025 9:31 AM CDT Hospital Encounter Department of Radiation Oncology in [address] [address] Rey Meadows M.D. Malignant Neoplasm Of Gastroesophageal Junction (HCC) 01/21/2025 Orders Only Department of Oncology in [place], [place] [address] [place] [address] Sienna Dempsey M.B.B.S. 01/21/2025 Orders Only Department of Oncology in [place], [place] [address] [place] [address] Sienna Dempsey M.B.B.S. 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 01/17/2025 12:57 PM CDT - 01/17/2025 3:24 PM CDT Hospital Encounter Department of Radiation Oncology in [address] [address] Rey Meadows M.D. Malignant Neoplasm Of Gastroesophageal Junction (HCC) 01/17/2025 12:30 PM CDT - 01/17/2025 12:56 PM CDT Hospital Encounter Department of Radiation Oncology in [address] [address] Rey Meadows M.D. Moorhouse, Alexis E, RWindy Malignant Neoplasm Of Gastroesophageal Junction (HCC) (Primary Dx) 01/17/2025 9:52 AM CDT - 01/23/2025 2:30 PM CDT Hospital Encounter Department of Radiation Oncology in [address] [address] Rey Meadows M.D. Malignant Neoplasm Of Gastroesophageal Junction (HCC) (Primary Dx) 01/16/2025 3:00 PM CDT Virtual Visit Department of Oncology in [place], [place] [address] [place] [address] Sienna Dempsey M.B.B.S. Sharonda Weems, M.S.W., L.I.C.S.W. Malignant Neoplasm Of Gastroesophageal Junction (HCC); Counseling Phase Of Life Problem 01/15/2025 8:31 AM CDT - 01/15/2025 11:53 AM CDT Hospital Encounter Department of Radiology in [place], [place] [address] [place] [address] Sienna Dempsey M.B.B.S. Jundt, Michael, M.D. Malignant Neoplasm Of Gastroesophageal Junction (HCC) Discharge Disposition: Home or Self Care 01/14/2025 9:35 AM CDT - 01/14/2025 3:17 PM CDT Hospital Encounter Department of Radiation Oncology in [place], [place] [address] [place] [address] Miah Carrera M.D. Malignant Neoplasm Of Gastroesophageal Junction (HCC) (Primary Dx) 01/14/2025 Orders Only Department of Radiation Oncology in [place], [place] [address] [place] [address] Rey Meadows M.D. Malignant Neoplasm Of Gastroesophageal Junction (HCC) (Primary Dx) 01/13/2025 10:00 AM CDT Telemedicine Department of Oncology in [place], [place] [address] [place] [phone] Sienna Dempsey M.B.B.S. Amira Gomez M.S., RDN, LD Malignant Neoplasm Of Gastroesophageal Junction (HCC) (Primary Dx); Dysphagia; Loss Weight Abnormal 01/09/2025 4:00 PM CDT Comprehensive Visit Division of Thoracic Surgery in [place], [place] [address] [place] [phone] Jose Ramon Adam M.D. Malignant Neoplasm Of Gastroesophageal Junction (HCC) (Primary Dx) 01/09/2025 8:20 AM CDT Comprehensive Visit Department of Oncology in [address] [address] Sienna Dempsey M.B.B.S. Malignant Neoplasm Of Gastroesophageal Junction (HCC) (Primary Dx); Loss Weight Abnormal; Dysphagia 01/09/2025 7:23 AM CDT - 01/09/2025 11:59 PM CDT Hospital Encounter Department of Laboratory Medicine and Pathology, [facility], in [place], [place] [address] [place] [phone] Gaetano Roman, JOHN, C.N.P., M.S. 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 01/08/2025 7:50 AM CDT Ancillary Procedure Department of Gastroenterology 01/08/2025 6:23 AM CDT - 01/08/2025 11:59 PM CDT Hospital Encounter Division of Gastroenterology in [place], [place] [address] [place] [address] Gaetano Roman APRN, Jocelyne.N.P., M.S. Rowena Castro M.D. 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 Clay Stahl APRN, CRNA 12/31/2024 9:05 AM CDT - 12/31/2024 1:10 PM CDT Hospital Encounter Division of Gastroenterology in [place], [place] [address] [place] [address] Gaetano Roman APRN, C.N.Willem, M.S. Dysphagia Discharge Disposition: Home or Self Care 12/31/2024 Orders Only Division of Gastroenterology in [place], [place] [address] [place] [phone] Gaetano Roman APRN, C.N.P., M.S. 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 Dysphagia (Primary Dx) 12/23/2024 1:58 PM CDT - 12/23/2024 11:59 PM CDT Hospital Encounter Department of Cardiovascular Diseases in [place], [place] [address] [place] [phone] Ema Del Toro APRN, C.N.PSunshine, M.S.N. Atrial Fibrillation Longstanding Persistent (HCC) Discharge Disposition: Home or Self Care 12/20/2024 2:02 PM CDT - 12/20/2024 11:59 PM CDT Hospital Encounter Department of Cardiovascular Diseases in [place], [place] [address] [place] [phone] Ema Del Toro APRN, C.N.P., M.S.N. Atrial Fibrillation Longstanding Persistent (HCC) Discharge Disposition: Home or Self Care 12/20/2024 1:00 PM CDT Office Visit Department of Cardiovascular Medicine in [place], [place] [address] [place] [phone] Ema Del Toro APRN, C.N.P., M.S.N. Atrial Fibrillation Longstanding Persistent (HCC) (Primary Dx); Anticoagulant Therapy; Hypertension Essential Primary; Repeated Falls; Ataxia; Neuropathy 12/11/2024 11:00 AM CDT Office Visit Department of Urology in [place], [place] [address] [place] [phone] Aung Cristina M.D. Dysphagia (Primary Dx); Loss Weight Abnormal; Esophageal Disorder; Rising Prostate Specific Antigen Following Treatment For Malignant Cancer Of Prostate; Prostatectomy Status Post 12/03/2024 12:02 PM CDT - 12/03/2024 11:59 PM CDT Hospital Encounter Department of Radiology, [facility], in [place], [place] [address] [place] [phone] Aung Cristina M.D. Rising Prostate Specific Antigen Following Treatment For Malignant Cancer Of Prostate; Prostatectomy Status Post; Radiation Therapy Personal History Discharge Disposition: Home or Self Care 12/02/2024 11:45 AM CDT Clinical Communication Virtual Review in [place], [place] [address] [place] [address] Pre-visit Intake 11/18/2024 Clinical Communication Department of Cardiovascular Medicine in [place], [place] [address] [place] [phone] Lacing PresserLamin M.D. from Last 3 Months Immunizations Immunization Administration Dates Next Due H1N1 Inj 04/20/2009 Influenza TIV (IM) 02/02/2019, 4,02/05/2003,2001,02/26/2001 Influenza high dose QV(65 ye ars or older) (PF) 02/09/2019 Influenza, Injectable, Quadrivalent 01/15/2018,1 Influenza, Seasonal, Injectable 02/04/20 04,02/05/2003,04/01/2002,2000,03/09/2000 Influenza, Unspecified 02/09/2019,01/30/2016,03/1998 PCV13 09/02/2015 PPSV23 11/23/2016(Deferred: Other),05/0 08/2016 RZV (SHINGRIX) 09/19/2019,05/29/2019 SARS-COV-2 (COVID-19) - MODERNA(Discontinued) 12/18/2020,07/08/2020,06/10/2020 Td (Adult), adsorbed 11/23/2016(Deferred: Other) ,06/25/2002 Td Preservative Free (TENIVA C, DECAVAC) 06/25/2002 Zoster, Unspecified 11/23/2016(Deferred: Other) influenza trivalent high dos e (HD)(PF) 12/29/2019,02/02/2019,01/26/2018,2017,01/31/2017,01/30/2016,01/29/2015 Family History Medical History Relation Name Comments Stroke Father Gunnar Li Asthma Mother Nicholas Li Sleep apnea Sister Relation Name Status Comments Father Gunnar Li Alive Mother Nicholas Li Sister Social History Tobacco Use Types Packs/Day Years Used Date Smoking Tobacco: Former Cigarettes 0 09/29/1957 - 09/01/1969 Passive Smoke Exposure: Never Smokeless Tobacco: Never Tobacco Cessation:Counseling Given: Not Answered Comments:Quit in 1970 Alcohol Use Standard Drinks/Week [...] your living situation today? I have a [place] place to live 12/31/2024 Education Answer Date Recorded What is the highest level of school you have completed or the highest degree you have received? 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 Gender Identity Male 09/04/2018 3:21 PM CDT Sexual Orientation Straight 09/04/2018 3: 21 PM CDT Last Filed Vital Signs Vital Sign Reading Time Taken Comments Blood Pressure 103/68 02/10/2025 1:41 PM CDT Pulse 82 02/10/2025 1:41 PM CDT Temperature 36.4 C (97.6 F) 02/10/2025 1:41 PM CDT Respiratory Rate 15 01/15/2025 11:3 0 AM CDT Oxygen Saturation 97% 01/15/2025 11: 30 AM CDT Inhaled Oxygen Concentration - - Weight 82.4 kg (181 lb 10.5 oz) 02/10/2025 1:41 PM CDT Height 179.5 cm (5' 10.67) 01/13/2025 9:52 AM C DT Body Mass Index 25.57 01/13/2025 9:52 AM CDT Plan of Treatment Upcoming Encounters Date Type Department Care Team (Late st Contact Info) Description 02/11/2025 3:15 PM CDT Appointment Department of Radiation Oncology in [place], [place] [address] [place] [address] Rey Meadows M.D. [address] [place] [address] 02/12/2025 1:30 PM CDT Appointment Department of Radiation Oncology in [address] [address] Rey Meadows M.D. [address] [place] [phone] 02/12/2025 2:00 PM CDT Appointment Department of Radiation Oncology in [address] [address] Rey Meadows M.D. [address] [place] [phone] 02/13/2025 1:15 PM CDT Appointment Department of Radiation Oncology in [address] [address] Rey Meadows M.D. [address] [place] [phone] 02/14/2025 12:30 PM CDT Appointment Department of Radiation Oncology in [address] [address] Rey Meadows M.D. [address] [place] [phone] 02/17/2025 1:15 PM CDT Appointment Department of Radiation Oncology in [address] [address] Rey Meadows M.D. [address] [place] [phone] 02/18/2025 1:15 PM CDT Appointment Department of Radiation Oncology in [address] [address] Rey Meadows M.D. [address] [place] [phone] 02/19/2025 1:15 PM CDT Appointment Department of Radiation Oncology in [place], [place] [address] [place] [address] Rey Meadows M.D. [address] [place] [phone] 02/19/2025 1:45 PM CDT Appointment Department of Radiation Oncology in [address] [address] Rey Meadows M.D. [address] [place] [phone] 02/20/2025 1:15 PM CDT Appointment Department of Radiation Oncology in [address] [address] Rey Meadows M.D. [address] [place] [phone] 02/21/2025 12:30 PM CDT Appointment Department of Radiation Oncology in [address] [address] Rey Meadows M.D. [address] [place] [phone] 02/24/2025 12:30 PM CDT Appointment Department of Radiation Oncology in [place], [place] [address] [place] [phone] Rey Meadows M.D. [address] [place] [phone] 02/25/2025 12:30 PM CDT Appointment Department of Radiation Oncology in [address] [address] Rey Meadows M.D. [address] [place] [phone] 02/26/2025 12:30 PM CDT Appointment Department of Radiation Oncology in [address] [address] Rey Meadows M.D. [address] [place] [phone] 02/26/2025 1:15 PM CDT Appointment Department of Radiation Oncology in [address] [address] Rey Meadows M.D. [address] [place] [phone] 02/27/2025 12:30 PM CDT Appointment Department of Radiation Oncology in [address] [address] Rey Meadows M.D. [address] [place] [phone] 02/28/2025 12:30 PM CDT Appointment Department of Radiation Oncology in [address] [address] Rey Meadows M.D. [address] [place] [phone] Health Maintenance Due Date Last Done Comments Office Visit for Blood Pressure Check / Re-check 1941 DTaP,Tdap,and Td Vaccines (1 - Tdap) 06/11/2022 06/10/2022, 06/25/2002, 06/25/2002 Depression Screening (Annual PHQ-2) 05/01/2024 COVID-19 Vaccine (2024- season) 2024 01/19/2024, 01/28/2023, 02/04/2022, Additional history exists Influenza Vaccine (#1) 2024 , 01/29/2023, 01/28/2023, Additional history exists Pneumococcal vaccine (50+ years) Completed 09/02/2016, 09/02/2015 Zoster Vaccines Completed 09/19/2019, 05/29/2019 RSV vaccine - (32-36 weeks) or 50+ years Completed 01/19/2024 Fall Risk Screen (Annual) Completed 01/15/2025 HPV Vaccines Aged Out No longer eligi ble based on patient's age to complete this topic IPV Vaccines Aged Out No longer eligi ble based on patient's age to complete this topic Medical Devices Implanted Type Area Steno Typist Device Identifier Shelf Expiration Date Model / Serial / Lot Clp Apr Lg Intnl [facility] 9.75 - [id number] Implanted:Qty: 1 on 10/24/2022 by Baltazar Nava M.D. at [facility] Hardware e.g. pins/screws/ro ds Left: Neck Ethicon MSM20 / / Clp Apr Lgs Intnl 9.0 - [id number] Implanted:Qty: 1 on 10/24/2022 by Baltazar Nava M.D. at [facility] Hardware e.g. pins/screws/ro ds Left: Neck Ethicon MCS20 / / Prt Pwr Mri Mctrdcr 8f - [id number] Implanted:Qty: 1 on 01/15/2025 by Scott Ramirez M.D. at [facility] Implantable Port Right: Chest C.R.Bard 04/30/2026 [id number] / / [id number] Conversions - Default Historical Implant Device Implanted:12/30 (Quantity not on file) Ocular Lens Bilatera l: Eye Description:Device Status Te xt - OculrLens. Buckle bilateral. Explanted Type Area Steno Typist Device Identifier Shelf Expiration Date Model / Serial / Lot Hardware E.G. Pins/Screws/Ro ds Hardware e.g. pins/screws/r ods Tooth Procedures Procedure Name Priority Date/Time Associated Diagnosis Comments ARIA DAILY TREATMENT INFORMATION Routine 02/10/2025 1:30 PM CDT ARIA DAILY TREATMENT INFORMATION Routine 02/07/2025 1:09 PM CDT ARIA DAILY TREATMENT INFORMATION Routine 02/06/2025 11:23 AM CDT ARIA DAILY TREATMENT INFORMATION Routine 02/05/2025 11:23 AM CDT ARIA DAILY TREATMENT INFORMATION Routine 02/04/2025 7:57 AM CDT ARIA DAILY TREATMENT INFORMATION Routine 02/03/2025 12:03 PM CDT ARIA DAILY TREATMENT INFORMATION Routine 01/31/2025 1:01 PM CDT EXT TEMPUS XT DNA AND RNA SOLID TUMOR Routine 01/30/2025 2:09 PM CDT Malignant Neoplasm Of Gastroesophageal Junction (HCC) ARIA DAILY TREATMENT INFORMATION Routine 01/30/2025 1:50 PM CDT ARIA DAILY TREATMENT INFORMATION Routine 01/29/2025 2:14 PM CDT ARIA DAILY TREATMENT INFORMATION Routine 01/28/2025 3:52 PM CDT ARIA DAILY TREATMENT INFORMATION Routine 01/27/2025 2:53 PM CDT INITIAL RAD ONC TREATMENT PLANNING CT SIMULATION Routine 01/17/2025 1:00 PM CDT Malignant Neoplasm Of Gastroesophageal Junction (HCC) IR IMPLANTED VASCULAR ACCESS DEVICE PLACEMENT RAD - Routine (most inpatients and all outpatients) 01/15/2025 10:41 AM CDT Malignant Neoplasm Of Gastroesophageal Junction (HCC) CBC WITH DIFFERENTIAL, B Routine 01/09/2025 7:44 AM CDT 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) BILIRUBIN DIRECT, S/P Routine 01/09/2025 7:44 AM CDT 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) COMPREHENSIVE METABOLIC PANEL, S/P Routine 01/09/2025 7:44 AM CDT 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) GASTROENTEROLOGY IMAGE EXAM Routine 01/08/2025 7:50 AM CDT UPPER EUS Routine 01/08/2025 7:46 AM CDT 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) ENDOSCOPIC ULTRASOUND (EUS) Routine 01/08/2025 7:46 AM CDT 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) PET CT SKULL TO THIGH RAD - Routine (most inpatients and all outpatients) 01/06/2025 7:59 PM CDT 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) CT ABDOMEN PELVIS WITH IV CONTRAST RAD - Routine (most inpatients and all outpatients) 01/05/2025 1:49 PM CDT 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) CT CHEST WITH IV CONTRAST RAD - Routine (most inpatients and all outpatients) 01/05/2025 1:49 PM CDT 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) SURGICAL PATHOLOGY Routine 12/31/2024 11:35 AM CDT GASTROENTEROLOGY IMAGE EXAM Routine 12/31/2024 11:25 AM CDT UPPER GI ENDOSCOPY Routine 12/31/2024 11:24 AM CDT Dysphagia EGD (ESOPHAGOGASTRODUODEN OSCOPY) RESTRICTED Routine 12/31/2024 11:24 AM CDT Dysphagia MMR PROTEIN, IHC ONLY, TUMOR Routine 12/31/2024 9:30 AM CDT Malignant Neoplasm Of Gastroesophageal Junction (HCC) AURA TEMPUS XT, TIS Routine 12/31/2024 9:29 AM CDT Malignant Neoplasm Of Gastroesophageal Junction (HCC) HOLTER MONITOR - IN CLINIC SENIOR ORACLE DATABASE 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 Routine 12/25/2024 9:51 PM CDT Atrial Fibrillation Longstanding Persistent (HCC) (TTE) 2D ECHO DOPPLER COLOR Routine 12/20/2024 3:07 PM CDT Atrial Fibrillation Longstanding Persistent (HCC) ECG Routine 12/20/2024 11:05 AM CDT Atrial Fibrillation Paroxysmal (HCC) PET CT SKULL TO THIGH PSMA RAD - Routine (most inpatients and all outpatients) 12/03/2024 2:24 PM CDT Rising Prostate Specific Antigen Following Treatment For Malignant Cancer Of Prostate Prostatectomy Status Post Radiation Therapy Personal History PROSTATE-SPECIFIC AG (PSA) DIAGNOSTIC, S Routine 12/03/2024 11:58 AM CDT Rising Prostate Specific Antigen Following Treatment For Malignant Cancer Of Prostate Prostatectomy Status Post Radiation Therapy Personal History from Last 3 Months Results * Aria Daily Treatment Information (02/10/2025 1:30 PM CDT) Only the most recent of11 resultswithin the time period is included. Course ID [id number] LYNCH ARIA Course Start Date 5 09:00 CDT LYNCH ARIA First Treatment Date 5 14:48 CDT LYNCH ARIA Last Treatment Date 5 13:30 CDT LYNCH ARIA Treatment Elapsed Days 14 LYNCH ARIA Reference Point [id number] LYNCH ARIA Dosage Given to Date cGy 2200 LYNCH ARIA Session Dosage Given 200 LYNCH ARIA Plan ID [id number] us LYNCH ARIA Fractions Treated to Date 11 LYNCH ARIA Planned Total Fractions 25 LYNCH ARIA Prescribed Dose Per Fraction 200 LYNCH ARIA Prescription Dose in cGy 5000 LYNCH ARIA Plan Primary Reference Point [id number] LYNCH ARIA 02/10/2025 1:30 PM CDT us Provider Not In System RADIATION ONCOLOGY ORDERA BLES Final Result LAMIN iyer * EXT Tempus xT DNA And RNA [...] CDT [facility] EXT Tempus Portal [email or web address] [id number] 01/30/2025 2:09 PM CDT [facility] Comment:[facility] link EXT Trial Count 3 2:09 PM CDT [facility] EXT Trial 1: Matched criteria Clinical Trial NCT ID: [id number] Clinical Trial Title: A Study of CLSP-1025 in Adult Patients With Solid Tumors That Cougar the p53 R175H Mutation Clinical Trial URL: https://clinicalt rials.gov/ct2/austin floyd/ART59749432 Clinical Phase: Phase 1 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 Clinical Trial Distance and Location: [address], [place], [place] 01/30/2025 2:09 PM CDT [facility] EXT Trial 2: Matched criteria Clinical Trial NCT ID: [id number] Clinical Trial Title: A Trlrr-wn-Ndbjx (FIH) Study to Evaluate the Safety and Tolerability of [id number] in Participants With Advanced Solid Tumors Clinical Trial URL: https://clinicalt rials.gov/ct2/austin floyd/[email or web address] Clinical Phase: Phase 1 Clinical Trial Matches: KRAS amplification Clinical Trial Distance and Location: [address] [place] 01/30/2025 2:09 PM CDT [facility] EXT Trial 3: Matched criteria Clinical Trial NCT ID: [id number] Clinical Trial Title: A Study to Find a Suitable Dose of [id number] in Adults With Solid Tumors Clinical Trial URL: https://clinicalt [facility].gov/ct2/austin w/[email or web address] Clinical Phase: Phase 1 Clinical Trial Matches: KRAS amplification Clinical Trial Distance and Location: [address] [place] 01/30/2025 2:09 PM CDT [facility] EXT [...] GENETIC TESTING Kleber srinivasan Result - Final Performing Organization Address [facility] Co de Phone Number [facility] [address] [facility], [address] [place], [place] [address] [phone] [facility] [address], [address] [place] [address] * Initial Rad Onc Treatment Planning CT Simulation (01/17/2025 1:00 PM CDT) Narrative LAMIN GEE - 01/17/2025 1:00 PM CDT Rey Meadows M.D. 01/17/2025 3:24 PM Initial Rad Onc Treatment Planning CT Simulation Performed by: Rye Meadows M.D. Authorized by: Rey Meadows M.D. [...] planning. CT images were transferred to the Eclipse treatment planning system, after a reference isocenter was determined and marked. Segmentation and treatment planning will take place prior to treatment delivery. Patient set up and imaging was appropriate and completed without incident. Retoucher use:No Rey Meadows M.D. RADIATION ONCOLOGY ORDERAB LES Final Result Performing Organization Address [facility]/ZIP Co de Phone Number LAMIN GEE na * IR Implanted Vascular Access Device Placement (01/15/2025 10:41 AM CDT) Anatomical Region Laterality Modality Chest, Pelvis, Abdomen, Vasc ular Interventional RST LOS, Vascular Interventional ARZ LOS, Vascular Interventional FLA LOS N/A X-Ray Angiography Impressions 01/15/2025 11:11 AM CDT Placement of a right internal jugular vein 8 Mongolian PowerPort Slim. Ready for use. NR Narrative [...] of a right internal jugular vein 8 [employer]ian PowerPort Slim. Readyfor use. NR Sienna Blankenship IMG IR PROCEDURES Final Result * (ABNORMAL) CBC with Differential, Blood (01/09/2025 [...] ADD -ON Final Result Performing Organization Address City/[facility]/ZIP Co de Phone Number [facility] [address] [facility] [address] [place] [address] * Bilirubin, Direct (01/09/2025 7:44 AM CDT) [facility] Bilirubin, Direct, S 0.3 0.0 - 0.3 mg/dL 01/09/2025 8:53 AM CDT DTL Blood (Blood, Venous) 01/09/2025 7:44 AM CDT 01/09/2025 8:10 AM CDT us Gaetano Roman APRN, C.N.P., M.S. LAB BLOOD ADD -ON Final Result Performing Organization Address City/[facility]/ZIP Co de Phone Number [facility] [address] [place] [address], [facility] [address] [place] [address] * (ABNORMAL) Comprehensive Metabolic Panel (01/09/2025 7:44 [...] ADD -ON Final Result Performing Organization Address [facility] Co de Phone Number [facility] [address] [place] [address], [facility] DTL [facility] [address] [place] [address] * Upper EUS-Gastroenterology Image Exam (01/08/2025 7:50 AM CDT) Only the most recent of2 resultswithin the time period is included. 01/08/2025 7:46 AM CDT Narrative IIMS - 01/08/2025 10:50 AM CDT This order has been created and auto-finalized to support the import of images acquired without order. The clinical documentation to support these images can be found on the encounter that produced images. us Provider Not In System IMG NON RAD IMAGING PROCE DURES Final Result Performing Organization Address [facility] de Phone Number IIWI NA * Upper EUS (01/08/2025 7:46 AM CDT) [...] 0 Note Initiated On: 01/08/2025 7:46 AM Jocelyne Montenegro APRN.N.P., M.S. GI PROCEDURE ORDERABLES Final Result * Endoscopic ultrasound (EUS) (01/08/2025 7:46 AM CDT) Anatomical Region Laterality Modality Other 01/08/2025 7:46 AM CDT Jocelyne Montenegro APRN.N.P., M.S. GI PROCEDURE ORDERABLES Final Result * PET CT Skull to Thigh FDG [...] RADIOPHARMACEUTICAL/MEDS: Route: intravenous fludeoxyglucose F 18 injection [facility] (F-18 FDG),9.94 millicurie TECHNIQUE: F-18 FDG PET/CT [...] RADIOPHARMACEUTICAL/MEDS: Route: intravenous fludeoxyglucose F 18 injection [facility] (F-18 FDG),9.94 millicurie TECHNIQUE: F-18 FDG PET/CT [...] FDG uptake suspicious formetastatic disease. Gaetano Roman APRN, C.N.P., M.S. IMG NM PROCED URES Final [...] known gastroesophageal junction malignancy. us Gaetano Roman APRN, C.N.PSunshine, M.S. IMG CT PROCED URES Final Result [...] distal esophagus/proximalstomach corresponding with biopsy-proven gastroesophageal junctionmalignancy. us Gaetano Hagenodilia LOPEZ C.N.P., M.S. IMG CT PROCED URES Final Result * Surgical Pathology (12/31/2024 11:35 AM CDT) 01/01/2025 4:03 PM CDT DTL Report electronically signed by Aaron AguirreBSunshineS. I verify that I have examined all relevant slides/materials for the specimen(s) and rendered or confirmed the diagnosis. Seen in consultation with: Lizette Juan M.D. 01/01/2025 4:03 PM CDT DTL Gross Description Received in formalin labeled with the patient's name, medical record number, and esophagus, 44-48 cm at 12 o'clock and 4 o'clock aremultiple translucent-pale ojl-ycjk-dhv irregular soft tissues, admixed with minute tissue fragments that may not survive processing, thetissues ranging from 0.2-0.5 cm in greatest dimension. Specimens are submitted en toto in cassettes A1-A2, each containing sevenspecimens and A3, containing eight specimens. Grossed by YOU. 01/01/2025 4:03 PM CDT DTL Addendum Tempus xT, Solid Janki or has been requested by Dr. Sienna Dempsey and will be performed on block A1 at [facility] [place], [place]. Signed by Fidel Tilley M.D., Ph.D. 01/21/2025 11:55 AM Esophagus, 44-48 cm at 12 o'clock and 4 o'clock, specimen for CLD18 immunohistochemistry studies (anti-Mqjqppy56 (CLDN18) clone [id number], [facility], [place], [place]; using a proprietary detection system) (A1) [...] 18.2 antibody (clone [id number]) is sourced from [place] and testing was performed per clinical validation and relevant exchange administrator-provided instructions. This result should be interpreted in [...] This test has been modified from the exchange administrator's instructions. Its performance characteristics were determined by [facility] in a manner consistent with CLIA requirements. This test has not been cleared or approved by the U.S. Food and Drug Administration. A portion of the testing process was performed at [facility] site [id number]. Esophagus, 44-48 cm at 12 o'clock and 4 o'clock, specimen for PD-L1 immunohistochemistry studies (clone [id number], [facility], [place], [place]; using a proprietary detection system) (A1): [...] is performed using a modified FDA approved [place] [employer] HER2 (4B5) rabbit monoclonal primary antibody and a proprietary detection system. Controls used have: no expression (HER2 score of 0), low expression (HER2 score of 1+) and high expression (HER2 score of 3+). All controls show appropriate reactivity. Scoring is performed according to the following article: Myles Tomlin, Jony Prasad, Génesis G, et al. HER2 diagnostics in [...] This test has been modified from the exchange administrator's instructions. Its performance characteristics were determined by [facility] in a manner consistent with CLIA requirements. This test has not been cleared or approved by the U.S. Food and Drug Administration. Signed by Mackenzie Crawford M.D., Ph.D. 01/14/2025 3:33 PM This test was developed using an analyte specific reagent. Its performance characteristics were determined by [facility] in a manner consistent with CLIA requirements. [...] DTL Biopsy (Esophagus) 12/31/2024 11:35 AM CDT us Mars Marrero M.D., Ph.D. LAB SURG PATH BAHMAN JACOB Edited Result - Final [facility] [address] [place] [address], [facility] DT [address] [place] [address] * EGD (EsophagoGastroDuodenoscopy) Restricted (12/31/2024 11:24 AM CDT) Anatomical Region Laterality Modality Digital Radiogra phy 12/31/2024 11:2 4 AM CDT us Gaetano Roman APRN, C.N.P., M.S. GI PROCEDURE ORDERABLES Final Result * Upper GI Endoscopy (12/31/2024 11:24 AM CDT) Anatomical Region Laterality Modality Digital Radiogra phy 12/31/2024 11:2 4 AM CDT Impressions 12/31/2024 12:19 PM CDT Post-op Diagnoses: - Malignant-appearing esophageal stenosis. Biopsied. 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 - Hematin (altered blood/akqppm-lorvmb-ysaw material) in the entire stomach. - Normal [...] and 2 cm below GEJ). Hematin (altered blood/xyokmv-fgbaqm-ckdn material) was found in the entire examined [...] been signed electronically. Number of Addenda: 0 Gaetano Roman APRN C.N.P., M.S. GI PROCEDURE ORDERABLES Final Result * Mismatch Repair (MMR) Protein [...] 5 3:35 PM CDT DTL Tissue ID [id number] 5 3:35 PM CDT DTL Released By [...] of protein expression by IHC (Mod Pathol. 2020 August;33(5):871-879 (PMID: 56999553)). THERAPEUTIC IMPLICATIONS Current data suggest that in advanced stage solid tumors, targeted immunotherapies such as anti-PD-1 therapies are more likely to be effective in mismatch repair-deficient tumors than in mismatch repair-proficient tumors (Science. 2017 Nov 25;357(8543):409- 413 (PMID 28305078); J Clin Oncol. 2018 May 20:[id number] (PMID 92751674)). For interpretation of therapeutic implications of these [...] MLH-1 immunohistochemistry studies (anti-MLH-1 clone ES05, [employer], [place], [place]; [employer] AMP Detection) MSH-2 : specimen for MSH-2 immunohistochemistry studies (anti-MSH-2 clone [id number], [facility], [place], [place]; [employer] Polymer Refine Detection) MSH-6: specimen for MSH-6 immunohistochemistry studies (anti-MSH-6 clone SP93, [facility], [place], [place]; [employer] Detection) PMS-2: specimen for PMS-2 immunohistochemistry studies (anti-PMS-2 clone EP51, [employer], [place], [place]; [employer] + Opt[employer] AMP Detection) [...] developed and its performance characteristics determined by [facility] in a manner consistent with CLIA requirements. This test has not been cleared or approved by the U.S. Food and Drug Administration. Tissue (Esophagus) 12/31/2024 9:30 AM CDT 01/13/2025 5:10 PM CDT Sienna Blankenship LAB GENETIC TESTING Fin al Result [facility] [address] [place] [address], [facility] [address] [place] [address] * Aura Tempus xT, Tissue - Sent Out Lab (12/31/2024 9:29 AM CDT) Aura Tempus xT, Tis Collected, Sent to Reference Lab DEFAULT 01/21/2025 3:07 PM CDT [facility] Tissue (Other, Specify in Comments) 12/31/2024 9:29 AM CDT 01/21/2025 3:07 PM CDT us Sienna Blankenship LAB GENETIC TESTING Fin al Result [facility] [address] [place] [address], [facility] [address] [place] [address] * HOLTER MONITOR - IN CLINIC SENIOR ORACLE DATABASE DEVELOPER (12/25/2024 9:51 PM CDT) Min Heart Rate [...] 22h 9m duration INFOBION IC MOME AF [place] 100 percent INFOBIONIC MOME Longest AF Duration [...] and/or aberrantly conducted complexes were noted singly. Table Machine Operator: DANDY Alatorre Procedure Note Naveen Sheffield M.D. [...] and/or aberrantly conducted complexes were noted singly. Table Machine Operator: DANDY Alatorre us Ema Del Toro APRN, C.N.P., M.S.N. CV CARDIAC SE RVICES PROCEDURES Final Result INFOBIONIC MOME NA * (TTE) 2D ECHO DOPPLER COLOR [...] us Ema Del Toro APRN, C.N.P., M.S.N. ECHO [facility] Final Result * ECG 12 Lead (12/20/2024 11:05 AM CDT) Ventricular Rate ECG/Min 95 BPM MUSE QRSD Interval 78 ms MUSE QT Interval 352 ms MUSE QTC Interval 442 ms MUSE R [place] 52 degrees MUSE T Wave [place] 55 degrees MUSE 12/20/2024 11:0 5 AM CDT 12/20/2024 12:09 PM CDT Impressions MUSE - 12/20/2024 12:09 PM CDT Atrial fibrillation Otherwise normal ECG When compared with ECG of 30-Jan-2024 10:14, Atrial fibrillation has replaced Sinus rhythm Vent. rate has increased by 40 bpm Reviewed by DANDY [place] Narrative Procedure Note Victorino Parisi M.D., Ph.D. - 12/20/2024 IMPRESSION: Atrial fibrillation Otherwise normal ECG When compared with ECG of 30-Jan-2024 10:14, Atrial fibrillation has replaced Sinus rhythm Vent. rate has increased by 40 bpm Reviewed by DANDY [place] us Ema Prasad Alverto LOPEZ, C.N.P., M.S.N. ECG ORDERABLE S Final Result MUSE NA * PET CT Skull to Thigh PSMA (12/03/2024 2:24 PM CDT) Anatomical Region Laterality Modality Body, Nuclear Medicine PET R ST LOS, PET ARZ LOS, Nuclear Medicine PET FLA LOS, Nuclear Medicine N/A Positron Emission Tomography (PET), Positron Emission Tomography (PET) Impressions 12/03/2024 3:22 PM CDT 1. No convincing radiotracer avid disease. 2. Slightly increased uptake in a anterior lateral left upper rib or represent small-volume disease and is on the lower end of suspicion. See enlarged screen capture. miPSMA Expression Score: x/1 Narrative 12/03/2024 3:22 PM CDT EXAM: PET CT SKULL TO THIGH PSMA RADIOPHARMACEUTICAL/MEDS: Route: intravenous gallium Ga 68 gozetotide injection (Ga-68 Illuccix/Locametz),5.68 millicurie TECHNIQUE: PSMA-targeted PET/CT scan was performed from the vertex through the upper thighs with low dose, non-contrast, free-breathing CT images for attenuation correction and anatomic localization (AC/AL), with imaging beginning at approximately 60 minutes after radiotracer injection. COMPARISON: Multiple prior PET examinations, most recently from June 19, 2017. 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 Rising PSA since 2022. No prior PSMA imaging. Subsequent treatment strategy. PSA: 0.20 The patient reports no recent vaccinations. FINDINGS: PROSTATE BED: No abnormal PSMA-avid activity in the prostatectomy bed to suggest local recurrence. LYMPH NODES: No suspicious PSMA-avid lymphadenopathy. Mild tracer uptake in a small right hilar lymph node (SUV max 2.9, image 145), without enlargement or suspicious features on CT, likely reactive. OSSEOUS DISEASE: No suspicious PSMA-avid osseous lesions however there is slightly increased uptake in the anterior lateral left fourth rib (UHD image 147). Otherwise heterogeneous uptake in the ribs. OTHER METASTATIC DISEASE: None. Mild low-level tracer uptake in the esophagus, nonspecific, likely related to esophagitis. Additional findings on the noncontrast low-dose CT: Postsurgical changes of left total parotidectomy. Mild cardiomegaly. Multiple small splenic calcifications compatible with healed granulomatous disease. Colonic diverticulosis without associated inflammatory changes. Small granuloma in the left upper lung lobe with calcified right hilar lymph node, compatible with sequelae of prior granulomatous infection. Procedure Note Scott Liz M.D. - 12/03/2024 EXAM: PET CT SKULL TO THIGH PSMA RADIOPHARMACEUTICAL/MEDS: Route: intravenous gallium Ga 68 gozetotide injection (Ga-68 Illuccix/Locametz),5.68millicurie TECHNIQUE: PSMA-targeted PET/CT scan was performed from the vertexthrough the upper thighs with low dose, non-contrast, free-breathing CTimages for attenuation correction and anatomic localization (AC/AL), withimaging beginning at approximately 60 minutes after radiotracer injection. COMPARISON: Multiple prior PET examinations, most recently from 2017. INDICATION: History of prostate adenocarcinoma ([place] 3+4) treated withprostatectomy and salvage radiotherapy. Rising PSA since 2022. No priorPSMA imaging. Subsequent treatment strategy. PSA: 0.20 The patient reports no recent vaccinations. FINDINGS: PROSTATE BED: No abnormal PSMA-avid activity in the prostatectomy bed tosuggest local recurrence. LYMPH NODES: No suspicious PSMA-avid lymphadenopathy. Mild tracer uptakein a small right hilar lymph node (SUV max 2.9, image 145), withoutenlargement or suspicious features on CT, likely reactive. OSSEOUS DISEASE: No suspicious PSMA-avid osseous lesions however there isslightly increased uptake in the anterior lateral left fourth rib (UHDimage 147). Otherwise heterogeneous uptake in the ribs. OTHER METASTATIC DISEASE: None. Mild low-level tracer uptake in theesophagus, nonspecific, likely related to esophagitis. Additional findings on the noncontrast low-dose CT: Postsurgical changes of left total parotidectomy. Mild cardiomegaly.Multiple small splenic calcifications compatible with healed granulomatousdisease. Colonic diverticulosis without associated inflammatory changes.Small granuloma in the left upper lung lobe with calcified right hilar lymph node, compatible with sequelaeof prior granulomatous infection. IMPRESSION: 1. No convincing radiotracer avid disease. 2. Slightly increased uptake in a anterior lateral left upper rib orrepresent small-volume disease and is on the lower end of suspicion. Seeenlarged screen capture. miPSMA Expression Score: x/1 us Aung Cristina M.D. IMG NM PROCEDURES Final Result * PSA (Prostate-Specific Antigen), Diagnostic (12/03/2024 11:58 AM CDT) Prostate-Specific Ag 0.20 <=7.2 ng/mL 12/03/2024 12:56 PM CDT DTL Comment: ----ADDITIONAL INFORMATION---- The testing method is an electrochemiluminescence assay manufactured by [facility] [employer] and performed on the Modular or Aleksandra system. Values obtained with different assay methods or kits may be different and cannot be used interchangeably. Test results cannot be interpreted as absolute evidence for the presence or absence of malignant disease. Blood (Blood, Venous) 12/03/2024 11:58 AM CDT 12/03/2024 12:06 PM CDT us Aung Cristina M.D. LAB BLOOD ADD-ON Final Result [facility] [address] [place] [address], [place] DTL [facility] [address] [place] [address] from Last 3 Months Insurance MEDICARE [facility] Advance Directives For more information, please contact: [phone] * Full Code (Latest Code Status on File) Date Activated Date Inactivated Comments 10/24/2022 3:43 PM 10/25/2022 3:40 PM Question Answer Comments Full Code: Not Discussed Due to: Patient not available * Full Code Date Activated Date Inactivated Comments 11/09/2020 6:55 PM 11/10/2020 2:03 PM Question Answer Comments Full Code: Not Discussed Due to: Patient not available Care Teams Cytology Teacher Relationship Specialty Start Date End Date Elsewhere, Pcp PCP - General Internal Medicine 01/30/24
--- OUTSIDE RECORDS SUMMARY | 2025-02-10 15:02 | XMS_ITS | Encounter Summary ---
Author Organization [facility] Address [address] [place] [address] Care Team Providers Care Accounts Payable Processor Name Role Phone Elsewhere, Pcp Primary Care Provider Unavailabl e Encounter Details Date Type Department Care Team (Late st Contact Info) Description 10/09/2007 Historical Ophthalmology RST OPH Jennie Bentley M.D. [address] [place] [address] Social History Tobacco Use Types Packs/Day Years Used Date Smoking Tobacco: Never Assessed Sex and Gender Information Value Date Recorded Sex Assigned at Male 12/27/2018 12:13 PM CDT Legal Sex Male 1:57 PM JUICE WEIGHER Gender Identity Male 09/04/2018 3:21 PM CDT Sexual Orientation Straight 09/04/2018 3: 21 PM CDT documented as of this encounter Progress Notes * Jennie Bentley M.D. - 10/09/2007 9:03 AM CDT Eye General CHIEF COMPLAINT past history of retinal detachments HISTORY OF PRESENT ILLNESS Patient reports visual acuity is stable. Denies flashes, floaters and diplopia. Denies ocular pain.Notes some stable distortion in his right eye for the past ~ 4-5 years. 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 #5 Posterior vitreous detachment, both eyes Recommend continued care every 12-18 months. 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 #5 Posterior vitreous detachment, both eyes CDM Reports - EYEGEN Id: [id number] Status: Fnl documented in this encounter Plan of Treatment Upcoming Encounters Date Type Department Care Team (Late st Contact Info) Description 02/11/2025 3:15 PM CDT Appointment Department of Radiation Oncology in [address] [phone] Rey Meadows M.D. [address] [place] [phone] 02/12/2025 1:30 PM CDT Appointment Department of Radiation Oncology in [address] [address] Rey Meadows M.D. [address] [place] [phone] 02/12/2025 2:00 PM CDT Appointment Department of Radiation Oncology in [address] [address] Rey Meadows M.D. [address] [place] [phone] 02/13/2025 1:15 PM CDT Appointment Department of Radiation Oncology in [address] [address] Rey Meadows M.D. [address] [place] [phone] 02/14/2025 12:30 PM CDT Appointment Department of Radiation Oncology in [place], [place] [address] [place] [phone] Rey Meadows M.D. [address] [place] [phone] 02/17/2025 1:15 PM CDT Appointment Department of Radiation Oncology in [place], [place] [address] [place] [address] Rey Meadows M.D. [address] [place] [phone] 02/18/2025 1:15 PM CDT Appointment Department of Radiation Oncology in [place], [place] [address] [place] [phone] Rey Meadows M.D. [address] [place] [address] 02/19/2025 1:15 PM CDT Appointment Department of Radiation Oncology in [place], [place] [address] [place] [phone] Rey Meadows M.D. [address] [place] [phone] 02/19/2025 1:45 PM CDT Appointment Department of Radiation Oncology in [place], [place] [address] [place] [address] Rey Meadows M.D. [address] [place] [phone] 02/20/2025 1:15 PM CDT Appointment Department of Radiation Oncology in [place], [place] [address] [place] [address] Rey Meadows M.D. [address] [place] [address] 02/21/2025 12:30 PM CDT Appointment Department of Radiation Oncology in [place], [place] [address] [place] [phone] Rey Meadows M.D. [address] [place] [phone] 02/24/2025 12:30 PM CDT Appointment Department of Radiation Oncology in [address] [address] Rey Meadows M.D. [address] [place] [phone] 02/25/2025 12:30 PM CDT Appointment Department of Radiation Oncology in [address] [address] Rey Meadows M.D. [address] [place] [phone] 02/26/2025 12:30 PM CDT Appointment Department of Radiation Oncology in [address] [address] Rey Meadows M.D. [address] [place] [phone] 02/26/2025 1:15 PM CDT Appointment Department of Radiation Oncology in [place], [place] [address] [place] [phone] Rey Meadows M.D. [address] [place] [phone] 02/27/2025 12:30 PM CDT Appointment Department of Radiation Oncology in [address] [address] Rey Meadows M.D. [address] [place] [address] 02/28/2025 12:30 PM CDT Appointment Department of Radiation Oncology in [place], [place] [address] [place] [address] Rey Meadows M.D. [address] [place] [address] documented as of this encounter Visit Diagnoses Not on filedocumented in this encounter Additional Health Concerns Infection Onset Date Last Indicated Resolved Time COVID19 Pending 09/08/2019 09/08/2019 09/09/2019 4 :41 AM CDT COVID19 Pending 11/04/2020 11/04/2020 11/04/2020 3 :05 PM CDT COVID19 Pending 12/16/2021 12/16/2021 12/16/2021 5 :32 PM CDT documented as of this encounter Care Teams Accounts Payable Processor Relationship Specialty Start Date End Date Elsewhere, Pcp PCP - General Internal Medicine 01/30/24 documented as of this encounter
--- OUTSIDE RECORDS SUMMARY | 2025-02-10 15:02 | XMS_ITS | Encounter Summary ---
Author Organization [facility] Address [address] [place] [address] Care Team Providers Care Gold Wheel Blocker And Polisher Name Role Phone Baltazar Linares MD Primary Care Provider [phone] Esteban Viramontes DO Primary Care Provider No Ref-Primary, Physician Primary Care Provider Priyanka Johnson MD Primary Care Provider [phone] Priyanka Johnson MD Unavailable Senthil Newton MD Unavailable Aroldo Dee MD Unavailable Priyanka Johnson MD Unavailable [phone] Javad Page MD Unavailable UnavailJavad Dunham MD Unavailable Unavaila Aroldo Castelan MD Unavailable + [phone] Javad Page MD Unavailable Unavaila ble Hanna Dahl UPWARD BOUND DIRECTOR Unavailable [phone] Hanna Dahl UPWARD BOUND DIRECTOR Unavailable [phone] Encounter Details Date Type Department Care Team (Late st Contact Info) Description 02/14/2002 Abstract M [address] [address] Sidney Green MD [address] [place] [phone] Social History Tobacco Use Types Packs/Day Years Used Date Smoking Tobacco: Never Assessed Sex and Gender Information Value Date Recorded Sex Assigned at Male 12/18/2019 5:08 PM CDT Legal Sex Male 3:28 AM MOBILE APPLICATION ARCHITECT Gender Identity Male 12/20/2020 9:26 AM CDT Sexual Orientation Straight 12/18/2019 5: 08 PM CDT documented as of this encounter Plan of Treatment Not on file documented as of this encounter Visit Diagnoses Not on filedocumented in this encounter Care Teams Gold Wheel Blocker And Polisher Relationship Specialty Start Date End Date Baltazar Linares MD [address] [place] [address] PCP - General 05/24/00 09/15/14 Esteban Viramontes DO [address] [place] [address] PCP - General Family Practice 09/16/14 09/18/18 No Ref-Primary, Physician PCP - General 09/21/18 09/25/18 Priyanka Johnson MD [address] [place] [address] PCP - General Internal Medicine 09/26/18 Priyanka Johnson MD [address] [place] [address] Assigned PCP 09/06/18 10/05/19 Senthil Newton MD [address] [place] [address] Assigned PCP 10/06/19 10/03/20 Aroldo Dee MD [address] [place] [address] Assigned Heart and Vascular Provider 02/21/20 04/08/22 Priyanka Johnson MD [address] [place] [address] Assigned PCP 10/04/20 Javad Page MD [address] [place] [address] Clinical Cardiac Electrophysiology 01/29/21 Javad Page MD Assigned Heart and Vascular Provider 04/09/22 05/27/22 Aroldo Dee MD [address] [place] [address] Assigned Heart and Vascular Provider 05/28/22 06/24/22 Javad Page MD Assigned Heart and Vascular Provider 06/25/22 08/05/22 Hanna Dahl NP [address] [place] [address] Assigned Heart and Vascular Provider 12/21/24 01/20/25 Hanna Dahl NP [address] [place], [place] [address] Assigned Heart and Vascular Surgical Provider 01/21/25 documented as of this encounter
--- OUTSIDE RECORDS SUMMARY | 2025-02-10 15:02 | XMS_ITS | Encounter Summary ---
Author Organization [facility] Address [address] [place] [address] Care Team Providers Care Banquet Pilot Name Role Phone Priyanka Johnson MD Primary Care Provider [phone] Aroldo Dee MD Unavailable + [phone] Priyanka Johnson MD Unavailable [phone] Javad Page MD Unavailable Unavaila Javad Monsivais MD Unavailable Unavaila Aroldo Castelan MD Unavailable + [phone] Javad Page MD Unavailable Unavaila ble Hanna Dahl GLOBAL LEAD Unavailable [phone] Hanna Dahl GLOBAL LEAD Unavailable [phone] Reason for Referral * CV Cardio consult (Routine) - Closed Specialty Diagnoses / Procedures Referred By Contangela t Referred To Contact Cardiovascular Disease Diagnoses Paroxysmal atrial fibrillation (H) Priyanka Johnson MD [address] [facility] [address] [place] [address] Phone: tel: fax: [facility] [place] [address] [facility] [address] [place] [address] Phone: tel: fax: Referral ID Status Reason Start Date Expiration Date Visits Re quested Visits Authorized [id number] Closed 01/06/2021 01/06/2022 1 1 Question Answer Preferred Location: [facility] Heart - Stone Scheduling Instructions: Please call to schedule your appointment Reason for Consult: EP/Arrhythmia Consult Type: Evaluation and Lap Runner Management (Indefinite) Comments Please be aware that coverage of these services is subject to the terms and limitations of your health insurance plan. Call member services at your health plan with any benefit or coverage questions. Please call to schedule your appointment Reason for Visit * Reason Onset Date Comments MyChart Communication 01/05/2021 Encounter Details Date Type Department Care Team (Latest Contact Info) Description 01/05/2021 [facility] Medical Advice [facility] [address] [facility] [address] [place] [address] Priyanka Johnson MD [address] [facility] [address] [place] [address] MyChart Communication Social History Tobacco Use Types Packs/Day Years Used Date Smoking Tobacco: Former Cigarettes Smokeless Tobacco: Never Comments:quit 1971 Alcohol Use Standard Drinks/Week Comments Yes 0 (1 standard drink = 0.6 oz pur e alcohol) 2 beers a day PHQ-2 Answer Date Recorded PHQ-2 Score 0 01/01/2021 Sex and Gender Information Value Date Recorded Sex Assigned at Male 12/18/2019 5:08 PM CDT Legal Sex Male 3:28 AM BRAND AMBASSADOR Gender Identity Male 12/20/2020 9:26 AM CDT Sexual Orientation Straight 12/18/2019 5: 08 PM CDT Occupation Industry Job Start Date Job End Date retired Not on file Not on file Not on file COVID-19 Exposure Response Date Recorded In the last month, have you been in contact with someone who was confirmed or suspected to have Coronavirus / COVID-19? No / Unsure 01/05/2021 10:56 AM CDT documented as of this encounter Miscellaneous Notes * Telephone Encounter - Walter Marroquin CMA - 01/06/2021 8:50 AM CDT PCP, please advise patient's mychart message. Walter Marroquin CMA on 01/06/2021 at 8:50 AM documented in this encounter Plan of Treatment Scheduled Referrals Name Type Priority Associated Diagnoses Orde r Schedule Adult Cardiology Eval Referral Referral Routine Paroxysmal atrial fibrillation (H) Expected: 01/06/2021 (Approximate), Expires: 01/06/2022 documented as of this encounter Visit Diagnoses Diagnosis Paroxysmal atrial fibrillation (H)- Primary Atrial fibrillation documented in this encounter Care Teams Banquet Pilot Relationship Specialty Start Date End Date Priyanka Johnson MD [address] [place] [address] PCP - General Internal Medicine 09/26/18 Aroldo Dee MD [address] [place] [address] Assigned Heart and Vascular Provider 02/21/20 04/08/22 Priyanka Johnson MD [address] [place] [address] Assigned PCP 10/04/20 Javad Page MD [address] [place] [address] Clinical Cardiac Electrophysiology 01/29/21 Javad Page MD Assigned Heart and Vascular Provider 04/09/22 05/27/22 Aroldo Dee MD [address] [place] [address] Assigned Heart and Vascular Provider 05/28/22 06/24/22 Javad Page MD Assigned Heart and Vascular Provider 06/25/22 08/05/22 Hanna Dahl NP [address] [place] [address] Assigned Heart and Vascular Provider 12/21/24 01/20/25 Hanna Dahl NP [address] [place] [address] Assigned Heart and Vascular Surgical Provider 01/21/25 documented as of this encounter
--- OUTSIDE RECORDS SUMMARY | 2025-02-10 15:02 | XMS_ITS | Encounter Summary ---
Author Organization [facility] Address [address] [place] [address] Care Team Providers Care Drivematic Machine Operator Name Role Phone Baltazar Linares MD Primary Care Provider Esteban Viramontes DO Primary Care Provider No Ref-Primary, Physician Primary Care Provider Priyanka Johnson MD Primary Care Provider [phone] Priyanka Johnson MD Unavailable [phone] Senthil Newton MD Unavailable [phone] Aroldo Dee MD Unavailable + [phone] Priyanka Johnson MD Unavailable [phone] Javad Page MD Unavailable UnavailJavad Dunham MD Unavailable Unavaila Aroldo Castelan MD Unavailable + [phone] Javad Page MD Unavailable Unavaila Hanna Pemberton PAPER BAG MAKER Unavailable [phone] Hanna Dahl PAPER BAG MAKER Unavailable [phone] Encounter Details Date Type Department Care Team (Late st Contact Info) Description 04/02/2003 Office Visit-[facility] [address] [place] [address] Unknown, Doctor, Social History Tobacco Use Types Packs/Day Years Used Date Smoking Tobacco: Former Comments:quit 1970 Alcohol Use Standard Drinks/Week Comments Yes 0 (1 standard drink = 0.6 oz pur e alcohol) couple beers a day Sex and Gender Information Value Date Recorded Sex Assigned at Male 12/18/2019 5:08 PM CDT Legal Sex Male 3:28 AM SUPPLY CHAIN CONSULTANT Gender Identity Male 12/20/2020 9:26 AM CDT Sexual Orientation Straight 12/18/2019 5: 08 PM CDT documented as of this encounter Progress Notes * Unknown, Doctor, - 04/04/2003 9:57 AM CST Progress Note Created by: Tulio Be M.D. DATE: 04/02/2003 MAGDALENO BRANDT DATE OF : 1940 AGE: [age] years old Referring Physician: VANNESSA DIANA CURRENT DIAGNOSES 1. - Hypertension, benign, 401.1 2. - Atrial Fibrillation, 427.31 3. Sleep apnea, 786.09 ALLERGIES NKA MEDICATIONS 1. Krista 180 mg, 1 p.o. qPM 2. Nasonex 50 mcg/inh, 2 Sprays each nostril q.d. 3. Aspirin 81 mg, 1 p.o. q.d. 4. Ocuvite Antioxidant Multiple Vitamins and Minerals, 1 p.o. q.d. 5. Verapamil Hydrochloride ER 240 mg, 1 p.o. q.d. CHIEF COMPLAINTS AFib. and hypertension checkup HISTORY OF PRESENT ILLNESS I again had the pleasure of seeing your patient, Magdaleno Brandt, at [facility] on April 02, 2003. As you may recall, this patient has a history of paroxysmal atrial fibrillation. He also has sleep apnea and has not tolerated a mandibular device for CPAP. The patient has lost 30-40 pounds and notes that his sleep apnea is better. His blood pressure has also improved and he has been taken off the Avapro that I started last year. He denies any further episodes of atrial fibrillationor palpitations. He was taking his pulse every day without any arrhythmias at all. He denies chest pain. He denies PND, orthopnea, or peripheral edema. He is not exercising to any major extent due toplantar fasciitis. He has gone on an Atkins diet and has lost the above-mentioned weight. He does eat a high fat diet, however. He denies syncope or presyncope. His current blood pressure is 132/75, 138/84 using his home blood pressure cuff on his right arm. Pulse is 68 and regular. Weight today is 194 pounds compared to 227 pounds one year ago. Chest is clear. Cardiac exam: Regular rate and rhythm. Normal S1 and S2 without gallop or murmur. Abdomen and extremities are benign. PAST HISTORY Past Medical Illnesses: sleep apnea, allergic rhinitis Past Cardiac Illnesses: atrial fibrillation-paroxysmal Surgical Procedures: [...] Prior History of Heart Disease: positive; Obesity:negative; Age:positive SOCIAL HISTORY Alcohol Use - beer 1-2 per day; Smoking - does not smoke; Diet - atkins diet; Lifestyle - , children and drives car; Exercise - exercise is limited due to physical disability; Seat Belt Use - always; Occupation - retired; REVIEW OF SYSTEMS GENERAL denies recent weight loss, weight gain, fever or chills or change in exercise tolerance. INTEGUMENTARY denies any change in hair or nails, rashes, or skin lesions. EYES wears eye glasses/contact lenses EARS, NOSE, THROAT, MOUTH denies any hearing loss, epistaxis, hoarseness or difficulty speaking. RESPIRATORY sleep apnea CARDIOVASCULAR please review HPI ABDOMINAL denies ulcer disease, hematochezia or melena. [...] allergies PHYSICAL EXAMINATION VITAL SIGNS: Blood Pressure: 138/83 Sitting, Left arm, large cuff 132/75 Retaken by Pulse- 72.00/min. Weight- 194.00 lbs. Height- 74.00 Temperature- .00 CONSTITUTIONAL cooperative, [...] time, person and place. MEDICATIONS UPDATED TODAY: Aspirin 81 mg, 1 p.o. q.d. Ocuvite Antioxidant Multiple Vitamins and Minerals, 1 p.o. q.d. Verapamil Hydrochloride ER 240 mg, 1 p.o. q.d., 0 MEDICATION STOPPED TODAY: Calan SR 240 mg IMPRESSIONS/PLAN Mr. Brandt is a 63-year-old male with a history of paroxysmal atrial fibrillation. I suspect that this has been related to his hypertension or sleep apnea. He seems to be doing reasonably well and I would leave him on his verapamil and not change his medications. His blood pressure is well controlled on that medication alone, especially given his weight loss. We discussed this patient starting anexercise program, which is important for him. I also asked him to keep his fat content down in his diet, but maintain a low carbohydrate diet as well. I do not believe any other medication changes are necessary at this time and he is doing quite well. I will plan on seeing him again in one year, chun on a p.r.n. basis as you direct. TODAYS ORDERS 1. Return Visit 1 year Tulio Be M.D. documented in this encounter Plan of Treatment Not on file documented as of this encounter Visit Diagnoses Not on filedocumented in this encounter Care Teams Drivematic Machine Operator Relationship Specialty Start Date End Date Baltazar Linares MD [address] [place] [address] PCP - General 05/24/00 09/15/14 Esteban Viramontes DO [address] [place] [address] PCP - General Family Practice 09/16/14 09/18/18 No Ref-Primary, Physician PCP - General 09/21/18 09/25/18 Priyanka Johnson MD [address] [place] [address] PCP - General Internal Medicine 09/26/18 Priyanka Johnson MD [address] [place] [address] Assigned PCP 09/06/18 10/05/19 Senthil Newton MD [address] [place] [address] Assigned PCP 10/06/19 10/03/20 Aroldo Dee MD [address] [place] [address] Assigned Heart and Vascular Provider 02/21/20 04/08/22 Priyanka Johnson MD [address] [place] [address] Assigned PCP 10/04/20 Javad Page MD [address] [place] [address] Clinical Cardiac Electrophysiology 01/29/21 Javad Page MD Assigned Heart and Vascular Provider 04/09/22 05/27/22 Aroldo Dee MD [address] [address] Assigned Heart and Vascular Provider 05/28/22 06/24/22 Javad Page MD Assigned Heart and Vascular Provider 06/25/22 08/05/22 Hanna Dahl NP [address] [place], [place] [address] Assigned Heart and Vascular Provider 12/21/24 01/20/25 Hanna Dahl NP [address] [place], [place] [address] Assigned Heart and Vascular Surgical Provider 01/21/25 documented as of this encounter
--- OUTSIDE RECORDS SUMMARY | 2025-02-10 15:02 | XMS_ITS | Encounter Summary ---
Author Organization [facility] Address [address] [place] [address] Care Team Providers Care Reinforcing Iron Worker Helper Name Role Phone Baltazar iLnares MD Primary Care Provider Esteban Viramontes DO Primary Care Provider No Ref-Primary, Physician Primary Care Provider Priyanka Johnson MD Primary Care Provider [phone] Priyanka Johnson MD Unavailable [phone] Senthil Newton MD Unavailable Aroldo Dee MD Unavailable + [phone] Priyanka Johnson MD Unavailable [phone] Javad Page MD Unavailable UnavailJavad Dunham MD Unavailable Unavaila Aroldo Castelan MD Unavailable + [phone] Javad Page MD Unavailable Unavaila Hanna Pemberton SHOT CORE DRILL OPERATOR Unavailable [phone] Hanna Dahl SHOT CORE DRILL OPERATOR Unavailable [phone] Encounter Details Date Type Department Care Team (Late st Contact Info) Description 02/11/2002 Office Visit-[facility] [address] [place] [address] Unknown, Doctor, Social History Tobacco Use Types Packs/Day Years Used Date Smoking Tobacco: Never Assessed Sex and Gender Information Value Date Recorded Sex Assigned at Male 12/18/2019 5:08 PM CDT Legal Sex Male 3:28 AM HOG PUSHER Gender Identity Male 12/20/2020 9:26 AM CDT Sexual Orientation Straight 12/18/2019 5: 08 PM CDT documented as of this encounter Progress Notes * Unknown, Doctor, - 02/22/2002 3:14 PM CDT DATE: 02/11/2002 KARLYMAGDALENO DATE OF : 1940 AGE: [age] years old Referring Physician: VANNESSA DIANA CURRENT DIAGNOSES 1. - Atrial Fibrillation, 427.31 2. Sleep apnea, 786.09 ALLERGIES NKA MEDICATIONS 1. Verapamil Hydrochloride ER 240 mg, 1 p.o. qAM 2. Krista 180 mg, 1 p.o. qPM 3. Nasonex 50 mcg/inh, 2 Sprays each nostril q.d. 4. Avapro 150 mg, 1 p.o. qAM CHIEF COMPLAINTS Annual exam HISTORY OF PRESENT ILLNESS I again had the pleasure of seeing your patient, Magdaleno Li, at [facility] on February 11, 2002. As you may recall, this patient has a history of paroxysmal atrial fibrillation. He has sleep apnea which at this time he has not tolerated a mandibular device or CPAP. He notes that this occurs only if he sleeps on his back and he otherwise feels well if he sleeps on his side or stomach. He also has a history of borderline hypertension. He has not had any further episodes of atrial fibrillation as far as he knows. He generally takes his pulse at least every other day without arrhythmias. He denies chest pain. He is not currently on Coumadin. He denies PND, orthopnea or peripheral edema. He is not exercising to any major extent. He has not had syncope, presyncope. He is retiredand is quite busy including sailing, boating and mowing his lawn without difficulty. On physical exam, current blood pressure is 140/85, pulse 84 and regular, weight is 227 pounds compared to 225 pounds in August of 2000. Chest is clear. Cardiac exam regular rate and rhythm without gallop or murmur. Abdomen and extremities are benign. FAMILY HISTORY: Family - unremarkable; CARDIAC RISK FACTORS Tobacco Abuse: used to smoke, but quit; Family History of Heart Disease: negative; Hyperlipidemia: lipid status unknown; Hypertension: negative; Diabetes Mellitus: negative; Prior History of Heart Disease: positive; Obesity:negative; Age:positive SOCIAL HISTORY Alcohol Use - beer 1-2 per day; Smoking - used to smoke but quit; Diet - regular diet without modifications and caffeine use-rare; Lifestyle - , children and drives car; Exercise - some exercise; Seat Belt Use - always; Occupation - retired; Sexual Activity - did not discuss sexual history; Residence - lives with and cronin in [place]; Place of - [place]; Spouse's Occupation - retired; REVIEW OF SYSTEMS GENERAL denies recent weight loss, weight gain, fever or chills or change in exercise tolerance. INTEGUMENTARY denies any change in hair or nails, rashes, or skin lesions. EYES wears eye glasses/contact lenses, cataract extraction with lens implants EARS, NOSE, THROAT, MOUTH seasonal sinusitis RESPIRATORY sleep apnea CARDIOVASCULAR negative for palpitations, chest pain, orthopnea, PND, peripheral edema, syncope or claudication. ABDOMINAL denies ulcer disease, hematochezia or melena. GENITOURINARY-MALE nocturia MUSCULOSKELETAL joint pain both shoulder(s), joint pain both knee(s) NEUROLOGICAL denies any history of recurrent strokes, TIA, or seizure disorder. PSYCHIATRIC denies any history of depression, substance abuse or change in cognitive functions. ENDOCRINE denies any history of weight change, heat/cold intolerance, polydipsia, or polyuria HEMATOLOGICAL/IMMUNOLOGIC denies any food allergies, seasonal allergies, bleeding disorders. PHYSICAL EXAMINATION VITAL SIGNS: Blood Pressure: 130/78 Sitting, Right arm, regular cuff 140/85 Retaken by Pulse- 84.00/min. Weight- 227.20 lbs. Height- .00 Temperature- .00 CONSTITUTIONAL cooperative, alert and oriented,well [...] and place. MEDICATIONS UPDATED TODAY: Verapamil Hydrochloride ER 240 mg, 1 p.o. qAM, 0 Krista 180 mg, 1 p.o. qPM, 0 Nasonex 50 mcg/inh, 2 Sprays each nostril q.d., 0 Avapro 150 mg, 1 p.o. qAM, 0 IMPRESSIONS/PLAN ASSESSMENT: 1. Mr. Li is a 62-year-old male with a history of paroxysmal atrial fibrillation. I suspect this is related either to his sleep apnea or hypertension. He wishes to come off of his Verapamil because of cost but I have asked him to not do so until he returns from [place]. At that time, if he does stop his Verapamil we should consider increasing his Avapro. I will leave this in your capable hands. Additionally, I have asked him to begin an exercise program of at least 3-4 times per week or aerobic exercise for 30 minutes. I will plan on seeing this patient again in one year. I believe that some follow- up on his sleep apnea is important and suggested that he follow-up in your office for this. Thank you very much for allowing me to help care for this delightful patient. He did have some degree of aortic insufficiency during his last echo and some time next year this should be followed up. TODAYS ORDERS 1. Return Visit 1 year Tulio Be M.D. documented in this encounter Plan of Treatment Not on file documented as of this encounter Visit Diagnoses Not on filedocumented in this encounter Care Teams Reinforcing Iron Worker Helper Relationship Specialty Start Date End Date Baltazar Linares MD [address] [place] [address] PCP - General 05/24/00 09/15/14 Esteban Viramontes DO [place] [id number] [facility] [place] [address] PCP - General Family Practice 09/16/14 09/18/18 No Ref-Primary, Physician PCP - General 09/21/18 09/25/18 Priyanka Johnson MD [address] [place] [address] PCP - General Internal Medicine 09/26/18 Priyanka Johnson MD [address] [place] [address] Assigned PCP 09/06/18 10/05/19 Senthil Newton MD [address] [place] [address] Assigned PCP 10/06/19 10/03/20 Aroldo Dee MD [address] [place], [place] [address] Assigned Heart and Vascular Provider 02/21/20 04/08/22 Priyanka Johnson MD [address] [place] [address] Assigned PCP 10/04/20 Javad Page MD [address] [place] [address] Clinical Cardiac Electrophysiology 01/29/21 Javad Page MD Assigned Heart and Vascular Provider 04/09/22 05/27/22 Aroldo Dee MD [address] [place], [place] [address] Assigned Heart and Vascular Provider 05/28/22 06/24/22 Javad Page MD Assigned Heart and Vascular Provider 06/25/22 08/05/22 Hanna Dahl SHOT CORE DRILL OPERATOR [address] [place] [address] Assigned Heart and Vascular Provider 12/21/24 01/20/25 Hanna Dahl NP [address] [place] [address] Assigned Heart and Vascular Surgical Provider 01/21/25 documented as of this encounter
--- OUTSIDE RECORDS SUMMARY | 2025-02-10 15:02 | XMS_ITS | Encounter Summary ---
Author Organization [facility] Address [address] [place] [address]. [place] [address] Care Team Providers Care Eyeglass Frame Truer Name Role Phone Priyanka Johnson MD Primary Care Provider [phone] Aroldo Dee MD Unavailable + [phone] Priyanka Johnson MD Unavailable [phone] Javad Page MD Unavailable Unavaila Javad Monsivais MD Unavailable Unavaila Aroldo Castelan MD Unavailable + [phone] Javad Page MD Unavailable Unavaila ble Hanna Dahl MAINFRAME PROGRAMMER ANALYST Unavailable [phone] Hanna Dahl MAINFRAME PROGRAMMER ANALYST Unavailable [phone] Reason for Visit * Reason Onset Date Comments MyChart Communication 01/01/2021 Encounter Details Date Type Department Care Team (Latest Contact Info) Description 01/01/2021 MyC Medical Advice [address] [place] [phone] Priyanka Johnson MD [address] [facility] [address] [place] [address] MyChart Communication Social History Tobacco [...] PM CDT 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 No / Unsure 01/01/2021 11:26 AM CDT documented as of this encounter Miscellaneous Notes * Telephone Encounter - Beth Bravo CMA - 01/05/2021 8:16 AM CDT Please see patient's [employer] message. Beth Bravo MA documented in this encounter Plan of Treatment Not on file documented as of this encounter Visit Diagnoses Not on filedocumented in this encounter Care Teams Eyeglass Frame Truer Relationship Specialty Start Date End Date Priyanka Johnson MD [address] [place] [address] PCP - General Internal Medicine 09/26/18 Aroldo Dee MD [address] [place] [address] Assigned Heart and Vascular Provider 02/21/20 04/08/22 Priyanka Johnson MD [address] [place] [address] Assigned PCP 10/04/20 Javad Page MD [address] [place] [address] Clinical Cardiac Electrophysiology 01/29/21 Javad Page MD Assigned Heart and Vascular Provider 04/09/22 05/27/22 Aroldo Dee MD [address] [place] [address] Assigned Heart and Vascular Provider 05/28/22 06/24/22 Javad Page MD Assigned Heart and Vascular Provider 06/25/22 08/05/22 Hanna Dahl NP [address] [place] [address] Assigned Heart and Vascular Provider 12/21/24 01/20/25 Hanna Dahl NP [address] [place] [address] Assigned Heart and Vascular Surgical Provider 01/21/25 documented as of this encounter
--- NOTE | 2025-02-10 16:00 | CRLHL7_ITS ---
For Patients: As a result of the Century Cures Act, medical imaging exams and procedure reports are released immediately into your electronic medical record. You may view this report before your referring provider. If you have questions, please contact your health care provider. INDICATION: Constipation. TECHNIQUE: Abdomen 3 views. COMPARISON: None. FINDINGS: Mildly dilated small bowel loops are present in the left abdomen. No evidence of free intraperitoneal gas. Mild fecal loading of the proximal colon. Soft tissues elsewhere as imaged are unremarkable. Degenerative changes spine and pelvis. IMPRESSION: Mildly dilated small bowel in the left abdomen is of uncertain significance but may reflect underlying enteritis or low-grade obstruction in the appropriate clinical setting. Dictated by Efrain Mcgill MD @ 02/10/2025 5:11:57 PM (Electronically Signed)
[2025-02-10 16:22] LABS: Lactate* 0.8 mmol/L (0.5-1.9)
[2025-02-10 16:49] LABS: Hematocrit* 36.2 % (37.0-53.0); Hemoglobin* 11.3 gm/dL (13.5-17.5); Immature Granulocytes Abs Auto 0.06 K/uL (0.00-0.30); Immature Granulocytes Pct Auto 0.9 %; Mean Corpuscular HGB Conc 31 gm/dL (32-36); Mean Corpuscular Hemoglobin 28 pg (26-34); Mean Corpuscular Volume 89 fL (80-100); RDW Coefficient of Variation % 15.8 % (11.5-15.5); Red Blood Count* 4.05 m/uL (4.30-5.90); White Blood Count* 6.85 K/uL (4.50-11.00)
[2025-02-10 16:50] LABS: Appearance Urine Clear (Clear)
[2025-02-10 16:51] LABS: Albumin* 3.3 g/dL (3.3-5.0); Chloride* 100 mmol/L (96-114); Potassium* 4.2 mmol/L (3.6-5.1); Sodium* 129 mmol/L (135-149)
[2025-02-10 16:53] LABS: Blood Urea Nitrogen* 14 mg/dL (7-30); Creatinine* 0.7 mg/dL (0.5-1.5); Est. Creatinine Clearance* 60.36; Estimated Glomerular Filt Rate 91 ml/min
[2025-02-10 16:54] LABS: Alanine Aminotransferase* 17 U/L (4-50); Alkaline Phosphatase* 43 U/L (40-150); Anion Gap 5 mEq/L (7-15); Aspartate Amino Transferase* 21 U/L (12-35); Bilirubin Direct* 0.3 mg/dL (0.0-0.5); Bilirubin Total* 1.5 mg/dL (0.1-1.5); Calcium* 8.6 mg/dL (8.4-10.6); Carbon Dioxide* 24 mmol/L (20-32); Glucose* 105 mg/dL (60-115); Total Protein* 5.9 g/dL (6.0-8.3)
[2025-02-10 16:55] LABS: Lymphocytes Absolute Auto 0.30 K/uL (0.90-2.90); Slide Review Reflex No
--- NOTE | 2025-02-10 17:08 | ED.GENADULT ---
HPI - General Adult General Chief complaint: Constipation Stated complaint: dehydration Time Seen by Provider: 02/10/25 15:42 Source: patient Mode of arrival: ambulatory Limitations: no limitations History of Present Illness HPI narrative: 85-year-old male with a recent diagnosis of esophageal adenocarcinoma presents today with several concerns. He states that last night was 1 of the worst nights of his life. He states that he had to get up to go to the bathroom about 50 times overnight. [place] like yet to have a bowel movement but nothing came out. Denies having any abdominal pain but he was having rectal discomfort. The rectal discomfort has subsided today. He states that he has not been able to take any food for the last 2 days. Patient did start radiation therapy for his esophageal cancer 3 weeks ago. He has had 1 dose of chemotherapy also. He is not vomiting and does not feel nauseated. He denies fevers or chills. He denies any abdominal pain. He is not coughing. But he has been only able to take sips of water in a couple sips of Ensure, food just will not go down. He is passing gas. This morning he had liquid stool with gas. Patient also notes that he fell recently sustaining a large bruise to the right leg and back. He this appears to be healing well, his pain is well controlled. He was taking tramadol for this did not take any yesterday or today. Related Data Home Medications ?Medication ?Instructions ?Recorded ?Confirmed apixaban 5 mg tablet (Eliquis) 5 mg PO BID 01/20/25 02/03/25 atenolol 50 mg tablet 50 mg PO BID 01/20/25 02/03/25 fexofenadine 60 mg tablet 60 mg PO QHS 01/20/25 02/03/25 omeprazole 20 mg capsule,delayed 20 mg PO BID 01/20/25 02/03/25 release ondansetron HCl 8 mg tablet 8 mg PO Q8H PRN 01/20/25 02/03/25 prochlorperazine maleate 10 mg 10 mg PO Q6H PRN 01/20/25 02/03/25 tablet acetaminophen 500 mg tablet 1,000 mg PO Q6H PRN 02/03/25 02/04/25 (Tylenol Extra Strength) sennosides 8.6 mg-docusate sodium 1 tab-cap PO QHS PRN constipation 02/03/25 02/04/25 50 mg capsule (Senna Plus) tramadol 50 mg tablet 100 mg PO Q6H PRN moderate to 02/03/25 02/04/25 severe pain Previous Rx's ?Medication ?Instructions ?Recorded diclofenac sodium 1 % topical gel 4 g topical QID Right leg/buttock 01/27/25 (Voltaren Arthritis Pain) pain #100 grams lidocaine 4 % topical patch 1 patch topical BID PRN pain #30 ea 02/03/25 Allergies Allergy/AdvReac Type Severity Reaction Status Date / Time ragweed pollen Allergy Unknown Congested Verified 02/10/25 18:12 Review of Systems Status of ROS: Reports: 10 or more systems reviewed and unremarkable except as noted in History and below [facility] Medical History Acute pain due to injury ?G89.11 - Acute pain due to trauma (ICD-10) Surgical History S/P cataract extraction ?Z98.49 - Cataract extraction status, unspecified eye (ICD-10) History of parotidectomy ?Z90.49 - Acquired absence of other specified parts of digestive tract (ICD-10) History of inguinal hernia repair ?Z98.890 - Other specified postprocedural states (ICD-10) ?Z87.19 - Personal history of other diseases of the digestive system (ICD-10) Status post prostatectomy ?Z90.79 - Acquired absence of other genital organ(s) (ICD-10) H/O Spinal surgery ?Z98.890 - Other specified postprocedural states (ICD-10) Social History How often do you have a drink containing alcohol: never AUDIT-C Alcohol total score: 0 Exam Narrative: Exam Narrative: Well-nourished well-developed patient in no acute distress. Alert and oriented. Answers questions appropriately. Mood and affect are appropriate. Thoughts are goal oriented and rational. No tangential or magical thinking noted. Patient speaks in full sentences without needing to catch his breath. He does not appear ill or toxic. HEENT: Normocephalic atraumatic. Pupils are equally round reactive to light. Extraocular muscles are intact. Conjunctivae are moist without any icterus noted. Dry mucous membranes. Posterior pharynx is normal. Cardiovascular: Heart is regular rate and rhythm. Lungs: Clear to auscultation bilaterally no wheezes rhonchi or rales are appreciated. Patient takes deep breaths without any discomfort. Abdomen: Soft and nontender nondistended with normal bowel sounds. Extremities: Bilateral lower extremities are without edema. Skin: Well perfused. Patient has a large ecchymosis over the right posterior thigh that extends into the lower back. Const: Vital Signs, click to edit/add: Vital Signs - 24 hr 02/10/25 14:54 02/10/25 15:25 02/10/25 15:30 Temperature 98 F Pulse Rate Pulse Rate [Pulse Oximeter] 92 118 H 103 H Respiratory Rate 16 Blood Pressure [Ri ght Upper Arm] 109/69 112/74 105/69 Pulse Oximetry 93 Oxygen Delivery Me thod Room Air 02/10/25 15:35 02/10/25 15:46 02/10/25 16:00 Temperature Pulse Rate 91 94 Pulse Rate [Pulse Oximeter] 104 H Respiratory Rate Blood Pressure [Ri ght Upper Arm] 104/63 Pulse Oximetry 98 95 Oxygen Delivery Me thod 02/10/25 16:15 Temperature Pulse Rate 85 Pulse Rate [Pulse Oximeter] Respiratory Rate Blood Pressure [Ri ght Upper Arm] Pulse Oximetry 97 Oxygen Delivery Me thod Course Course ED Course: Port is accessed the patient is started on a L of normal saline. On arrival patient was tachycardic, pulse came down to normal range after 1 L of normal saline. Blood pressure remained stable. EKG shows atrial fibrillation that is rate controlled with a pulse of 86. CBC is unremarkable. Patient has a hemoglobin of 11.3, this is stable. He does have thrombocytopenia today which is new 97,000. Sodium was low at 129. Remainder of chemistries are unremarkable. Urine shows 2+ protein, 2+ ketones of 1+ bilirubin. Abdominal x-ray shows mildly dilated small bowel of uncertain significance but may reflect underlying enteritis or low-grade obstruction. Given his description of not being able to pass any stool and then having liquid stool, there is a concern for obstruction. Because of this we did go ahead and proceed with an abdominal CT. CT did not show evidence of obstruction. Shows a rim enhancing lesion in the right gluteal musculature consistent with his area of trauma. Likely this represents an intramuscular hematoma. Patient was feeling better after fluids. Did proceed with another 500 mL of normal saline given his difficulty in taking in any p.o. intake. We discussed that he needs to have a conversation with his oncology team about his p.o. intake and what next steps will be needed. Patient does understand that he may need to return to the ER for repeated fluid boluses if his symptoms do not improve. He does have an appointment already scheduled for tomorrow. Vital Signs Vital signs: Initial Vital Signs Temperature 98 F 02/10/25 14:54 Temperature Source Temporal Artery Scan 02/10/25 14:54 Pulse Rate 92 02/10/25 14:54 Respiratory Rate 16 02/10/25 14:54 Blood Pressure 109/69 02/10/25 14:54 Blood Pressure Mean 82 02/10/25 14:54 Pulse Oximetry 93 02/10/25 14:54 Oxygen Delivery Method Room Air 02/10/25 14:54 Vital Signs Temperature 98 F 02/10/25 14:54 Pulse Rate 92 02/10/25 14:54 Respiratory Rate 16 02/10/25 14:54 Blood Pressure 109/69 02/10/25 14:54 Pulse Oximetry 93 02/10/25 14:54 Oxygen Delivery Method Room Air 02/10/25 14:54 Temperature 98 F 02/10/25 14:54 Pulse Rate 85 02/10/25 16:15 Respiratory Rate 16 02/10/25 14:54 Blood Pressure 104/63 02/10/25 15:35 Pulse Oximetry 97 02/10/25 16:15 Oxygen Delivery Method Room Air 02/10/25 14:54 Medications Administered Medications: Discontinued Medications Generic Name Dose Route Start Last Admin Trade Name Freq PRN Reason Stop Dose Admin Sodium Chloride 1,000 mls @ 1,000 mls/hr 02/10/25 16:00 02/10/25 17:44 0.9 % Sodium Chloride 1000 Ml IV 02/10/25 16:59 Infused .Q1H JAMA Infusion Medical Decision Making MDM Narrative Medical decision making narrative: 85-year-old male with esophageal adenocarcinoma status post esophageal radiation presenting with decreased p.o. intake, dehydration. Episodes of tenesmus overnight which have resolved. No evidence of obstruction, no abdominal pain and no vomiting. Lab Data Lab results reviewed: Yes I reviewed the patient's lab results Labs: Lab Results 02/10/25 02/10/25 Range/Units 16:15 16:39 WBC 6.85 (4.50-11.00) K/uL RBC 4.05 L (4.30-5.90) m/uL Hgb 11.3 L (13.5-17.5) gm/dL Hct 36.2 L (37.0-53.0) % MCV 89 (80-100) fL MCH 28 (26-34) pg MCHC 31 L (32-36) gm/dL RDW Coeff of Enoch 15.8 H (11.5-15.5) % Plt Count 97 L (140-440) K/uL Neut % (Auto) 85.8 H (42.0-72.0) % Lymph % (Auto) 4.5 L (20-44) % Pierce % (Auto) 7.3 (0.0-11.0) % Eos % (Auto) 0.9 (0.0-7.0) % Baso % (Auto) 0.6 (0.0-3.0) % Neut # (Auto) 5.90 (1.7-7.0) K/uL Lymph # (Auto) 0.30 L (0.90-2.90) K/uL Pierce # (Auto) 0.50 (0.00-0.90) K/UL Eos # (Auto) 0.06 (0.00-0.50) K/uL Baso # (Auto) 0.04 (0.00-0.30) K/uL Abs Immat Gran (auto) 0.06 (0.00-0.30) K/uL Imm/Tot Granulo (auto) 0.9 % Sodium 129 L (135-149) mmol/L Potassium 4.2 (3.6-5.1) mmol/L Chloride 100 (96-114) mmol/L Carbon Dioxide 24 (20-32) mmol/L Anion Gap 5 L (7-15) mEq/L BUN 14 (7-30) mg/dL Creatinine 0.7 (0.5-1.5) mg/dL Estimated Creat Clear 60.36 Estimated GFR 91 ml/min Glucose 105 (60-115) mg/dL Lactate 0.8 (0.5-1.9) mmol/L Calcium 8.6 (8.4-10.6) mg/dL Total Bilirubin 1.5 (0.1-1.5) mg/dL Direct Bilirubin 0.3 (0.0-0.5) mg/dL AST 21 (12-35) U/L ALT 17 (4-50) U/L Alkaline Phosphatase 43 (40-150) U/L C-Reactive Protein 1.3 H (0.5-1.0) mg/dL Total Protein 5.9 L (6.0-8.3) g/dL Albumin 3.3 (3.3-5.0) g/dL Lipase 37 (23-300) U/L Urine Color Yellow (Yellow) Urine Appearance Clear (Clear) Urine pH 7.0 (5.0-8.5) Ur Specific [place] 1.020 (1.000-1.030) Urine Protein 2+ A (Negative) Urine Glucose (UA) Negative (Negative) Urine Ketones 2+ A (Negative) Urine Blood Negative (Negative) Urine Nitrite Negative (Negative) Urine Bilirubin 1+ A (Negative) Urine Urobilinogen 1.0 (0.2-1.0) Ur Leukocyte Esterase Negative (Negative) Urine RBC 0-2 (0-2) Urine WBC 0-2 (0-5) Ur Squamous Epith Cells Few (None-Few) Urine Bacteria Few A (None) Hyaline Casts Moderate A (None-Few) Imaging Data CT scan - abdomen: Attestation: I have reviewed the pertinent imaging results. Radiologist's impression: Technique: CT through the abdomen and pelvis following 85 mL Isovue 370 IV contrast Comparison: CT abdomen and pelvis performed 01/05/2025 Findings: Lower chest: Small left effusion, new from prior study. Cardiomegaly. Hepatobiliary: No significant parenchymal abnormality is appreciated. Spleen: Unremarkable. Pancreas: No acute abnormality appreciated. Adrenal glands: No acute abnormality appreciated. Kidneys: No significant parenchymal abnormality appreciated. No visualized calculi. No hydronephrosis. Bowel: No obstruction. Diverticulosis. Known gastroesophageal mass lesion, not well evaluated, potentially increased in size compared to prior examination though difficult to evaluate. The appendix is visualized and appears unremarkable. Vascular: Calcified and noncalcified atherosclerosis. Lymph nodes: No gross lymphadenopathy. Peritoneum: No free air. No free fluid. : No acute abnormality appreciated. Soft tissues: Rim enhancing lesion in the right gluteal muscle body measures 5.2 cm. This was not evident on prior examination. Bones: No acute fracture. No lytic or blastic lesion. Degenerative changes of the spine and pelvis. Impression: 1. There is a new rim enhancing lesion in the right gluteal musculature measuring 5.2 cm. Differential would include abscess, intramuscular hematoma, or intramuscular metastasis. This was not evident on 01/05/2025 CT. 2. Gastroesophageal mass lesion again noted. This is not well evaluated by this modality but may be increased in size from prior study. 3. New small left effusion. Abdominal x-ray: Attestation: I have reviewed the pertinent imaging results. Radiologist's impression: TECHNIQUE: Abdomen 3 views. COMPARISON: None. FINDINGS: Mildly dilated small bowel loops are present in the left abdomen. No evidence of free intraperitoneal gas. Mild fecal loading of the proximal colon. Soft tissues elsewhere as imaged are unremarkable. Degenerative changes spine and pelvis. IMPRESSION: Mildly dilated small bowel in the left abdomen is of uncertain significance but may reflect underlying enteritis or low-grade obstruction in the appropriate clinical setting. ECG Data Attestation: I personally reviewed and interpreted this ECG as follows: Discharge Plan Discharge Clinical Impression: Dehydration, Constipation, Esophageal adenocarcinoma Patient Disposition: Home, Self-Care Condition: Stable Additional Instructions: Follow-up with your oncology team tomorrow as scheduled and discuss your current treatment and your current symptoms. Return to the emergency department for fluids if you are not able to tolerate any oral intake or schedule fluids with your oncology team if that is possible. Prescriptions: No Action diclofenac sodium [Voltaren Arthritis Pain] 1 % gel 4 g topical QID Qty: 100 0RF Rx Instructions: Apply 4 grams up to 4 times daily to painful area right buttock and upper thigh. tramadol 50 mg tablet 100 mg PO Q6H PRN (Reason: moderate to severe pain) Rx Instructions: Take 1 tablet every 6 hours if needed for moderate to severe pain. Take with 1 - 500mg tablet of acetaminophen (tylenol). Stop med for confusion. fexofenadine 60 mg tablet 60 mg PO QHS ondansetron HCl 8 mg tablet 8 mg PO Q8H PRN prochlorperazine maleate 10 mg tablet 10 mg PO Q6H PRN omeprazole 20 mg capsule,delayed release(DR/EC) 20 mg PO BID atenolol 50 mg tablet 50 mg PO BID Eliquis 5 mg tablet 5 mg PO BID acetaminophen [Tylenol Extra Strength] 500 mg tablet 1,000 mg PO Q6H PRN Senna Plus 8.6-50 mg capsule 1 tab-cap PO QHS PRN (Reason: constipation) Rx Instructions: Take 1 tab at bedtime. If needed, may increase to 1 tab twice per day. Hold if diarrhea. lidocaine 4 % adhesive patch,medicated 1 patch topical BID PRN (Reason: pain) Qty: 30 3RF Follow Up/Referrals: Lucius Roa MD [Primary Care Provider, Family Practice] Stand Alone Forms: MyHealth Info Instructions
--- NOTE | 2025-02-10 17:19 | CRLHL7_ITS ---
For Patients: As a result of the Century Cures Act, medical imaging exams and procedure reports are released immediately into your electronic medical record. You may view this report before your referring provider. If you have questions, please contact your health care provider. Indication: Constipation, diarrhea, rectal pain, esophageal cancer on treatment Technique: CT through the abdomen and pelvis following 85 mL Isovue 370 IV contrast Comparison: CT abdomen and pelvis performed 01/05/2025 Findings: Lower chest: Small left effusion, new from prior study. Cardiomegaly. Hepatobiliary: No significant parenchymal abnormality is appreciated. Spleen: Unremarkable. Pancreas: No acute abnormality appreciated. Adrenal glands: No acute abnormality appreciated. Kidneys: No significant parenchymal abnormality appreciated. No visualized calculi. No hydronephrosis. Bowel: No obstruction. Diverticulosis. Known gastroesophageal mass lesion, not well evaluated, potentially increased in size compared to prior examination though difficult to evaluate. The appendix is visualized and appears unremarkable. Vascular: Calcified and noncalcified atherosclerosis. Lymph nodes: No gross lymphadenopathy. Peritoneum: No free air. No free fluid. : No acute abnormality appreciated. Soft tissues: Rim enhancing lesion in the right gluteal muscle body measures 5.2 cm. This was not evident on prior examination. Bones: No acute fracture. No lytic or blastic lesion. Degenerative changes of the spine and pelvis. Impression: 1. There is a new rim enhancing lesion in the right gluteal musculature measuring 5.2 cm. Differential would include abscess, intramuscular hematoma, or intramuscular metastasis. This was not evident on 01/05/2025 CT. 2. Gastroesophageal mass lesion again noted. This is not well evaluated by this modality but may be increased in size from prior study. 3. New small left effusion. Please note that all CT scans at this facility use dose modulation, iterative reconstruction, and/or weight-based dosing when appropriate to reduce radiation dose to as low as reasonably achievable. Dictated by Issac Mckeon MD @ 02/10/2025 7:17:06 PM (Electronically Signed)
[2025-02-10] MEDS: HEPARIN 500 UNIT/5 ML SYRINGE IVF (19:59)
--- NOTE | 2025-02-10 20:09 | ED.NURSE ---
Patient and his state they do not want additional fluid bolus as their daughter is coming to pick them up. Central line was flushed with 500 u Heparin flush and needle removed.
== END 2025-02-10 20:08 | disposition home or self-care (01) ==
PROVIDERS: Emergency Provider Family Medicine; PCP Family Medicine
DX: E86.0 Dehydration (principal); K59.00 Constipation, unspecified; C15.9 Malignant neoplasm of esophagus, unspecified
CPT/HCPCS: 36415; 74019; 74177; 80048; 80076; 81001; 83605; 83690; 85025; 86140; 87086; 93005; 96360; 96361; 99284; 99285; J1642; J7030; Q9967